=== PATIENT | female | born 1940 | race Caucasian/White ===

== ENCOUNTER 2018-03-24 21:22 | Emergency (ER) | payer OTHER ==
[2018-03-24 22:01] LABS: Urine Blood 2+ (NEG); Urine Glucose NEGATIVE (NEG); Urine Protein NEGATIVE (NEG)
--- NOTE | 2018-03-24 22:06 | ER ---
Nurse's Notes [facility] Name: Yareli Beckham Age: 77 yrs Sex: Female : 1940 Arrival Date: 03/24/2018 Time: 21:24 Bed 25 Private MD: Lee Garrison Diagnosis: Acute cystitis Presentation: 03/24 21:40 Presenting complaint: Patient states: Dysuria, urinary frequency for the past 4 hours. aj1 Denies fever. Reports groin pain. Transition of care: patient was not received from another setting of care. Onset of symptoms was March 24, 2018 at 17:30. Risk Assessment: Do you want to hurt yourself or someone else? Patient reports no desire to harm self or others. Initial Sepsis Screen: Does the patient meet any 2 criteria? No. Patient's initial sepsis screen is negative. Does the patient have a suspected source of infection? Yes: Dysuria/Frequency/Urgency/UTI. Care prior to arrival: None. 21:40 Method Of Arrival: Ambulatory aj1 21:40 Acuity: ANA 4 aj1 Triage Assessment: 21:42 General: Appears in no apparent distress. uncomfortable, Behavior is calm, cooperative, aj1 appropriate for age. Pain: Complains of pain in pelvis Pain currently is 3 out of 10 on a pain scale. Neuro: Level of Consciousness is awake, alert, obeys commands. Cardiovascular: Patient's skin is warm and dry. Respiratory: Airway is patent Respiratory effort is even, unlabored, Respiratory pattern is regular, symmetrical. : Reports burning with urination, urinary frequency. Historical: - Allergies: 21:42 Augmentin; aj1 - Home Meds: 21:42 levothyroxine oral [Active]; Prilosec Oral [Active]; unknown cholesterol [Active]; aj1 - PMHx: 21:42 Hyperlipidemia; Hypothyroidism; aj1 - Immunization history:: Flu vaccine is up to date. - Social history:: Smoking status: Patient/guardian denies using tobacco. - Ebola Screening: : Patient denies travel to an Ebola-affected area in the 21 days before illness onset. Screenin:45 Abuse screen: Denies threats or abuse. Denies injuries from another. Nutritional kr2 screening: No deficits noted. Tuberculosis screening: No symptoms or risk factors identified. Fall Risk None identified. Assessment: 21:56 General: Appears in no apparent distress. comfortable, well groomed, well developed, kr2 well nourished, Behavior is calm, cooperative, appropriate for age. Pain: Complains of pain in pelvis Pain currently is 4 out of 10 on a pain scale. Quality of pain is described as burning, tender, Is continuous. Neuro: Level of Consciousness is awake, alert, obeys commands, Oriented to person, place, time, situation, Appropriate for age. Cardiovascular: Capillary refill < 3 seconds in bilateral fingers Patient's skin is warm and dry. Respiratory: Airway is patent Respiratory effort is even, unlabored, Respiratory pattern is regular, symmetrical. : Reports burning with urination, urinary frequency. : Urine is cloudy, foul odor. Derm: Skin is intact, is healthy with good turgor, Skin is pink, warm \T\ dry. Vital Signs: 21:42 BP 153 / 68; Pulse 79; Resp 18; Temp 98.0(TE); Pulse Ox 97% on R/A; Weight 62.14 kg aj1 (R); Height 5 ft. 0 in. (152.40 cm) (R); Pain 3/10; 21:42 Body Mass Index 26.76 (62.14 kg, 152.40 cm) aj1 ED Course: 21:24 Patient arrived in ED. es 21:24 Lee Garrison MD is Private Physician. es 21:41 Triage completed. aj1 21:42 Arm band placed on Patient placed in an exam room. aj1 21:44 Alecia Proctor, RN is Primary Nurse. kr2 21:45 Patient has correct armband on for positive identification. Bed in low position. Call kr2 light in reach. Side rails up X 1. Pulse ox on. NIBP on. Door closed. Head of bed elevated. 21:58 Sumeet Leroy MD is Attending Physician. ps1 22:00 Urine collected: clean catch specimen, cloudy, foul smelling. kr2 22:06 Lee Garrison MD is Referral Physician. ps1 22:11 No provider procedures requiring assistance completed. Patient did not have IV access kr2 during this emergency room visit. Administered Medications: 22:05 Drug: Pyridium 200 mg Route: PO; kr2 22:11 Follow up: Response: Medication administered at discharge. kr2 22:05 Drug: KeFLEX 500 mg Route: PO; kr2 22:11 Follow up: Response: Medication administered at discharge. kr2 Outcome: 22:06 Discharge ordered by . ps1 22:11 Discharged to home ambulatory, with family. kr2 22:11 Condition: good 22:11 Discharge instructions given to patient, family, Instructed on discharge instructions, follow up and referral plans. medication usage, Demonstrated understanding of instructions, follow-up care, medications, Prescriptions given X 2. 22:12 Patient left the ED. kr2 Signatures: Clair Sherwood, RN RN aj1 Brit Whipple Karey, RN RN kr2 Sumeet Leroy MD MD ps1
--- NOTE | 2018-03-24 22:06 | EDPHYS ---
Physician Documentation [facility] Name: Yareli Beckham Age: 77 yrs Sex: Female : 1940 Arrival Date: 03/24/2018 Time: 21:24 Bed 25 Private MD: Lee Garrison ED Physician Sumeet Leroy HPI: 03/24 22:04 This 77 yrs old Female presents to ER via Ambulatory with complaints of Pain ps1 With Urination. 22:04 onset was two days ago. Pain rated as moderate with urination. Hx of UTI in past. No ps1 fever. Otherwise USOH. . Historical: - Allergies: 21:42 Augmentin; aj1 - Home Meds: 21:42 levothyroxine oral [Active]; Prilosec Oral [Active]; unknown cholesterol [Active]; aj1 - PMHx: 21:42 Hyperlipidemia; Hypothyroidism; aj1 - Immunization history:: Flu vaccine is up to date. - Social history:: Smoking status: Patient/guardian denies using tobacco. - Ebola Screening: : Patient denies travel to an Ebola-affected area in the 21 days before illness onset. ROS: 22:04 Constitutional: Negative for fever, chills, and weight loss, Eyes: Negative for injury, ps1 pain, redness, and discharge, Cardiovascular: Negative for chest pain, palpitations, and edema, Respiratory: Negative for shortness of breath, cough, wheezing, and pleuritic chest pain, Abdomen/GI: Negative for abdominal pain, nausea, vomiting, diarrhea, and constipation, MS/Extremity: Negative for injury and deformity, Skin: Negative for injury, rash, and discoloration. 22:04 : Positive for urinary symptoms, burning with urination. Exam: 22:04 Constitutional: This is a well developed, well nourished patient who is awake, alert, ps1 and in no acute distress. Head/Face: Normocephalic, atraumatic. Eyes: Pupils equal round and reactive to light, extra-ocular motions intact. Lids and lashes normal. Conjunctiva and sclera are non-icteric and not injected. Chest/axilla: Normal chest wall appearance and motion. Nontender with no deformity. No lesions are appreciated. Cardiovascular: Regular rate and rhythm. No gallops, murmurs, or rubs. Normal PMI, no JVD. No pulse deficits. Respiratory: Lungs have equal breath sounds bilaterally, clear to auscultation and percussion. No rales, rhonchi or wheezes noted. No increased work of breathing, no retractions or nasal flaring. Abdomen/GI: Soft, non-tender, with normal bowel sounds. No distension or tympany. No guarding or rebound. No evidence of tenderness throughout. Skin: Warm, dry with normal turgor. Normal color with no rashes, no lesions, and no evidence of cellulitis. Neuro: Awake and alert, GCS 15, oriented to person, place, time, and situation. Cranial nerves II-XII grossly intact. Sensory grossly intact. Psych: Awake, alert, with orientation to person, place and time. Behavior, mood, and affect are within normal limits. Vital Signs: 21:42 BP 153 / 68; Pulse 79; Resp 18; Temp 98.0(TE); Pulse Ox 97% on R/A; Weight 62.14 kg aj1 (R); Height 5 ft. 0 in. (152.40 cm) (R); Pain 3/10; 21:42 Body Mass Index 26.76 (62.14 kg, 152.40 cm) aj1 MDM: 22:04 Data reviewed: vital signs, nurses notes, lab test result(s), and as a result, I will ps1 discharge patient, administer antibiotics. Counseling: I had a detailed discussion with the patient and/or guardian regarding: the historical points, exam findings, and any diagnostic results supporting the discharge/admit diagnosis, the need for outpatient follow up. 22:06 Patient medically screened. ps1 03/24 21:55 Order name: Urine Microscopic Only mg2 03/24 21:56 Order name: Urine Dipstick--Ancillary (enter results); Complete Time: 22:08 rg2 03/24 21:56 Order name: Urine Culture rg2 Administered Medications: 22:05 Drug: Pyridium 200 mg Route: PO; kr2 22:11 Follow up: Response: Medication administered at discharge. kr2 22:05 Drug: KeFLEX 500 mg Route: PO; kr2 22:11 Follow up: Response: Medication administered at discharge. kr2 Disposition: 03/24/18 22:06 Discharged to Home. Impression: Acute cystitis. - Condition is Stable. - Discharge Instructions: Urinary Tract Infection, Adult. - Prescriptions for Keflex 500 mg Oral Capsule - take 1 capsule by ORAL route every 8 hours for 7 days; 21 capsule. Pyridium 200 mg Oral Tablet - take 1 tablet by ORAL route every 8 hours for 3 days; 9 tablet. - Medication Reconciliation Form, Thank You Letter, Antibiotic Education, Prescription Opioid Use form. - Follow up: Lee Garrison MD; When: As needed; Reason: Recheck today's complaints, Continuance of care, Re-evaluation by your physician. Follow up: Emergency Department; When: As needed; Reason: Fever > 102 F. - Problem is new. - Symptoms are unchanged. Signatures: Dispatcher [employer] EDMS Clair Sherwood RN RN aj1 Alecai Proctor RN RN kr2 Sumeet Leroy MD MD ps1 Corrections: (The following items were deleted from the chart) 22:12 22:06 03/24/2018 22:06 Discharged to Home. Impression: Acute cystitis. Condition is kr2 Stable. Forms are Medication Reconciliation Form, Thank You Letter, Antibiotic Education, Prescription Opioid Use. Follow up: Lee Garrison; When: As needed; Reason: Recheck today's complaints, Continuance of care, Re-evaluation by your physician. Follow up: Emergency Department; When: As needed; Reason: Fever > 102 F. Problem is new. Symptoms are unchanged. ps1
[2018-03-24] MEDS ORDERED: CEPHALEXIN 250 MG CAP ONE (22:09)
[2018-03-24] MEDS ORDERED: PHENAZOPYRIDINE 100MG TAB PO ONE (22:09)
[2018-03-24 22:17] VITALS: BP 153/68; TEMP 98; O2SAT 97
[2018-03-24 22:21] LABS: Urine Bacteria >50 /HPF (<20); Urine Culture Reflex Order REFLEXED
== END 2018-03-24 22:12 | disposition home or self-care (01) ==
LOC: ER 21:22
DX: N30.00 Acute cystitis without hematuria (principal); E03.9 Hypothyroidism, unspecified; E78.5 Hyperlipidemia, unspecified; Z88.1 Allergy status to other antibiotic agents
CPT/HCPCS: 81003; 81015; 87077; 87086; 87088; 87186; 99284

== ENCOUNTER 2018-04-01 03:25 | Emergency (ER) | payer OTHER ==
--- NOTE | 2018-04-01 04:13 | ER ---
Nurse's Notes [facility] Name: Yareli Beckham Age: 77 yrs Sex: Female : 1940 Arrival Date: 04/01/2018 Time: 03:26 Bed 5 Private MD: Diagnosis: Allergy status to other drugs, medicaments and biological substances status Presentation: 04/01 03:35 Presenting complaint: Patient states: she is having an allergic reaction starting at bb approx 1930 last night she took Benadryl twice the last time at 0230 pt has rash on abdomen, back, legs which is itchy. Transition of care: patient was not received from another setting of care. Onset: The symptoms/episode began/occurred gradually. Anaphylaxis evaluation, no signs or symptoms of anaphylaxis were noted. Onset of symptoms was March 31, 2018 at 19:30. Risk Assessment: Do you want to hurt yourself or someone else? Patient reports no desire to harm self or others. Initial Sepsis Screen: Does the patient meet any 2 criteria? No. Patient's initial sepsis screen is negative. Does the patient have a suspected source of infection? No. Patient's initial sepsis screen is negative. Care prior to arrival: None. 03:35 Method Of Arrival: Ambulatory bb 03:35 Acuity: ANA 4 bb Historical: - Allergies: 03:41 Augmentin; bb 03:41 Pollen; bb - Home Meds: 03:41 levothyroxine 75 mcg oral tab 1 tab once daily [Active]; Ranitidine Oral 2 times per bb day [Active]; misalamin 1.2 gm 2 tablets daily [Active]; Potassium Chloride Oral once daily [Active]; Ocuvite oral oral [Active]; Vitamin D3 oral oral [Active]; Acidophilus Oral [Active]; - PMHx: 03:41 Hyperlipidemia; Hypothyroidism; bb - PSHx: 03:41 Tonsillectomy; heel surgery; bb - Immunization history:: Adult Immunizations up to date. - Social history:: Smoking status: Patient/guardian denies using tobacco, Patient uses alcohol, but reports only rare drinking. Patient/guardian denies using street drugs. - Ebola Screening: : No symptoms or risks identified at this time. - Family history:: not pertinent. Screenin:33 Abuse screen: Denies threats or abuse. Nutritional screening: No deficits noted. tl2 Tuberculosis screening: No symptoms or risk factors identified. Fall Risk None identified. Assessment: 03:33 General: Appears in no apparent distress. uncomfortable, Behavior is calm, cooperative, tl2 appropriate for age. Pain: Denies pain. Neuro: Level of Consciousness is awake, alert, obeys commands, Oriented to person, place, time, situation. Cardiovascular: Denies chest pain. Respiratory: Airway is patent Respiratory effort is even, unlabored. GI: No signs and/or symptoms were reported involving the gastrointestinal system. : No signs and/or symptoms were reported regarding the genitourinary system. Derm: Skin is pink, warm \T\ dry. Rash noted that is itchy, red, raised, urticaria, on back, abdomen, right leg and left leg. 04:29 Reassessment: Patient appears in no apparent distress at this time. Patient and/or tl2 family updated on plan of care and expected duration. Pain level reassessed. Patient is alert, oriented x 3, equal unlabored respirations, skin warm/dry/pink. Pt verbalized understanding of discharge instructions, need for follow up and prescription usage. Vital Signs: 03:41 BP 159 / 64; Pulse 65; Resp 16 S; Temp 98.1(O); Pulse Ox 95% on R/A; Weight 61.69 kg bb (R); Height 5 ft. 0 in. (152.40 cm) (R); Pain 0/10; 04:29 BP 140 / 68; Pulse 67; Resp 18; Pulse Ox 96% on R/A; tl2 03:41 Body Mass Index 26.56 (61.69 kg, 152.40 cm) ED Course: 03:26 Patient arrived in ED. ds1 03:33 Carmina Wynn, RN is Primary Nurse. tl2 03:33 Patient has correct armband on for positive identification. Bed in low position. Call tl2 light in reach. Side rails up X 1. Adult w/ patient. 03:37 Triage completed. bb 03:41 Arm band placed on Patient placed in an exam room, on a stretcher, on pulse oximetry. bb Family accompanied patient. 03:49 Aravind Connor MD is Attending Physician. [facility] 04:29 No provider procedures requiring assistance completed. Patient did not have IV access tl2 during this emergency room visit. Administered Medications: 04:22 Drug: Pepcid 40 mg Route: PO; tl2 04:31 Follow up: Response: No adverse reaction; Medication administered at discharge. tl2 04:22 Drug: Benadryl 25 mg Route: PO; tl2 04:31 Follow up: Response: No adverse reaction; Medication administered at discharge. tl2 04:22 Drug: predniSONE 40 mg Route: PO; tl2 04:31 Follow up: Response: No adverse reaction; Medication administered at discharge. tl2 Outcome: 04:12 Discharge ordered by MD. welch 04:29 Discharged to home ambulatory, with family. tl2 04:29 Condition: stable 04:29 Discharge instructions given to patient, family, Instructed on discharge instructions, follow up and referral plans. medication usage, Demonstrated understanding of instructions, follow-up care, medications, Prescriptions given X 3. 04:31 Patient left the ED. tl2 Signatures: Aravind Connor MD MD cha Sanford, Demi ds1 Shahana Rosales RN RN bb Carmina Wynn RN RN tl2
--- NOTE | 2018-04-01 04:13 | EDPHYS ---
Physician Documentation [facility] Name: Yareli Beckham Age: 77 yrs Sex: Female : 1940 Arrival Date: 04/01/2018 Time: 03:26 Bed 5 Private MD: ED Physician Aravind Connor HPI: 04/01 04:07 This 77 yrs old Female presents to ER via Ambulatory with complaints of yuri Allergic Reaction. 04:07 The patient presents with rash, that is diffuse. Onset: The symptoms/episode yuri began/occurred 2 day(s) ago. Associated signs and symptoms: The patient has no apparent associated signs or symptoms. Possible causes: antibiotics, cephalosporin. At home the patient or guardian has treated the symptoms with nothing. Severity of symptoms: At their worst the symptoms were mild in the emergency department the symptoms are unchanged. The patient has not experienced similar symptoms in the past. Historical: - Allergies: 03:41 Augmentin; bb 03:41 Pollen; bb - Home Meds: 03:41 levothyroxine 75 mcg oral tab 1 tab once daily [Active]; Ranitidine Oral 2 times per bb day [Active]; misalamin 1.2 gm 2 tablets daily [Active]; Potassium Chloride Oral once daily [Active]; Ocuvite oral oral [Active]; Vitamin D3 oral oral [Active]; Acidophilus Oral [Active]; - PMHx: 03:41 Hyperlipidemia; Hypothyroidism; bb - PSHx: 03:41 Tonsillectomy; heel surgery; bb - Immunization history:: Adult Immunizations up to date. - Social history:: Smoking status: Patient/guardian denies using tobacco, Patient uses alcohol, but reports only rare drinking. Patient/guardian denies using street drugs. - Ebola Screening: : No symptoms or risks identified at this time. - Family history:: not pertinent. ROS: 04:07 Constitutional: Negative for fever, chills, and weight loss, Eyes: Negative for injury, yuri pain, redness, and discharge, ENT: Negative for injury, pain, and discharge, Neck: Negative for injury, pain, and swelling, Cardiovascular: Negative for chest pain, palpitations, and edema, Respiratory: Negative for shortness of breath, cough, wheezing, and pleuritic chest pain, Abdomen/GI: Negative for abdominal pain, nausea, vomiting, diarrhea, and constipation, Back: Negative for injury and pain, : Negative for injury, bleeding, discharge, and swelling, MS/Extremity: Negative for injury and deformity, Neuro: Negative for headache, weakness, numbness, tingling, and seizure, Psych: Negative for depression, anxiety, suicide ideation, homicidal ideation, and hallucinations, Allergy/Immunology: Negative for hives, rash, and allergies, Endocrine: Negative for neck swelling, polydipsia, polyuria, polyphagia, and marked weight changes, Hematologic/Lymphatic: Negative for swollen nodes, abnormal bleeding, and unusual bruising. 04:07 Skin: Positive for rash, diffusely. Exam: 04:07 Constitutional: This is a well developed, well nourished patient who is awake, alert, yuri and in no acute distress. Head/Face: Normocephalic, atraumatic. Eyes: Pupils equal round and reactive to light, extra-ocular motions intact. Lids and lashes normal. Conjunctiva and sclera are non-icteric and not injected. Cornea within normal limits. Periorbital areas with no swelling, redness, or edema. ENT: Nares patent. No nasal discharge, no septal abnormalities noted. Tympanic membranes are normal and external auditory canals are clear. Oropharynx with no redness, swelling, or masses, exudates, or evidence of obstruction, uvula midline. Mucous membranes moist. Neck: Trachea midline, no thyromegaly or masses palpated, and no cervical lymphadenopathy. Supple, full range of motion without nuchal rigidity, or vertebral point tenderness. No Meningismus. Chest/axilla: Normal chest wall appearance and motion. Nontender with no deformity. No lesions are appreciated. Cardiovascular: Regular rate and rhythm with a normal S1 and S2. No gallops, murmurs, or rubs. Normal PMI, no JVD. No pulse deficits. Respiratory: Lungs have equal breath sounds bilaterally, clear to auscultation and percussion. No rales, rhonchi or wheezes noted. No increased work of breathing, no retractions or nasal flaring. Abdomen/GI: Soft, non-tender, with normal bowel sounds. No distension or tympany. No guarding or rebound. No evidence of tenderness throughout. Back: No spinal tenderness. No costovertebral tenderness. Full range of motion. MS/ Extremity: Pulses equal, no cyanosis. Neurovascular intact. Full, normal range of motion. Neuro: Awake and alert, GCS 15, oriented to person, place, time, and situation. Cranial nerves II-XII grossly intact. Motor strength 5/5 in all extremities. Sensory grossly intact. Cerebellar exam normal. Normal gait. Psych: Awake, alert, with orientation to person, place and time. Behavior, mood, and affect are within normal limits. 04:07 Skin: rash can be described as erythematous, nonspecific. Vital Signs: 03:41 BP 159 / 64; Pulse 65; Resp 16 S; Temp 98.1(O); Pulse Ox 95% on R/A; Weight 61.69 kg bb (R); Height 5 ft. 0 in. (152.40 cm) (R); Pain 0/10; 04:29 BP 140 / 68; Pulse 67; Resp 18; Pulse Ox 96% on R/A; tl2 03:41 Body Mass Index 26.56 (61.69 kg, 152.40 cm) bb MDM: 03:49 Patient medically screened. yuri Administered Medications: 04:22 Drug: Pepcid 40 mg Route: PO; tl2 04:31 Follow up: Response: No adverse reaction; Medication administered at discharge. tl2 04:22 Drug: Benadryl 25 mg Route: PO; tl2 04:31 Follow up: Response: No adverse reaction; Medication administered at discharge. tl2 04:22 Drug: predniSONE 40 mg Route: PO; tl2 04:31 Follow up: Response: No adverse reaction; Medication administered at discharge. tl2 Disposition: 04/01/18 04:12 Discharged to Home. Impression: Allergy status to other drugs, medicaments and biological substances status. - Condition is Stable. - Discharge Instructions: Allergies, Adult, Allergies, [id number]. - Prescriptions for Benadryl 25 mg Oral Capsule - take 1 capsule by ORAL route every 6 hours As needed; 30 tablet. Pepcid 20 mg Oral Tablet - take 1 tablet by ORAL route every 12 hours for 10 days; 20 tablet. Prednisone 20 mg Oral Tablet - take 2 tablet by ORAL route once daily for 5 days; 10 tablet. - Medication Reconciliation Form, Thank You Letter, Antibiotic Education, Prescription Opioid Use form. - Follow up: Private Physician; When: 2 - 3 days; Reason: Recheck today's complaints, Continuance of care, Re-evaluation by your physician. - Problem is new. - Symptoms have improved. Signatures: Aravind Connor MD MD cha Ballard, Brenda, RN RN Carmina Temple, RN RN tl2 Corrections: (The following items were deleted from the chart) 04:31 04:12 04/01/2018 04:12 Discharged to Home. Impression: Allergy status to other drugs, tl2 medicaments and biological substances status. Condition is Stable. Forms are Medication Reconciliation Form, Thank You Letter, Antibiotic Education, Prescription Opioid Use. Follow up: Private Physician; When: 2 - 3 days; Reason: Recheck today's complaints, Continuance of care, Re-evaluation by your physician. Problem is new. Symptoms have improved. yuri
[2018-04-01] MEDS ORDERED: FAMOTIDINE 20 MG TAB ONE (04:19)
[2018-04-01] MEDS ORDERED: predniSONE 20 MG TAB ONE (04:19)
[2018-04-01] MEDS ORDERED: DIPHENHYDRAMINE 25 MG TAB/CAP ONE (04:19)
[2018-04-01 04:42] VITALS: BP 140/68; O2SAT 96
[2018-04-01 04:43] VITALS: TEMP 98.1
== END 2018-04-01 04:31 | disposition home or self-care (01) ==
LOC: ER 03:25
DX: R21 Rash and other nonspecific skin eruption (principal); Z88.8 Allergy status to other drugs, medicaments and biological substances; I10 Essential (primary) hypertension; E03.9 Hypothyroidism, unspecified; Z88.1 Allergy status to other antibiotic agents; Z91.048 Other nonmedicinal substance allergy status
CPT/HCPCS: 99283; J7512

== ENCOUNTER → 2019-02-07 | Day surgery (SDC) | payer OTHER ==
--- NOTE | 2019-02-07 11:34 | RAD REPORT ---
EXAM DESCRIPTION: US - BREAST/AXILLA, LIMITED - 02/07/2019 10:27 am CLINICAL HISTORY: Suspicious right breast mass pending biopsy COMPARISON: Sonography and mammography February 05, 2019 FINDINGS: Patient presented for ultrasound-guided core biopsy of a 10 mm hypoechoic mass in the lowe r outer quadrant right breast. Preliminary imaging again identified the mass measuring 10 mm in the lower outer quadrant right breas t. Posterior acoustic shadowing was present. The mass abutted the chest wall. Based on the positionin g and amount of breast tissue, it was not felt that the mass could be safely biopsied with the core b iopsy needle without placing the patient at risk for pectoralis muscle or chest wall injury. IMPRESSION: A 10 millimeter lower outer quadrant right breast mass was seen but was too closely appr oximated to the chest wall to allow safe ultrasound-guided core biopsy. Recommendation for the patient would be to undergo surgical excisional biopsy of the suspicious mass. Ultrasound-guided needle localization can be safely performed. Today's findings and recommendations were discussed at length with the patient. Patient was agreeable to this plan.
== END ==
LOC: DS 09:05
PROVIDERS: ATTEND Family Medicine
DX: N63.0 Unspecified lump in unspecified breast (principal)
CPT/HCPCS: 76642

== ENCOUNTER 2019-04-11 08:09 | Day surgery (SDC) | payer OTHER ==
[2019-04-10 11:33] LABS: Basophils % 0.3 % (0-1.3); Hematocrit 38.8 % (36.0-45.0); Lymphocytes % 30.3 % (15.3-44.8); MPV 9.3 fL (7.6-11.3); RBC Red Blood Cell Count 4.01 M/uL (3.86-4.86)
--- NOTE | 2019-04-10 11:48 | RAD REPORT ---
EXAM DESCRIPTION: RAD - Chest Pa And Lat (2 Views) - 04/10/2019 11:42 am CLINICAL HISTORY: preop Chest pain. COMPARISON: CHEST SINGLE VIEW dated 01/14/2014; CHEST SINGLE VIEW dated 11/26/2012; CHEST PA AND LAT 2 VIEW dated 07/06/2010; CHEST PA AND LAT 2 VIEW dated 05/04/2010 FINDINGS: The lungs are clear. The heart is normal in size. No displaced fractures. IMPRESSION: No acute or concerning finding suspected.
[2019-04-10 11:51] LABS: Potassium 4.1 mmol/L (3.5-5.1)
[2019-04-11] MEDS ORDERED: Ringers Lactate 1,000 ML IV ONE (08:15)
[2019-04-11] MEDS ORDERED: FENTANYL CITR 100 MCG/2 ML ONE (08:54)
[2019-04-11] MEDS ORDERED: LIDOCAINE 2% MPF 5 ML VIAL ONE (08:54)
[2019-04-11] MEDS ORDERED: PROPOFOL 200 MG/20 ML VIAL IV ONE (08:54)
[2019-04-11] MEDS ORDERED: ONDANSETRON 4 MG/2 ML VIAL ONE (08:56)
[2019-04-11] MEDS: CIPROFLOXACIN 400mg IV 400 MG/200 ML BAG IV ONE ×2 (09:40→09:45)
--- NOTE | 2019-04-11 10:20 | P.BOP ---
Preoperative diagnosis: right breast mass Postoperative diagnosis: same Primary procedure: Right breast lumpectomy needle localized Kiln Setter: Cuca Nelson (Dylan) Estimated blood loss: <10cc Specimen: mass Findings: mass within the specimen by taniya Asencio intact Anesthesia: General Complications: None Transferred to: Recovery Room Condition: Good
--- NOTE | 2019-04-11 10:32 | RAD REPORT ---
EXAM DESCRIPTION: US - Brst,Preop NL Wire Init w/Guid - 04/11/2019 9:20 am CLINICAL HISTORY: NL Right breast mass, preoperative wire localization for surgical excision COMPARISON: BREAST/AXILLA, LIMITED dated 02/07/2019 FINDINGS: Preoperative diagnosis: Right breast mass. Post operative diagnosis: Same. Conscious Sedation: None Fluoroscopy time: None Contrast used: None Estimated blood loss: Minimal Specimens:Specimen ultrasound shows the mass to be within the surgical specimen. The right breast was prepped and draped in the usual sterile fashion. 1% lidocaine was infiltrated in to the subcutaneous tissues for local anesthesia. Real time ultrasound scanning of the deep right marvin ast demonstrated 1 cm hypoechoic mass. Under ultrasound guidance, using a [employer] preoperative wire loca lization device, wire localization was performed of the mass. There were no complications. Patient wa s transferred to the operating room for surgery. Details were discussed Dr. Buckner. Surgical specim en was submitted to ultrasound following excision which showed a mass within the specimen. IMPRESSION: Successful ultrasound-guided right breast mass wire localization for surgical excision.
--- NOTE | 2019-04-11 10:43 | RAD REPORT ---
EXAM DESCRIPTION: US - Surgical Specimen - 04/11/2019 10:23 am CLINICAL HISTORY: NEEDLE LOC COMPARISON: Brst,Preop NL Wire Init w/Guid dated 04/11/2019 FINDINGS: Preoperative diagnosis: Right breast mass . Post operative diagnosis: Same. Conscious Sedation: None Fluoroscopy time: None Contrast used: None Estimated blood loss: Minimal Specimens: Specimen ultrasound shows the mass to be within the surgical specimen. The right breast was prepped and draped in the usual sterile fashion. 1% lidocaine was infiltrated in to the subcutaneous tissues for local anesthesia. Real time ultrasound scanning of the deep right marvin ast demonstrated 1 cm hypoechoic mass . Under ultrasound guidance, using a [employer] preoperative wire loc alization device, wire localization was performed of the mass. There were no complications. Patient w as transferred to the operating room for surgery. Details were discussed Dr. Buckner. Surgical speci men was submitted to ultrasound following excision which showed a mass within the specimen. IMPRESSION: Successful ultrasound-guided right breast mass wire localization for surgical excision.
[2019-04-11 10:57] VITALS: O2SAT 100
[2019-04-11 11:32] VITALS: BP 143/57; TEMP 97.3
[2019-04-11] MEDS ORDERED: CODEINE 30MG/APAP 300MG TAB ONE (11:43)
--- NOTE | 2019-04-11 21:11 | OP ---
Date of Procedure: 04/11/2019 Surgeon: Morteza Buckner MD Event Coordinator Marketing And Sales: Cuca Monk. Preoperative Diagnosis: Right breast mass. Postoperative Diagnosis: Right breast mass. Procedures: Right breast lumpectomy, needle localized through Dr. Buckner. Specimens: Deep mass. Findings: A mass within the specimen by Dr. Piña, wire intact. Anesthesia: General. Complications: None. Indications: This is a case of an 78-year-old patient with right breast mass deep in the breast. Th ey could not do the core biopsy as per radiologist today and it is for them to do, so they asked me t o remove that surgically. This morning she went to Radiology Department to have localization with wi re of the area. The benefits and risks of right breast lumpectomy were fully explained to the patien t, which include, but are not limited to infection, bleeding, damage to adjacent structures, anesthes ia complication, TN, and even . She also understands this may not relieve any symptoms. She mi ght need more than one surgical intervention. She understood, signed a consent. Patient had a wire localization this morning brought from there to here without any torsion of the wire to make sure it was in the sludge. Description Of Procedure: Patient was brought to the operating room, placed in supine position. Ane sthesia was done without complication. Breast was prepped and draped in a sterile fashion. Marcaine 0.5% was injected for local anesthetic. Incision was made on the breast after timing out. Once inc ision was in the subcutaneous tissue, we put an Allis to secure the breast tissue to the wire. Then we proceeded to remove the area. This mass was deep, so we went all the way down to fascia of the mu scle. Fascia does not seem to be involved. Area was irrigated. Mass was completely excised and sen t to the radiologist who confirmed the lesion within the specimen and intact wire. Area was irrigate d. Hemostasis was obtained and the area was closed with 3-0 chromic and then 4-0 PDS. Sponge count and instrument counts were correct. Patient tolerated the procedure well. Patient was sent to [facility] in stable condition. Disposition: Home. Activity: As tolerated. No heavy lifting. Followup: Follow up in my office in 1 week, call for appointment on [phone]. Keep the area dry for 48 hours, then may shower. Keep Steri-Strips intact. Medications: See orders. Patient advised to use breast support. HAILE/SURINDER Voice ID: [id number] Report ID: [id number]
== END 2019-04-11 12:14 | disposition home or self-care (01) ==
LOC: OR 08:09
PROVIDERS: ATTEND Surgery
PROC: 0HBT0ZZ Excision of Right Breast, Open Approach (ICD-10-PCS; principal; 2019-04-11 10:15)
DX: C50.511 Malignant neoplasm of lower-outer quadrant of right female breast (principal); E07.9 Disorder of thyroid, unspecified; Z17.1 Estrogen receptor negative status [ER-]; K21.9 Gastro-esophageal reflux disease without esophagitis; Z88.0 Allergy status to penicillin; Z82.49 Family history of ischemic heart disease and other diseases of the circulatory system
CPT/HCPCS: 19301; 85025; 80048; 36415; 88307; 71046; 76098; 19285; J2704; J3010; J7120; J2405; J0744

== ENCOUNTER 2019-10-27 18:19 | Emergency (ER) | payer OTHER ==
[2019-10-27 19:14] LABS: Absolute Lymphocytes (CBC) 1.7 K/uL (0.7-4.9); Basophils % 1.2 % (0-1.3); Hematocrit 29.9 % (36.0-45.0); Lymphocytes % 21.3 % (15.3-44.8); MPV 8.6 fL (7.6-11.3); RBC Red Blood Cell Count 2.99 M/uL (3.86-4.86)
[2019-10-27 19:33] LABS: Albumin 3.1 g/dL (3.4-5.0); Bilirubin Total 0.3 mg/dL (0.2-1.0); Potassium 3.6 mmol/L (3.5-5.1); Protein, Total 6.8 g/dL (6.4-8.2)
--- NOTE | 2019-10-27 19:35 | ER ---
Nurse's Notes [facility] Name: Yareli Beckham Age: 78 yrs Sex: Female : 1940 Arrival Date: 10/27/2019 Time: 18:21 Bed 15 Private MD: Lee Garrison Diagnosis: Epistaxis;Fever, unspecified;Acute sinusitis;Anemia, unspecified Presentation: 10/26 18:39 Chief complaint: Patient states: Nasal congestion for 4 weeks. Uses saline, but mucous ll1 is slightly bloody now. Can't get her usual allergy shot due to chemo treatments. Coronavirus screen: Proceed with normal triage. Patient denies a cough. Patient denies shortness of breath or difficulty breathing. Patient denies measured and/or subjective temperature greater than 100.4F prior to today's visit. Patient denies travel on a cruise ship or to a country the [facility] currently lists as an affected area. Patient denies contact with known and/or suspected case of COVID-19. Ebola Screen: Patient denies travel to an Ebola-affected area in the 21 days before illness onset. Initial Sepsis Screen: Does the patient meet any 2 criteria? HR > 90 bpm. No. Patient's initial sepsis screen is negative. Does the patient have a suspected source of infection? No. Patient's initial sepsis screen is negative. Risk Assessment: Do you want to hurt yourself or someone else? Patient reports no desire to harm self or others. Onset of symptoms was September 26, 2019. 18:39 Method Of Arrival: Ambulatory ll1 18:39 Acuity: ANA 3 ll1 Triage Assessment: 18:45 General: Appears in no apparent distress. comfortable, Behavior is calm, cooperative, vc appropriate for age. Pain: Denies pain. EENT: Nares with bleeding noted Reports nasal congestion nose bleed. Neuro: Level of Consciousness is awake, alert, obeys commands, Oriented to person, place, time, situation, Appropriate for age. Cardiovascular: Capillary refill < 3 seconds Patient's skin is warm and dry. Respiratory: Airway is patent Respiratory effort is even, unlabored, Respiratory pattern is regular, symmetrical. GI: No signs and/or symptoms were reported involving the gastrointestinal system. : No signs and/or symptoms were reported regarding the genitourinary system. Derm: Skin is intact, Skin temperature is warm. Historical: - Allergies: 18:42 Augmentin; ll1 18:42 Pollen; ll1 18:42 PENICILLINS; ll1 - PMHx: 18:42 Hyperlipidemia; Hypothyroidism; breast CA; ll1 - PSHx: 18:42 Tonsillectomy; ll1 - Immunization history:: Adult Immunizations up to date. - Social history:: Patient/guardian denies using alcohol, street drugs, tobacco products, Smoking status: Patient denies any tobacco usage or history of. - Family history:: not pertinent. Screenin:45 Abuse screen: Denies threats or abuse. Nutritional screening: No deficits noted. vc Tuberculosis screening: No symptoms or risk factors identified. Fall Risk None identified. Assessment: 18:45 Reassessment: See triage for assessment. vc 19:45 Reassessment: Patient appears in no apparent distress at this time. Patient and/or vc family updated on plan of care and expected duration. Pain level reassessed. Patient states symptoms have improved. 20:45 Reassessment: Patient appears in no apparent distress at this time. Patient and/or vc family updated on plan of care and expected duration. Pain level reassessed. Patient states symptoms have improved. 20:45 Neuro: Level of Consciousness is awake, alert, obeys commands, Oriented to person, vc place, time, situation. Vital Signs: 18:39 BP 133 / 61; Pulse 102; Resp 17; Temp 99.4; Pulse Ox 99% ; Pain 0/10; ll1 19:45 BP 128 / 54; Pulse 95; Resp 18; Pulse Ox 100% on R/A; vc 20:45 BP 122 / 50; Pulse 87; Resp 18; Temp 98.9(O); Pulse Ox 100% on R/A; vc ED Course: 18:21 Patient arrived in ED. am2 18:21 Lee Garrison MD is Private Physician. am2 18:33 Aravind Connor MD is Attending Physician. yuri 18:41 Triage completed. ll1 18:42 Arm band placed on Patient placed in an exam room, on a stretcher. ll1 18:56 Kirstie Velasquez, SHIRLEY is Primary Nurse. vc 19:35 Lee Garrison MD is Referral Physician. yuri 19:35 Susie Leonardo MD is Referral Physician. yuri 20:19 Chest Single View XRAY In Process Unspecified. EDMS 21:10 No provider procedures requiring assistance completed. IV discontinued, intact, vc bleeding controlled, No redness/swelling at site. Pressure dressing applied. 21:45 Patient has correct armband on for positive identification. Bed in low position. Call vc light in reach. Side rails up X2. Pulse ox on. NIBP on. Administered Medications: 19:35 Drug: NS 0.9% 500 ml Route: IV; Rate: bolus; Site: right antecubital; vc 20:15 Follow up: IV Status: Completed infusion; IV Intake: 500ml vc 19:35 Drug: Tylenol 650 mg Route: PO; vc 20:30 Follow up: Response: No adverse reaction vc 19:35 Drug: Rocephin 1 grams Route: IV; Rate: per protocol; Site: right antecubital; vc 19:35 Drug: levofloxacin 500 mg Volume: 100 ml; Route: IVPB; Infused Over: 60 mins; Site: vc right antecubital; 19:58 Drug: Neosporin Ointment 1 application Route: Topical; Site: affected area; vc Intake: 20:15 IV: 500ml; Total: 500ml. vc Outcome: 19:35 Discharge ordered by . yuri 21:10 Discharged to home ambulatory. vc 21:10 Condition: good 21:10 Discharge instructions given to patient, Instructed on discharge instructions, follow up and referral plans. medication usage, Demonstrated understanding of instructions, follow-up care, medications, Prescriptions given X 2. 21:13 Patient left the ED. Signatures: Dispatcher [employer] EDKY Aravind Connor MD MD cha Moreno, Amanda am2 Kirstie Velasquez RN Alejandra Yost vc RN SHIRLEY Delbert Keenan RN RN ll1 Corrections: (The following items were deleted from the chart) 19:27 18:39 Acuity: ANA 4 ll1 ll1
[2019-10-27] MEDS ORDERED: ACETAMINOPHEN 325 MG TABLET ONE (19:36)
--- NOTE | 2019-10-27 19:36 | EDPHYS ---
Physician Documentation [facility] Name: Yareli Beckham Age: 78 yrs Sex: Female : 1940 Arrival Date: 10/27/2019 Time: 18:21 Bed 15 Private MD: Lee Garrison ED Physician Aravind Connor HPI: 10/26 18:50 This 78 yrs old Female presents to ER via Ambulatory with complaints of yuri Fever, Sinus Congestion. 18:50 The patient reports fever, that was measured at 100 degrees Fahrenheit. Onset: The yuri symptoms/episode began/occurred 2 day(s) ago. Modifying factors: there are no obvious modifying factors. Associated signs and symptoms: Pertinent positives: runny nose, sinus congestion, blood in mucus. Severity of symptoms: At their worst the symptoms were mild in the emergency department the symptoms are unchanged. The patient has not experienced similar symptoms in the past. Historical: - Allergies: 18:42 Augmentin; ll1 18:42 Pollen; ll1 18:42 PENICILLINS; ll1 - PMHx: 18:42 Hyperlipidemia; Hypothyroidism; breast CA; ll1 - PSHx: 18:42 Tonsillectomy; ll1 - Immunization history:: Adult Immunizations up to date. - Social history:: Patient/guardian denies using alcohol, street drugs, tobacco products, Smoking status: Patient denies any tobacco usage or history of. - Family history:: not pertinent. ROS: 18:50 Eyes: Negative for injury, pain, redness, and discharge, Neck: Negative for injury, yuri pain, and swelling, Cardiovascular: Negative for chest pain, palpitations, and edema, Respiratory: Negative for shortness of breath, cough, wheezing, and pleuritic chest pain, Abdomen/GI: Negative for abdominal pain, nausea, vomiting, diarrhea, and constipation, Back: Negative for injury and pain, : Negative for injury, bleeding, discharge, and swelling, MS/Extremity: Negative for injury and deformity, Skin: Negative for injury, rash, and discoloration, Neuro: Negative for headache, weakness, numbness, tingling, and seizure, Psych: Negative for depression, anxiety, suicide ideation, homicidal ideation, and hallucinations, Allergy/Immunology: Negative for hives, rash, and allergies, Endocrine: Negative for neck swelling, polydipsia, polyuria, polyphagia, and marked weight changes, Hematologic/Lymphatic: Negative for swollen nodes, abnormal bleeding, and unusual bruising. 18:50 Constitutional: Positive for fever. 18:50 ENT: Positive for nose bleed, rhinorrhea, sinus congestion. Exam: 18:50 Constitutional: This is a well developed, well nourished patient who is awake, alert, yuri and in no acute distress. Head/Face: Normocephalic, atraumatic. Eyes: Pupils equal round and reactive to light, extra-ocular motions intact. Lids and lashes normal. Conjunctiva and sclera are non-icteric and not injected. Cornea within normal limits. Periorbital areas with no swelling, redness, or edema. Neck: Trachea midline, no thyromegaly or masses palpated, and no cervical lymphadenopathy. Supple, full range of motion without nuchal rigidity, or vertebral point tenderness. No Meningismus. Chest/axilla: Normal chest wall appearance and motion. Nontender with no deformity. No lesions are appreciated. Cardiovascular: Regular rate and rhythm with a normal S1 and S2. No gallops, murmurs, or rubs. Normal PMI, no JVD. No pulse deficits. Respiratory: Lungs have equal breath sounds bilaterally, clear to auscultation and percussion. No rales, rhonchi or wheezes noted. No increased work of breathing, no retractions or nasal flaring. Abdomen/GI: Soft, non-tender, with normal bowel sounds. No distension or tympany. No guarding or rebound. No evidence of tenderness throughout. Back: No spinal tenderness. No costovertebral tenderness. Full range of motion. Skin: Warm, dry with normal turgor. Normal color with no rashes, no lesions, and no evidence of cellulitis. MS/ Extremity: Pulses equal, no cyanosis. Neurovascular intact. Full, normal range of motion. Neuro: Awake and alert, GCS 15, oriented to person, place, time, and situation. Cranial nerves II-XII grossly intact. Motor strength 5/5 in all extremities. Sensory grossly intact. Cerebellar exam normal. Normal gait. Psych: Awake, alert, with orientation to person, place and time. Behavior, mood, and affect are within normal limits. 18:50 ENT: Nose: Nasal mucosa: Dried blood. dry, erythematous, Examination of the other nostril shows no obvious abnormality, dried blood, sinus fullness, Mouth: is normal, no acute changes, Lips: normal, Oral mucosa: normal, pink and intact, moist, Gums: normal with healthy appearance, Posterior pharynx: is normal, no acute changes, Airway: normal, no evidence of obstruction, Tonsils: are normal in appearance, Uvula: normal, swelling, is not appreciated, erythema, is not appreciated. 19:35 Neck: ROM/movement: is normal, no acute changes, Meningeal signs: are not present, yuri Kernig's sign is negative, Brudzinski's sign is negative. Vital Signs: 18:39 BP 133 / 61; Pulse 102; Resp 17; Temp 99.4; Pulse Ox 99% ; Pain 0/10; ll1 19:45 BP 128 / 54; Pulse 95; Resp 18; Pulse Ox 100% on R/A; vc 20:45 BP 122 / 50; Pulse 87; Resp 18; Temp 98.9(O); Pulse Ox 100% on R/A; vc MDM: 18:33 Patient medically screened. [facility] 18:50 Data reviewed: vital signs, nurses notes, lab test result(s), radiologic studies, plain yuri films. 19:34 ED course: improved, plt nl, not neutropenic, ua and cxr nl. [facility] 10/26 18:49 Order name: CBC with Diff; Complete Time: 19:27 [facility] 10/26 18:49 Order name: Comprehensive Metabolic Panel; Complete Time: 19:34 [facility] 10/26 18:49 Order name: Blood Culture Adult (2) [facility] 10/26 18:49 Order name: Urine Culture [facility] 10/26 18:49 Order name: Chest Single View XRAY [facility] 10/26 19:28 Order name: Urine Dipstick--Ancillary (enter results); Complete Time: 20:11 mw2 10/26 18:49 Order name: Urine Dipstick-Ancillary (obtain specimen); Complete Time: 19:28 [facility] Administered Medications: 19:35 Drug: NS 0.9% 500 ml Route: IV; Rate: bolus; Site: right antecubital; vc 20:15 Follow up: IV Status: Completed infusion; IV Intake: 500ml vc 19:35 Drug: Tylenol 650 mg Route: PO; vc 20:30 Follow up: Response: No adverse reaction vc 19:35 Drug: Rocephin 1 grams Route: IV; Rate: per protocol; Site: right antecubital; vc 19:35 Drug: levofloxacin 500 mg Volume: 100 ml; Route: IVPB; Infused Over: 60 mins; Site: vc right antecubital; 19:58 Drug: Neosporin Ointment 1 application Route: Topical; Site: affected area; vc Disposition: 10/27/19 19:35 Discharged to Home. Impression: Epistaxis, Fever, unspecified, Acute sinusitis, Anemia, unspecified. - Condition is Stable. - Discharge Instructions: Nosebleed, Adult, Fever, Adult, Cool Mist Vaporizer, Nosebleed, [id number]. - Prescriptions for Levaquin 500 mg Oral Tablet - take 1 tablet by ORAL route once daily for 7 days; 7 tablet. Neosporin (candy- abbie-polym) - place 0.5 inch ribbon by INTRANASAL route 3 times per day; 3.5 gram. - Medication Reconciliation Form, Thank You Letter, Antibiotic Education, Prescription Opioid Use form. - Follow up: Lee Garrison; When: 1 - 2 days; Reason: Recheck today's complaints, Continuance of care, Re-evaluation by your physician. Follow up: Susie Rodrigues; When: 2 - 3 days; Reason: Recheck today's complaints, Re-evaluation by your physician. - Problem is new. - Symptoms have improved. Signatures: Dispatcher [employer] EDMS Aravind Connor MD MD cha Calcote, Vanessa, RN RN vc Harris, Amy, RN RN ah Lewis, Lynsay, RN RN ll1 Corrections: (The following items were deleted from the chart) 21:13 19:35 10/27/2019 19:35 Discharged to Home. Impression: Epistaxis; Fever, unspecified; ah Acute sinusitis; Anemia, unspecified. Condition is Stable. Discharge Instructions: Nosebleed, Adult, Fever, Adult, Cool Mist Vaporizer, Nosebleed, [id number]. Prescriptions for Levaquin 500 mg Oral Tablet - take 1 tablet by ORAL route once daily for 7 days; 7 tablet, Neosporin (bxy-nth-dmmts) - place 0.5 inch ribbon by INTRANASAL route 3 times per day; 3.5 gram. and Forms are Medication Reconciliation Form, Thank You Letter, Antibiotic Education, Prescription Opioid Use. Follow up: Lee Garrison; When: 1 - 2 days; Reason: Recheck today's complaints, Continuance of care, Re-evaluation by your physician. Follow up: Ssuie Rodrigues; When: 2 - 3 days; Reason: Recheck today's complaints, Re-evaluation by your physician. Problem is new. Symptoms have improved. yuri
[2019-10-27 19:37] LABS: Urine Blood NEGATIVE (NEG); Urine Glucose NEGATIVE (NEG); Urine Protein NEGATIVE (NEG); Urine Specific Gravity 1.015 (1.005-1.030)
[2019-10-27] MEDS ORDERED: CEFTRIAXONE/SWI 1gm 1 GM/10 ML SYR ONE (19:37)
[2019-10-27] MEDS ORDERED: Levofloxacin500mg IV 500 MG/100 ML BAG IV ONE (19:37)
[2019-10-27] MEDS ORDERED: NA CHLORIDE 0.9% 500 ML ONE (19:37)
--- NOTE | 2019-10-27 20:50 | RAD REPORT ---
EXAM DESCRIPTION: Kalee Single View10/27/2019 8:19 pm CLINICAL HISTORY: Fever COMPARISON: 2018 FINDINGS: The lungs appear clear of acute infiltrate. The heart is normal size IMPRESSION: No acute abnormalities displayed
[2019-10-27 21:17] VITALS: BP 133/61; TEMP 99.4; O2SAT 99
== END 2019-10-27 21:13 | disposition home or self-care (01) ==
LOC: ER 18:19
DX: R04.0 Epistaxis (principal); J01.90 Acute sinusitis, unspecified; D64.9 Anemia, unspecified; J30.1 Allergic rhinitis due to pollen; Z88.1 Allergy status to other antibiotic agents; Z88.0 Allergy status to penicillin; Z85.3 Personal history of malignant neoplasm of breast
CPT/HCPCS: 96361; 87040 ×2; 87088; 85025; 87086; 36415; 81003; 80053; 71045; 96375; 96374; 99284; J0696; J7040

== ENCOUNTER 2019-10-29 17:18 | Emergency (ER) | payer OTHER ==
--- NOTE | 2019-10-29 18:28 | EDPHYS ---
Physician Documentation [facility] Name: Yareli Beckham Age: 78 yrs Sex: Female : 1940 Arrival Date: 10/29/2019 Time: 17:20 Bed 18 Private MD: Lee Garrison ED Physician Hossein Frank HPI: 10/28 18:27 This 78 yrs old Female presents to ER via Ambulatory with complaints of pm1 Diarrhea. 18:27 The patient presents to the emergency department with diarrhea, 4 times since the onset pm1 of symptoms, onset at 1300 today, 1 hour after taking her 2nd dose of levaquin. Possible causes: antibiotics, quinolone, Levaquin. The symptoms are aggravated by nothing. The symptoms are alleviated by OTC medication, lomotil. Took at 1700. Associated signs and symptoms: Pertinent negatives: abdominal pain, fever, nausea, vomiting. Severity of symptoms: in the emergency department the symptoms have improved Pain is currently a 0 / 10. The patient has been recently seen at the [facility] Emergency Department, yesterday, Diagnosed with sinusitis. Historical: - Allergies: 17:50 Augmentin; ca1 17:50 PENICILLINS; ca1 17:50 Pollen; ca1 - PMHx: 17:50 BREAST CA; Hyperlipidemia; Hypothyroidism; ca1 - PSHx: 17:50 Tonsillectomy; ca1 - Immunization history:: Adult Immunizations up to date, Flu vaccine is up to date. - Social history:: Smoking status: Patient denies any tobacco usage or history of. ROS: 18:27 Constitutional: Negative for fever, chills, and weight loss, Cardiovascular: Negative pm1 for chest pain, palpitations, and edema, Respiratory: Negative for shortness of breath, cough, wheezing, and pleuritic chest pain. 18:27 Back: Negative for injury and pain, MS/Extremity: Negative for injury and deformity, Skin: Negative for injury, rash, and discoloration, Neuro: Negative for headache, weakness, numbness, tingling, and seizure. 18:27 Abdomen/GI: Positive for diarrhea, Negative for abdominal pain, nausea and vomiting, black/tarry stool, rectal pain, rectal bleeding. Exam: 18:27 Constitutional: This is a well developed, well nourished patient who is awake, alert, pm1 and in no acute distress. Head/Face: Normocephalic, atraumatic. Chest/axilla: Normal chest wall appearance and motion. Nontender with no deformity. No lesions are appreciated. 18:27 Abdomen/GI: Soft, non-tender, with normal bowel sounds. No distension or tympany. No guarding or rebound. No evidence of tenderness throughout. Back: No spinal tenderness. No costovertebral tenderness. Full range of motion. Skin: Warm, dry with normal turgor. Normal color with no rashes, no lesions, and no evidence of cellulitis. MS/ Extremity: Pulses equal, no cyanosis. Neurovascular intact. Full, normal range of motion. 18:27 Cardiovascular: Exam negative for acute changes, Rate: normal, Pulses: no pulse deficits are appreciated. 18:27 Respiratory: Exam negative for acute changes, respiratory distress, shortness of breath, wheezing. 18:27 Neuro: Exam negative for acute changes, Orientation: is normal, Motor: is normal, moves all fours. Vital Signs: 17:47 BP 151 / 54; Pulse 98; Resp 17 S; Temp 98.7(O); Pulse Ox 100% on R/A; Weight 58.97 kg ca1 (R); Height 5 ft. 0 in. (152.40 cm) (R); 18:34 BP 125 / 52; Pulse 88; Resp 16; Temp 98.5; Pulse Ox 100% ; bp 17:47 Body Mass Index 25.39 (58.97 kg, 152.40 cm) ca1 MDM: 17:42 Patient medically screened. pm1 18:27 Data reviewed: vital signs. Data interpreted: Pulse oximetry: on room air is 100 %. pm1 Interpretation: normal. 18:27 Counseling: I had a detailed discussion with the patient and/or guardian regarding: the pm1 historical points, exam findings, and any diagnostic results supporting the discharge/admit diagnosis, the need for outpatient follow up, to return to the emergency department if symptoms worsen or persist or if there are any questions or concerns that arise at home. 18:27 ED course: Patient without any further episodes of diarrhea while in the ER. pm1 18:27 ED course: Discussed with patient that her diarrhea was likely due to recent antibiotic pm1 therapy or viral illness. Patient was seen here yesterday and was diagnosed with sinusitis and prescribed antibiotics. Patient with rash to N. Plan is to change antibiotic to azithromycin, or she can continue to take the Levaquin with Lomotil as needed. Patient prefers to take azithromycin. Administered Medications: No medications were administered Disposition: 18:36 Co-signature as Attending Physician, Hossein Frank MD. rn Disposition: 10/29/19 18:28 Discharged to Home. Impression: Diarrhea, unspecified. - Condition is Stable. - Discharge Instructions: Food Choices to Help Relieve Diarrhea, Adult, Diarrhea, Adult. - Prescriptions for Zithromax 500 mg Oral Tablet - take 1 tablet by ORAL route once daily for 3 days; 3 tablet. - Medication Reconciliation Form, Thank You Letter, Antibiotic Education, Prescription Opioid Use form. - Follow up: Emergency Department; When: As needed; Reason: Worsening of condition. Follow up: Private Physician; When: 2 - 3 days; Reason: Recheck today's complaints, Continuance of care, Re-evaluation by your physician. - Problem is new. - Symptoms have improved. Signatures: Hossein Frank MD MD rn Bonilla Reis NP [employer] pm1 Dameon Lisa, RN RN bp Allyson Boggs RN RN ca1 Corrections: (The following items were deleted from the chart) 18:35 18:28 10/29/2019 18:28 Discharged to Home. Impression: Diarrhea, unspecified. Condition bp is Stable. Forms are Medication Reconciliation Form, Thank You Letter, Antibiotic Education, Prescription Opioid Use. Follow up: Emergency Department; When: As needed; Reason: Worsening of condition. Follow up: Private Physician; When: 2 - 3 days; Reason: Recheck today's complaints, Continuance of care, Re-evaluation by your physician. Problem is new. Symptoms have improved. pm1
--- NOTE | 2019-10-29 18:28 | ER ---
Nurse's Notes [facility] Name: Yareli Beckham Age: 78 yrs Sex: Female : 1940 Arrival Date: 10/29/2019 Time: 17:20 Bed 18 Private MD: Lee Garrison Diagnosis: Diarrhea, unspecified Presentation: 10/28 17:47 Chief complaint: Patient states: Diarrhea started this PM. Denies N/V/abdominal pain. ca1 Reports has started taking Levaquin yesterday for sinus infection. Pt also has breast Ca undergoing chemotherapy, last session was October 02. Pt c/o R shoulder blade pain since last night. Coronavirus screen: Proceed with normal triage. Patient denies a cough. Patient denies shortness of breath or difficulty breathing. Patient denies measured and/or subjective temperature greater than 100.4F prior to today's visit. Patient denies travel on a cruise ship or to a country the [facility] currently lists as an affected area. Patient denies contact with known and/or suspected case of COVID-19. Ebola Screen: Patient negative for fever greater than or equal to 101.5 degrees Fahrenheit, and additional compatible Ebola Virus Disease symptoms Patient denies exposure to infectious person. Patient denies travel to an Ebola-affected area in the 21 days before illness onset. No symptoms or risks identified at this time. Initial Sepsis Screen: Does the patient meet any 2 criteria? No. Patient's initial sepsis screen is negative. Does the patient have a suspected source of infection? No. Patient's initial sepsis screen is negative. Risk Assessment: Do you want to hurt yourself or someone else? Patient reports no desire to harm self or others. Onset of symptoms was October 29, 2019. 17:47 Method Of Arrival: Ambulatory ca1 17:47 Acuity: ANA 3 ca1 Triage Assessment: 17:50 General: Appears in no apparent distress. comfortable, Behavior is calm, cooperative, bp appropriate for age. Pain: Denies pain. EENT: No deficits noted. Neuro: No deficits noted. Cardiovascular: No deficits noted. Respiratory: No deficits noted. GI: Reports diarrhea. : No signs and/or symptoms were reported regarding the genitourinary system. Derm: No deficits noted. Musculoskeletal: No deficits noted. Historical: - Allergies: 17:50 Augmentin; ca1 17:50 PENICILLINS; ca1 17:50 Pollen; ca1 - PMHx: 17:50 BREAST CA; Hyperlipidemia; Hypothyroidism; ca1 - PSHx: 17:50 Tonsillectomy; ca1 - Immunization history:: Adult Immunizations up to date, Flu vaccine is up to date. - Social history:: Smoking status: Patient denies any tobacco usage or history of. Screenin:50 Abuse screen: Denies threats or abuse. Denies injuries from another. Nutritional bp screening: No deficits noted. Tuberculosis screening: No symptoms or risk factors identified. Fall Risk None identified. Assessment: 17:50 General: SEE TRIAGE NOTE. bp 18:34 Reassessment: PT D/C HOME AMBULATORY, DX WITH DIARRHEA. bp Vital Signs: 17:47 BP 151 / 54; Pulse 98; Resp 17 S; Temp 98.7(O); Pulse Ox 100% on R/A; Weight 58.97 kg ca1 (R); Height 5 ft. 0 in. (152.40 cm) (R); 18:34 BP 125 / 52; Pulse 88; Resp 16; Temp 98.5; Pulse Ox 100% ; bp 17:47 Body Mass Index 25.39 (58.97 kg, 152.40 cm) ca1 ED Course: 17:20 Patient arrived in ED. ag5 17:20 Lee Garrison MD is Private Physician. ag5 17:40 Dameon Lisa, SHIRLEY is Primary Nurse. bp 17:42 Bonilla Reis NP is PHCP. pm1 17:42 Hossein Frank MD is Attending Physician. pm1 17:50 Triage completed. ca1 17:50 Arm band placed on right wrist. ca1 17:50 Patient has correct armband on for positive identification. Bed in low position. Call bp light in reach. Side rails up X2. 18:34 No provider procedures requiring assistance completed. Patient did not have IV access bp during this emergency room visit. Administered Medications: No medications were administered Outcome: 18:28 Discharge ordered by . pm1 18:35 Discharged to home ambulatory. bp 18:35 Condition: stable 18:35 Discharge instructions given to patient, Instructed on discharge instructions, follow up and referral plans. medication usage, Demonstrated understanding of instructions, follow-up care, medications, Prescriptions given X 1. 18:35 Patient left the ED. bp Signatures: Bonilla Reis NP [employer] pm1 Dameon Lisa, RN RN bp Allyson Boggs, RN RN ca1 Keyur Grace ag5
[2019-10-29 18:57] VITALS: O2SAT 100
[2019-10-29 18:59] VITALS: BP 125/52; TEMP 98.5
== END 2019-10-29 18:35 | disposition home or self-care (01) ==
LOC: ER 17:18
DX: R19.7 Diarrhea, unspecified (principal); Z85.3 Personal history of malignant neoplasm of breast; Z88.0 Allergy status to penicillin; Z88.1 Allergy status to other antibiotic agents
CPT/HCPCS: 99282

== ENCOUNTER 2021-10-27 17:58 | Emergency (ER) | payer OTHER ==
--- OUTSIDE RECORDS SUMMARY | 2021-10-27 18:02 | XMS REPORT | Clinical Summary ---
:1940 Author Organization [facility] MD [facility] Address [address] [place] [address] Care Team Providers Name Role Phone Bg Buckner MD Unavailable Sana Garrison MD Unavailable Shoshana Romero MD Primary Care Provider Oni Blanchard MD Unavailable Sd Unavailable Jonh Morrell MD Unavailable Allergies Active Allergy Reactions Severity Noted Date Comments Levofloxacin GI Intolerance 10/31/2019 diarrhea Penicillins Hives 07/06/2019 Medications Medication Sig Dispensed Refills Start Date End Date Status levothyroxine Take 75 mcg by 1 05/08/2019 Active (SYNTHROID, mouth every 48 LEVOTHROID) 75 mcg hours. Alternates tablet days with 50mcg levothyroxine Take 50 mcg by 1 05/23/2019 Active (SYNTHROID, mouth every 48 LEVOTHROID) 50 mcg hours. Alternates tablet days with 75mcg pantoprazole Take 40 mg by 3 05/28/2019 Ac tive (PROTONIX) 40 mg EC mouth daily. tablet mesalamine (LIALDA) Take 2 g by mouth 2 04/16/[address] tablet 4 (four) times a day. fenofibric acid Take 135 mg by 0 05/28/2019 Active (TRILIPIX) 135 mg mouth daily. capsule EPINEPHrine (EPIPEN) Inject 0.3 mg into 0 06/14/2019 Active 0.3 mg/0.3 mL the shoulder, (1:1,000) injection thigh, or buttocks as needed. potassium 99 mg tab Take by mouth 0 Active daily. lactobacillus Chew daily. 0 Acti ve acidophilus-bulgaricus (LACTINEX) 1 million cells chew chewable tablet UNABLE TO FIND Med Name: Allergy shot weekly 0 Active On hold per patient beta-carotene,A,-vits Take 1 tablet by 0 Active C,E/mins (OCUVITE mouth daily. ORAL) zinc gluconate 50 mg Take 22 mg by 0 Active tablet mouth twice daily. ascorbic acid, vitamin Take 500 mg by 0 Active C, (vitamin C) 100 mg mouth daily. tablet cholecalciferol, Take 5,000 Units 0 Active vitamin D3, (Vitamin by mouth daily. D3) 5,000 units tab tablet biotin 5 mg cap Take by mouth. 0 Active cetirizine (ZyrTEC) 10 Take 10 mg by 0 Active mg tablet mouth daily as needed. losartan-hydrochloroth Take 1 tablet by 0 Active iazide (HYZAAR) mouth daily. 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 07/03/2019 Cancer Staging: Pathologic stage from : No Stage Recommended (pT1c, cN0, cM0, G2, ER-, GA-, HER2-) - Signed by Michelle Dickens MD on 07/30/2019 Encounters Date Type Specialty Care Team Description 08/26/2021 Office Visit Oncology Veronica Kaurquamous cell AGUILAR Guzman carcinoma 08/26/2021 Travel 04/23/2021 Office Visit Thoracic Medicine Sandi Dickens Macrocytos is - no anemia (Primary Dx); MD Michelle Adenoabigail c ell carcinoma 04/23/2021 Travel 12/22/2020 Office Visit Thoracic Medicine Tao Beverlyquam ous cell MD iMchelle carcinoma 12/22/2020 Ancillary Radiology Veronica Kaur Adenosquamous cell Procedure Megan, 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, NEONATAL SPECIALIST carcinoma 12/22/2020 Travel after 10/27/2020 Immunizations Name Administration Dates Next Due Influenza Split High Dose Preservative Free IM 04/03/2020 Moderna SARS-CoV-2 Vaccination 09/07/2020, 08/10/2020 Pneumococcal Conjugate 13-Valent 08/18/2018 Surgical History Surgery Date Site/Laterality Comments TONSILLECTOMY 07/04/1947 - 07/03/1948 FOOT SURGERY 07/04/2000 - Right 07/03/2001 GA MASTECTOMY, PARTIAL 07/18/2019 Right Procedure : SEGMENTAL MASTECTOMY - OTHER-POSTERIOR MARGIN EXCISION; Surge on: Jo tavarez MD; Location: [facility]; Service: BREAST GA BREAST RECONSTRUC W 07/18/2019 Breast/Right Procedure : RECONSTRUCTION OTHR TECHNIQ OF BREAST WITH O THER TECHNIQUE-LOCAL TISSUE ADVANCEMENT; Brock rgeon: Tim Pascal MD ; Location: [facility]; Service: PLS - P LASTIC SURGERY Medical History Medical History Date Comments Arrhythmia occasional PVCs, pt evaluated by Soap Drier Operator in 03/2019 and found to be "low risk" for a kal-operative compl iation Lymphocytic colitis 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 Not asked How many drinks containing alcohol do you have on a Not aske d typical day when you are drinking? How often do you have six or more drinks on one Not asked occasion? Comment: one drink a month 07/06/2019 Education Answer Date Recorded What is the highest level of school you have High school [employer] 07/06/2019 completed or the highest degree you have received? Sex Assigned at Date Recorded Not on file Job Start Date Occupation Industry Not on file Not on file Not on file Obstetrics History Para Term AB IAB SAB Ectopic Multiple Living Live Births Date Outcome GA Total Labor/2nd/3rd Weight Sex Delivery Anes PTL Mary A 1 A5 Name Clin Labor Term Comments Did not breastfeed Last Filed Vital Signs Vital Sign Reading Time Taken Comments Blood Pressure 155/78 08/26/2021 9:05 AM LOT ASSOCIATE Pulse 70 08/26/2021 9:05 AM LOT ASSOCIATE Temperature 36.9 C (98.4 F) 08/26/2021 9:02 AM LOT ASSOCIATE Respiratory Rate 16 08/26/2021 9:02 AM LOT ASSOCIATE Oxygen Saturation 97% 08/26/2021 9:02 AM LOT ASSOCIATE Inhaled Oxygen Concentration - - Weight 62.6 kg (138 lb 0.1 oz) 08/26/2021 9:02 AM LOT ASSOCIATE Height - - Body Mass Index 27.38 08/02/2019 8:03 AM LOT ASSOCIATE Plan of Treatment Date Type Specialty Care Team Description 12/23/2021 Lab Lab 12/23/2021 Ancillary Procedure Radiology 12/23/2021 Ancillary Procedure Radiology 12/23/2021 Office Visit Thoracic Medicine Nicolasa Beverly MD [address] [place], [place] [address] (Wo rk) Health Maintenance Due Date Last Done Comments COVID-19 Vaccination (3 - Booster for 02/07/2021 09/07/2020 , 08/10/2020 Moderna series) Procedures Procedure Name Priority Date/Time Associated Diagnosis Comme nts FRACTIONATED BILIRUBIN Routine 08/26/2021 8:08 Adenosquamous cell Results for this AM LOT ASSOCIATE carcinoma procedure are i n the results section. TOTAL PROTEIN Routine 08/26/2021 8:08 Adenosquamous cell Resu lts for this AM LOT ASSOCIATE carcinoma procedure are i n the results section. ASPARTATE Routine 08/26/2021 8:08 Adenosquamous cell Resul ts for this AMINOTRANSFERASE AM LOT ASSOCIATE carcinoma procedure a re in the results section. ALANINE AMINOTRANSFERASE Routine 08/26/2021 8:08 Adenosquamou s cell Results for this AM LOT ASSOCIATE carcinoma procedure are i n the results section. ALKALINE PHOSPHATASE Routine 08/26/2021 8:08 Adenosquamous ce ll Results for this AM LOT ASSOCIATE carcinoma procedure are i n the results section. ALBUMIN LEVEL Routine 08/26/2021 8:08 Adenosquamous cell Resu lts for this AM LOT ASSOCIATE carcinoma procedure are i n the results section. CALCIUM LEVEL TOTAL Routine 08/26/2021 8:08 Adenosquamous elham l Results for this AM LOT ASSOCIATE carcinoma procedure are i n the results section. .GLOMERULAR FILTRATION Routine 08/26/2021 8:08 Adenosquamous cell Results for this RATE AM LOT ASSOCIATE carcinoma procedure are i n the results section. SERUM CREATININE Routine 08/26/2021 8:08 Adenosquamous cell R esults for this AM LOT ASSOCIATE carcinoma procedure are i n the results section. ELECTROLYTE PANEL Routine 08/26/2021 8:08 Adenosquamous cell Results for this AM LOT ASSOCIATE carcinoma procedure are i n the results section. BLOOD UREA NITROGEN Routine 08/26/2021 8:08 Adenosquamous elham l Results for this AM LOT ASSOCIATE carcinoma procedure are i n the results section. GLUCOSE LEVEL Routine 08/26/2021 8:08 Adenosquamous cell Resu lts for this AM LOT ASSOCIATE carcinoma procedure are i n the results section. MANUAL DIFFERENTIAL Routine 08/26/2021 8:08 Adenosquamous elham l Results for this AM LOT ASSOCIATE carcinoma procedure are i n the results section. Results CBC Routine 08/26/2021 8:08 Adenosquamous cell Resul ts for this AM LOT ASSOCIATE carcinoma procedure are i n the results section. VITAMIN B12 LEVEL Routine 08/26/2021 8:08 Adenosquamous cell Results for this AM LOT ASSOCIATE carcinoma procedure are in Macrocytosis - no the result s anemia section. FOLATE LEVEL Routine 08/26/2021 8:08 Adenosquamous cell Resul ts for this AM LOT ASSOCIATE carcinoma procedure are in Macrocytosis - no the result s anemia section. FREE THYROXINE Routine 08/26/2021 8:08 Adenosquamous cell Res ults for this AM LOT ASSOCIATE carcinoma procedure are in Macrocytosis - no the result s anemia section. THYROID STIMULATING Routine 08/26/2021 8:08 Adenosquamous elham l Results for this HORMONE AM LOT ASSOCIATE carcinoma procedure are in Macrocytosis - no the result s anemia section. MAGNESIUM LEVEL Routine 08/26/2021 8:08 Adenosquamous cell Re sults for this AM LOT ASSOCIATE carcinoma procedure are i n the results section. COMPREHENSIVE METABOLIC Routine 08/26/2021 8:08 Adenosquamous cell PANEL AM LOT ASSOCIATE carcinoma COMPLETE BLOOD COUNT W/ Routine 08/26/2021 8:08 Adenosquamous cell DIFFERENTIAL AM LOT ASSOCIATE carcinoma VITAMIN D 25 HYDROXY Routine 08/26/2021 8:08 Adenosquamous ce ll Results for this LEVEL AM LOT ASSOCIATE carcinoma procedure are i n the results section. FRACTIONATED BILIRUBIN Routine 04/23/2021 10:31 Adenosquamous cell Results for this AM CDT carcinoma procedure are i n the results section. TOTAL PROTEIN Routine 04/23/2021 10:31 Adenosquamous cell Resu lts for this AM CDT carcinoma procedure are i n the results section. ASPARTATE Routine 04/23/2021 10:31 Adenosquamous cell Resul ts for this AMINOTRANSFERASE AM CDT carcinoma procedure a re in the results section. ALANINE AMINOTRANSFERASE Routine 04/23/2021 10:31 Adenosquamou s cell Results for this AM CDT carcinoma procedure are i n the results section. ALKALINE PHOSPHATASE Routine 04/23/2021 10:31 Adenosquamous ce ll Results for this AM CDT carcinoma procedure are i n the results section. ALBUMIN LEVEL Routine 04/23/2021 10:31 Adenosquamous cell Resu lts for this AM CDT carcinoma procedure are i n the results section. CALCIUM LEVEL TOTAL Routine 04/23/2021 10:31 Adenosquamous elham l Results for this AM CDT carcinoma procedure are i n the results section. .GLOMERULAR FILTRATION Routine 04/23/2021 10:31 Adenosquamous cell Results for this RATE AM CDT carcinoma procedure are i n the results section. SERUM CREATININE Routine 04/23/2021 10:31 Adenosquamous cell R esults for this AM CDT carcinoma procedure are i n the results section. ELECTROLYTE PANEL Routine 04/23/2021 10:31 Adenosquamous cell Results for this AM CDT carcinoma procedure are i n the results section. BLOOD UREA NITROGEN Routine 04/23/2021 10:31 Adenosquamous elham l Results for this AM CDT carcinoma procedure are i n the results section. GLUCOSE LEVEL Routine 04/23/2021 10:31 Adenosquamous cell Resu lts for this AM CDT carcinoma procedure are i n the results section. MANUAL DIFFERENTIAL Routine 04/23/2021 10:31 Adenosquamous elham l Results for this AM CDT carcinoma procedure are i n the results section. Results CBC Routine 04/23/2021 10:31 Adenosquamous cell Resul ts for this AM CDT carcinoma procedure are i n the results section. LACTATE DEHYDROGENASE Routine 04/23/2021 10:31 Adenosquamous c ell Results for this AM CDT carcinoma procedure are i n the results section. PHOSPHORUS LEVEL Routine 04/23/2021 10:31 Adenosquamous cell R esults for this AM CDT carcinoma procedure are i n the results section. MAGNESIUM LEVEL Routine 04/23/2021 10:31 Adenosquamous cell Re sults for this AM CDT carcinoma procedure are i n the results section. COMPREHENSIVE METABOLIC Routine 04/23/2021 10:31 Adenosquamous cell PANEL AM CDT carcinoma COMPLETE BLOOD COUNT W/ Routine 04/23/2021 10:31 Adenosquamous cell DIFFERENTIAL AM CDT carcinoma VITAMIN D 25 HYDROXY Routine 04/23/2021 10:31 Adenosquamous ce ll Results for this LEVEL AM CDT carcinoma procedure are i n the results section. US CHEST Routine 12/22/2020 9:03 Adenosquamous cell Resul ts for this AM CDT carcinoma procedure are i n the results section. US BREAST COMPLETE Routine 12/22/2020 9:03 Adenosquamous cell Results for this BILATERAL AM CDT carcinoma procedure are i n the results section. MAMMO DIGITAL DIAGNOSTIC Routine 12/22/2020 7:41 Adenosquamou s cell Results for this BILATERAL W TRISTIN AM CDT carcinoma procedure a re in the results section. FRACTIONATED BILIRUBIN Routine 12/22/2020 6:26 Adenosquamous cell Results for this AM CDT carcinoma procedure are i n the results section. TOTAL PROTEIN Routine 12/22/2020 6:26 Adenosquamous cell Resu lts for this AM CDT carcinoma procedure are i n the results section. ASPARTATE Routine 12/22/2020 6:26 Adenosquamous cell Resul ts for this AMINOTRANSFERASE AM CDT carcinoma procedure a re in the results section. ALANINE AMINOTRANSFERASE Routine 12/22/2020 6:26 Adenosquamou s cell Results for this AM CDT carcinoma procedure are i n the results section. ALKALINE PHOSPHATASE Routine 12/22/2020 6:26 Adenosquamous ce ll Results for this AM CDT carcinoma procedure are i n the results section. ALBUMIN LEVEL Routine 12/22/2020 6:26 Adenosquamous cell Resu lts for this AM CDT carcinoma procedure are i n the results section. CALCIUM LEVEL TOTAL Routine 12/22/2020 6:26 Adenosquamous elham l Results for this AM CDT carcinoma procedure are i n the results section. .GLOMERULAR FILTRATION Routine 12/22/2020 6:26 Adenosquamous cell Results for this RATE AM CDT carcinoma procedure are i n the results section. SERUM CREATININE Routine 12/22/2020 6:26 Adenosquamous cell R esults for this AM CDT carcinoma procedure are i n the results section. ELECTROLYTE PANEL Routine 12/22/2020 6:26 Adenosquamous cell Results for this AM CDT carcinoma procedure are i n the results section. BLOOD UREA NITROGEN Routine 12/22/2020 6:26 Adenosquamous elham l Results for this AM CDT carcinoma procedure are i n the results section. GLUCOSE LEVEL Routine 12/22/2020 6:26 Adenosquamous cell Resu lts for this AM CDT carcinoma procedure are i n the results section. MANUAL DIFFERENTIAL Routine 12/22/2020 6:26 Adenosquamous elham l Results for this AM CDT carcinoma procedure are i n the results section. Results CBC Routine 12/22/2020 6:26 Adenosquamous cell Resul ts for this AM CDT carcinoma procedure are i n the results section. VITAMIN D 25 HYDROXY Routine 12/22/2020 6:26 Adenosquamous ce ll Results for this LEVEL AM CDT carcinoma procedure are i n the results section. URIC ACID Routine 12/22/2020 6:26 Adenosquamous cell Resul ts for this AM CDT carcinoma procedure are i n the results section. PHOSPHORUS LEVEL Routine 12/22/2020 6:26 Adenosquamous cell R esults for this AM CDT carcinoma procedure are i n the results section. MAGNESIUM LEVEL Routine 12/22/2020 6:26 Adenosquamous cell Re sults for this AM CDT carcinoma procedure are i n the results section. LACTATE DEHYDROGENASE Routine 12/22/2020 6:26 Adenosquamous c ell Results for this AM CDT carcinoma procedure are i n the results section. COMPREHENSIVE METABOLIC Routine 12/22/2020 6:26 Adenosquamous cell PANEL AM CDT carcinoma COMPLETE BLOOD COUNT W/ Routine 12/22/2020 6:26 Adenosquamous cell DIFFERENTIAL AM CDT carcinoma after 10/27/2020 Results (ABNORMAL) .Serum Creatinine (08/26/2021 8:08 AM LOT ASSOCIATE)Only the most recent of3 resultswithin the time period is included. Pathologist Sig nature Creatinine 1.03 (H)Comment: 0.51 - 0.95 mg/dL CAREY Testing performed at [facility], [address] [place] [id number] Specimen Blood Performing Organization Address City/State/ZIP [place] [address] [place] [address] (ABNORMAL) .CBC (08/26/2021 8:08 AM LOT ASSOCIATE)Only the most recent of3 resultswithin the time period is included. Pathologist Sig ben WBC 4.4Comment: All 4.0 - 11.0 K/uL CAREY components of the CBC performed at [facility], [address] [place] [address] [id number] RBC 3.90 (L)Comment: All 4.00 - 5.50 CAREY components of the CBC M/uL performed at [facility], [address] [place] [address] Hgb 12.6Comment: As part 12.0 - 16.0 CAREY of CBC or as an gm/dL individual orderable testing performed at [facility], [address] [place] [address], [place] [address] Hct 38.7Comment: As part 37.0 - 47.0 % CAREY of CBC testing performed at [facility], [address] [place] [address] MCV 99 (H)Comment: As 82 - 98 fL CAREY part of CBC testing performed at [facility], [address] [place] [address] 48213 MCH 32.3 (H)Comment: As 27.0 - 31.0 pg CAREY part of CBC testing performed at [facility], [address] [place] [address] MCHC 32.6Comment: As part 31.0 - 36.0 CAREY of CBC testing gm/dL performed at [facility], [address] [place] [address]20 RDW-SD 50.2 (H)Comment: As 35.1 - 46.3 fL CAREY part of CBC testing performed at [facility], [address] [place] [address], [place] [address] RDW-CV 13.6Comment: As part 12.0 - 15.5 % CAREY of CBC testing performed at [facility], [address] [place] [address], [place] [address] Platelet count 251Comment: As part 140 - 440 K/uL CAREY of CBC or an individual orderable testing performed at [facility], [address] [place] [address], [place] [address] MPV 9.9Comment: As part 4.0 - 10.4 [facility] of CBC testing performed at [facility], [address] [place] [address] Specimen Blood Performing Organization Address City/State/ZIP Code Phon e Number [place] [address] [place] [address] (ABNORMAL) Glomerular Filtration Rate (08/26/2021 8:08 AM LOT ASSOCIATE)Only the most recent of3 resultswithin the time period is included. [facility] Sig nature eGFR-AA 58 (L) >=60 mL/min/1.73 CAREY Comment: sq. m Normal eGFR >= 60 mL/min/1.73 m2 Note: The eGFR is calculated using the CKD-EPI equation. The eGFR declines with age. eGFR <60 mL/min/1.73 m2 is considered as "decreased". This equation should only be used for patients 18 and older. According to the National [facility] Foundation's Kidney Disease Outcome Quality Initiative (KDOQI) classification and 2012 Kidney Disease Improving Global Outcomes (KDIGO) Clinical Practice Guideline, the stage of CKD should be categorized based on estimated GFR. Stage Description GFR mL/min/1.73 m2 1 Normal or high GFR >=90 2 Mildly decreased GFR 60-89 3a Mildly to moderately decreased GFR 45-59 3b Moderately to severely decreased GFR 30-44 4 Severely decreased GFR 15-29 5 Kidney failure <15 Testing performed at [facility], [address] [place] [address], [place] [address] eGFR-MAX 51 (L) >=60 mL/min/1.73 CAREY Comment: sq. m Normal eGFR >= 60 mL/min/1.73 m2 Note: The eGFR is calculated using the CKD-EPI equation. The eGFR declines with age. eGFR <60 mL/min/1.73 m2 is considered as "decreased". This equation should only be used for patients 18 and older. According to the [facility]'s Kidney Disease Outcome Quality Initiative (KDOQI) classification and 2012 Kidney Disease Improving Global Outcomes (KDIGO) Clinical Practice Guideline, the stage of CKD should be categorized based on estimated GFR. Stage Description GFR mL/min/1.73 m2 1 Normal or high GFR >=90 2 Mildly decreased GFR 60-89 3a Mildly to moderately decreased GFR 45-59 3b Moderately to severely decreased GFR 30-44 4 Severely decreased GFR 15-29 5 Kidney failure <15 Testing performed at [place] [id number] Specimen Blood Performing Organization Address City/[facility]/ZIP Code Phon e Number [facility] [place], [place] [id number] [place] [address] Fractionated Bilirubin (08/26/2021 8:08 AM LOT ASSOCIATE)Only the most recent of3 results within the time period is included. [facility] Signature Bili Total 0.4 <=1.2 mg/dL CAREY Comment: Indocyanine Green (ICG) may cause falsely elevated bilirubin results. Total and direct bilirubin must not be measured from samples containing indocyanine green. False elevation of total dago irubin can be seen in patients with IgG concentrations above 28 g/L. Testing performed at [facility], [address] [place] [address] Bili Direct <0.2 <=0.3 mg/dL CAREY Comment: Indocyanine Green (ICG) may cause falsely elevated bilirubin results. Total and direct bilirubin must not be measured from samples containing indocyanine green. Testing performed at [address] [address] Bili Indirect See Note 0.0 - 0.9 CAREY Comment: mg/dL Unable to calculate Indirect Bilirubin result due to some parameters are outside reportable range Testing performed at [facility], [address] [place] [address] Specimen Blood Performing Organization Address City/State/ZIP Code Phon e Number [place], [place] [address] [place] [address] Vitamin D 25OH (08/26/2021 8:08 AM LOT ASSOCIATE)Only the most recent of3 resultswithin the time period is included. Pathologist Sig ben Vitamin D 25 OH 95 30 - 100 ng/mL CAREY Comment: Reference Range: Deficiency: <10 ng/mL Insufficiency: 10-29 ng/mL Sufficiency: 30-100 ng/mL Potential toxicity: >100 ng/mL Testing performed at [facility], [address] [place] [address] Specimen Blood Performing Organization Address City/State/ZIP Code Phon e Number [place], [place] [id number] [place] [address] (ABNORMAL) Differential (08/26/2021 8:08 AM LOT ASSOCIATE)Only the most recent of3 resultswithin the time period is included. Neutrophil % 43.8Comment: All 42.0 - 66.0 % CAREY components of the Differential performed at [facility], [address] [place] [address] Lymphocyte % 45.8 (H)Comment: As 24.0 - 44.0 % [facility] part of the Differential testing performed at [facility], [address] [place] [address] Monocyte % 7.9 (H)Comment: As 2.0 - 7.0 % [facility] part of the Differential testing performed at [facility], [address] [place] [address] Eosinophil % 0.0 (L)Comment: As 1.0 - 4.0 % [facility] part of the Differential testing performed at [facility], [address] [place] [address] Basophil % 0.7Comment: As part of 0.0 - 1.0 % CAREY the Differential testing performed at [facility], [address] [place] [address] IGRE % 1.8 (H) 0.0 - 0.4 % CAREY Comment: IGRE % count includes Metamyelocytes, Myelocytes, and Promyelocytes. As part of the Differential testing performed at [facility], [address] [place] [address] Neutrophil Abs 1.94Comment: As part 1.70 - 7.30 CAREY of the Differential K/uL testing performed at [facility], [address] [place] [address] Lymphocyte Abs 2.03Comment: As part 1.00 - 4.80 CAREY of the Differential K/uL testing performed at [facility], [address] [place] [address] Monocyte Abs 0.35Comment: As part 0.08 - 0.70 CAREY of the Differential K/uL testing performed at [facility], [address] [place] [address]64 Eosinophil Abs 0.00 (L)Comment: As 0.04 - 0.40 CAREY part of the K/uL Differential testing performed at [facility], [address] [place] [address]92 Basophil Abs 0.03Comment: As part 0.00 - 0.10 CAREY of the Differential K/uL testing performed at [facility], [address] [place] [address]376 IG Abs 0.08 (H)Comment: As 0.00 - 0.04 CAREY part of the K/uL Differential testing performed at [facility], [address] [place] [address] Specimen Blood Performing Organization Address City/[facility] Code Phon e Number [place], [place] [id number] [place] [address] (ABNORMAL) BUN (08/26/2021 8:08 AM LOT ASSOCIATE)Only the most recent of3 resultswithin the time period is included. [facility] nature BUN 31 (H)Comment: Testing 6 - 23 mg/dL CAREY performed at [facility], [address] [place] [address] Specimen Blood Performing Organization Address City/State/[place] [address] [place] [address] ALT (08/26/2021 8:08 AM LOT ASSOCIATE)Only the most recent of3 resultswithin the time period is included. Pathologist Sig nature ALT 18Comment: Testing performed <=33 U/L [facility], [address] [place] [address] Specimen Blood Performing Organization Address City/State/[place] [address] [place] [address] Aspartate Aminotransferase (08/26/2021 8:08 AM LOT ASSOCIATE)Only the most recent of3 resultswithin the time period is included. Pathologist Sig nature AST 25Comment: Testing performed <=32 U/L [facility], [address] [place] [address] Specimen Blood Performing Organization Address City/[facility]/[place] [address] [place] [address] TSH (08/26/2021 8:08 AM LOT ASSOCIATE) Pathologist Sig nature TSH 1.89Comment: Testing 0.27 - 4.20 CAREY performed at [facility], [address] [place] [address] Specimen Blood Performing Organization Address City/[facility]/ZIP Code Phon e Number [place], [place] [id number] [place] [address] (ABNORMAL) Free T4 (08/26/2021 8:08 AM LOT ASSOCIATE) Pathologist Sig nature T4 Free 1.86 (H)Comment: 0.93 - 1.70 ng/dL CAREY Testing performed at [facility], [address] [place] [address] Specimen Blood Performing Organization Address City/State/[place] [address] [place] [address] Total Protein (08/26/2021 8:08 AM LOT ASSOCIATE)Only the most recent of3 resultswithin the time period is included. Pathologist Sig OWM Total Protein 7.6Comment: Testing 6.4 - 8.3 g/dL CAREY performed at [facility], [address] [place] [address] Specimen Blood Performing Organization Address City/[facility]/ZIP Code Phon e Number [place], [place] [id number] [place] [address] Alkaline Phosphatase (08/26/2021 8:08 AM LOT ASSOCIATE)Only the most recent of3 results within the time period is included. Pathologist Sig OWM Alk Phos 38Comment: Testing 35 - 104 U/L CAREY performed at [facility], [address] [place] [address] Specimen Blood Performing Organization Address City/[facility] Code Phon e Number [place], [place] [id number] [place] [address] Magnesium Level (08/26/2021 8:08 AM LOT ASSOCIATE)Only the most recent of3 resultswithin the time period is included. Pathologist Sig OWM Magnesium 1.7Comment: Testing 1.6 - 2.6 mg/dL CAREY performed at [facility], [address] [place] [address] Specimen Blood Performing Organization Address City/[facility] Phon e Number [place], [place] [id number] [place] [address] (ABNORMAL) Glucose Level (08/26/2021 8:08 AM LOT ASSOCIATE)Only the most recent of3 resultswithin the time period is included. Pathologist Sig nature Glucose Level 122 (H) 70 - 99 mg/dL CAREY Comment: Effective 01/28/16, the gluco se reference intervals have been updated based on [place] [employer] guidelines (Standards of Medical Care in Diabetes 2016. Diabetes Care 2016; 39: S13-S22). Fasting blood glucose: Normal: 70-99 mg/dL Impaired fasting glucose (in creased risk for diabetes or pre-diabetes): 100- 125 mg/dL Diabetes mellitus: >/=126 mg/dL Random blood glucose: Normal: 70-199 mg/dL Note: Random glucose >100 mg/dL is assoc iated with increased risk for diabetes Testing performed at [facility], [address] [place] [address] Specimen Blood Performing Organization Address City/[facility] [place] [address] [place] [address] Folate Level (08/26/2021 8:08 AM LOT ASSOCIATE) Pathologist Sig nature Folate Lvl 14.7 4.8 - 24.2 ng/mL CAREY Comment: Hemolyzed specimens with Hem olysis Index >30.0 (30 mg/dL or visible hemolysis) may cause interference and give falsely high results. Performed at [facility], [address] [place] [id number] Specimen Blood Narrative CAREY - 08/26/2021 8:54 AM LOT ASSOCIATE This lab cannot be scheduled at the following locations due to collection/proccessing restrictions: [place] [facility] DIAG LAB CTR [facility] REGS DIAG LAB CTR [facility] DIAG LAB CTR [facility] DAIG LAB CTR [facility] Performing Organization Address City/[facility] [place] [address] [place] [address] Vitamin B12 Level (08/26/2021 8:08 AM LOT ASSOCIATE) Pathologist Sig [facility] Vitamin B12 Lvl 850Comment: 211 - 946 pg/mL CAREY Performed at [facility], [address] [place] [address] Specimen Blood Performing Organization Address City/State/ZIP [facility] [place] [address] [place] [address] Calcium Level (08/26/2021 8:08 AM LOT ASSOCIATE)Only the most recent of3 resultswithin the time period is included. Pathologist Sig nature Calcium Lvl 9.9Comment: Testing 8.4 - 10.2 mg/dL CAREY performed at [facility], [address] [place] [address] Specimen Blood Performing Organization Address City/State/[place] [address] [place] [address] Albumin Level (08/26/2021 8:08 AM LOT ASSOCIATE)Only the most recent of3 resultswithin the time period is included. Pathologist Sig nature Albumin Lvl 4.1Comment: Testing 3.5 - 5.2 gm/dL CAREY performed at [facility], [address] [place] [address] Specimen Blood Performing Organization Address City/[facility]/[place] [address] [place] [address] Electrolyte Panel (08/26/2021 8:08 AM LOT ASSOCIATE)Only the most recent of3 results within the time period is included. Pathologist Sig nature Sodium Lvl 140Comment: Testing 136 - 145 mEq/L CAREY performed at [facility], [address] [place] [address] Potassium Lvl 4.3Comment: Testing 3.5 - 5.1 mEq/L CAREY performed at [facility], [address] [place] [address] Chloride 107Comment: Testing 98 - 107 mEq/L CAREY performed at [facility], [address] [place] [address] CO2 26Comment: Testing 22 - 29 mEq/L CAREY performed at [facility], [address] [place] [address] Anion Gap 7Comment: Testing 4 - 14 mEq/L CAREY performed at [facility], [address] [place] [address] Specimen Blood Performing Organization Address City/[facility]/ZIP Code Phon e Number [place], [place] [address] [place] [address] Phosphorus Level (04/23/2021 10:31 AM CDT)Only the most recent of2 resultswithin the time period is included. Pathologist Sig nature Phosphorus 2.7Comment: Testing 2.5 - 4.5 mg/dL CAREY performed at [facility], [address] [place] [address], [place] [address] Specimen Blood Performing Organization Address City/State/ZIP Code Phon e Number [place], [place] [address] [place] [address] LDH (04/23/2021 10:31 AM CDT)Only the most recent of2 resultswithin the time period is included. Pathologist Sig nature LDH 166 135 - 214 U/L CAREY Comment: Results greater than 1651 U/ L may not be reliable due to matrix effect with extended dilution as it exceeds the beef cattle farm worker s recommended limit. Caution should be exercised when interpreting such will ues and done in conjunction with clinical context. Testing performed at [facility], [address] [place] [address] Specimen Blood Performing Organization Address City/State/ZIP Code Phon e Number [facility], [place] [address] [place] [address] US Chest for Breast Ultrasound (12/22/2020 9:03 AM CDT) Anatomical Region Laterality Modality Chest Ultrasound Specimen Impressions [facility] - 12/22/2020 9:06 AM CDT There is no evidence of malignancy. Follow-up mammogram in 1 year is recomme nded. BI-RADS Category 2: Benign Finding(s) These results and recommendations were p ersonally discussed with the patient at the time of the examination. Narrative [facility] - 12/22/2020 9:06 AM CDT CLINICAL INDICATION: Patient is a 80 year old female and is s een for history of breast cancer FILMS COMPARED The present examination has been compare d to prior imaging studies performed at an outside location on 06/04/2020, at [facility] on 12/22/2020, and at [facility] on 07/11/2019. Images were obtained in multiple scannin g planes. Real-time sonographic imaging of both br easts (including all 4 quadrants and retroareolar region) was performed. Re al time sonographic imaging of the left axilla was performed. Real-time sonogr aphic imaging of the right regional juli basins including ultrasound of the chest /mediastinum to evaluate the axillary (level I,II,III) and internal mammary re gions was performed. There is a stable post surgical scar in the right breast. There are small scattered benign cysts i n both breast. No suspicious abnormality is seen in both breasts. Left Regional Juli Basins: There is no abnormal lymph node at axillary level I regions. Right Regional Juli Basins: No suspi cious axillary levels I, II, III (infraclavicular) or internal mammary ly mph node is identified. Procedure Note Brad Dupont MD - 12/22/2020 CLINICAL INDICATION: Patient is a 80 year old female and is s een for history of breast cancer FILMS COMPARED The present examination has been compare d to prior imaging studies performed at an outside location on 06/04/2020, at [facility] on 12/22/2020, and at [facility] on 07/11/2019. Images were obtained in multiple scannin g planes. Real-time sonographic imaging of both br easts (including all 4 quadrants and retroareolar region) was performed. [place] l time sonographic imaging of the left axilla was performed. Real-time sonogra phic imaging of the right regional juli basins including ultrasound of the chest /mediastinum to evaluate the axillary (level I,II,III) and internal mammary re gions was performed. There is a stable post surgical scar in the right breast. There are small scattered benign cysts i n both breast. No suspicious abnormality is seen in both breasts. Left Regional Juli Basins: There is n o abnormal lymph node at axillary level I regions. Right Regional Juli Basins: No suspic ious axillary levels I, II, III (infraclavicular) or internal mammary ly mph node is identified. IMPRESSION: There is no evidence of malignancy. Follow-up mammogram in 1 year is recomme nded. BI-RADS Category 2: Benign Finding(s) These results and recommendations were p ersonally discussed with the patient at the time of the examination. Performing Organization Address City/State/ZIP Code Phon e Number [facility] Breast Bilateral incl Juli Basins (12/22/2020 9:03 AM CDT) Anatomical Region Laterality Modality Breast Bilateral Ultrasound Specimen Impressions [facility] - 12/22/2020 9:06 AM CDT There is no evidence of malignancy. Follow-up mammogram in 1 year is recomme nded. BI-RADS Category 2: Benign Finding(s) These results and recommendations were p ersonally discussed with the patient at the time of the examination. Narrative [facility] - 12/22/2020 9:06 AM CDT CLINICAL INDICATION: Patient is a 80 year old female and is s een for history of breast cancer FILMS COMPARED The present examination has been compare d to prior imaging studies performed at an outside location on 06/04/2020, at [facility] on 12/22/2020, and at [facility] on 07/11/2019. Images were obtained in multiple scannin g planes. Real-time sonographic imaging of both br easts (including all 4 quadrants and retroareolar region) was performed. Re al time sonographic imaging of the left axilla was performed. Real-time sonogr aphic imaging of the right regional juli basins including ultrasound of the chest /mediastinum to evaluate the axillary (level I,II,III) and internal mammary re gions was performed. There is a stable post surgical scar in the right breast. There are small scattered benign cysts i n both breast. No suspicious abnormality is seen in both breasts. Left Regional Juli Basins: There is no abnormal lymph node at axillary level I regions. Right Regional Juli Basins: No suspi cious axillary levels I, II, III (infraclavicular) or internal mammary ly mph node is identified. Procedure Note Brad Dupont MD - 12/22/2020 CLINICAL INDICATION: Patient is a 80 year old female and is s een for history of breast cancer FILMS COMPARED The present examination has been compare d to prior imaging studies performed at an outside location on 06/04/2020, at [facility] on 12/22/2020, and at [facility] on 07/11/2019. Images were obtained in multiple scannin g planes. Real-time sonographic imaging of both br easts (including all 4 quadrants and retroareolar region) was performed. [place] l time sonographic imaging of the left axilla was performed. Real-time sonogra phic imaging of the right regional juli basins including ultrasound of the chest /mediastinum to evaluate the axillary (level I,II,III) and internal mammary re gions was performed. There is a stable post surgical scar in the right breast. There are small scattered benign cysts i n both breast. No suspicious abnormality is seen in both breasts. Left Regional Juli Basins: There is n o abnormal lymph node at axillary level I regions. Right Regional Juli Basins: No suspic ious axillary levels I, II, III (infraclavicular) or internal mammary ly mph node is identified. IMPRESSION: There is no evidence of malignancy. Follow-up mammogram in 1 year is recomme nded. BI-RADS Category 2: Benign Finding(s) These results and recommendations were p ersonally discussed with the patient at the time of the examination. Performing Organization Address City/State/ZIP Code Phon e Number [facility] Mammography Digital Diagnostic Bilateral with Tristin (12/22/2020 7:41 AM CDT) Anatomical Region Laterality Modality Breast Bilateral Mammography Specimen Impressions [facility] - 12/22/2020 9:05 AM CDT There is no mammographic evidence of malignancy. The patient is scheduled for a same day ultrasound. Please, see the jason hines report. Follow-up mammogram in 1 year is recomme nded. BI-RADS Category 2: Benign Finding(s) Narrative [facility] - 12/22/2020 9:05 AM CDT CLINICAL INDICATION: Patient is a 80 year old female and is s een for history of breast cancer MAMMO DIGITAL DIAGNOSTIC BILATERAL W JEFF O Digital Mammogram evaluated with Compute r Aided Detection (CAD). COMPARISON: The present examination has been compare d to prior imaging studies performed at an outside location on 12/20/2017, 12/27, 01/30/2020 and 06/04/2020, and at [facility] o n 07/11/2019. FINDINGS: The breasts are heterogeneously dense, w hich may obscure small masses. There is a post-surgical scar in the rig ht breast. Finding remains unchanged from the prior study. In the left breast, no dominant mass, di stortion, or suspicious calcifications are identified. Tomosynthesis performed in and O pr ojections. Procedure Note Brad Dupont MD - 12/22/2020 CLINICAL INDICATION: Patient is a 80 year old female and is s een for history of breast cancer MAMMO DIGITAL DIAGNOSTIC BILATERAL W JEFF O Digital Mammogram evaluated with Compute r Aided Detection (CAD). COMPARISON: The present examination has been compare d to prior imaging studies performed at an outside location on 12/20/2017, 12/27, 01/30/2020 and 06/04/2020, and at [facility] o n 07/11/2019. FINDINGS: The breasts are heterogeneously dense, w hich may obscure small masses. There is a post-surgical scar in the rig ht breast. Finding remains unchanged from the prior study. In the left breast, no dominant mass, di stortion, or suspicious calcifications are identified. Tomosynthesis performed in CC and MLO pr ojections. IMPRESSION: There is no mammographic evidence of mal ignancy. The patient is scheduled for a same day ultrasound. Please, see the sep flora report. Follow-up mammogram in 1 year is recomme nded. BI-RADS Category 2: Benign Finding(s) Performing Organization Address City/State/ZIP Code Phon e Number [facility] Uric Acid (12/22/2020 6:26 AM CDT) Pathologist Sig nature Uric Acid 4.1Comment: Testing 2.4 - 5.7 mg/dL CAREY performed at [facility], [address] [place] [address], [place] [address] Specimen Blood Performing Organization Address City/[facility]/[place] [address] [place] [address] after 10/27/2020 Insurance Payer Benefit Plan / Subscriber ID Effective Phone Address T ype Group Dates [facility] MEDICARE [id number] 2020-Prese [address] [address] Medicare HEALTHCARE ADVANTAGE [place] [id number] Care Teams Cold Strip Roller Relationship Specialty Start Date End Date Morteza Buckner MD PCP - External Referring General Surgery 05/10/[address] [facility] [address] [place] [phone] Lee Garrison MD PCP - External Primary Family Practice 05/10/19 [address] [facility] Provider [address] [place], [place] [id number] Jo Romero, PCP - General Surgical Oncology 06/18/[address] [place] [address] [id number] Nicholas Blanchard Physician Cardiology 07/06/19 MD Oni [address] [facility] [place], [place] [id number] Meeta Beaver Physician Gastroenterology 07/06/[address] [facility] [place], [place] [address] Manolo Morrell, Physician Allergy 07/06/[address] [id number]
--- OUTSIDE RECORDS SUMMARY | 2021-10-27 18:03 | XMS REPORT | Continuity of Care Document ---
:1940 Author Organization [facility] t Address [address] [place] [address] Care Team Providers Name Role Phone [phone] Primary Care Physician Unavailable SYSTEM, NOT IN Attending Clinician Unavailable Sveta Leiva Attending Clinician SVETA KAUR Attending Clinician Unavailable Merly Dodson MD Attending Clinician MERLY DODSON Attending Clinician Unavailable Only, Test Attending Clinician Unavailable Abhilash ANDERSON Attending Clinician ABHILASH Attending Clinician Unavailable Payers Payer Name Policy Type Policy Number Effective Date Expiration Date S willa [facility] [id number] 2020 MD Borden rsdanny MEDICARE 00:00:00 [facility] MEDICARE [id number] 2020-[address], [place] [address]Medicare [employer] MEDICARE [id number] 2018 00:00:00 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 2 Brody o of of 00:00: n lower-oute lower-oute 00 r quadrant r quadrant of right of right female female breast breast Allergies, Adverse Reactions, Alerts Allergy Allergy Status Severity Reaction(s) Onset Inactive Treating Comm ents Source Name Type Date Date Clinician NO KNOWN Drug Active Univers ALLERGIE Class ity of [facility] Family History Family Member Diagnosis Comments Start Date Stop Date Source Natural father Prostate cancer MD Cintia murphy Natural father Skin cancer MD Skinner on Social History Social Habit Start Date Stop Date Quantity Comments Source History [facility] MD Connor Alcohol Frequency History [facility] MD Connor Alcohol Std Drinks History [facility] MD Connor Alcohol Binge Exposure to Not sure University SARS-CoV-2 [facility] (event) [place] Alcohol intake 2021-04-23 2021-04-23 Current drinker MD Cintia murphy 00:00:00 00:00:00 of alcohol (finding) Tobacco use and 2019-07-06 2019-07-06 Smokeless tobacco MD Connor exposure 00:00:00 00:00:00 non-user History SDPA 2019-07-06 2019-07-06 one drink a month MD Cintia murphy Alcohol Comment 00:00:00 00:00:00 Education 2019-07-06 2019-07-06 13 MD Connor 00:00:00 00:00:00 [birth year] MD Skinner on 00:00:00 00:00:00 Smoking Status Start Date Stop Date Source Unknown if ever smoked [facility] Never smoked tobacco MD Connor Medications Ordered Filled Start Stop Current Ordering Indication Dosage Frequency Signature Comments Components Source Medication Medication Date Date Medication? Clinician (SIG) Name Name potassium Yes Take by 99 mg tab 2-23 mouth Anderso 09:10: daily. n 26 lactobacill Yes Chew us 2-23 daily. Anderso acidophilus 09:10: n -bulgaricus 26 (LACTINEX) 1 million cells chew chewable tablet UNABLE TO Yes Med Name: FIND 2-23 Allergy Anderso 09:10: shot n 26 weekly On hold per patient beta-carote Yes 1{tbl} Take 1 ne,A,-vits 2-23 tablet by Michi rso C,E/mins 09:10: mouth n (OCUVITE 26 daily. ORAL) zinc 2022-0 Yes 22mg Take 22 mg MD gluconate 2-23 by mouth Brody o 50 mg 09:10: twice n tablet 26 daily. ascorbic Yes 500mg Take 500 MD acid, 2-23 mg by Anderso vitamin C, 09:10: mouth n (vitamin C) 26 daily. 100 mg tablet cholecalcif Yes 5000U Take 5,000 MD adis, 2-23 Units by Anderso vitamin D3, 09:10: mouth n (Vitamin 26 daily. D3) 5,000 units tab tablet biotin 5 mg Yes Take by cap 2-23 mouth. Anderso 09:10: n 26 cetirizine Yes 10mg Take 10 mg M D (ZyrTEC) 10 2-23 by mouth Michi rso mg tablet 09:10: daily as n 26 needed. losartan-hy Yes 1{tbl} Take 1 MD drochloroth 2-23 tablet by And erso iazide 09:10: mouth n (HYZAAR) 26 daily. 50-12.5 mg per tablet EPINEPHrine 2018-07 Yes .3mg Inject 0.3 MD (EPIPEN) 2-12 mg into Anderso 0.3 mg/0.3 00:00: the n mL 00 shoulder, (1:1,000) thigh, or injection buttocks as needed. pantoprazol 2018-07 Yes 40mg Take 40 mg MD e 1-25 by mouth Anderso (PROTONIX) 00:00: daily. n 40 mg EC 00 tablet fenofibric 2018-07 Yes 135mg Take 135 MD acid 1-25 mg by Anderso (TRILIPIX) 00:00: mouth n 135 mg 00 daily. capsule levothyroxi 2018-07 Yes 50ug Take 50 MD ne 1-20 mcg by Anderso (SYNTHROID, 00:00: mouth n LEVOTHROID) 00 every 48 50 mcg hours. tablet Alternates days with 75mcg levothyroxi 2018-07 Yes 75ug Take 75 MD ne 1-05 mcg by Anderso (SYNTHROID, 00:00: mouth n LEVOTHROID) 00 every 48 75 mcg hours. tablet Alternates days with 50mcg mesalamine 2018-07 Yes 2g Take 2 g MD (LIALDA) 0-14 by mouth 4 Zachariah [address] 1[address] 00:00: (four) n tablet 00 times a day. Immunizations Ordered Immunization Filled Immunization Date Status Commen ts Source Name Name Jerry SARS-CoV-2 2020-09-07 Completed And erson Vaccination 00:00:00 Moderna SARS-CoV-2 2020-08-10 Completed And erson Vaccination 00:00:00 Influenza Split High 2020-04-03 Completed MD Roger foote Dose Preservative 00:00:00 Free IM Pneumococcal 2018-08-18 Completed MD Connor Conjugate 13-Valent 00:00:00 Vital Signs Vital Name Observation Time Observation Value Comments Source WEIGHT 2020-01-02 00:00:00 59.6 kg Systolic blood pressure 2021-08-26 15:05:08 155 mm[Hg] MD Connor Diastolic blood pressure 2021-08-26 15:05:08 78 mm[Hg] MD Connor Heart rate 2021-08-26 15:05:08 70 /min MD Zachariah light Body temperature 2021-08-26 15:02:58 36.89 Vicki MD Roger foote Respiratory rate 2021-08-26 15:02:58 16 /min MD Roger foote Body weight 2021-08-26 15:02:58 62.6 kg MD Zachariah light BMI 2021-08-26 15:02:58 27.38 kg/m2 MD Zachariah light Oxygen saturation in 2021-08-26 15:02:58 97 /min MD Connor Arterial blood by Pulse oximetry Procedures Procedure Date / Time Performed Performing Clinician [facility] e MANUAL DIFFERENTIAL 2021-08-26 14:08:00 Michelle Beverly MD GLUCOSE LEVEL 2021-08-26 14:08:00 Michelle Beverly MD on BLOOD UREA NITROGEN 2021-08-26 14:08:00 Michelle Beverly MD ELECTROLYTE PANEL 2021-08-26 14:08:00 Michelle Beverly MD rson SERUM CREATININE 2021-08-26 14:08:00 Michelle Beverly MD .GLOMERULAR FILTRATION RATE 2021-08-26 14:08:00 Andreia Beverly MD CALCIUM LEVEL TOTAL 2021-08-26 14:08:00 Michelle Beverly MD ALBUMIN LEVEL 2021-08-26 14:08:00 Michelle Beverly MD on ALKALINE PHOSPHATASE 2021-08-26 14:08:00 Michelle Beverly MDrson ALANINE AMINOTRANSFERASE 2021-08-26 14:08:00 Michelle Beverly MD ASPARTATE AMINOTRANSFERASE 2021-08-26 14:08:00 Pranav Beverly TOTAL PROTEIN 2021-08-26 14:08:00 Michelle Beverly MD on FRACTIONATED BILIRUBIN 2021-08-26 14:08:00 Michelle Beverly MD VITAMIN D 25 HYDROXY LEVEL 2021-08-26 14:08:00 Pranav Beverly COMPLETE BLOOD COUNT W/ 2021-08-26 14:08:00 Michelle Beverly DIFFERENTIAL COMPREHENSIVE METABOLIC PANEL 2021-08-26 14:08:00 Nicolasa Beverly MD MAGNESIUM LEVEL 2021-08-26 14:08:00 Michelle Beverly MD on THYROID STIMULATING HORMONE 2021-08-26 14:08:00 Andreia Beverly MD FREE THYROXINE 2021-08-26 14:08:00 Michelle Beverly MD on FOLATE LEVEL 2021-08-26 14:08:00 Michelle Beverly MD on VITAMIN B12 LEVEL 2021-08-26 14:08:00 Michelle Beverly MD Michi rson Results CBC 2021-08-26 14:08:00 Michelle Beverly MD on ALBUMIN LEVEL 2021-04-23 15:31:00 Michelle Beverly MD on ALKALINE PHOSPHATASE 2021-04-23 15:31:00 Michelle Beverly MDrson ALANINE AMINOTRANSFERASE 2021-04-23 15:31:00 Michelle Beverly MD ASPARTATE AMINOTRANSFERASE 2021-04-23 15:31:00 Pranav Beverly TOTAL PROTEIN 2021-04-23 15:31:00 Michelle Beverly MD on FRACTIONATED BILIRUBIN 2021-04-23 15:31:00 Michelle Beverly MD VITAMIN D 25 HYDROXY LEVEL 2021-04-23 15:31:00 Pranav Beverly COMPLETE BLOOD COUNT W/ 2021-04-23 15:31:00 Michelle Beverly DIFFERENTIAL COMPREHENSIVE METABOLIC PANEL 2021-04-23 15:31:00 Nicolasa Beverly MD MAGNESIUM LEVEL 2021-04-23 15:31:00 Michelle Beverly MD on PHOSPHORUS LEVEL 2021-04-23 15:31:00 Michelle Beverly MD Zachariah son LACTATE DEHYDROGENASE 2021-04-23 15:31:00 Michelle Beverly MD Results CBC 2021-04-23 15:31:00 Michelle Beverly MD on MANUAL DIFFERENTIAL 2021-04-23 15:31:00 Michelle Beverly MD derson GLUCOSE LEVEL 2021-04-23 15:31:00 Michelle Beverly MD on BLOOD UREA NITROGEN 2021-04-23 15:31:00 Michelle Beverly MDson ELECTROLYTE PANEL 2021-04-23 15:31:00 Michelle Beverly MD Michi rson SERUM CREATININE 2021-04-23 15:31:00 Michelle Beverly MD Zachariah son .GLOMERULAR FILTRATION RATE 2021-04-23 15:31:00 Andreia Beverly MD CALCIUM LEVEL TOTAL 2021-04-23 15:31:00 Michelle Beverly MDson US BREAST COMPLETE BILATERAL 2020-12-22 14:03:06 Veronica Kaur MD US CHEST 2020-12-22 14:03:06 Veronica Kaur MD rson MAMMO DIGITAL DIAGNOSTIC 2020-12-22 12:41:30 Veronica Kaur MD BILATERAL W [place] COMPLETE BLOOD COUNT W/ 2020-12-22 11:26:00 Veronica Kaur MD DIFFERENTIAL COMPREHENSIVE METABOLIC PANEL 2020-12-22 11:26:00 Veronica Kaur MD LACTATE DEHYDROGENASE 2020-12-22 11:26:00 Veronica Kaur MAGNESIUM LEVEL 2020-12-22 11:26:00 Veronica Kaur MD Michi rson PHOSPHORUS LEVEL 2020-12-22 11:26:00 Veronica Kaur MD And erson URIC ACID 2020-12-22 11:26:00 Veronica Kaur MD Michi rson VITAMIN D 25 HYDROXY LEVEL 2020-12-22 11:26:00 Veronica Kaur MD Results CBC 2020-12-22 11:26:00 Veronica Kaur MD Michi rson MANUAL DIFFERENTIAL 2020-12-22 11:26:00 Veronica Kaur MD GLUCOSE LEVEL 2020-12-22 11:26:00 Veronica Kaur MD Michi rson BLOOD UREA NITROGEN 2020-12-22 11:26:00 Veronica Kaur MD ELECTROLYTE PANEL 2020-12-22 11:26:00 Veronica Kaur MDson SERUM CREATININE 2020-12-22 11:26:00 Veronica Kaur MD And erson .GLOMERULAR FILTRATION RATE 2020-12-22 11:26:00 Veronica Kaur MD CALCIUM LEVEL TOTAL 2020-12-22 11:26:00 Veronica Kaur MD ALBUMIN LEVEL 2020-12-22 11:26:00 Veronica Kaur MD Michi rson ALKALINE PHOSPHATASE 2020-12-22 11:26:00 Veronica Kaur MD ALANINE AMINOTRANSFERASE 2020-12-22 11:26:00 Veronica Kaur MD ASPARTATE AMINOTRANSFERASE 2020-12-22 11:26:00 Veronica Kaur MD TOTAL PROTEIN 2020-12-22 11:26:00 Veronica Kaur MD Michi rson FRACTIONATED BILIRUBIN 2020-12-22 11:26:00 Veronica Kaur MD Plan of Care Planned Activity Planned Date Details Comments Source Future Scheduled Test 2021-02-07 00:00:00 COVID-19 Vaccination (3 MD Connor - Booster for Moderna series) [code = COVID-19 Vaccination (3 - Booster for Moderna series)] Encounters Start End Encounter Admission Attending Care Care Encounter Source Date/Time Date/Time Type Type Clinicians Facility Department ID 2021-04-02 Outpatient SYSTEM, MDA MDA [id number] 10:47:00 PROVIDER Brody cordero 2021-01-20 Outpatient SYSTEM, MDA MDA [id number] 08:24:51 PROVIDER Brody cordero 2021-08-26 2021-08-26 Outpatient MARTINE KAUR, MDA MDA [id number] 08:12:30 09:25:55 VERONICA cordero 2021-08-26 2021-08-26 Outpatient EL MDA MDA [id number] 07:55:38 08:02:33 Brody cordero 2021-04-23 2021-04-23 Outpatient MARTINE DODSON, MDA MDA [id number] 10:35:14 11:21:55 MICHELLE cordero 2021-04-23 2021-04-23 Outpatient MARTINE DODSON, MDA MDA [id number] 10:21:46 10:25:03 MICHELLE cordero 2020-09-07 2020-09-07 Outpatient [facility] [id number] [facility] 2020-08-10 Outpatient [facility] [id number] Univers 13:00:00 13:00:00 [facility] 2020-06-05 2020-06-05 Laboratory Only, Adc Test [facility] [id number] Univers 15:37:50 15:52:50 Only Chet Hung [id number] [facility] [id number] [facility] [id number] [address] 2020-06-05 2020-06-05 Outpatient Jackie HUNG [facility] [id number] Univers 15:45:00 15:45:00 [facility] 2020-04-03 2020-04-03 Outpatient MARTINE DODSON, MDA MDA [id number] 00:00:00 00:00:00 MICHELLE cordero 2020-04-03 2020-04-03 Outpatient MARTINE KAUR, MDA MDA [id number] 00:00:00 00:00:00 VERONICA cordero 2020-01-02 2020-01-02 Outpatient MARTINE DODSON MDA MDA [id number] 10:01:12 12:05:03 MICHELLE cordero 2020-01-02 2020-01-02 Outpatient MARTINE DODSON MDA MDA [id number] 09:44:21 09:51:02 MICHELLE cordero Results This patient has no known results.
[2021-10-27 19:06] LABS: Urine Blood Negative (Negative); Urine Glucose Negative (Negative); Urine Protein Negative (Negative)
[2021-10-27 19:11] LABS: Absolute Lymphocytes (CBC) 1.3 K/uL (0.7-4.9); Hematocrit 36.9 % (36.0-45.0); Lymphocytes % 15.8 % (15.3-44.8); MPV 8.5 fL (7.6-11.3); RBC Red Blood Cell Count 3.81 M/uL (3.86-4.86)
[2021-10-27 19:22] LABS: Urine Bacteria <20 /HPF (<20); Urine RBC NONE SEEN /HPF (NONE SEEN)
[2021-10-27] MEDS ORDERED: FAMOTIDINE 20 MG/2 ML VIAL IV ONE (19:22)
[2021-10-27] MEDS ORDERED: ONDANSETRON 4 MG/2 ML VIAL ONE (19:22)
[2021-10-27 19:29] LABS: Albumin 3.8 g/dL (3.4-5.0); Bilirubin Total 0.8 mg/dL (0.2-1.0); Potassium 3.4 mmol/L (3.5-5.1); Protein, Total 7.9 g/dL (6.4-8.2)
[2021-10-27] MEDS ORDERED: NA CHLORIDE 0.9% 500 ML ONE (20:06)
--- NOTE | 2021-10-27 21:16 | RAD REPORT ---
EXAM DESCRIPTION: CTAbdomen Pelvis W Contrast - 10/27/2021 9:08 pm CLINICAL HISTORY: Abdominal pain COMPARISON: CT ABD PELVIS W CONTRAST dated 11/26/2012 TECHNIQUE: CT of the abdomen and pelvis was performed. All CT scans are performed using dose optimization technique as appropriate and may include automated exposure control or mA/KV adjustment according to patient size. FINDINGS: Lower chest: No acute abnormality. Liver: Unchanged multiple low-density liver lesions which are statistically benign. Biliary: No biliary ductal dilatation. Stomach: No significant focal abnormality. Duodenum: No significant focal abnormality. Pancreas: No significant abnormality. Spleen: No significant abnormality. Adrenal: No suspicious lesions. Kidney/ureter: No hydronephrosis. Nonobstructing 3 mm stone in the right kidney. Retroperitoneum: No retroperitoneal adenopathy. Vascular: No aneurysm. Bowel: No significant focal abnormality. Normal appendix. Peritoneum: No ascites or free air. Small fat containing umbilical hernia . Bladder: Grossly unremarkable. Reproductive: No adnexal masses. Bones: No acute fracture. Chronic appearing L2 compression deformity. Other: n/a IMPRESSION: No acute intra-abdominal or pelvic finding. Normal appendix. Nonobstructive right nephro lithiasis.
[2021-10-27] MEDS ORDERED: POTASSIUM 25 MEQ EFFERV TAB ONE ×2 (21:38)
--- NOTE | 2021-10-27 22:04 | ER ---
Nurse's Notes [facility] Name: Yareli Beckham Age: 80 yrs Sex: Female : 1940 Arrival Date: 10/27/2021 Time: 18:01 Bed 19 Private MD: Lee Garrison Diagnosis: Vomiting, unspecified;Abdominal pain, unspecified Presentation: 10/27 18:05 Chief complaint: Patient states: "I had acid reflux last night, and I threw up what I vg1 ate for dinner at about 0300" Denies diarrhea. Coronavirus screen: Vaccine status: Patient reports receiving the 2nd dose of the covid vaccine. Client denies travel out of the [place] in the last 14 days. Ebola Screen: Patient denies exposure to infectious person. Patient denies travel to an Ebola-affected area in the 21 days before illness onset. Initial Sepsis Screen: Does the patient meet any 2 criteria? No. Patient's initial sepsis screen is negative. Does the patient have a suspected source of infection? No. Patient's initial sepsis screen is negative. Risk Assessment: Do you want to hurt yourself or someone else? Patient reports no desire to harm self or others. Onset of symptoms was October 26, 2021. 18:05 Method Of Arrival: Ambulatory vg1 18:05 Acuity: ANA 3 vg1 Triage Assessment: 18:09 General: Appears comfortable, Behavior is calm, cooperative. Pain: Complains of pain in vg1 abdomen. GI: Abdomen is flat, Reports bloating, nausea, vomiting. Historical: - Allergies: 18:07 Augmentin; vg1 18:07 PENICILLINS; vg1 18:07 Pollen; vg1 - Home Meds: 18:07 losartan-hydrochlorothiazide oral [Active]; Lialda oral [Active]; pantoprazole oral vg1 [Active]; fenofibric acid oral [Active]; Potassium Chloride Oral once daily [Active]; Ocuvite Oral [Active]; - PMHx: 18:07 BREAST CA; Hyperlipidemia; Hypothyroidism; Lymphocytic/Collangenous Colitis; vg1 - Immunization history:: Client reports receiving the 2nd dose of the Covid vaccine. - Social history:: Smoking status: Patient denies any tobacco usage or history of. Screenin:11 Abuse screen: Denies threats or abuse. Denies injuries from another. Nutritional ww screening: No deficits noted. Tuberculosis screening: No symptoms or risk factors identified. Fall Risk None identified. Assessment: 19:24 General: Appears in no apparent distress. comfortable, Behavior is calm, cooperative. lg3 Pain: Complains of pain in epigastric area. Neuro: No deficits noted. Level of Consciousness is awake, alert, obeys commands, Oriented to person, place, time, situation. Cardiovascular: No deficits noted. Denies chest pain, shortness of breath, Capillary refill < 3 seconds Clubbing of nail beds is absent JVD is absent Patient's skin is warm and dry. Respiratory: No deficits noted. Airway is patent Trachea midline Respiratory effort is even, unlabored, Respiratory pattern is regular, symmetrical. GI: Abdomen is flat, non-distended, Bowel sounds present X 4 quads. Abd is soft and non tender X 4 quads. Reports epigastric pain, indigestion. : No deficits noted. No signs and/or symptoms were reported regarding the genitourinary system. EENT: No deficits noted. No signs and/or symptoms were reported regarding the EENT system. Derm: No deficits noted. No signs and/or symptoms reported regarding the dermatologic system. Skin is intact, is healthy with good turgor, Skin is dry, Skin is pink, warm \\T\\ dry. Musculoskeletal: No deficits noted. No signs and/or symptoms reported regarding the musculoskeletal system. Circulation, motion, and sensation intact. Range of motion: intact in all extremities. 20:50 Reassessment: Patient appears in no apparent distress at this time. No changes from lg3 previously documented assessment. Patient and/or family updated on plan of care and expected duration. Pain level reassessed. Patient is alert, oriented x 3, equal unlabored respirations, skin warm/dry/pink. 22:16 Reassessment: Patient appears in no apparent distress at this time. No changes from lg3 previously documented assessment. Patient and/or family updated on plan of care and expected duration. Pain level reassessed. Patient is alert, oriented x 3, equal unlabored respirations, skin warm/dry/pink. Patient denies pain at this time. Patient states feeling better. Patient states symptoms have improved. Vital Signs: 18:05 BP 144 / 64; Pulse 99; Resp 16; Temp 98.8(O); Pulse Ox 100% ; Weight 62.14 kg; Height 5 vg1 ft. 0 in. (152.40 cm); Pain 2/10; 19:45 BP 129 / 59; Pulse 79; Resp 17 S; Pulse Ox 98% on R/A; lg3 20:45 BP 140 / 56; Pulse 71; Resp 16; Pulse Ox 100% on R/A; lg3 22:17 BP 136 / 62; Pulse 72; Resp 16; Pulse Ox 100% on R/A; lg3 18:05 Body Mass Index 26.76 (62.14 kg, 152.40 cm) vg1 ED Course: 18:01 Patient arrived in ED. mr 18:01 Lee Garrison MD is Private Physician. mr 18:03 Aravind Rucker PA is PHCP. cp 18:03 Hossein Frank MD is Attending Physician. cp 18:07 Triage completed. vg1 18:09 Arm band placed on. vg1 19:11 Patient has correct armband on for positive identification. Bed in low position. Call ww light in reach. Adult w/ patient. Pulse ox on. NIBP on. 19:11 Inserted saline lock: 20 gauge in left antecubital area, using aseptic technique. Blood ww collected. 19:16 Kristan Carrington, RN is Primary Nurse. lg3 21:09 Abdomen In Process Unspecified. EDMS 22:17 No provider procedures requiring assistance completed. IV discontinued, intact, lg3 bleeding controlled, No redness/swelling at site. Pressure dressing applied. Administered Medications: 19:23 Drug: Pepcid (famotidine) 20 mg Route: IVP; Site: left antecubital; lg3 19:23 Follow up: Response: No adverse reaction lg3 19:23 Drug: Zofran (Ondansetron) 4 mg Route: IVP; Site: left antecubital; lg3 19:23 Follow up: Response: No adverse reaction lg3 20:03 Drug: NS 0.9% 500 ml Route: IV; Rate: calculated rate; Site: left antecubital; lg3 21:38 Drug: Potassium Effervescent Tablet 50 mEq Route: PO; lg3 21:38 Follow up: Response: No adverse reaction lg3 Outcome: 22:03 Discharge ordered by . cp 22:17 Discharged to home ambulatory, with significant other. lg3 22:17 Condition: stable 22:17 Discharge instructions given to patient, Instructed on discharge instructions, follow up and referral plans. medication usage, Demonstrated understanding of instructions, medications, Prescriptions given X 2. 22:18 Patient left the ED. lg3 Signatures: Dispatcher [employer] EDUT Krystle Amin Aravind Rucker PA PA cp Gibson, Lacie RN RN lg3 Beatriz Coreas RN RN vg1 Verona Garcia RN RN ww
--- NOTE | 2021-10-27 22:04 | EDPHYS ---
Physician Documentation [facility] Name: Yareli Beckham Age: 80 yrs Sex: Female : 1940 Arrival Date: 10/27/2021 Time: 18:01 Bed 19 Private MD: Lee Garrison ED Physician Hossein Frank HPI: 10/27 18:55 This 80 yrs old Female presents to ER via Ambulatory with complaints of Abdominal Pain, cp Vomiting. 18:55 The patient presents with abdominal pain in the upper abdomen, in the lower abdomen. cp Onset: The symptoms/episode began/occurred last night. Associated signs and symptoms: Pertinent positives: 1 episode of vomiting last night, Pertinent negatives: chest pain, constipation, diarrhea, dysuria, fever, vomiting blood. The symptoms are described as achy. Severity of pain: in the emergency department the pain has improved. Historical: - Allergies: 18:07 Augmentin; vg1 18:07 PENICILLINS; vg1 18:07 Pollen; vg1 - Home Meds: 18:07 losartan-hydrochlorothiazide oral [Active]; Lialda oral [Active]; pantoprazole oral vg1 [Active]; fenofibric acid oral [Active]; Potassium Chloride Oral once daily [Active]; Ocuvite Oral [Active]; - PMHx: 18:07 BREAST CA; Hyperlipidemia; Hypothyroidism; Lymphocytic/Collangenous Colitis; vg1 - Immunization history:: Client reports receiving the 2nd dose of the Covid vaccine. - Social history:: Smoking status: Patient denies any tobacco usage or history of. ROS: 19:00 Abdomen/GI: Positive for abdominal pain, nausea, vomiting. cp 19:00 Eyes: Negative for injury, pain, redness, and discharge. cp 19:00 Constitutional: Negative for body aches, chills, fever, poor PO intake. 19:00 ENT: Negative for drainage from ear(s), ear pain, sore throat, difficulty swallowing, difficulty handling secretions. 19:00 Cardiovascular: Negative for chest pain, edema, palpitations. 19:00 Respiratory: Negative for cough, shortness of breath, wheezing. 19:00 Back: Positive for radiated pain. 19:00 Neuro: Negative for altered mental status, headache, weakness. 19:00 All other systems are negative. Exam: 19:05 Constitutional: The patient appears in no acute distress, alert, awake, cp non-diaphoretic, non-toxic, well developed, well nourished. 19:05 Head/Face: Normocephalic, atraumatic. cp 19:05 Eyes: Periorbital structures: appear normal, Conjunctiva: normal, no exudate, no injection, Sclera: no appreciated abnormality, Lids and lashes: appear normal, bilaterally. 19:05 ENT: External ear(s): are unremarkable, Nose: is normal, Mouth: is normal, Posterior pharynx: Airway: no evidence of obstruction, patent. 19:05 Chest/axilla: Inspection: normal, Palpation: is normal, no crepitus, no tenderness. 19:05 Cardiovascular: Rate: normal, Rhythm: regular, Edema: is not appreciated, JVD: is not appreciated. 19:05 Respiratory: the patient does not display signs of respiratory distress, Respirations: normal, no use of accessory muscles, no retractions, labored breathing, is not present, Breath sounds: are clear throughout, no decreased breath sounds, no stridor, no wheezing. 19:05 Abdomen/GI: Inspection: abdomen appears normal, Bowel sounds: active, all quadrants, Palpation: soft, in all quadrants, mild abdominal tenderness, in all quadrants, rebound tenderness, is not appreciated, voluntary guarding, is not appreciated, involuntary guarding, is not appreciated. 19:05 Back: CVA tenderness, is absent. 19:05 Neuro: Orientation: to person, place \T\ time. Mentation: is normal, Motor: moves all fours, strength is normal, Sensation: is normal. Vital Signs: 18:05 BP 144 / 64; Pulse 99; Resp 16; Temp 98.8(O); Pulse Ox 100% ; Weight 62.14 kg; Height 5 vg1 ft. 0 in. (152.40 cm); Pain 2/10; 19:45 BP 129 / 59; Pulse 79; Resp 17 S; Pulse Ox 98% on R/A; lg3 20:45 BP 140 / 56; Pulse 71; Resp 16; Pulse Ox 100% on R/A; lg3 22:17 BP 136 / 62; Pulse 72; Resp 16; Pulse Ox 100% on R/A; lg3 18:05 Body Mass Index 26.76 (62.14 kg, 152.40 cm) vg1 MDM: 18:29 Patient medically screened. cp 22:03 Data reviewed: vital signs, nurses notes, lab test result(s), radiologic studies, CT cp scan. 22:03 Differential diagnosis: appendicitis, bowel obstruction, cholecystitis, Cholelithiasis, cp diverticulitis, gastritis, pancreatitis, Pyelonephritis, Ureterolithiasis, urinary tract infection, colitis. Counseling: I had a detailed discussion with the patient and/or guardian regarding: the historical points, exam findings, and any diagnostic results supporting the discharge/admit diagnosis, lab results, radiology results, to return to the emergency department if symptoms worsen or persist or if there are any questions or concerns that arise at home. Response to treatment: the patient's symptoms have markedly improved after treatment. Special discussion: Based on the patient's Hx, exam, and Dx evaluation, there is no indication for emergent surgery or inpatient Tx. It is understood by the patient/guardian that if the Sx's persist or worsen they need to return immediately for re-evaluation. 10/27 18:49 Order name: CBC with Diff; Complete Time: 19:44 cp 10/27 18:49 Order name: CMP; Complete Time: 19:44 cp 10/27 18:49 Order name: Lipase; Complete Time: 19:44 cp 10/27 18:49 Order name: Urine Microscopic Only; Complete Time: 19:44 cp 10/27 19:07 Order name: Urine Dipstick-Ancillary; Complete Time: 19:44 EDMS 10/27 18:49 Order name: IV Saline Lock; Complete Time: 19:07 cp 10/27 18:49 Order name: Labs collected and sent; Complete Time: 19:07 cp 10/27 18:49 Order name: Urine Dipstick-Ancillary (obtain specimen); Complete Time: 19:07 cp 10/27 20:10 Order name: Abdomen ; Complete Time: 21:28 EDMS 10/27 21:28 Interpretation: Report reviewed. cp Administered Medications: 19:23 Drug: Pepcid (famotidine) 20 mg Route: IVP; Site: left antecubital; lg3 19:23 Follow up: Response: No adverse reaction lg3 19:23 Drug: Zofran (Ondansetron) 4 mg Route: IVP; Site: left antecubital; lg3 19:23 Follow up: Response: No adverse reaction lg3 20:03 Drug: NS 0.9% 500 ml Route: IV; Rate: calculated rate; Site: left antecubital; lg3 21:38 Drug: Potassium Effervescent Tablet 50 mEq Route: PO; lg3 21:38 Follow up: Response: No adverse reaction lg3 Disposition Summary: 10/27/21 22:03 Discharge Ordered Location: Home cp Problem: new cp Symptoms: have improved cp Condition: Stable cp Diagnosis - Vomiting, unspecified cp - Abdominal pain, unspecified cp Followup: cp - With: Private Physician - When: 1 - 2 days - Reason: Worsening of condition Discharge Instructions: - Discharge Summary Sheet cp - Abdominal Pain, Adult cp - Nausea and Vomiting, Adult cp Forms: - Medication Reconciliation Form cp - Thank You Letter cp - Antibiotic Education cp - Prescription Opioid Use cp Prescriptions: - Zofran 4 mg Oral Tablet - take 1 tablet by ORAL route every 12 hours As needed; 20 tablet; Refills: 0, cp Product Selection Permitted - Pepcid 20 mg Oral Tablet - take 1 tablet by ORAL route every 12 hours for 5 days; 10 tablet; Refills: 0, cp Product Selection Permitted Signatures: Dispatcher [employer] EDAravind Chong PA PA cp Gibson, Lacie, RN RN lg3 Beatriz Coreas RN RN vg1
[2021-10-28 01:12] VITALS: TEMP 98.8
[2021-10-28 01:14] VITALS: O2SAT 100
[2021-10-28 01:16] VITALS: BP 136/62
== END 2021-10-27 22:18 | disposition home or self-care (01) ==
LOC: ER 17:58
DX: R10.9 Unspecified abdominal pain (principal); R11.2 Nausea with vomiting, unspecified; E78.5 Hyperlipidemia, unspecified; E03.9 Hypothyroidism, unspecified; Z85.3 Personal history of malignant neoplasm of breast; Z88.0 Allergy status to penicillin; Z88.1 Allergy status to other antibiotic agents
CPT/HCPCS: 85025; 36415; 83690; 80053; 74177; Q9967; J7040; J2405; J3490; 81003; 81015; 96374; 96375; 99284

== ENCOUNTER 2021-11-27 09:54 | Emergency (ER) | payer OTHER ==
--- OUTSIDE RECORDS SUMMARY | 2021-11-27 09:58 | XMS REPORT | Clinical Summary ---
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 Travel 04/23/2021 Office Visit Thoracic Medicine Sandi Dickens Macrocytos is - no anemia (Primary Dx); MD Michelle Adenoabigail c ell carcinoma 04/23/2021 Travel 12/22/2020 Office Visit 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, 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, 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 Travel after 11/27/2020 Immunizations Name Administration Dates Next Due Influenza Split High Dose Preservative Free IM 04/03/2020 Moderna SARS-CoV-2 Vaccination 09/07/2020, 08/10/2020 Pneumococcal Conjugate 13-Valent 08/18/2018 Surgical History Surgery Date Site/Laterality Comments TONSILLECTOMY 07/04/1947 - 07/03/1948 FOOT SURGERY 07/04/2000 - Right 07/03/2001 MA MASTECTOMY, PARTIAL 07/18/2019 Right Procedure : SEGMENTAL MASTECTOMY - OTHER-POSTERIOR MARGIN EXCISION; Surge on: Jo tavarez MD; Location: [facility]; Service: BREAST MA BREAST RECONSTRUC W 07/18/2019 Breast/Right Procedure : RECONSTRUCTION OTHR TECHNIQ OF BREAST WITH O THER TECHNIQUE-LOCAL TISSUE ADVANCEMENT; Brock rgeon: Tim Pascal MD ; Location: [facility]; Service: PLS - P LASTIC SURGERY Medical History Medical History Date Comments Arrhythmia occasional PVCs, pt evaluated by Flight Inspector in 03/2019 and found to be "low [...] Comments Blood Pressure 155/78 08/26/2021 9:05 AM MARINE EQUIPMENT SALES ENGINEER Pulse 70 08/26/2021 9:05 AM MARINE EQUIPMENT SALES ENGINEER Temperature 36.9 C (98.4 F) 08/26/2021 9:02 AM MARINE EQUIPMENT SALES ENGINEER Respiratory Rate 16 08/26/2021 9:02 AM MARINE EQUIPMENT SALES ENGINEER Oxygen Saturation 97% 08/26/2021 9:02 AM MARINE EQUIPMENT SALES ENGINEER Inhaled Oxygen Concentration - - Weight 62.6 kg (138 lb 0.1 oz) 08/26/2021 9:02 AM MARINE EQUIPMENT SALES ENGINEER Height - - Body Mass Index 27.38 08/02/2019 8:03 AM MARINE EQUIPMENT SALES ENGINEER Plan of Treatment Date Type Specialty Care Team Description 12/23/2021 Lab Lab 12/23/2021 Ancillary Procedure Radiology 12/23/2021 Ancillary Procedure Radiology 12/23/2021 Office Visit Thoracic Medicine Nicolasa Beverly MD [address] [place], [place] [address] (Wo rk) Health Maintenance Due Date Last Done Comments COVID-19 Vaccination (3 - Booster for 02/07/2021 09/07/2020 , 08/10/2020 Moderna series) Procedures Procedure Name Priority Date/Time Associated Diagnosis Comme nts FRACTIONATED BILIRUBIN Routine 08/26/2021 8:08 Adenosquamous cell Results for this AM [employer] SALES ENGINEER carcinoma procedure are i n the results section. TOTAL PROTEIN Routine 08/26/2021 8:08 Adenosquamous cell Resu lts for this AM [employer] SALES ENGINEER carcinoma procedure are i n the results section. ASPARTATE Routine 08/26/2021 8:08 Adenosquamous cell Resul ts for this AMINOTRANSFERASE AM [employer] SALES ENGINEER carcinoma procedure a re in the results section. ALANINE AMINOTRANSFERASE Routine 08/26/2021 8:08 Adenosquamou s cell Results for this AM [employer] SALES ENGINEER carcinoma procedure are i n the results section. ALKALINE PHOSPHATASE Routine 08/26/2021 8:08 Adenosquamous ce ll Results for this AM [employer] SALES ENGINEER carcinoma procedure are i n the results section. ALBUMIN LEVEL Routine 08/26/2021 8:08 Adenosquamous cell Resu lts for this AM [employer] SALES ENGINEER carcinoma procedure are i n the results section. CALCIUM LEVEL TOTAL Routine 08/26/2021 8:08 Adenosquamous elham l Results for this AM [employer] SALES ENGINEER carcinoma procedure are i n the results section. .GLOMERULAR FILTRATION Routine 08/26/2021 8:08 Adenosquamous cell Results for this RATE AM [employer] SALES ENGINEER carcinoma procedure are i n the results section. SERUM CREATININE Routine 08/26/2021 8:08 Adenosquamous cell R esults for this AM [employer]MENT SALES ENGINEER carcinoma procedure are i n the results section. ELECTROLYTE PANEL Routine 08/26/2021 8:08 Adenosquamous cell Results for this AM [employer] SALES ENGINEER carcinoma procedure are i n the results section. BLOOD UREA NITROGEN Routine 08/26/2021 8:08 Adenosquamous elham l Results for this AM [employer] SALES ENGINEER carcinoma procedure are i n the results section. GLUCOSE LEVEL Routine 08/26/2021 8:08 Adenosquamous cell Resu lts for this AM [employer]MENT SALES ENGINEER carcinoma procedure are i n the results section. MANUAL DIFFERENTIAL Routine 08/26/2021 8:08 Adenosquamous elham l Results for this AM [employer] SALES ENGINEER carcinoma procedure are i n the results section. Results CBC Routine 08/26/2021 8:08 Adenosquamous cell Resul ts for this AM [employer]MENT SALES ENGINEER carcinoma procedure are i n the results section. VITAMIN B12 LEVEL Routine 08/26/2021 8:08 Adenosquamous cell Results for this AM [employer] SALES ENGINEER carcinoma procedure are in Macrocytosis - no the result s anemia section. FOLATE LEVEL Routine 08/26/2021 8:08 Adenosquamous cell Resul ts for this AM [employer]MENT SALES ENGINEER carcinoma procedure are in Macrocytosis - no the result s anemia section. FREE THYROXINE Routine 08/26/2021 8:08 Adenosquamous cell Res ults for this AM [employer] SALES ENGINEER carcinoma procedure are in Macrocytosis - no the result s anemia section. THYROID STIMULATING Routine 08/26/2021 8:08 Adenosquamous elham l Results for this HORMONE AM [employer] SALES ENGINEER carcinoma procedure are in Macrocytosis - no the result s anemia section. MAGNESIUM LEVEL Routine 08/26/2021 8:08 Adenosquamous cell Re sults for this AM [employer] SALES ENGINEER carcinoma procedure are i n the results section. COMPREHENSIVE METABOLIC Routine 08/26/2021 8:08 Adenosquamous cell PANEL AM [employer] SALES ENGINEER carcinoma COMPLETE BLOOD COUNT W/ Routine 08/26/2021 8:08 Adenosquamous cell DIFFERENTIAL AM [employer]MENT SALES ENGINEER carcinoma VITAMIN D 25 HYDROXY Routine 08/26/2021 8:08 Adenosquamous ce ll Results for this LEVEL AM [employer]MENT SALES ENGINEER carcinoma procedure are i n the results [...] Adenosquamous cell DIFFERENTIAL AM CDT carcinoma after 11/27/2020 Results (ABNORMAL) .Serum Creatinine (08/26/2021 8:08 AM MARINE E[employer]IPMENT SALES ENGINEER)Only the most recent of3 resultswithin the time period is included. P athologist Signature Creatinine 1.03 (H) 0.51 - 0.95 [place] mg/dL Comment: Testing performed at [facility], [address] [place] [address] Specimen Anatomical Collection Method Collection Time Receive d Time (Source) Location / / Volume Laterality Blood 08/26/2021 8:08 08/26/2021 AM [employer] SALES ENGINEER 8:09 AM [employer] EQUIPMENT SALES ENGINEER Michelle Dickens MD LAB BLOOD ORDERABLES Performing Organization Address City/State/[place] [address] [place] [address] (ABNORMAL) .CBC (08/26/2021 8:08 AM [employer]INE EQUIPMENT SALES ENGINEER)Only the most recent of3 resultswithin the time period is included. athologist Signature WBC 4.4 4.0 - 11.0 [place] K/uL Comment: All components of the CBC perfo rmed at [facility], [address] [place] [address] 7757 33 RBC 3.90 (L) 4.00 - 5.50 M/uL [place] Comment: All components of the CBC perfo rmed at [facility], [address] [place] [address] 77 3 Hgb 12.6 12.0 - 16.0 gm/dL [place] Comment: As part of CBC or as an individ ual orderable testing performed at [facility], [address] [place] [address] Hct 38.7 37.0 - 47.0 % [place] Comment: As part of CBC testing performe d at [facility], [address] [place] [address] MCV 99 (H) 82 - 98 fL [place] Comment: As part of CBC testing performe d at [facility], [address] [place] [address] MCH 32.3 (H) 27.0 - 31.0 pg [place] Comment: As part of CBC testing performe d at [facility], [address] [place] [address], [facility]573 MCHC 32.6 31.0 - 36.0 gm/dL [place] Comment: As part of CBC testing performe d at [facility], [address] [place], [place] [address] RDW-SD 50.2 (H) 35.1 - 46.3 fL [place] Comment: As part of CBC testing performe d at [facility], [address] [place] [address] RDW-CV 13.6 12.0 - 15.5 % [place] Comment: As part of CBC testing performe d at [facility], [address] [place] [address] Platelet count 251 140 - 440 K/uL [facility] Y Comment: As part of CBC or an individual orderable testing performed at [facility], [address] [place] [address] MPV 9.9 4.0 - 10.4 fL [place] Comment: As part of CBC testing performe d at [facility], [address] [place] [address] Specimen Anatomical Collection Method Collection Time Receive d Time (Source) Location / / Volume Laterality Blood 08/26/2021 8:08 08/26/2021 AM [employer] SALES ENGINEER 8:09 AM [employer]INE EQUIPMENT SALES ENGINEER Michelle Dickens MD LAB BLOOD ORDERABLES Performing Organization Address City/State/ZIP Code Phon e Number [place], [place] [phone] [place] [address] (ABNORMAL) Glomerular Filtration Rate (08/26/2021 8:08 AM [employer]INE EQUIPMENT SALES ENGINEER)Only the most recent of3 resultswithin the time period is included. athologist Signature eGFR-AA 58 (L) >=60 [place] mL/min/1.73 sq. m Comment: Normal eGFR >= 60 mL/min/1.73 m2 Note: The eGFR is calculated using the C KD-EPI equation. The eGFR declines with age. eGFR <60 mL/min/1.73 m2 is considered as "decreased". This equation should only be used for patients 18 and older. According to the National [employer] ion's Kidney Disease Outcome Quality Initiative (KDOQI) classification and 2012 Kidney Disease Improving Global Outcomes (KDIGO) Clinical Practice Guideline, the stage of CKD should be categorized based on estimated GFR. Stage Description GFR mL/min/1. 73 m2 1 Normal or high GFR >=90 2 Mildly decreased GFR 60-89 3a Mildly to moderately decreased GFR 45-59 3b Moderately to severely decreased GFR 30-44 4 Severely decreased GFR 15-29 5 Kidney failure <15 Testing performed at [facility], [address] [place] [address] eGFR-MAX 51 (L) >=60 mL/min/1.73 sq. m [place] Comment: Normal eGFR >= 60 mL/min/1.73 m2 Note: The eGFR is calculated using the C KD-EPI equation. The eGFR declines with age. eGFR <60 mL/min/1.73 m2 is considered as "decreased". This equation should only be used for patients 18 and older. According to the National [employer] ion's Kidney Disease Outcome Quality Initiative (KDOQI) classification and 2012 Kidney Disease Improving Global Outcomes (KDIGO) Clinical Practice Guideline, the stage of CKD should be categorized based on estimated GFR. Stage Description GFR mL/min/1. 73 m2 1 Normal or high GFR >=90 2 Mildly decreased GFR 60-89 3a Mildly to moderately decreased GFR 45-59 3b Moderately to severely decreased GFR 30-44 4 Severely decreased GFR 15-29 5 Kidney failure <15 Testing performed at [facility], [address] [place] [address] Specimen Anatomical Collection Method Collection Time Receive d Time (Source) Location / / Volume Laterality Blood 08/26/2021 8:08 08/26/2021 AM [employer]INE E[employer]IPMENT SALES ENGINEER 8:09 AM MARINE EQUIPMENT SALES ENGINEER Michelle Dickens MD LAB BLOOD ORDERABLES Performing Organization Address City/State/ZIP Code Phon e Number [place] [facility] [place] [address] [place] [address] Fractionated Bilirubin (08/26/2021 8:08 AM MARINE EQUIPMENT SALES ENGINEER)Only the most recent of3 results within the time period is included. athologist Signature Bili Total 0.4 <=1.2 mg/dL [place] Comment: Indocyanine Green (ICG) may cause falsel y elevated bilirubin results. Total and direct bilirubin must not be measured from samples containing indocyanine green. False elevation of total bilirubin can b e seen in patients with IgG concentrations above 28 g/L. Testing performed at [facility], [address] [place] [address] Bili Direct <0.2 <=0.3 mg/dL [place] Comment: Indocyanine Green (ICG) may cause falsel y elevated bilirubin results. Total and direct bilirubin must not be measured from samples containing indocyanine green. Testing performed at [facility], [address] [place] [address], [place] [address] Bili Indirect See Note 0.0 - 0.9 mg/dL [facility] Y Comment: Unable to calculate Indirect Bilirubin r esult due to some parameters are outside reportable range Testing performed at [facility], [address] [place] [address] Specimen Anatomical Collection Method Collection Time Receive d Time (Source) Location / / Volume Laterality Blood 08/26/2021 8:08 08/26/2021 AM [employer]INE E[employer]IPMENT SALES ENGINEER 8:09 AM MARINE EQUIPMENT SALES ENGINEER Michelle Dickens MD LAB BLOOD ORDERABLES Performing Organization Address City/State/ZIP Code Phon e Number [address] Vitamin D 25OH (08/26/2021 8:08 AM MARINE EQUIPMENT SALES ENGINEER)Only the most recent of3 resultswithin the time period is included. athologist Signature Vitamin D 25 OH 95 30 - 100 [place] ng/mL Comment: Reference Range: Deficiency: <10 ng/mL Insufficiency: 10-29 ng/mL Sufficiency: 30-100 ng/mL Potential toxicity: >100 ng/mL Testing performed at [facility], [address] [place] [address] Specimen Anatomical Collection Method Collection Time Receive d Time (Source) Location / / Volume Laterality Blood 08/26/2021 8:08 08/26/2021 AM MARINE EQUIPMENT SALES ENGINEER 8:09 AM MARINE EQUIPMENT SALES ENGINEER Michelle Dickens MD LAB BLOOD ORDERABLES Performing Organization Address City/State/ZIP Code Phon e Number [facility] [place] [address] [place] [address] (ABNORMAL) Differential (08/26/2021 8:08 AM MARINE EQUIPMENT SALES ENGINEER)Only the most recent of3 resultswithin the time period is included. athologist Signature Neutrophil % 43.8 42.0 - 66.0 [place] % Comment: All components of the Different ial performed at [facility], [address] [place] [address] Lymphocyte % 45.8 (H) 24.0 - 44.0 % [place] Comment: As part of the Differential katya ting performed at [facility], [address] [place] [address] Monocyte % 7.9 (H) 2.0 - 7.0 % [place] Comment: As part of the Differential katya ting performed at [facility], [address] [place] [address], [place] [address] Eosinophil % 0.0 (L) 1.0 - 4.0 % [place] Comment: As part of the Differential katya ting performed at [facility], [address] [place] [address], [place] [address] Basophil % 0.7 0.0 - 1.0 % [place] Comment: As part of the Differential katya ting performed at [facility], [address] [place] [address], [place] [address] IGRE % 1.8 (H) 0.0 - 0.4 % [place] Comment: IGRE % count includes Metamyelocytes, My elocytes, and Promyelocytes. As part of the Differential testing perf ormed at [facility], [address] [place] [address], [place] [address] Neutrophil Abs 1.94 1.70 - 7.30 K/uL KENN Salazar ITSana Comment: As part of the Differential katya ting performed at [facility], [address] [place] [address] Lymphocyte Abs 2.03 1.00 - 4.80 K/uL LEMACKENZIE C ITY Comment: As part of the Differential katya ting performed at [facility], [address] [place] [address]271 Monocyte Abs 0.35 0.08 - 0.70 K/uL [facility] CIT Y Comment: As part of the Differential katya ting performed at [facility], [address] [place] [address] Eosinophil Abs 0.00 (L) 0.04 - 0.40 K/uL LEMACKENZIE C ITY Comment: As part of the Differential katya ting performed at [facility], [address] [place] [address] Basophil Abs 0.03 0.00 - 0.10 K/uL [facility] Y Comment: As part of the Differential katya ting performed at [facility], [address] [place] [address] IG Abs 0.08 (H) 0.00 - 0.04 K/uL [place] Comment: As part of the Differential katya ting performed at [facility], [address] [place] [address] Specimen Anatomical Collection Method Collection Time Receive d Time (Source) Location / / Volume Laterality Blood 08/26/2021 8:08 08/26/2021 AM [employer] E[employer]IPMENT SALES ENGINEER 8:09 AM MARINE EQUIPMENT SALES ENGINEER Michelle Dickens MD LAB BLOOD ORDERABLES Performing Organization Address City/State/ZIP Code Phon e Number [place], [place] [phone] [place] [address] (ABNORMAL) BUN (08/26/2021 8:08 AM MARINE EQUIPMENT SALES ENGINEER)Only the most recent of3 resultswithin the time period is included. P athologist Signature BUN 31 (H) 6 - 23 mg/dL [place] Comment: Testing performed at [facility], [address] [place] [address] Specimen Anatomical Collection Method Collection Time Receive d Time (Source) Location / / Volume Laterality Blood 08/26/2021 8:08 08/26/2021 AM MARINE EQUIPMENT SALES ENGINEER 8:09 AM MARINE EQUIPMENT SALES ENGINEER Michelle Dickens MD LAB BLOOD ORDERABLES Performing Organization Address City/[facility]/ZIP Code Phon e Number [address] ALT (08/26/2021 8:08 AM MARINE EQUIPMENT SALES ENGINEER)Only the most recent of3 resultswithin the time period is included. athologist Signature ALT 18 <=33 U/L [place] Comment: Testing performed at [facility], [address] [place] [address] Specimen Anatomical Collection Method Collection Time Receive d Time (Source) Location / / Volume Laterality Blood 08/26/2021 8:08 08/26/2021 AM MARINE EQUIPMENT SALES ENGINEER 8:09 AM MARINE EQUIPMENT SALES ENGINEER Michelle Dickens MD LAB BLOOD ORDERABLES Performing Organization Address City/[facility]/ZIP Code Phon e Number [place], [place] [phone] [place] [address] Aspartate Aminotransferase (08/26/2021 8:08 AM MARINE EQUIPMENT SALES ENGINEER)Only the most recent of3 resultswithin the time period is included. athologist Signature AST 25 <=32 U/L [place] Comment: Testing performed at [facility], [address] [place] [address] Specimen Anatomical Collection Method Collection Time Receive d Time (Source) Location / / Volume Laterality Blood 08/26/2021 8:08 08/26/2021 AM MARINE EQUIPMENT SALES ENGINEER 8:09 AM MARINE EQUIPMENT SALES ENGINEER Michelle Dickens MD LAB BLOOD ORDERABLES Performing Organization Address City/State/[place] [address] [place] [address] TSH (08/26/2021 8:08 AM MARINE EQUIPMENT SALES ENGINEER) athologist Signature TSH 1.89 0.27 - 4.20 [place] mcunit/mL Comment: Testing performed at [facility], [address] [place] [address] Specimen Anatomical Collection Method Collection Time Receive d Time (Source) Location / / Volume Laterality Blood 08/26/2021 8:08 08/26/2021 AM MARINE EQUIPMENT SALES ENGINEER 8:09 AM MARINE EQUIPMENT SALES ENGINEER Michelle Dickens MD LAB BLOOD ORDERABLES Performing Organization Address City/State/[place] [address] [place] [address] (ABNORMAL) Free T4 (08/26/2021 8:08 AM MARINE EQUIPMENT SALES ENGINEER) P athologist Signature T4 Free 1.86 (H) 0.93 - 1.70 [place] ng/dL Comment: Testing performed at [facility], [address] [place] [address] Specimen Anatomical Collection Method Collection Time Receive d Time (Source) Location / / Volume Laterality Blood 08/26/2021 8:08 08/26/2021 AM MARINE EQUIPMENT SALES ENGINEER 8:09 AM MARINE EQUIPMENT SALES ENGINEER Michelle Dickens MD LAB BLOOD ORDERABLES Performing Organization Address City/State/ZIP [facility] Phon e Number [place], [place] [phone] [place] [address] Total Protein (08/26/2021 8:08 AM MARINE EQUIPMENT SALES ENGINEER)Only the most recent of3 resultswithin the time period is included. athologist Signature Total Protein 7.6 6.4 - 8.3 [place] g/dL Comment: Testing performed at [facility], [address] [place] [address]57 Specimen Anatomical Collection Method Collection Time Receive d Time (Source) Location / / Volume Laterality Blood 08/26/2021 8:08 08/26/2021 AM MARINE EQUIPMENT SALES ENGINEER 8:09 AM MARINE EQUIPMENT SALES ENGINEER Michelle Dickens MD LAB BLOOD ORDERABLES Performing Organization Address City/[facility]/ZIP Code Phon e Number [address] Alkaline Phosphatase (08/26/2021 8:08 AM MARINE EQUIPMENT SALES ENGINEER)Only the most recent of3 results within the time period is included. athologist Signature Alk Phos 38 35 - 104 U/L [place] Comment: Testing performed at [facility], [address] [place] [address] Specimen Anatomical Collection Method Collection Time Receive d Time (Source) Location / / Volume Laterality Blood 08/26/2021 8:08 08/26/2021 AM MARINE EQUIPMENT SALES ENGINEER 8:09 AM MARINE EQUIPMENT SALES ENGINEER Michelle Dickens MD LAB BLOOD ORDERABLES Performing Organization Address City/[facility]/ZIP Code Phon e Number [place], [place] [phone] [place] [address] Magnesium Level (08/26/2021 8:08 AM MARINE EQUIPMENT SALES ENGINEER)Only the most recent of3 resultswithin the time period is included. athologist Signature Magnesium 1.7 1.6 - 2.6 [place] mg/dL Comment: [facility], [address] [place] [address] Specimen Anatomical Collection Method Collection Time Receive d Time (Source) Location / / Volume Laterality Blood 08/26/2021 8:08 08/26/2021 AM MARINE EQUIPMENT SALES ENGINEER 8:09 AM MARINE EQUIPMENT SALES ENGINEER Michelle Dickens MD LAB BLOOD ORDERABLES Performing Organization Address [facility] Phon e Number [place], [place] [phone] [place] [address] (ABNORMAL) Glucose Level (08/26/2021 8:08 AM MARINE EQUIPMENT SALES ENGINEER)Only the most recent of3 resultswithin the time period is included. athologist Signature Glucose Level 122 (H) 70 - 99 [place] mg/dL Comment: Effective 01/28/16, the glucose reference intervals have been updated based on [place] [employer] guidelines (Standards of Medical Care in Diabetes 2016. Diabetes Care 2016; 39: S13-S22). Fasting blood glucose: Normal: 70-99 mg/dL Impaired fasting glucose (increased risk for diabetes or pre-diabetes): 100- 125 mg/dL Diabetes mellitus: >/=126 mg/dL Random blood glucose: Normal: 70-199 mg/dL Note: Random glucose >100 mg/dL is assoc iated with increased risk for diabetes [facility], [address] [place] [address] Specimen Anatomical Collection Method Collection Time Receive d Time (Source) Location / / Volume Laterality Blood 08/26/2021 8:08 08/26/2021 AM MARINE EQUIPMENT SALES ENGINEER 8:09 AM MARINE EQUIPMENT SALES ENGINEER Michelle Dickens MD LAB BLOOD ORDERABLES Performing Organization Address City/[facility] [facility] [place] [address] [place] [address] Folate Level (08/26/2021 8:08 AM MARINE EQUIPMENT SALES ENGINEER) athologist Signature Folate Lvl 14.7 4.8 - 24.2 [place] ng/mL Comment: Hemolyzed specimens with Hemolysis Index >30.0 (30 mg/dL or visible hemolysis) may cause interference and give falsely high results. Performed at [facility] , [address] [place] [address] Specimen Anatomical Collection Method Collection Time Receive d Time (Source) Location / / Volume Laterality Blood 08/26/2021 8:08 08/26/2021 AM MARINE EQUIPMENT SALES ENGINEER 8:09 AM MARINE EQUIPMENT SALES ENGINEER Narrative [place] - 08/26/2021 8:54 AM MARINE EQUIPMENT SALES ENGINEER This lab cannot be scheduled at the following locations due to collection/proccessing restrictions: [place] [facility] DIAG LAB CTR [facility] REG DIAG LAB CTR [facility] REGW DIAG LAB CTR [facility] DAIG LAB CTR [facility] DIAG LAB CTR [facility] Michelle Dickens MD LAB BLOOD ORDERABLES Performing Organization Address City/State/[place] [address] [place] [address] Vitamin B12 Level (08/26/2021 8:08 AM MARINE EQUIPMENT SALES ENGINEER) athologist Signature Vitamin B12 Lvl 850 211 - 946 [place] pg/mL Comment: Performed at [facility], [address] [place] [address] Specimen Anatomical Collection Method Collection Time Receive d Time (Source) Location / / Volume Laterality Blood 08/26/2021 8:08 08/26/2021 AM MARINE EQUIPMENT SALES ENGINEER 8:09 AM MARINE EQUIPMENT SALES ENGINEER Michelle Dickens MD LAB BLOOD ORDERABLES Performing Organization Address City/[facility]/[place]IP [place] [address] [place] [address] Calcium Level (08/26/2021 8:08 AM MARINE EQUIPMENT SALES ENGINEER)Only the most recent of3 resultswithin the time period is included. athologist Signature Calcium Lvl 9.9 8.4 - 10.2 [place] mg/dL Comment: Testing performed at [facility], [address] [place] [address] Specimen Anatomical Collection Method Collection Time Receive d Time (Source) Location / / Volume Laterality Blood 08/26/2021 8:08 08/26/2021 AM MARINE EQUIPMENT SALES ENGINEER 8:09 AM MARINE EQUIPMENT SALES ENGINEER Michelle Dickens MD LAB BLOOD ORDERABLES Performing Organization Address City/[facility] Phon e Number [place], [place] [phone] [place] [address] Albumin Level (08/26/2021 8:08 AM MARINE EQUIPMENT SALES ENGINEER)Only the most recent of3 resultswithin the time period is included. athologist Signature Albumin Lvl 4.1 3.5 - 5.2 [place] gm/dL Comment: Testing performed at [facility], [address] [place] [address] Specimen Anatomical Collection Method Collection Time Receive d Time (Source) Location / / Volume Laterality Blood 08/26/2021 8:08 08/26/2021 AM MARINE EQUIPMENT SALES ENGINEER 8:09 AM MARINE EQUIPMENT SALES ENGINEER Michelle Dickens MD LAB BLOOD ORDERABLES Performing Organization Address City/State/[facility] Phon e Number [place], [place] [address] [place] [address] Electrolyte Panel (08/26/2021 8:08 AM MARINE EQUIPMENT SALES ENGINEER)Only the most recent of3 results within the time period is included. athologist Signature Sodium Lvl 140 136 - 145 [place] mEq/L Comment: Testing performed at [facility], [address] [place] [address] Potassium Lvl 4.3 3.5 - 5.1 mEq/L [facility] Comment: Testing performed at [facility], [address] [place] [address] Chloride 107 98 - 107 mEq/L [place] Comment: Testing performed at [facility], [address] [place] [address] CO2 26 22 - 29 mEq/L [place] Comment: Testing performed at [facility], [address] [place] [address] Anion Gap 7 4 - 14 mEq/L [place] Comment: Testing performed at [facility], [address] [place] [address] Specimen Anatomical Collection Method Collection Time Receive d Time (Source) Location / / Volume Laterality Blood 08/26/2021 8:08 08/26/2021 AM MARINE EQUIPMENT SALES ENGINEER 8:09 AM MARINE EQUIPMENT SALES ENGINEER Michelle Dickens MD LAB BLOOD ORDERABLES Performing Organization Address City/State/ZIP Code Phon e Number [place], [place] [phone] [place] [address] Phosphorus Level (04/23/2021 10:31 AM CDT)Only the most recent of2 resultswithin the time period is included. P athologist Signature Phosphorus 2.7 2.5 - 4.5 [place] mg/dL Comment: Testing performed at [facility], [address] [place] [address] Specimen Anatomical Collection Method Collection Time Receive d Time (Source) Location / / Volume Laterality Blood 04/23/2021 10:31 04/23/2021 AM CDT 10:31 AM CDT Michelle Dickens MD LAB BLOOD ORDERABLES Performing Organization Address City/State/[place] [address] [place] [address] LDH (04/23/2021 10:31 AM CDT)Only the most recent of2 resultswithin the time period is included. P athologist Signature LDH 166 135 - 214 [place] U/L Comment: Results greater than 1651 U/L may not be reliable due to matrix effect with extended dilution as it exceeds the carpet cleaning technician s recommended limit. Caution should be exercised when interpreting such will ues and done in conjunction with clinica l context. Testing performed at [facility], [address], [place] [address] Specimen Anatomical Collection Method Collection Time Receive d Time (Source) Location / / Volume Laterality Blood 04/23/2021 10:31 04/23/2021 AM CDT 10:31 AM CDT Michelle Dickens MD LAB BLOOD ORDERABLES Performing Organization Address City/State/ZIP Code Phon e Number [facility] [place] [address] [address] [facility] Chest for Breast Ultrasound (12/22/2020 9:03 AM CDT) Anatomical Region Laterality Modality Chest Ultrasound Specimen (Source) Anatomical Collection Method Collection Time Re ceived Time Location / / Volume Laterality 12/22/2020 9:06 AM CDT Impressions 12/22/2020 9:06 AM CDT There is no evidence of malignancy. Follow-up mammogram in 1 year is recomme nded. BI-RADS Category 2: Benign Finding(s) These results and recommendations were p ersonally discussed with the patient at the time of the examination. Narrative 12/22/2020 9:06 AM CDT CLINICAL INDICATION: Patient is a 80 year old female and is s een for history of breast cancer FILMS COMPARED The present examination has been compare d to prior imaging studies performed at an outside location on 06/04/2020, at [facility] on 12/22/2020, and at [facility] on 07/11/2019. Images were obtained in [...] identified. Procedure Note Brad Dupont MD - 12/22/2020Formattin g of this note might be different from the original. CLINICAL INDICATION: Patient is a 80 year old female and is s een for history of breast cancer FILMS COMPARED The present examination has been compare d to prior imaging studies performed at an outside location on 06/04/2020, at [facility] on 12/22/2020, and at [facility] on 07/11/2019. Images were obtained in multiple scannin g planes. Real-time sonographic imaging of both br easts (including all 4 quadrants and retroareolar region) was performed. Elaine l time sonographic imaging of the left [...] patient at the time of the examination. Veronica SHEIKH IM US ORDERABLES US Breast Bilateral incl Juli Basins (12/22/2020 9:03 AM CDT) Anatomical Region Laterality Modality Breast Bilateral Ultrasound Specimen (Source) Anatomical Collection Method Collection Time Re ceived Time Location / / Volume Laterality 12/22/2020 9:06 AM CDT Impressions 12/22/2020 9:06 AM CDT There is no evidence of malignancy. Follow-up mammogram in 1 year is recomme nded. BI-RADS Category 2: Benign Finding(s) These results and recommendations were p ersonally discussed with the patient at the time of the examination. Narrative 12/22/2020 9:06 AM CDT CLINICAL INDICATION: Patient is a 80 year old female and is s een for history of breast cancer FILMS COMPARED The present examination has been compare d to prior imaging studies performed at an outside location on 06/04/2020, at [facility] on 12/22/2020, and at [facility] on 07/11/2019. Images were obtained in [...] identified. Procedure Note Brad Dupont MD - 12/22/2020Formattin g of this note might be different from the original. CLINICAL INDICATION: Patient is a 80 year old female and is s een for history of breast cancer FILMS COMPARED The present examination has been compare d to prior imaging studies performed at an outside location on 06/04/2020, at [facility] on 12/22/2020, and at [facility] on 07/11/2019. Images were obtained in multiple scannin g planes. Real-time sonographic imaging of both br easts (including all 4 quadrants and retroareolar region) was performed. [place] l time sonographic imaging of the left [...] patient at the time of the examination. Veronica Kaur BEET FLUMER IMG US ORDERABLES Mammography Digital Diagnostic Bilateral with Tristin (12/22/2020 7:41 AM CDT) Anatomical Region Laterality Modality Breast Bilateral Mammography Specimen (Source) Anatomical Collection Method Collection Time Re ceived Time Location / / Volume Laterality 12/22/2020 9:05 AM CDT Impressions 12/22/2020 9:05 AM CDT There is no mammographic evidence of malignancy. The patient is scheduled for a same day ultrasound. Please, see the sep arate report. Follow-up mammogram in 1 year is recomme nded. BI-RADS Category 2: Benign Finding(s) Narrative 12/22/2020 9:05 AM CDT CLINICAL INDICATION: Patient is a 80 year old female and is s een for history of breast cancer MAMMO DIGITAL DIAGNOSTIC BILATERAL W JEFF O Digital Mammogram evaluated with Compute r Aided Detection (CAD). COMPARISON: The present examination has been compare d to prior imaging studies performed at an outside location on 12/20/2017, 12/27, 01/30/2020 and 06/04/2020, and at [facility] o n 07/11/2019. FINDINGS: The breasts are heterogeneously dense, w hich may obscure small masses. There is a post-surgical scar in the rig ht breast. Finding remains unchanged from the prior study. In the left breast, no dominant mass, di stortion, or suspicious calcifications are identified. Tomosynthesis performed in CC and MLO pr ojections. Procedure Note Brad Dupont MD - 12/22/2020Formattin g of this note might be different from the original. CLINICAL INDICATION: Patient is a 80 year old female and is s een for history of breast cancer MAMMO DIGITAL DIAGNOSTIC BILATERAL W JEFF O Digital Mammogram evaluated with Compute r Aided Detection (CAD). COMPARISON: The present examination has been compare d to prior imaging studies performed at an outside location on 12/20/2017, 12/27, 01/30/2020 and 06/04/2020, and at [facility] o n 07/11/2019. FINDINGS: The breasts [...] recomme nded. BI-RADS Category 2: Benign Finding(s) Veronica SHEIKH IMG MAMMOGRAPHY ORDERABLES Uric Acid (12/22/2020 6:26 AM CDT) athologist Signature Uric Acid 4.1 2.4 - 5.7 [place] mg/dL Comment: [facility], [address] [place] [address] Specimen Anatomical Collection Method Collection Time Receive d Time (Source) Location / / Volume Laterality Blood 12/22/2020 6:26 12/22/2020 AM CDT 6:26 AM CDT Veronica TORRESP LAB BLOOD ORDERABLES Performing Organization Address City/State/[place] [address] [place] [address] after 11/27/2020 Insurance Payer Benefit Plan / Subscriber ID Effective Phone Address T ype Group Dates [facility] MEDICARE [id number] 2020-Prese [address] [address] Medicare HEALTHCARE ADVANTAGE [place] [employer] [id number] (Home) [place] [address] Yareli Beckham Personal/Family Self 1940 [address] (Home) [place] [address] Yareli Beckham Personal/Family Self 1940 [address] (Home) [place] [address] Care Teams Jointer Operator Relationship Specialty Start Date End Date Morteza Buckner MD PCP - External Referring General Surgery 05/10/[address] [facility] [address] [place] [phone] eLe Garrison MD PCP - External Primary Family Practice 05/10/19 201 [facility] Provider [address] [place], [place] [address] Jo Romero, PCP - General Surgical Oncology 06/18/[address] [place] [address] Nicholas Blanchard Physician Cardiology 07/06/19 MD Oni [address] [facility] [place], [place] [address] Meeta Beavre Physician Gastroenterology 07/06/[address] Lopez Prasanth [place], [place] [address] Manolo Morrell, Physician Allergy 07/06/[address] [place] [id number]
--- OUTSIDE RECORDS SUMMARY | 2021-11-27 09:58 | XMS REPORT | Continuity of Care Document ---
:[address] [facility] t Address [address] [place] [address] Care Team Providers Name Role Phone [phone] Primary Care Physician Unavailable SYSTEM, NOT IN Attending Clinician Unavailable Sveta Leiva Attending Clinician SVETA KAUR Attending Clinician Unavailable Merly Dodson MD Attending Clinician MERLY DODSON Attending Clinician Unavailable Only, Test Attending Clinician Unavailable Abhilash ANDERSON Attending Clinician ABHILAHS Attending Clinician Unavailable Payers Payer Name Policy Type Policy Number Effective Date Expiration Date S willa [employer] MEDICARE [id number] 2018 00:00:00 [facility] [id number] 2020 MEDICARE ADV HMO 00:00:00 [employer] CHOICE [id number] 2018 MEDICARE PPO 00:00:00 Problems Condition Condition Condition Status Onset Resolution Last Treating Co mments Source Name Details Category Date Date Treatment Clinician Date [place] Disease Active Overview : 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 Brody o of of 00:00: n lower-oute lower-oute 00 r quadrant r quadrant of right of right female female breast breast Allergies, Adverse Reactions, Alerts Allergy Allergy Status Severity Reaction(s) Onset Inactive Treating Comm ents Source Name Type Date Date Clinician NO KNOWN Drug Active Univers ALLERGIE Class ity of [facility] Family History Family Member Diagnosis Comments Start Date Stop Date Source Natural father Prostate cancer MD Cintia murphy Natural father Skin cancer MD Skinner on Social History Social Habit Start Date Stop Date Quantity Comments Source History [facility] MD Connor Alcohol Frequency History [facility] MD Connor Alcohol Std Drinks History [facility] MD Connor Alcohol Binge Exposure to Not sure University of SARS-CoV-2 [facility] (event) [place] Alcohol intake 2021-04-23 2021-04-23 Current drinker MD Cintia murphy 00:00:00 00:00:00 of alcohol (finding) Tobacco use and 2019-07-06 2019-07-06 Smokeless tobacco MD Connor exposure 00:00:00 00:00:00 non-user History SDOH 2019-07-06 2019-07-06 one drink a month MD Cintia murphy Alcohol Comment 00:00:00 00:00:00 Education 2019-07-06 2019-07-06 13 MD Connor 00:00:00 00:00:00 Sex [birth year] MD Skinner on 00:00:00 00:00:00 Smoking Status Start Date Stop Date Source Unknown if ever smoked [facility] Never smoked tobacco MD Connor Medications [...] per patient beta-carote Yes 1{tbl} Take 1 MD ne,A,-vits 2-23 tablet by Michi rso C,E/mins 09:10: mouth n (OCUVITE 26 daily. ORAL) zinc Yes 22mg Take 22 mg MD gluconate [...] tablet biotin 5 mg Yes Take by MD cap 2-23 mouth. Anderso 09:10: n 26 [...] Source Name Name Jerry SARS-CoV-2 2020-09-07 Completed MD And erson Vaccination 00:00:00 Jerry SARS-CoV-2 2020-08-10 Completed Vaccination 00:00:00 Influenza Split High 2020-04-03 Completed [...] Procedure Date / Time Performed Performing Clinician [facility] e MANUAL DIFFERENTIAL 2021-08-26 14:08:00 Michelle [...] on ALKALINE PHOSPHATASE 2021-08-26 14:08:00 Michelle Beverly MD ALANINE AMINOTRANSFERASE 2021-08-26 14:08:00 Michelle Beverly MD [...] on VITAMIN B12 LEVEL 2021-08-26 14:08:00 Michelle Beverlye rson Results CBC 2021-08-26 14:08:00 Michelle Beverly MD on ALBUMIN LEVEL 2021-04-23 15:31:00 Michelle Beverly MD on ALKALINE PHOSPHATASE 2021-04-23 15:31:00 Michelle Beverly MD ALANINE AMINOTRANSFERASE 2021-04-23 15:31:00 Michelle Beverly MD [...] US CHEST 2020-12-22 14:03:06 Veronica Kaur MD Michi rson MAMMO DIGITAL DIAGNOSTIC 2020-12-22 12:41:30 Veronica [...] Kaur MD Results CBC 2020-12-22 11:26:00 Veronica Kuar MD Michi rson MANUAL DIFFERENTIAL 2020-12-22 11:26:00 [...] Clinicians Facility Department ID 2021-04-02 Outpatient SYSTEM, MEGGAN BRODERICK [id number] 10:47:00 PROVIDER Brody o consuelo 2021-01-20 Outpatient SYSTEMMEGGAN MDA [id number] 08:24:51 PROVIDER Brodyhyun cordero 2021-08-26 2021-08-26 Outpatient EL KAUR, MDA MDA [id number] 08:12:30 09:25:55 VERONICA cordero 2021-08-26 2021-08-26 Outpatient EL MDA MDA [id number] 07:55:38 08:02:33 Brody cordero 2021-04-23 2021-04-23 Outpatient [facility], MDA MDA [id number] 10:35:14 11:21:55 MICHELLE cordero 2021-04-23 2021-04-23 Outpatient [facility], MDA MDA [id number] 10:21:46 10:25:03 MICHELLE cordero 2020-09-07 2020-09-07 Outpatient [facility] [id number] Univers 13:05:00 13:05:00 [facility] 2020-08-10 2020-08-10 Outpatient [facility] [id number] Univers 13:00:00 13:00:00 [facility] 2020-06-05 2020-06-05 Laboratory Only, Adc Test [facility] [id number] Univers 15:37:50 15:52:50 Only Chet Hung [id number] [facility] [id number] [facility] [id number] [address] 2020-06-05 2020-06-05 Outpatient Jackie HUNG [facility] [id number] Univers 15:45:00 15:45:00 CHET [facility] 2020-04-03 2020-04-03 Outpatient [facility], MDA MDA [id number] 00:00:00 00:00:00 MICHELLE cordero 2020-04-03 2020-04-03 Outpatient EL KAUR, MDA MDA [id number] 00:00:00 00:00:00 VERONICA cordero 2020-01-02 2020-01-02 Outpatient [facility], MDA MDA [id number] 10:01:12 12:05:03 MICHELLE cordero 2020-01-02 2020-01-02 Outpatient [facility], MDA MDA [id number] 09:44:21 09:51:02 MICHELLE cordero Results This patient has no known results.
--- NOTE | 2021-11-27 11:20 | RAD REPORT ---
EXAM DESCRIPTION: Kalee Single View11/27/2021 10:36 am CLINICAL HISTORY: Cough COMPARISON: 2019 FINDINGS: The lungs appear clear of acute infiltrate. The heart is normal size. Old rib fractures. IMPRESSION: No acute abnormalities displayed
--- NOTE | 2021-11-27 11:43 | EDPHYS ---
Physician Documentation [facility] Name: Yareli Beckham Age: 81 yrs Sex: Female : 1940 Arrival Date: 11/27/2021 Time: 09:59 Bed Waiting Private MD: ED Physician Hossein Frank HPI: 11/27 11:40 This 81 yrs old Female presents to ER via Ambulatory with complaints of Cough, Sinus jmm Congestion, Eye Problem. 11:40 The patient or guardian reports cough. Onset: The symptoms/episode began/occurred jmm gradually. Modifying factors: The symptoms are alleviated by nothing, the symptoms are aggravated by nothing. Associated signs and symptoms: Pertinent positives: sore throat. It is unknown whether or not the patient has had similar symptoms in the past. Historical: - Allergies: 10:07 Augmentin; ap3 10:07 PENICILLINS; ap3 10:07 Pollen; ap3 - PMHx: 10:07 BREAST CA; Hyperlipidemia; Hypothyroidism; Lymphocytic/Collangenous Colitis; ap3 - Immunization history:: Client reports receiving the 2nd dose of the Covid vaccine. - Social history:: Smoking status: Patient denies any tobacco usage or history of. ROS: 11:40 Constitutional: Positive for body aches, chills. jmm 11:40 ENT: Positive for sore throat. 11:40 Respiratory: Positive for cough. 11:40 All other systems are negative. Exam: 11:40 Constitutional: This is a well developed, well nourished patient who is awake, alert, jmm and in no acute distress. Head/Face: atraumatic. Eyes: EOMI, no conjunctival erythema appreciated 11:40 Neck: Trachea midline, Supple Chest/axilla: Normal chest wall appearance and motion. Cardiovascular: Regular rate and rhythm. No edema appreciated 11:40 Abdomen/GI: Non distended, soft Back: Normal ROM Skin: General appearance color normal MS/ Extremity: Moves all extremities, no obvious deformities appreciated, no edema noted to the lower extremities Neuro: Awake and alert Psych: Behavior is normal, Mood is normal, Patient is cooperative and pleasant 11:40 ENT: Posterior pharynx: erythema, that is moderate. 11:40 Respiratory: the patient does not display signs of respiratory distress, Respirations: normal, Breath sounds: are clear throughout. Vital Signs: 10:06 Pulse 89; Resp 16; Temp 98.1; Pulse Ox 99% ; Weight 63.05 kg; Height 5 ft. (152.40 cm); ap3 10:06 Body Mass Index 27.15 (63.05 kg, 152.40 cm) ap3 MDM: 10:08 Patient medically screened. [facility] 11:41 Data reviewed: vital signs, nurses notes. Counseling: I had a detailed discussion with [facility] the patient and/or guardian regarding: the historical points, exam findings, and any diagnostic results supporting the discharge/admit diagnosis, lab results, radiology results, the need for outpatient follow up, to return to the emergency department if symptoms worsen or persist or if there are any questions or concerns that arise at home. 11/27 10:09 Order name: Influenza Screen (a \\T\\ B); Complete Time: 11:02 [facility] 11/27 10:09 Order name: SARS-COV-2 RT PCR (Document "Date of Onset" if Symptomatic); Complete Time: [facility] 11:44 11/27 10:09 Order name: Chest Single View XRAY; Complete Time: 11:28 [facility] 11/27 10:10 Order name: Strep; Complete Time: 11:02 [facility] 11/27 10:59 Order name: Throat Culture EDMS Administered Medications: No medications were administered Disposition: 18:19 Co-signature as Attending Physician, Hossein Frank MD. rn Disposition Summary: 11/27/21 11:42 Discharge Ordered Location: Home [facility] Condition: Stable [facility] Diagnosis - Coronavirus infection, unspecified [facility] Followup: [facility] - With: Private Physician - When: 2 - 3 days - Reason: Recheck today's complaints, Continuance of care, Re-evaluation by your physician Discharge Instructions: - Discharge Summary Sheet [facility] - COVID-19 [facility] Forms: - Medication Reconciliation Form [facility] - Thank You Letter [facility] - Antibiotic Education [facility] - Prescription Opioid Use [facility] Prescriptions: - PAXLOVID - take 1 application by ORAL route 2 times per day for 5 days; 1 packet; Refills: [facility] 0, Product Selection Permitted Signatures: Dispatcher [employer] EDMS Cooper Crowell PA PA [facility] Hossein Frank MD MD rn Prokisch, Amanda, RN RN ap3
--- NOTE | 2021-11-27 11:43 | ER ---
Nurse's Notes [facility] Name: Yareli Beckham Age: 81 yrs Sex: Female : 1940 Arrival Date: 11/27/2021 Time: 09:59 Bed Waiting Private MD: Diagnosis: Coronavirus infection, unspecified Presentation: 11/27 10:06 Chief complaint: Patient states: she has been having a cough, congestion, runny nose ap3 and sore throat off and on for approx 2 weeks. Coronavirus screen: Client presents with at least one sign or symptom that may indicate coronavirus-19. Ebola Screen: No symptoms or risks identified at this time. Initial Sepsis Screen: Does the patient meet any 2 criteria? No. Patient's initial sepsis screen is negative. Does the patient have a suspected source of infection? No. Patient's initial sepsis screen is negative. Risk Assessment: Do you want to hurt yourself or someone else? Patient reports no desire to harm self or others. Onset of symptoms was November 14, 2021. 10:06 Method Of Arrival: Ambulatory ap3 10:06 Acuity: ANA 4 ap3 Triage Assessment: 10:08 General: Appears in no apparent distress. Behavior is calm, cooperative. Pain: ap3 Complains of pain in throat. EENT: Reports nasal congestion nasal discharge pain when swallowing. Neuro: Level of Consciousness is awake, alert, obeys commands, Oriented to person, place, time, situation, Appropriate for age Gait is steady, Speech is normal. Cardiovascular: Patient's skin is warm and dry. Respiratory: Airway is patent Respiratory effort is even, unlabored, Respiratory pattern is regular, symmetrical. Historical: - Allergies: 10:07 Augmentin; ap3 10:07 PENICILLINS; ap3 10:07 Pollen; ap3 - PMHx: 10:07 BREAST CA; Hyperlipidemia; Hypothyroidism; Lymphocytic/Collangenous Colitis; ap3 - Immunization history:: Client reports receiving the 2nd dose of the Covid vaccine. - Social history:: Smoking status: Patient denies any tobacco usage or history of. Screenin:08 Abuse screen: Denies threats or abuse. Nutritional screening: No deficits noted. ap3 Tuberculosis screening: No symptoms or risk factors identified. Fall Risk None identified. Vital Signs: 10:06 Pulse 89; Resp 16; Temp 98.1; Pulse Ox 99% ; Weight 63.05 kg; Height 5 ft. (152.40 cm); ap3 10:06 Body Mass Index 27.15 (63.05 kg, 152.40 cm) ap3 ED Course: 09:59 Patient arrived in ED. ja2 10:07 Triage completed. ap3 10:08 Cooper Crowell PA is PHCP. [facility] 10:08 Hossein Frank MD is Attending Physician. jmm 10:09 Arm band placed on right wrist. ap3 10:37 Chest Single View XRAY In Process Unspecified. EDMS 12:03 Patient has correct armband on for positive identification. ap3 12:03 No provider procedures requiring assistance completed. Patient did not have IV access ap3 during this emergency room visit. Administered Medications: No medications were administered Medication: 10:09 VIS not applicable for this client. ap3 Outcome: 11:42 Discharge ordered by . m 12:03 Discharged to home ambulatory, with family. ap3 12:03 Condition: good 12:03 Discharge instructions given to patient, Instructed on discharge instructions, follow up and referral plans. medication usage, Demonstrated understanding of instructions, follow-up care, medications, Prescriptions given X 1. 12:03 Patient left the ED. ap3 Signatures: Dispatcher [employer] EDMS Cooper Crowell PA PA jmm Prokisch, Amanda, SHIRLEY RN ap3 Krysten Chinchilla
[2021-11-27 12:16] VITALS: TEMP 98.1; O2SAT 99
== END 2021-11-27 12:03 | disposition home or self-care (01) ==
LOC: ER 09:54
DX: U07.1 COVID-19 (principal); Z88.0 Allergy status to penicillin; Z88.1 Allergy status to other antibiotic agents; Z91.048 Other nonmedicinal substance allergy status; Z85.3 Personal history of malignant neoplasm of breast
CPT/HCPCS: 87070; 87081; 87804 ×2; 71045; 99283; U0003

== ENCOUNTER 2022-08-25 10:47 | Inpatient (IN) | payer OTHER ==
[2022-08-24 10:30] LABS: Absolute Lymphocytes (CBC) 1.4 K/uL (0.7-4.9); Hematocrit 35.5 % (36.0-45.0); Lymphocytes % 31.4 % (15.3-44.8); MCV 98.5 fL (80-100); MPV 8.2 fL (7.6-11.3); RBC Red Blood Cell Count 3.61 M/uL (3.86-4.86)
[2022-08-24 10:34] LABS: Potassium 3.9 mmol/L (3.5-5.1)
[2022-08-24 10:40] LABS: Protime INR 1.08
[~2022-08-25 10:47] MED LIST: ASPIRIN 325 MG TAB ONE; ATROPINE SULF 1 MG/10 ML SYR IV ONE; CLOPIDOGREL 75 MG TABLET ONE; FENTANYL CITR 100 MCG/2 ML ONE; HEPA 1000U/500MLS 2,000 UNIT/1,000 ML BAG IV ONE; HEPARIN 10,000 UNIT/10 ML VIAL IV ONE; HEPARIN 5000 UNIT/ML 1 ML VIAL ONE; MIDAZOLAM HCL 2 MG/2 ML INJ ONE; TICAGRELOR 90 MG TABLET PO ONE; VERAPAMIL HCL 10 MG/4 ML VIAL IV ONE
[2022-08-25] MEDS ORDERED: NA CHLORIDE 0.9% 500 ML ONE (10:48)
[2022-08-25 15:00] LABS: SARS-CoV-2 Antigen Rapid Res Negative (Negative)
[2022-08-25] MEDS ORDERED: ACETAMINOPHEN 325 MG TABLET PO PRN (17:37)
--- OUTSIDE RECORDS SUMMARY | 2022-08-25 17:37 | XMS REPORT | Clinical Summary ---
:1940 Author Organization [facility] MD [facility] Address [address] [place] [address] Care Team Providers Name Role Phone Morteza Buckner MD Unavailable Lee Garrison MD Unavailable Jo Romero MD Primary Care Provider Nicholas Blanchard MD Unavailable Meeta Beaver Unavailable Manolo Morrell MD Unavailable Allergies Active Allergy Reactions Severity Noted Date Comments Levofloxacin GI Intolerance 10/31/2019 diarrhea Penicillins Hives 07/06/2019 Medications Medication Sig Dispensed Refills Start Date End Date Status levothyroxine Take 1 tablet 1 05/08/2019 A ctive (SYNTHROID, (75 mcg) by LEVOTHROID) 75 mcg mouth every 48 tablet hours. Alternates days with 50mcg levothyroxine Take 1 tablet 1 05/23/2019 A ctive (SYNTHROID, (50 mcg) by LEVOTHROID) 50 mcg mouth every 48 tablet hours. Alternates days with 75mcg pantoprazole Take 1 tablet 3 05/28/2019 Ac tive (PROTONIX) 40 mg (40 mg) by EC tablet mouth daily. mesalamine Take 2 g by 2 04/16/2019 Active (LIALDA) 1.[address] mouth 4 (four) tablet times a day. fenofibric acid Take 1 capsule 0 05/28/2019 Active (TRILIPIX) 135 mg (135 mg) by capsule mouth daily. EPINEPHrine Inject 0.3 mg 0 06/14/2019 Act oz (EPIPEN) 0.3 into the mg/0.3 mL shoulder, (1:1,000) thigh, or injection buttocks as needed. potassium 99 mg Take by mouth 0 Active tab daily. lactobacillus Chew daily. 0 Acti ve acidophilus-bulgar icus (LACTINEX) 1 million cells chew chewable tablet beta-carotene,A,-v Take 1 tablet 0 Active its C,E/mins by mouth daily. (OCUVITE ORAL) zinc gluconate 50 Take 22 mg by 0 Active mg tablet mouth twice daily. ascorbic acid, Take 5 tablets 0 Active vitamin C, (500 mg) by (VITAMIN C) 100 mg mouth daily. tablet cholecalciferol, Take 1 tablet 0 Active vitamin D3, (5,000 Units) (VITAMIN D3) 5,000 by mouth daily. units tab tablet biotin 5 mg cap Take by mouth. 0 Active cetirizine Take 1 tablet 0 Activ e (ZyrTEC) 10 mg (10 mg) by tablet mouth daily as needed. losartan-hydrochlo Take 1 tablet 0 Active rothiazide by mouth daily. 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 07/03/2019 Cancer Staging: Pathologic stage from : No Stage Recommended (pT1c, cN0, cM0, G2, ER-, ID-, HER2-) - Signed by Michelle Dickens MD on 07/30/2019 Encounters Date Type Specialty Care Team Description 06/24/2022 Follow-Up Thoracic Medicine Mehnaz Beverly MD carcinoma 06/24/2022 Travel 12/23/2021 Office Visit Thoracic Medicine Mehnaz Beverly MD carcinoma 12/23/2021 Ancillary Radiology Adenosquamous c ell Procedure carcinoma 12/23/2021 Ancillary Radiology Adenosquamous c ell Procedure carcinoma 12/23/2021 Travel 08/26/2021 Office Visit Oncology Veronica Kaur Adenosquamous cell Megan, MULTIMEDIA TECHNICIAN carcinoma 08/26/2021 Travel after 08/25/2021 Immunizations Name Administration Dates Next Due Influenza Split High Dose Preservative Free IM 04/03/2020 Moderna SARS-CoV-2 Vaccination 09/07/2020, 08/10/2020 Pneumococcal Conjugate 13-Valent 08/18/2018 Surgical History Surgery Date Site/Laterality Comments TONSILLECTOMY 07/04/1947 - 07/03/1948 FOOT SURGERY 07/04/2000 - Right 07/03/2001 ID MASTECTOMY PARTIAL 07/18/2019 Right Procedure: SEGMENTAL MASTECTOMY - OTHER-POSTERIOR MARGIN EXCISION; Surgeo n: Jo tavarez MD; Location: [facility] ; Service: BREAST ID BREAST RECONSTRUC W 07/18/2019 Breast/Right Procedure : RECONSTRUCTION OTHR TECHNIQ OF BREAST WITH O THER TECHNIQUE-LOCAL TISSUE ADVANCEMENT; Imani geon: Tim Pascal MD; Loc ation: [facility]; Service : PLS - PLASTIC SURGERY Medical History Medical History Date Comments Arrhythmia occasional PVCs, pt evaluated by Mitigation Supervisor in 03/2019 and found to be "low risk" for a kal-operative compl iation Lymphocytic colitis 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 Sex Assigned at Date Recorded Not on file Job Start Date Occupation Industry Not on file Not on file Not on file Obstetrics History Para Term AB IAB SAB Ectopic Multiple Living Live Births 1 [birth year] 1 Date Outcome GA Total Labor/2nd/3rd Weight Sex Delivery Anes PTL Mary A 1 A5 Name Clin Labor Term Comments Did not breastfeed Last Filed Vital Signs Vital Sign Reading Time Taken Comments Blood Pressure 134/76 06/24/2022 1:10 PM CURRICULUM AND ASSESSMENT DIRECTOR Pulse 75 06/24/2022 1:10 PM CURRICULUM AND ASSESSMENT DIRECTOR Temperature 36.7 C (98.1 F) 06/24/2022 1:10 PM CURRICULUM AND ASSESSMENT DIRECTOR Respiratory Rate 18 06/24/2022 1:10 PM CURRICULUM AND ASSESSMENT DIRECTOR Oxygen Saturation 99% 06/24/2022 1:10 PM CURRICULUM AND ASSESSMENT DIRECTOR Inhaled Oxygen Concentration - - Weight 60.9 kg (134 lb 4.2 oz) 06/24/2022 1:10 PM CURRICULUM AND ASSESSMENT DIRECTOR Height - - Body Mass Index 26.64 08/02/2019 8:03 AM CURRICULUM AND ASSESSMENT DIRECTOR Plan of Treatment Date Type Specialty Care Team Description 12/24/2022 Ancillary Procedure Radiology Michelle Beverly MD [address] [place], [place] [address] (Wo rk) 12/24/2022 Ancillary Procedure Radiology Michelle Beverly MD [address] [place], [place] [address] (Wo rk) 12/24/2022 Lab Lab Andreia Beverly MD [address] [place], [place] [address] (Wo rk) 12/24/2022 Follow-Up Thoracic Medicine Nicolasa Beverly MD [address] [place], [place] [address] (Wo rk) Health Maintenance Due Date Last Done Comments COVID-19 Vaccination (3 - Booster for 11/02/2020 09/07/2020 , 08/10/2020 Moderna series) Procedures Procedure Name Priority Date/Time Associated Diagnosis Comme nts FRACTIONATED BILIRUBIN Routine 06/24/2022 12:12 Adenosquamous cell Results for this PM CURRICULUM AND ASSESSMENT DIRECTOR carcinoma procedure are i n the results section. TOTAL PROTEIN Routine 06/24/2022 12:12 Adenosquamous cell Resu lts for this PM CURRICULUM AND ASSESSMENT DIRECTOR carcinoma procedure are i n the results section. ASPARTATE Routine 06/24/2022 12:12 Adenosquamous cell Resul ts for this AMINOTRANSFERASE PM CURRICULUM AND ASSESSMENT DIRECTOR carcinoma procedure a re in the results section. ALANINE AMINOTRANSFERASE Routine 06/24/2022 12:12 Adenosquamou s cell Results for this PM CURRICULUM AND ASSESSMENT DIRECTOR carcinoma procedure are i n the results section. ALKALINE PHOSPHATASE Routine 06/24/2022 12:12 Adenosquamous ce ll Results for this PM CURRICULUM AND ASSESSMENT DIRECTOR carcinoma procedure are i n the results section. ALBUMIN LEVEL Routine 06/24/2022 12:12 Adenosquamous cell Resu lts for this PM CURRICULUM AND ASSESSMENT DIRECTOR carcinoma procedure are i n the results section. CALCIUM LEVEL TOTAL Routine 06/24/2022 12:12 Adenosquamous elham l Results for this PM CURRICULUM AND ASSESSMENT DIRECTOR carcinoma procedure are i n the results section. .GLOMERULAR FILTRATION Routine 06/24/2022 12:12 Adenosquamous cell Results for this RATE PM CURRICULUM AND ASSESSMENT DIRECTOR carcinoma procedure are i n the results section. SERUM CREATININE Routine 06/24/2022 12:12 Adenosquamous cell R esults for this PM CURRICULUM AND ASSESSMENT DIRECTOR carcinoma procedure are i n the results section. ELECTROLYTE PANEL Routine 06/24/2022 12:12 Adenosquamous cell Results for this PM CURRICULUM AND ASSESSMENT DIRECTOR carcinoma procedure are i n the results section. BLOOD UREA NITROGEN Routine 06/24/2022 12:12 Adenosquamous elham l Results for this PM CURRICULUM AND ASSESSMENT DIRECTOR carcinoma procedure are i n the results section. GLUCOSE LEVEL Routine 06/24/2022 12:12 Adenosquamous cell Resu lts for this PM CURRICULUM AND ASSESSMENT DIRECTOR carcinoma procedure are i n the results section. MANUAL DIFFERENTIAL Routine 06/24/2022 12:12 Adenosquamous elham l Results for this PM CURRICULUM AND ASSESSMENT DIRECTOR carcinoma procedure are i n the results section. Results CBC Routine 06/24/2022 12:12 Adenosquamous cell Resul ts for this PM CURRICULUM AND ASSESSMENT DIRECTOR carcinoma procedure are i n the results section. VITAMIN D 25 HYDROXY Routine 06/24/2022 12:12 Adenosquamous ce ll Results for this LEVEL PM CURRICULUM AND ASSESSMENT DIRECTOR carcinoma procedure are i n the results section. URIC ACID Routine 06/24/2022 12:12 Adenosquamous cell Resul ts for this PM CURRICULUM AND ASSESSMENT DIRECTOR carcinoma procedure are i n the results section. PHOSPHORUS LEVEL Routine 06/24/2022 12:12 Adenosquamous cell R esults for this PM CURRICULUM AND ASSESSMENT DIRECTOR carcinoma procedure are i n the results section. MAGNESIUM LEVEL Routine 06/24/2022 12:12 Adenosquamous cell Re sults for this PM CURRICULUM AND ASSESSMENT DIRECTOR carcinoma procedure are i n the results section. LACTATE DEHYDROGENASE Routine 06/24/2022 12:12 Adenosquamous c ell Results for this PM CURRICULUM AND ASSESSMENT DIRECTOR carcinoma procedure are i n the results section. COMPREHENSIVE METABOLIC Routine 06/24/2022 12:12 Adenosquamous cell PANEL PM CURRICULUM AND ASSESSMENT DIRECTOR carcinoma COMPLETE BLOOD COUNT W/ Routine 06/24/2022 12:12 Adenosquamous cell DIFFERENTIAL PM CURRICULUM AND ASSESSMENT DIRECTOR carcinoma US CHEST/INFRACLAV Routine 12/23/2021 12:14 Adenosquamous cell Results for this PM CDT carcinoma procedure are i n the results section. US BREAST COMPLETE Routine 12/23/2021 12:14 Adenosquamous cell Results for this BILATERAL PM CDT carcinoma procedure are i n the results section. MAMMO DIGITAL DIAGNOSTIC Routine 12/23/2021 11:46 Adenosquamou s cell Results for this BILATERAL W TRISTIN AM CDT carcinoma procedure a re in the results section. FRACTIONATED BILIRUBIN Routine 12/23/2021 11:00 Adenosquamous cell Results for this AM CDT carcinoma procedure are i n the results section. TOTAL PROTEIN Routine 12/23/2021 11:00 Adenosquamous cell Resu lts for this AM CDT carcinoma procedure are i n the results section. ASPARTATE Routine 12/23/2021 11:00 Adenosquamous cell Resul ts for this AMINOTRANSFERASE AM CDT carcinoma procedure a re in the results section. ALANINE AMINOTRANSFERASE Routine 12/23/2021 11:00 Adenosquamou s cell Results for this AM CDT carcinoma procedure are i n the results section. ALKALINE PHOSPHATASE Routine 12/23/2021 11:00 Adenosquamous ce ll Results for this AM CDT carcinoma procedure are i n the results section. ALBUMIN LEVEL Routine 12/23/2021 11:00 Adenosquamous cell Resu lts for this AM CDT carcinoma procedure are i n the results section. CALCIUM LEVEL TOTAL Routine 12/23/2021 11:00 Adenosquamous elham l Results for this AM CDT carcinoma procedure are i n the results section. .GLOMERULAR FILTRATION Routine 12/23/2021 11:00 Adenosquamous cell Results for this RATE AM CDT carcinoma procedure are i n the results section. SERUM CREATININE Routine 12/23/2021 11:00 Adenosquamous cell R esults for this AM CDT carcinoma procedure are i n the results section. ELECTROLYTE PANEL Routine 12/23/2021 11:00 Adenosquamous cell Results for this AM CDT carcinoma procedure are i n the results section. BLOOD UREA NITROGEN Routine 12/23/2021 11:00 Adenosquamous elham l Results for this AM CDT carcinoma procedure are i n the results section. GLUCOSE LEVEL Routine 12/23/2021 11:00 Adenosquamous cell Resu lts for this AM CDT carcinoma procedure are i n the results section. MANUAL DIFFERENTIAL Routine 12/23/2021 11:00 Adenosquamous elham l Results for this AM CDT carcinoma procedure are i n the results section. Results CBC Routine 12/23/2021 11:00 Adenosquamous cell Resul ts for this AM CDT carcinoma procedure are i n the results section. VITAMIN D 25 HYDROXY Routine 12/23/2021 11:00 Adenosquamous ce ll Results for this LEVEL AM CDT carcinoma procedure are i n the results section. LACTATE DEHYDROGENASE Routine 12/23/2021 11:00 Adenosquamous c ell Results for this AM CDT carcinoma procedure are i n the results section. PHOSPHORUS LEVEL Routine 12/23/2021 11:00 Adenosquamous cell R esults for this AM CDT carcinoma procedure are i n the results section. MAGNESIUM LEVEL Routine 12/23/2021 11:00 Adenosquamous cell Re sults for this AM CDT carcinoma procedure are i n the results section. COMPREHENSIVE METABOLIC Routine 12/23/2021 11:00 Adenosquamous cell PANEL AM CDT carcinoma COMPLETE BLOOD COUNT W/ Routine 12/23/2021 11:00 Adenosquamous cell DIFFERENTIAL AM CDT carcinoma FRACTIONATED BILIRUBIN Routine 08/26/2021 8:08 Adenosquamous c ell Results for this AM CURRICULUM AND ASSESSMENT DIRECTOR carcinoma procedure are i n the results section. TOTAL PROTEIN Routine 08/26/2021 8:08 Adenosquamous cell Resul ts for this AM CURRICULUM AND ASSESSMENT DIRECTOR carcinoma procedure are i n the results section. ASPARTATE Routine 08/26/2021 8:08 Adenosquamous cell Result s for this AMINOTRANSFERASE AM CURRICULUM AND ASSESSMENT DIRECTOR carcinoma procedure a re in the results section. ALANINE AMINOTRANSFERASE Routine 08/26/2021 8:08 Adenosquamous cell Results for this AM CURRICULUM AND ASSESSMENT DIRECTOR carcinoma procedure are i n the results section. ALKALINE PHOSPHATASE Routine 08/26/2021 8:08 Adenosquamous elham l Results for this AM CURRICULUM AND ASSESSMENT DIRECTOR carcinoma procedure are i n the results section. ALBUMIN LEVEL Routine 08/26/2021 8:08 Adenosquamous cell Resul ts for this AM CURRICULUM AND ASSESSMENT DIRECTOR carcinoma procedure are i n the results section. CALCIUM LEVEL TOTAL Routine 08/26/2021 8:08 Adenosquamous cell Results for this AM CURRICULUM AND ASSESSMENT DIRECTOR carcinoma procedure are i n the results section. .GLOMERULAR FILTRATION Routine 08/26/2021 8:08 Adenosquamous c ell Results for this RATE AM CURRICULUM AND ASSESSMENT DIRECTOR carcinoma procedure are i n the results section. SERUM CREATININE Routine 08/26/2021 8:08 Adenosquamous cell Re sults for this AM CURRICULUM AND ASSESSMENT DIRECTOR carcinoma procedure are i n the results section. ELECTROLYTE PANEL Routine 08/26/2021 8:08 Adenosquamous cell R esults for this AM CURRICULUM AND ASSESSMENT DIRECTOR carcinoma procedure are i n the results section. BLOOD UREA NITROGEN Routine 08/26/2021 8:08 Adenosquamous cell Results for this AM CURRICULUM AND ASSESSMENT DIRECTOR carcinoma procedure are i n the results section. GLUCOSE LEVEL Routine 08/26/2021 8:08 Adenosquamous cell Resul ts for this AM CURRICULUM AND ASSESSMENT DIRECTOR carcinoma procedure are i n the results section. MANUAL DIFFERENTIAL Routine 08/26/2021 8:08 Adenosquamous cell Results for this AM CURRICULUM AND ASSESSMENT DIRECTOR carcinoma procedure are i n the results section. Results CBC Routine 08/26/2021 8:08 Adenosquamous cell Result s for this AM CURRICULUM AND ASSESSMENT DIRECTOR carcinoma procedure are i n the results section. VITAMIN B12 LEVEL Routine 08/26/2021 8:08 Adenosquamous cell R esults for this AM CURRICULUM AND ASSESSMENT DIRECTOR carcinoma procedure are in Macrocytosis - no the result s anemia section. FOLATE LEVEL Routine 08/26/2021 8:08 Adenosquamous cell Result s for this AM CURRICULUM AND ASSESSMENT DIRECTOR carcinoma procedure are in Macrocytosis - no the result s anemia section. FREE THYROXINE Routine 08/26/2021 8:08 Adenosquamous cell Resu lts for this AM CURRICULUM AND ASSESSMENT DIRECTOR carcinoma procedure are in Macrocytosis - no the result s anemia section. THYROID STIMULATING Routine 08/26/2021 8:08 Adenosquamous cell Results for this HORMONE AM CURRICULUM AND ASSESSMENT DIRECTOR carcinoma procedure are in Macrocytosis - no the result s anemia section. MAGNESIUM LEVEL Routine 08/26/2021 8:08 Adenosquamous cell Res ults for this AM CURRICULUM AND ASSESSMENT DIRECTOR carcinoma procedure are i n the results section. COMPREHENSIVE METABOLIC Routine 08/26/2021 8:08 Adenosquamous cell PANEL AM CURRICULUM AND ASSESSMENT DIRECTOR carcinoma COMPLETE BLOOD COUNT W/ Routine 08/26/2021 8:08 Adenosquamous cell DIFFERENTIAL AM CURRICULUM AND ASSESSMENT DIRECTOR carcinoma VITAMIN D 25 HYDROXY Routine 08/26/2021 8:08 Adenosquamous elham l Results for this LEVEL AM CURRICULUM AND ASSESSMENT DIRECTOR carcinoma procedure are i n the results section. after 08/25/2021 Results (ABNORMAL) .Serum Creatinine (06/24/2022 12:12 PM CURRICULUM AND ASSESSMENT DIRECTOR)Only the most recent of3 resultswithin the time period is included. athologist Signature Creatinine 1.10 (H) 0.51 - 0.95 [place] mg/dL Comment: Testing performed at [facility], [address] [place] [id number] Specimen Anatomical Collection Method Collection Time Receive d Time (Source) Location / / Volume Laterality Blood 06/24/2022 12:12 06/24/2022 PM CURRICULUM AND ASSESSMENT DIRECTOR 12:13 PM CURRICULUM AND ASSESSMENT DIRECTOR Veronica Kaur MULTIMEDIA TECHNICIAN LAB BLOOD ORDERABLES Performing Organization Address City/State/ZIP Code Phon e Number [place], [place] [id number] [place] [address] (ABNORMAL) .CBC (06/24/2022 12:12 PM CURRICULUM AND ASSESSMENT DIRECTOR)Only the most recent of3 resultswithin the time period is included. athologist Signature WBC 5.5 4.0 - 11.0 [place] K/uL Comment: All components of the CBC perfo rmed at [facility], [address] [place] [address] 77 33 RBC 3.84 (L) 4.00 - 5.50 M/uL [place] Comment: All components of the CBC perfo rmed at [facility], [address] [place] [address] 7757 3 Hgb 12.9 12.0 - 16.0 gm/dL [place] Comment: As part of CBC or as an individ ual orderable testing performed at [facility], [address] [place] [phone] Hct 37.9 37.0 - 47.0 % [place] Comment: As part of CBC testing performe d at [facility], [address] [place] [address]907 MCV 99 (H) 82 - 98 fL [place] Comment: As part of CBC testing performe d at [facility], [address] [place] [address]646 MCH 33.6 (H) 27.0 - 31.0 pg [place] Comment: As part of CBC testing performe d at [facility], [address] [place] [address], [place] [address] MCHC 34.0 31.0 - 36.0 gm/dL [place] Comment: As part of CBC testing performe d at [facility], [address] [place] [address], [id number] RDW-SD 48.6 (H) 35.1 - 46.3 fL [place] Comment: As part of CBC testing performe d at [facility], [address] [place] [address] RDW-CV 13.1 12.0 - 15.5 % [place] Comment: As part of CBC testing performe d at [facility], [address] [place] [address] Platelet count 260 140 - 440 K/uL [facility] Comment: As part of CBC or an individual orderable testing performed at [facility], [address] [place] [address] MPV 10.0 4.0 - 10.4 fL [place] Comment: As part of CBC testing performe d at [facility], [address] [place] [address] Specimen Anatomical Collection Method Collection Time Receive d Time (Source) Location / / Volume Laterality Blood 06/24/2022 12:12 06/24/2022 PM CURRICULUM AND ASSESSMENT DIRECTOR 12:13 PM CURRICULUM AND ASSESSMENT DIRECTOR Veronica Kaur MULTIMEDIA TECHNICIAN LAB BLOOD ORDERABLES Performing Organization Address City/State/ZIP Code Phon e Number [place] [id number] [place] [address] (ABNORMAL) Glomerular Filtration Rate (06/24/2022 12:12 PM CURRICULUM AND ASSESSMENT DIRECTOR)Only the most recent of3 resultswithin the time period is included. athologist Signature eGFR 50 (L) >=60 [place] mL/min/1.73 sq. m Comment: The eGFRcr is calculated with the 2020 KD-EPI creatinine equation using creatinine, patient's age, and sex for adults 18 years of age and older. Other factors, especially muscle mass, may affect accuracy and need to be considered. According to the Kidney Disease: Improvi ng Global Outcomes (KDIGO) CKD Work Group 2012 Clinical Practice Guideline, chronic kidney disease (CKD) is defined as the abnormalities of kidney structure or function, present for more than 3 months, with implications for health. CKD should be c lassified by cause, GFR category, and albuminuria category. KDIGO guidelines provide the following GFR categories Stage Description GFR mL/min/1.73 m2 G1* Normal or high >= 90 G2* Mildly decreased 60-89 G3a Mildly to moderately decreased 45-59 G3b Moderately to severely decreased 30- 44 G4 Severely decreased 15-29 G5 Kidney failure <15 *In the absence of evidence of kidney da mage, neither G1 nor G2 fulfill criteria for CKD. Testing performed at [facility], [address] [place] [id number] Specimen Anatomical Collection Method Collection Time Receive d Time (Source) Location / / Volume Laterality Blood 06/24/2022 12:12 06/24/2022 PM CURRICULUM AND ASSESSMENT DIRECTOR 12:13 PM CURRICULUM AND ASSESSMENT DIRECTOR Veronica Kaur [facility] LAB BLOOD ORDERABLES Performing Organization Address City/State/ZIP Code Ph[place] [facility] [place] [address] [place] [address] Fractionated Bilirubin (06/24/2022 12:12 PM CURRICULUM AND ASSESSMENT DIRECTOR)Only the most recent of3 results within the time period is included. athologist Signature Bili Total 0.5 <=1.2 mg/dL [place] Comment: Indocyanine Green (ICG) may cause falsel y elevated bilirubin results. Total and direct bilirubin must not be measured from samples containing indocyanine green. False elevation of total bilirubin can b e seen in patients with IgG concentrations above 28 g/L. Testing performed at [facility], [address] [place] [address], [place] [address] Bili Direct 0.2 <=0.3 mg/dL [place] Comment: Indocyanine Green (ICG) may cause falsel y elevated bilirubin results. Total and direct bilirubin must not be measured from samples containing indocyanine green. Testing performed at [facility], [address] [place] [address] Bili Indirect 0.3 0.0 - 0.9 mg/dL [facility] [facility] Comment: Testing performed at [facility], [address] [place] [address] Specimen Anatomical Collection Method Collection Time Receive d Time (Source) Location / / Volume Laterality Blood 06/24/2022 12:12 06/24/2022 PM CURRICULUM AND ASSESSMENT DIRECTOR 12:13 PM CURRICULUM AND ASSESSMENT DIRECTOR Veronica Kaur [facility] LAB BLOOD ORDERABLES Performing Organization Address City/[facility]/ZIP [facility] Phon e Number [address] Vitamin D 25OH (06/24/2022 12:12 PM CURRICULUM AND ASSESSMENT DIRECTOR)Only the most recent of3 resultswithin the time period is included. [facility] Vitamin D 25 [place] 60 30 - 100 [place] ng/mL Comment: Reference Range: Deficiency: <10 ng/mL Insufficiency: 10-29 ng/mL Sufficiency: 30-100 ng/mL Potential toxicity: >100 ng/mL Testing performed at [facility], [address] [place] [address] Specimen Anatomical Collection Method Collection Time Receive d Time (Source) Location / / Volume Laterality Blood 06/24/2022 12:12 06/24/2022 PM CURRICULUM AND ASSESSMENT DIRECTOR 12:13 PM CURRICULUM AND ASSESSMENT DIRECTOR Veronica Kaur [facility] LAB BLOOD ORDERABLES Performing Organization Address City/[facility] Phon e Number [address] (ABNORMAL) Differential (06/24/2022 12:12 PM CURRICULUM AND ASSESSMENT DIRECTOR)Only the most recent of3 resultswithin the time period is included. [facility] Neutrophil % 56.0 42.0 - 66.0 [place] % Comment: All components of the Different ial performed at [facility], [address] [place] [address] Lymphocyte % 36.6 24.0 - 44.0 % [place] Comment: As part of the Differential katya ting performed at [facility], [address] [place] [address], [place] [address] Monocyte % 5.8 2.0 - 7.0 % [place] Comment: As part of the Differential katya ting performed at [facility], [address] [place] [address], [place] [address] Eosinophil % 0.0 (L) 1.0 - 4.0 % [place] Comment: As part of the Differential katya ting performed at [facility], [address] [place] [address] Basophil % 0.7 0.0 - 1.0 % [place] Comment: As part of the Differential katya ting performed at [facility], [address] [place] [address], [place] [address] IGRE % 0.9 (H) 0.0 - 0.4 % [place] Comment: IGRE % count includes Metamyelocytes, My elocytes, and Promyelocytes. As part of the Differential testing perf ormed at [facility], [address] [place] [address], [place] [address] Neutrophil Abs 3.09 1.70 - 7.30 K/uL [facility] Comment: As part of the Differential katya ting performed at [facility], [address] [place] [address], [place] [address] Lymphocyte Abs 2.02 1.00 - 4.80 K/uL [facility] Comment: As part of the Differential katya ting performed at [facility], [address] [place] [address] Monocyte Abs 0.32 0.08 - 0.70 K/uL [facility] Comment: As part of the Differential katya ting performed at [facility], [address] [place] [address], [place] [address] Eosinophil Abs 0.00 (L) 0.04 - 0.40 K/uL [facility] Comment: As part of the Differential katya ting performed at [facility], [address] [place] [address] Basophil Abs 0.04 0.00 - 0.10 K/uL [facility] Y Comment: As part of the Differential katya ting performed at [facility], [address] [place] [address] IG Abs 0.05 (H) 0.00 - 0.04 K/uL [place] Comment: As part of the Differential katya ting performed at [facility], [address] [place] [address] Specimen Anatomical Collection Method Collection Time Receive d Time (Source) Location / / Volume Laterality Blood 06/24/2022 12:12 06/24/2022 PM CURRICULUM AND ASSESSMENT DIRECTOR 12:13 PM CURRICULUM AND ASSESSMENT DIRECTOR Veronica Kaur MULTIMEDIA TECHNICIAN LAB BLOOD ORDERABLES Performing Organization Address City/[facility]/ZIP Code Phon e Number [address] Uric Acid (06/24/2022 12:12 PM CURRICULUM AND ASSESSMENT DIRECTOR) P athologist Signature Uric Acid 5.1 2.4 - 5.7 [place] mg/dL Comment: Testing performed at [facility], [address] [place] [address] Specimen Anatomical Collection Method Collection Time Receive d Time (Source) Location / / Volume Laterality Blood 06/24/2022 12:12 06/24/2022 PM CURRICULUM AND ASSESSMENT DIRECTOR 12:13 PM CURRICULUM AND ASSESSMENT DIRECTOR Veronica Kaur MULTIMEDIA TECHNICIAN LAB BLOOD ORDERABLES Performing Organization Address City/[facility]/ZIP Code Phon e Number [address] (ABNORMAL) BUN (06/24/2022 12:12 PM CURRICULUM AND ASSESSMENT DIRECTOR)Only the most recent of3 resultswithin the time period is included. P athologist Signature BUN 27 (H) 6 - 23 mg/dL [place] Comment: Testing performed at [facility], [address] [place] [address] Specimen Anatomical Collection Method Collection Time Receive d Time (Source) Location / / Volume Laterality Blood 06/24/2022 12:12 06/24/2022 PM CURRICULUM AND ASSESSMENT DIRECTOR 12:13 PM CURRICULUM AND ASSESSMENT DIRECTOR Veronica Kaur MULTIMEDIA TECHNICIAN LAB BLOOD ORDERABLES Performing Organization Address City/[facility]/ZIP Code Phon e Number [place], [place] [id number] [place] [address] ALT (06/24/2022 12:12 PM CURRICULUM AND ASSESSMENT DIRECTOR)Only the most recent of3 resultswithin the time period is included. athologist Signature ALT 20 <=33 U/L [place] Comment: Testing performed at [facility], [address] [place] [address] Specimen Anatomical Collection Method Collection Time Receive d Time (Source) Location / / Volume Laterality Blood 06/24/2022 12:12 06/24/2022 PM CURRICULUM AND ASSESSMENT DIRECTOR 12:13 PM CURRICULUM AND ASSESSMENT DIRECTOR Veronica Kaur MULTIMEDIA TECHNICIAN LAB BLOOD ORDERABLES Performing Organization Address City/[facility] Phon e Number [address] Aspartate Aminotransferase (06/24/2022 12:12 PM CURRICULUM AND ASSESSMENT DIRECTOR)Only the most recent of3 resultswithin the time period is included. athologist Signature AST 28 <=32 U/L [place] Comment: Testing performed at [facility], [address] [place] [address] Specimen Anatomical Collection Method Collection Time Receive d Time (Source) Location / / Volume Laterality Blood 06/24/2022 12:12 06/24/2022 PM CURRICULUM AND ASSESSMENT DIRECTOR 12:13 PM CURRICULUM AND ASSESSMENT DIRECTOR Veronica Kaur MULTIMEDIA TECHNICIAN LAB BLOOD ORDERABLES Performing Organization Address City/[facility] Phon e Number [place], [place] [id number] [place] [address] Total Protein (06/24/2022 12:12 PM CURRICULUM AND ASSESSMENT DIRECTOR)Only the most recent of3 resultswithin the time period is included. athologist [facility] Total Protein 7.6 6.4 - 8.3 [place] g/dL Comment: Testing performed at [facility], [address] [place] [address] Specimen Anatomical Collection Method Collection Time Receive d Time (Source) Location / / Volume Laterality Blood 06/24/2022 12:12 06/24/2022 PM CURRICULUM AND ASSESSMENT DIRECTOR 12:13 PM CURRICULUM AND ASSESSMENT DIRECTOR Veronica Kaur [facility] LAB BLOOD ORDERABLES Performing Organization Address City/[facility]/ZIP Code Phon e Number [place], [place] [phone] [place] [address] Phosphorus Level (06/24/2022 12:12 PM CURRICULUM AND ASSESSMENT DIRECTOR)Only the most recent of2 resultswithin the time period is included. athologist Signature Phosphorus 2.7 2.5 - 4.5 [place] mg/dL Comment: Testing performed at [facility], [address] [place] [address] Specimen Anatomical Collection Method Collection Time Receive d Time (Source) Location / / Volume Laterality Blood 06/24/2022 12:12 06/24/2022 PM CURRICULUM AND ASSESSMENT DIRECTOR 12:13 PM CURRICULUM AND ASSESSMENT DIRECTOR Veronica Kaur [facility] LAB BLOOD ORDERABLES Performing Organization Address City/[facility] Phon e Number [place], [place] [phone] [place] [address] Alkaline Phosphatase (06/24/2022 12:12 PM CURRICULUM AND ASSESSMENT DIRECTOR)Only the most recent of3 results within the time period is included. athologist Signature Alk Phos 38 35 - 104 U/L [place] Comment: Testing performed at [facility], [address] [place] [address] Specimen Anatomical Collection Method Collection Time Receive d Time (Source) Location / / Volume Laterality Blood 06/24/2022 12:12 06/24/2022 PM CURRICULUM AND ASSESSMENT DIRECTOR 12:13 PM CURRICULUM AND ASSESSMENT DIRECTOR Veronica Kaur MULTIMEDIA TECHNICIAN LAB BLOOD ORDERABLES Performing Organization Address City/[facility]/ZIP [facility] Phon e Number [place], [place] [phone] [place] [address] Magnesium Level (06/24/2022 12:12 PM CURRICULUM AND ASSESSMENT DIRECTOR)Only the most recent of3 resultswithin the time period is included. athologist Signature Magnesium 1.7 1.6 - 2.6 [place] mg/dL Comment: [facility], [address] [place] [address] Specimen Anatomical Collection Method Collection Time Receive d Time (Source) Location / / Volume Laterality Blood 06/24/2022 12:12 06/24/2022 PM CURRICULUM AND ASSESSMENT DIRECTOR 12:13 PM CURRICULUM AND ASSESSMENT DIRECTOR Veronica Kaur [facility] LAB BLOOD ORDERABLES Performing Organization Address City/[facility]/ZIP Code Phon e Number [place], [place] [phone] [place] [address] LDH (06/24/2022 12:12 PM CURRICULUM AND ASSESSMENT DIRECTOR)Only the most recent of2 resultswithin the time period is included. athologist [facility] LDH 178 135 - 214 [place] U/L Comment: Results greater than 1651 U/L may not be reliable due to matrix effect with extended dilution as it exceeds the manager printing's recommended limit. Caution should be exercised when interpreting such values and done in conjunction with clinical context. Testing performed at [facility], [address] [place] [id number] Specimen Anatomical Collection Method Collection Time Receive d Time (Source) Location / / Volume Laterality Blood 06/24/2022 12:12 06/24/2022 PM CURRICULUM AND ASSESSMENT DIRECTOR 12:13 PM CURRICULUM AND ASSESSMENT DIRECTOR Veronica Kaur [facility] LAB BLOOD ORDERABLES Performing Organization Address City/State/ZIP Code Phon e Number [place], [place] [phone] [place] [address] (ABNORMAL) Glucose Level (06/24/2022 12:12 PM CURRICULUM AND ASSESSMENT DIRECTOR)Only the most recent of3 resultswithin the time period is included. athologist [facility] Glucose Level 145 (H) 70 - 99 [place] mg/dL Comment: Effective 01/28/16, the glucose reference intervals have been updated based on [place] [employer] guidelines (Standards of Medical Care in Diabetes 2016. Diabetes Care 2016; 39: S13-S22). Fasting blood glucose: Normal: 70-99 mg/dL Impaired fasting glucose (increased risk for diabetes or pre-diabetes): 100- 125 mg/dL Diabetes mellitus: >/=126 mg/dL Random blood glucose: Normal: 70-199 mg/dL Note: Random glucose >100 mg/dL is assoc iated with increased risk for diabetes Testing performed at [facility], [address] [place] [address] Specimen Anatomical Collection Method Collection Time Receive d Time (Source) Location / / Volume Laterality Blood 06/24/2022 12:12 06/24/2022 PM CURRICULUM AND ASSESSMENT DIRECTOR 12:13 PM CURRICULUM AND ASSESSMENT DIRECTOR Veronica Kaur MULTIMEDIA TECHNICIAN LAB BLOOD ORDERABLES Performing Organization Address City/[facility]/ZIP Code Phon e Number [address] Calcium Level (06/24/2022 12:12 PM CURRICULUM AND ASSESSMENT DIRECTOR)Only the most recent of3 resultswithin the time period is included. P athologist Signature Calcium Lvl 10.1 8.4 - 10.2 [place] mg/dL Comment: Testing performed at [facility], [address] [place] [address] Specimen Anatomical Collection Method Collection Time Receive d Time (Source) Location / / Volume Laterality Blood 06/24/2022 12:12 06/24/2022 PM CURRICULUM AND ASSESSMENT DIRECTOR 12:13 PM CURRICULUM AND ASSESSMENT DIRECTOR Veronica Kaur MULTIMEDIA TECHNICIAN LAB BLOOD ORDERABLES Performing Organization Address City/[facility]/ZIP Code Phon e Number [address] Albumin Level (06/24/2022 12:12 PM CURRICULUM AND ASSESSMENT DIRECTOR)Only the most recent of3 resultswithin the time period is included. P athologist Signature Albumin Lvl 4.2 3.5 - 5.2 [place] gm/dL Comment: Testing performed at [facility], [address] [place] [address] Specimen Anatomical Collection Method Collection Time Receive d Time (Source) Location / / Volume Laterality Blood 06/24/2022 12:12 06/24/2022 PM CURRICULUM AND ASSESSMENT DIRECTOR 12:13 PM CURRICULUM AND ASSESSMENT DIRECTOR Veronica Kaur MULTIMEDIA TECHNICIAN LAB BLOOD ORDERABLES Performing Organization Address City/State/ZIP Code Phon e Number [address] Electrolyte Panel (06/24/2022 12:12 PM CURRICULUM AND ASSESSMENT DIRECTOR)Only the most recent of3 results within the time period is included. athologist Signature Sodium Lvl 140 136 - 145 [place] mEq/L Comment: Testing performed at [facility], [address] [place] [address] Potassium Lvl 3.9 3.5 - 5.1 mEq/L [facility] CIT Y Comment: Testing performed at [facility], [address] [place] [address] Chloride 105 98 - 107 mEq/L [place] Comment: Testing performed at [facility], [address] [place] [address] CO2 25 22 - 29 mEq/L [place] Comment: Testing performed at [facility], [address] [place] [address] Anion Gap 10 4 - 14 mEq/L [place] Comment: Testing performed at [facility], [address] [place] [address] Specimen Anatomical Collection Method Collection Time Receive d Time (Source) Location / / Volume Laterality Blood 06/24/2022 12:12 06/24/2022 PM CURRICULUM AND ASSESSMENT DIRECTOR 12:13 PM CURRICULUM AND ASSESSMENT DIRECTOR Veronica Kaur MULTIMEDIA TECHNICIAN LAB BLOOD ORDERABLES Performing Organization Address City/State/[place] [address] [place] [address] US Chest/Infraclav for Breast Ultrasound (Add-on Only) (12/23/2021 12:14 PM CDT) Anatomical Region Laterality Modality Chest Ultrasound Specimen (Source) Anatomical Collection Method Collection Time Re ceived Time Location / / Volume Laterality 12/23/2021 12:20 PM CDT Impressions 12/23/2021 12:20 PM CDT There is no evidence of malignancy. Follow-up mammogram in 1 year is recomme nded. BI-RADS Category 2: Benign Finding(s) These results and recommendations were p ersonally discussed with the patient at the time of the examination. Narrative 12/23/2021 12:20 PM CDT CLINICAL INDICATION: Patient is a 81 year old female and is s een for history of breast cancer FILMS COMPARED The present examination has been compare d to prior imaging studies performed at an outside location on 06/04/2020, and a [facility] on 12/22/2020 and 12/23/2021. Images were obtained in multiple scannin g planes. Real-time sonographic imaging of both br easts (including all 4 quadrants and retroareolar region) was performed. Re al-time sonographic imaging of the right regional juli basins including ultrasou nd of the chest/mediastinum to evaluate the axillary (level I,II,III) and legal internship al mammary regions was performed. 1: There is a post surgical scar in th e right breast outer hemisphere at 8 to 9 o'clock. 2: There are scattered simple cysts in the left breast. These are subcentimeter in size. Right Regional Juli Basins: No suspi cious axillary levels I, II, III (infraclavicular) or internal mammary ly mph node is identified. Procedure Note Rafa Scott MD - 12/23/2021 CLINICAL INDICATION: Patient is a 81 year old female and is s een for history of breast cancer FILMS COMPARED The present examination has been compare d to prior imaging studies performed at an outside location on 06/04/2020, and a [facility] on 12/22/2020 and 12/23/2021. Images were obtained in multiple scannin g planes. Real-time sonographic imaging of both br easts (including all 4 quadrants and retroareolar region) was performed. Real -time sonographic imaging of the right regional juli basins including ultrasou nd of the chest/mediastinum to evaluate the axillary (level I,II,III) and legal internship al mammary regions was performed. 1: There is a post surgical scar in the right breast outer hemisphere at 8 to 9 o'clock. 2: There are scattered simple cysts in t he left breast. These are subcentimeter in size. Right Regional Juli Basins: No suspicio us axillary levels I, II, III (infraclavicular) or internal mammary ly mph node is identified. IMPRESSION: There is no evidence of malignancy. Follow-up mammogram in 1 year is recomme nded. BI-RADS Category 2: Benign Finding(s) These results and recommendations were p ersonally discussed with the patient at the time of the examination. Michelle Dickens MD IMG US ORDERABLES US Breast Complete Bilateral (12/23/2021 12:14 PM CDT) Anatomical Region Laterality Modality Breast Bilateral Ultrasound Specimen (Source) Anatomical Collection Method Collection Time Re ceived Time Location / / Volume Laterality 12/23/2021 12:20 PM CDT Impressions 12/23/2021 12:20 PM CDT There is no evidence of malignancy. Follow-up mammogram in 1 year is recomme nded. BI-RADS Category 2: Benign Finding(s) These results and recommendations were p ersonally discussed with the patient at the time of the examination. Narrative 12/23/2021 12:20 PM CDT CLINICAL INDICATION: Patient is a 81 year old female and is s een for history of breast cancer FILMS COMPARED The present examination has been compare d to prior imaging studies performed at an outside location on 06/04/2020, and a [facility] on 12/22/2020 and 12/23/2021. Images were obtained in multiple scannin g planes. Real-time sonographic imaging of both br easts (including all 4 quadrants and retroareolar region) was performed. Re al-time sonographic imaging of the right regional juli basins including ultrasou nd of the chest/mediastinum to evaluate the axillary (level I,II,III) and legal internship al mammary regions was performed. 1: There is a post surgical scar in th e right breast outer hemisphere at 8 to 9 o'clock. 2: There are scattered simple cysts in the left breast. These are subcentimeter in size. Right Regional Juli Basins: No suspi cious axillary levels I, II, III (infraclavicular) or internal mammary ly mph node is identified. Procedure Note Rafa Scott MD - 12/23/2021 CLINICAL INDICATION: Patient is a 81 year old female and is s een for history of breast cancer FILMS COMPARED The present examination has been compare d to prior imaging studies performed at an outside location on 06/04/2020, and a t [facility] on 12/22/2020 and 12/23/2021. Images were obtained in multiple scannin g planes. Real-time sonographic imaging of both br easts (including all 4 quadrants and retroareolar region) was performed. Real -time sonographic imaging of the right regional juli basins including ultrasou nd of the chest/mediastinum to evaluate the axillary (level I,II,III) and legal internship al mammary regions was performed. 1: There is a post surgical scar in the right breast outer hemisphere at 8 to 9 o'clock. 2: There are scattered simple cysts in t he left breast. These are subcentimeter in size. Right Regional Juli Basins: No suspicio us axillary levels I, II, III (infraclavicular) or internal mammary ly mph node is identified. IMPRESSION: There is no evidence of malignancy. Follow-up mammogram in 1 year is recomme nded. BI-RADS Category 2: Benign Finding(s) These results and recommendations were p ersonally discussed with the patient at the time of the examination. Michelle Dickens MD IMG US ORDERABLES Mammography Digital Diagnostic Bilateral with Tristin (12/23/2021 11:46 AM CDT) Anatomical Region Laterality Modality Breast Bilateral Mammography Specimen (Source) Anatomical Collection Method Collection Time Re ceived Time Location / / Volume Laterality 12/23/2021 12:25 PM CDT Impressions 12/23/2021 12:25 PM CDT 1: Post-surgical scar in the right breast outer hemisphere at 9 o'clock is benign. The patient is scheduled for a ultrasound. Please, see the separate report. 2: Calcifications in both breasts are benign. Follow-up mammogram in 1 year is recomme nded. BI-RADS Category 2: Benign Finding(s) Narrative 12/23/2021 12:25 PM CDT CLINICAL INDICATION: Patient is a 81 year old female and is s een for history of breast cancer MAMMO DIGITAL DIAGNOSTIC BILATERAL W JEFF O Digital Mammogram evaluated with Compute r Aided Detection (CAD). COMPARISON: The present examination has been compare d to prior imaging studies performed at an outside location on 12/27/2018, 01/29 and 06/04/2020, at [facility] on 12/22/2020 , and at [facility] on 07/11/2019. FINDINGS: The breasts are heterogeneously dense, w hich may obscure small masses. 1: There is a post-surgical scar in th e right breast outer hemisphere at 9 o'clock. Finding remains unchanged from the prior study. Patient is status post breast conservation surgery of the right breast in 2019. There is no mammographic evidence of local tumor rec urrence. 2: There are benign appearing calcific ations with diffuse/scattered distribution in both breasts. Tomosynthesis performed in CC and MLO pr ojections. Procedure Note Rafa Scott MD - 12/23/2021 CLINICAL INDICATION: Patient is a 81 year old female and is s een for history of breast cancer MAMMO DIGITAL DIAGNOSTIC BILATERAL W JEFF O Digital Mammogram evaluated with Compute r Aided Detection (CAD). COMPARISON: The present examination has been compare d to prior imaging studies performed at an outside location on 12/27/2018, 01/29 and 06/04/2020, at [facility] on 12/22/2020 , and at [facility] on 07/11/2019. FINDINGS: The breasts are heterogeneously dense, w hich may obscure small masses. 1: There is a post-surgical scar in the right breast outer hemisphere at 9 o'clock. Finding remains unchanged from the prior study. Patient is status post breast conservation surgery of the right breast in 2019. There is no mammographic evidence of local tumor rec urrence. 2: There are benign appearing calcificat ions with diffuse/scattered distribution in both breasts. Tomosynthesis performed in CC and MLO pr ojections. IMPRESSION: 1: Post-surgical scar in the right breas t outer hemisphere at 9 o'clock is benign. The patient is scheduled for a ultrasound. Please, see the separate report. 2: Calcifications in both breasts are be nign. Follow-up mammogram in 1 year is recomme nded. BI-RADS Category 2: Benign Finding(s) Michelle Dickens MD IMG MAMMOGRAPHY ORDERABLES TSH (08/26/2021 8:08 AM CURRICULUM AND ASSESSMENT DIRECTOR) athologist Signature TSH 1.89 0.27 - 4.20 [place] mcunit/mL Comment: Testing performed at [facility], [address] [place] [id number] Specimen Anatomical Collection Method Collection Time Receive d Time (Source) Location / / Volume Laterality Blood 08/26/2021 8:08 AM 2 8:09 CURRICULUM AND ASSESSMENT DIRECTOR AM CURRICULUM AND ASSESSMENT DIRECTOR Michelle Dickens MD LAB BLOOD ORDERABLES Performing Organization Address City/[facility]/ZIP [facility] Phon e Number [place], [place] [phone] [place] [address] (ABNORMAL) Free T4 (08/26/2021 8:08 AM CURRICULUM AND ASSESSMENT DIRECTOR) athologist [facility] T4 Free 1.86 (H) 0.93 - 1.70 [place] ng/dL Comment: Testing performed at [facility], [address] [place] [address] Specimen Anatomical Collection Method Collection Time Receive d Time (Source) Location / / Volume Laterality Blood 08/26/2021 8:08 AM 2 8:09 CURRICULUM AND ASSESSMENT DIRECTOR AM CURRICULUM AND ASSESSMENT DIRECTOR Michelle Dickens MD LAB BLOOD ORDERABLES Performing Organization Address City/[facility] Code Phon e Number [place], [place] [phone] [place] [address] Folate Level (08/26/2021 8:08 AM CURRICULUM AND ASSESSMENT DIRECTOR) athologist [facility] Folate Lvl 14.7 4.8 - 24.2 [place] ng/mL Comment: Hemolyzed specimens with Hemolysis Index >30.0 (30 mg/dL or visible hemolysis) may cause interference and give falsely high results. Performed at [facility] , [address] [place] [address] Specimen Anatomical Collection Method Collection Time Receive d Time (Source) Location / / Volume Laterality Blood 08/26/2021 8:08 AM 2 8:09 CURRICULUM AND ASSESSMENT DIRECTOR AM CURRICULUM AND ASSESSMENT DIRECTOR Narrative [place] - 08/26/2021 8:54 AM CURRICULUM AND ASSESSMENT DIRECTOR This lab cannot be scheduled at the following locations due to collection/proccessing restrictions: [place] - [facility] [place] - [facility] [address] - [facility] - [facility] DA[facility] DI DIAG LAB [facility] [place] [facility] Michelle Dickens MD LAB BLOOD ORDERABLES Performing Organization Address City/State/ZIP Code [place] [address] [address] [facility] Vitamin B12 Level (08/26/2021 8:08 AM CURRICULUM AND ASSESSMENT DIRECTOR) athologist Signature Vitamin B12 Lvl 850 211 - 946 [place] pg/mL Comment: Performed at [facility], [address] [place] [address], [place] [address] Specimen Anatomical Collection Method Collection Time Receive d Time (Source) Location / / Volume Laterality Blood 08/26/2021 8:08 AM 8:09 CURRICULUM AND ASSESSMENT DIRECTOR AM CURRICULUM AND ASSESSMENT DIRECTOR Michelle Dickens MD LAB BLOOD ORDERABLES Performing Organization Address City/State/ZIP [place] [address] [address] [facility] after 08/25/2021 Insurance Payer Benefit Plan / Subscriber ID Effective Phone Address T ype Group Dates [facility] MEDICARE [id number] 2020-Prese [address] Medicare HEALTHCARE ADVANTAGE [place] [employer] [id number] Yareli Beckham Personal/Famil Self 1940 [address] [place] [address] Yareli Beckham Personal/Famil Self 1940 [address] [place] [id number] Care Teams Can Dryer Relationship Specialty Start Date End Date Morteza Buckner MD PCP - External Referring General Surgery 05/10/[address] [place] [id number] Lee Garrison MD PCP - External Primary Family Practice 05/10/19 [address] [facility] [address] [place], [place] [id number] Jo Romero, PCP - General Surgical Oncology 06/18/[address] [place] [id number] Nicholas Blanchard Physician Cardiology 07/06/19 MD [address] [facility] [place], [place] [phone] Meeta Beaver Physician Gastroenterology 07/06/[address] [place], [place] [id number] Manolo Morrell, Physician Allergy 07/06/[address] [id number]
[2022-08-25] MEDS ORDERED: NITROGLYCERIN 0.4 MG/TAB SL PRN (17:38)
--- OUTSIDE RECORDS SUMMARY | 2022-08-25 17:38 | XMS REPORT | Continuity of Care Document ---
:1940 Author Organization [facility] t Address [address] [place] [address] Care Team Providers Name Role Phone [phone] Primary Care Physician Unavailable SYSTEM, PROVIDER NOT IN Attending Clinician Unavailable Rosa Burton RN Attending Clinician Unavailable Becca ANDERSON, Aruna Attending Clinician ANDREEA BARBOZA Attending Clinician Unavailable Bettye Smith MD Attending Clinician [phone] Andreea Barboza DO Attending Clinician Michelle Hylton MD Attending Clinician MICHELLE HYLTON Attending Clinician Unavailable VERONICA KAUR Attending Clinician Unavailable Veronica Leiva Attending Clinician RICHMOND JAVIER Attending Clinician Unavailable Only, Adc Test Attending Clinician Unavailable Chet Hung MD Attending Clinician CHET HUNG Attending Clinician Unavailable ANDREEA BARBOZA Admitting Clinician Unavailable Andreea Barboza DO Admitting Clinician Payers Payer Name Policy Type Policy Number Effective Date Expiration Date S ource [employer] CHOICE [id number] 2018 MEDICARE PPO 00:00:00 Problems Condition Condition Condition Status Onset Resolution Last Treating Co mments Source Name Details Category Date Date Treatment Clinician Date Chest Chest Disease Active 2022- Univers pain, pain, 2-05 ity of unspec[place] d type 00 Medical [place] History of History of Disease Active U nivers breast breast 2-05 ity of cancer cancer 00:00: [place] 00 Medical Branch Hypothyroi Hypothyroi Disease Active U nivers dism dism 2-05 ity of 00:00: [place] [facility] Hypertrigl Hypertrigl Disease Active U nivers yceridemia yceridemia 2-05 it y of 00:00: [place] 00 Medical Branch [place] 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 [place] Right Breast Malignant Malignant Disease Active 2018-07 Uni vers neoplasm neoplasm 2 ity of of of 00:00: [place] lower-oute lower-oute 00 r quadrant r quadrant An derso of right of right n female female Cancer breast breast Center Allergies, Adverse Reactions, Alerts Allergy Allergy Status Severity Reaction(s) Onset Inactive Treating Comm ents Source Name Type Date Date Clinician PENICILL Drug Active Diarrhea Univer s INS Class 2-05 ity of 00:00: [place] 00 Medical Branch Penicill Propensi Active Diarrhea Univ ers ins ty to 2-05 ity of adverse 00:00: [place] reaction 00 Medical s Branch Levoflox Drug Active GI 2019-0 diarrhea Univer s acin Intolera Intolerance 4-29 ity of nce 00:00: [place] 00 [facility] LEVOFLOX DRUG Active Nausea 2020-0 MD ACIN INGREDI 4-29 Anderso 00:00: n 00 LEVOFLOX DRUG Active Nausea 2020-0 MD ACIN INGREDI 4-29 Anderso 00:00: n 00 LEVOFLOX DRUG Active Nausea 2020-0 MD ACIN INGREDI 4-29 Anderso 00:00: n 00 LEVOFLOX DRUG Active Nausea 2020-0 MD ACIN INGREDI 4-29 Anderso 00:00: n 00 LEVOFLOX DRUG Active Nausea 2020-0 MD ACIN INGREDI 4-29 Anderso 00:00: n 00 LEVOFLOX DRUG Active Nausea 2020-0 MD ACIN INGREDI 4-29 Anderso 00:00: n 00 LEVOFLOX DRUG Active Nausea 2020-0 MD ACIN INGREDI 4-29 Anderso 00:00: n 00 LEVOFLOX DRUG Active Nausea 2020-0 MD ACIN INGREDI 4-29 Anderso 00:00: n 00 LEVOFLOX DRUG Active Nausea 2020-0 MD ACIN INGREDI 4-29 Anderso 00:00: n 00 LEVOFLOX DRUG Active Nausea 2020-0 MD ACIN INGREDI 4-29 Anderso 00:00: n 00 LEVOFLOX DRUG Active Nausea 2020-0 MD ACIN INGREDI -29 Anderso 00:00: n 00 LEVOFLOX DRUG Active Nausea 2020-0 MD ACIN INGREDI 4-29 Anderso 00:00: n 00 LEVOFLOX DRUG Active Nausea 2020-0 MD ACIN INGREDI 4-29 Anderso 00:00: n 00 LEVOFLOX DRUG Active Nausea 2020-0 MD ACIN INGREDI -29 Anderso 00:00: n 00 LEVOFLOX DRUG Active Nausea 2020-0 MD ACIN INGREDI 29 Anderso 00:00: n 00 Penicill Drug Active Hives 2020-0 Univers ins Allergy 1-03 ity of 00:00: [place] 00 [facility] PENICILL Drug Active Hives 2020-0 MD INS Class 1-03 Anderso 00:00: n 00 PENICILL Drug Active Hives 2020-0 MD INS Class 1-03 Anderso 00:00: n 00 PENICILL Drug Active Hives 2020-0 MD INS Class 1-03 Anderso 00:00: n 00 PENICILL Drug Active Hives 2020-0 MD INS Class 1-03 Anderso 00:00: n 00 PENICILL Drug Active Hives 2020-0 MD INS Class 1-03 Anderso 00:00: n 00 PENICILL Drug Active Hives 2020-0 MD INS Class 1-03 Anderso 00:00: n 00 PENICILL Drug Active Hives 2020-0 MD INS Class 1-03 Anderso 00:00: n 00 PENICILL Drug Active Hives 2020-0 MD INS Class 1-03 Anderso 00:00: n 00 PENICILL Drug Active Hives 2020-0 MD INS Class 1-03 Anderso 00:00: n 00 PENICILL Drug Active Hives 2020-0 MD INS Class 1-03 Anderso 00:00: n 00 PENICILL Drug Active Hives 2020-0 MD INS Class 1-03 Anderso 00:00: n 00 PENICILL Drug Active Hives 2020-0 MD INS Class 1-03 Anderso 00:00: n 00 PENICILL Drug Active Hives 2020-0 MD INS Class 1-03 Anderso 00:00: n 00 PENICILL Drug Active Hives 2020-0 MD INS Class 1-03 Anderso 00:00: n 00 PENICILL Drug Active Hives 2020-0 MD INS Class 1-03 Anderso 00:00: n 00 NO KNOWN Drug Active Univers ALLERGIE Class ity of S [place] [facility] Family History Family Member Diagnosis Comments Start Date Stop Date Source Natural father Prostate cancer [facility] [place] Nikolas Cance r [place] Natural father Skin cancer [facility] [place] Eveleth Cance r [place] Social History Social Habit Start Date Stop Date Quantity Comments Source History SDOH Social Unive rsity of Connections [facility] Med ical Together Branch History SDOH Social Unive rsity of Connections [facility] Medical Branch History SDOH Social Unive rsity of Connections [place] [facility] Membership Branch History SDOH Social Unive rsity of Connections [place] [facility] Meetings Branch History SDOH 2022-08-10 2022-08-10 1 University o f Alcohol Frequency 00:00:00 00:00:00 [place] M edical Branch History SDOH 2022-08-10 2022-08-10 0 University o f Alcohol Std Drinks 00:00:00 00:00:00 [place] [facility] History SDOH 2022-08-10 2022-08-10 1 University o f Alcohol Binge 00:00:00 00:00:00 [place] Medic al Branch History SDOH Social 2022-08-10 2022-08-10 5 Unive rsity of Connections Phone 00:00:00 00:00:00 [place] M edical Branch History SDOH Social 2022-08-10 2022-08-10 3 Unive rsity of Connections Living 00:00:00 00:00:00 [place] [facility] History SDOH 2022-08-10 2022-08-10 5 University o f Physical Activity 00:00:00 00:00:00 [place] M edical DPW Branch History SDOH 2022-08-10 2022-08-10 2 University o f Physical Activity 00:00:00 00:00:00 [place] M edical MPS Branch History SDOH 2022-08-10 2022-08-10 5 University o f Financial 00:00:00 00:00:00 [place] [facility] [place] History SDOH Food 2022-08-10 2022-08-10 1 Univers ity of Worry 00:00:00 00:00:00 [place] [facility] History SDOH Food 2022-08-10 2022-08-10 1 Univers ity of Scarcity 00:00:00 00:00:00 [place] [facility] History SDOH 2022-08-10 2022-08-10 2 University o f Transport Med 00:00:00 00:00:00 [place] Medic al Branch History SDOH 2022-08-10 2022-08-10 2 University o f Transport Non-Med 00:00:00 00:00:00 [facility] edical Branch Exposure to 2022-07-29 2022-08-08 Not sure University of SARS-CoV-2 (event) 00:00:00 13:01:00 [facility] Tobacco use and 2022-08-08 2022-08-08 Smokeless Universit y of exposure 00:00:00 00:00:00 tobacco non-user [place] [facility] dical [place] Alcohol intake 2021-04-23 2021-04-23 Current drinker Unive rsity of 00:00:00 00:00:00 of alcohol [place] MD [facility] Education 2019-07-06 2019-07-06 13 University of 00:00:00 00:00:00 [place] MD [facility] Alcohol Comment 2019-07-06 2019-07-06 one drink a Universi ty of 00:00:00 00:00:00 month [place] MD [facility] Sex [birth year] Universit y of 00:00:00 00:00:00 [place] MD [facility] Smoking Status Start Date Stop Date Source Unknown if ever smoked Universit y of [facility] Never smoked tobacco [facility] Medications Ordered Filled Start Stop Current Ordering Indication Dosage Frequency Signature Comments Components Source Medication Medication Date Date Medication? Clinician (SIG) Name Name aspirin 81 2022- Yes [id number] 81mg Take 1 Univers mg chewable 08-11 tablet by it y of tablet 00:00: 05:59 mouth in [place] 00 :00 the Medical morning Branch for 30 days. aspirin 81 2022- Yes [id number] 81mg Take 1 Univers mg chewable 08-11 tablet by it y of tablet 00:00: 05:59 mouth in [place] 00 :00 the [facility] Branch for 30 days. aspirin 81 2022- Yes [id number] 81mg Take 1 Univers mg chewable 08-11 tablet by it y of tablet 00:00: 05:59 mouth in [place] 00 :00 the [facility] Branch for 30 days. tc 2022- No [id number] 40.2mCi 40.2 Unive rs 99m-tetrofo 08-10 millicurie i ty of smin 20:00: 19:53 , [place] ([facility]) 00 :00 Intravenou Medi steve injection s, ONCE, 1 Bran ch 40.2 dose, On [facility] Tue08/10/22 at 1400, Routine regadenoson 2022- No [id number] .4mg 0.4 mg, IV Univers (LEXISCAN) 08-10 Push, ity of injection 19:45: 19:46 ONCE, 1 [place] 0.4 mg 00 :00 dose, On [facility] 08/10/22 Branch at 1345, Routine
membership coordinator approving Restricted medication : BECCAARUNA tc 2022- No [id number] 16.5mCi 16.5 Unive rs 99m-tetrofo 08-10 millicurie i ty of smin 18:00: 17:52 , [place] ([facility]) 00 :00 Intravenou Medi steve injection s, ONCE, 1 Bran ch 16.5 dose, On [facility] Tue08/10/22 at 1200, Routine pantoprazol Yes 40{tbl} Take 40 Univers e sodium 2-07 tablets by ity o f (PANTOPRAZO 16:37: mouth [place] LE ORAL) 40 daily. Medical Branch fenofibrate Yes 130mg Take 130 U nivers micronized 2-07 mg by ity of 130 mg 16:37: mouth [place] capsule 40 daily with Medica l breakfast. Branch 135 mg daily pantoprazol Yes 40{tbl} Take 40 Univers e sodium 2-07 tablets by ity o f (PANTOPRAZO 16:37: mouth [place] LE ORAL) 40 daily. Medical Branch fenofibrate Yes 130mg Take 130 U nivers micronized 2-07 mg by ity of 130 mg 16:37: mouth [place] capsule 40 daily with Medica l breakfast. Branch 135 mg daily pantoprazol Yes 40{tbl} Take 40 Univers e sodium 2-07 tablets by ity o f (PANTOPRAZO 16:37: mouth [place] LE ORAL) 40 daily. Medical Branch fenofibrate Yes 130mg Take 130 U nivers micronized 2-07 mg by ity of 130 mg 16:37: mouth [place] capsule 40 daily with Medica l breakfast. Branch 135 mg daily Levothyroxi 2022- No 75{caps Take 75 Univers ne 75 mcg 08-10 ule} capsules ity o f capsule 15:47: 00:00 by mouth [place] 43 :00 in the Medical morning. Branch 50 mg every other day an 75 mg every other dy pantoprazol Yes 40mg 40 mg, Univ ers e 2-07 Oral, ity of (PROTONIX) 15:00: DAILY, [place] EC tablet 00 First dose Medi steve 40 mg on Tue Branch 08/10/22 at 0900, Until Discontinu ed levothyroxi Yes 75ug 75 mcg, Uni vers ne 2 Oral, ity of (SYNTHROID) 12:00: QAM-0600, [place] tablet 75 00 First dose Medi steve mcg on Tue Branch 08/10/22 at 0600, Until Discontinu ed alum-mag Yes 30mL 30 mL, Univers hydroxide-s 08-10 Oral, ity of imeth 02:31: Q6HPRN, [place] (MAALOX 09 Starting Medical PLUS / on Tue Branch MAG-AL 08/09/22 at PLUS) 2030, 200-200-20 Until mg/5 mL Discontinu suspension ed, 30 mL Routine, Indigestio n, Heartburn, Gas Levothyroxi 2022- Yes [id number] 75ug Take 1 Univers ne 75 mcg 08-10 03-10 capsule by ity of capsule 00:00: 05:59 mouth in [place] 00 :00 the Medical morning Branch for 30 days. 50 mg every other day an 75 mg every other dy Levothyroxi 0 2022- Yes [id number] 75ug Take 1 Univers ne 75 mcg 08-10 capsule by ity of capsule 00:00: 05:59 mouth in [place] 00 :00 [facility] for 30 days. 50 mg every other day an 75 mg every other dy Levothyroxi 0 2022- Yes [id number] 75ug Take 1 Univers ne 75 mcg 08-10 capsule by ity of capsule 00:00: 05:59 mouth in [place] 00 :00 [facility] [place] for 30 days. 50 mg every other day an 75 mg every other dy aspirin 0 Yes 81mg 81 mg, Univers chewable 08-09 Oral, ity of tablet 81 15:00: DAILY, [place] mg 00 First dose Medical on [facility] 08/09/22 at 0900, Until Discontinu ed, Routine enoxaparin Yes 40mg 40 mg, Unive rs (LOVENOX) 08-09 Subcutaneo ity of injection 15:00: [place], [place]ILY, [place] 40 mg 00 First dose Medical on [facility] 08/09/22 at 0900, Until Discontinu ed, Routine aspirin 2022- No 325mg 325 mg, Unive rs tablet 325 08-09 02-06 Oral, ity of mg 15:00: 00:12 DAILY, [place] 00 :37 First dose Medical on [facility] 08/09/22 at 0900, Until Discontinu ed, Routine nitroglycer Yes .4mg 0.4 mg, Uni vers in 08-09 Sublingual ity of (NITROSTAT) 00:11: , Q5MIN [place] as sublingual 46 PRN, Medical tablet 0.4 Starting Branc h mg on [place] 08/08/22 at 1811, Until Discontinu ed, Routine, Chest pain acetaminoph Yes 650mg 650 mg, Un jaden en 08-09 Oral, ity of (TYLENOL) 00:10: Q6HPRN, [place] tablet 650 41 Starting Medic al mg on [facility] 08/08/22 at 1810, Until Discontinu ed, Routine, Pain (scale 1-3) UNABLE TO 2021-07- No Med Name: Arian stanley FIND 08-25 Allergy ity of 13:27: 00:00 shot [place] 50 :00 weekly On hold per Patrick patient [facility] potassium 2021-07 Yes Take by Unive rs 99 mg tab 2-22 mouth ity of 13:27: daily. Jelena [address] [facility] lactobacill 2021-07 Yes Chew Univer s us 2-22 daily. ity of acidophilus 13:27: Jelena -bulgaricus 49 (LACTINEX) [place] 1 million n cells chew Cancer chewable Center tablet beta-carote 2021-07 Yes 1{tbl} Take 1 Un jaden ne,A,-vits 2-22 tablet by ity of C,E/mins 13:27: mouth [place] (OCUVITE 49 daily. ORAL) [facility] zinc 2021-07 Yes 22mg Take 22 mg Univers gluconate 2-22 by mouth ity of 50 mg 13:27: twice [place] tablet 49 daily. MD Patrick cordero [facility] ascorbic 2021-07 Yes 500mg Take 5 Univer s acid, 2-22 tablets ity of vitamin C, 13:27: (500 mg) [place] as (VITAMIN C) 49 by mouth [address] Anderso tablet [facility] cholecalcif 2021-07 Yes 5000U Take 1 Uni vers adis, 2-22 tablet ity of vitamin D3, 13:27: (5,000 [place] (VITAMIN 49 Units) by D3) 5,000 mouth Anderso units tab daily. n tablet [facility] biotin 5 mg 2021-07 Yes Take by Uni vers cap 2-22 mouth. ity of 13:27: Jelena [address] [facility] cetirizine 2021-07 Yes 10mg Take 1 Unive rs (ZyrTEC) 10 2-22 tablet (10 it y of mg tablet 13:27: mg) by [place] 49 mouth daily as Anderso needed. [facility] losartan-hy 2021-07 Yes 1{tbl} Take 1 Un jaden drochloroth 2-22 tablet by ity of iazide 13:27: mouth [place] (HYZAAR) 49 daily. 50-12.5 mg [place] per tablet [facility] EPINEPHrine 2018-07 Yes .3mg Inject 0.3 Univers (EPIPEN) 2-12 mg into ity of 0.3 mg/0.3 00:00: the [place] mL 00 shoulder, MD (1:1,000) thigh, or Zachariah so injection buttocks n as needed. [facility] pantoprazol 2018-07 Yes 40mg Take 1 Univ ers e 1-25 tablet (40 ity of (PROTONIX) 00:00: mg) by [place] 40 mg EC 00 mouth MD tablet daily. [facility] fenofibric 2018-07 Yes 135mg Take 1 Univ ers acid 1-25 capsule ity of (TRILIPIX) 00:00: (135 mg) [place] 135 mg 00 by mouth MD capsule daily. [facility] levothyroxi 2018-07 Yes 50ug Take 1 Univ ers ne 1-20 tablet (50 ity of (SYNTHROID, 00:00: mcg) by [place] as LEVOTHROID) 00 mouth MD 50 mcg every 48 Anderso tablet hours. n Alternates Cancer days with Center 75mcg levothyroxi 2018-07 Yes 75ug Take 1 Univ ers ne 1-05 tablet (75 ity of (SYNTHROID, 00:00: mcg) by [place] as LEVOTHROID) 00 mouth MD 75 mcg every 48 Anderso tablet hours. n Alternates Cancer days with Center 50mcg mesalamine 2018-07 Yes 2g Take 2 g Uni vers (LIALDA) 0-14 by mouth 4 ity o f 1.[address] 00:00: (four) [place] tablet 00 times a MD day. [facility] Immunizations Ordered Filled Immunization Date Status Comments [facility] e Immunization Name Name SARS-COV-2 COVID-19 2020-09-07 Completed Unive rsity of MODERNA 12+ YRS 00:00:00 [place] Med ical VACCINE Branch SARS-COV-2 COVID-19 2020-09-07 Completed Unive rsity of MODERNA 12+ YRS 00:00:00 [place] Med ical VACCINE Branch SARS-COV-2 COVID-19 2020-09-07 Completed Unive rsity of MODERNA 12+ YRS 00:00:00 [place] Med ical VACCINE Branch Moderna SARS-CoV-2 2020-09-07 Completed Univer sity of Vaccination 00:00:00 Jelena sandovalon [facility] SARS-COV-2 COVID-19 2020-08-10 Completed Unive rsity of MODERNA 12+ YRS 00:00:00 [place] Med ical VACCINE Branch SARS-COV-2 COVID-19 2020-08-10 Completed Unive rsity of MODERNA 12+ YRS 00:00:00 [place] Med ical VACCINE Branch SARS-COV-2 COVID-19 2020-08-10 Completed Unive rsity of MODERNA 12+ YRS 00:00:00 [facility] ical VACCINE Branch Moderna SARS-CoV-2 2020-08-10 Completed Univer sity of Vaccination 00:00:00 [facility] Influenza Split 2020-04-03 Completed Universit y of High Dose 00:00:[address] [facility] IM Pneumococcal 2018-08-18 Completed University o f Conjugate 13-Valent 00:00:00 [place] [facility] Vital Signs Vital Name Observation Time Observation Value Comments Source Systolic blood 2022-08-10 21:51:00 143 mm[Hg] Univer sity of pressure [facility] Diastolic blood 2022-08-10 21:51:00 75 mm[Hg] Unive rsity of pressure [facility] Heart rate 2022-08-10 21:51:00 89 /min [facility] Body temperature 2022-08-10 21:51:00 36.22 [facility] Res[facility] rate 2022-08-10 21:51:00 18 /min [facility] Oxygen saturation in 2022-08-10 21:51:00 97 /min [facility] Arterial blood by [facility] Pulse oximetry Branch Body weight 2022-08-10 09:22:00 58.968 kg [facility] BMI 2022-08-10 09:22:00 25.39 kg/m2 [facility] Body height 2022-08-09 03:56:00 152.4 cm [facility] WEIGHT 2020-01-02 00:00:00 59.6 kg Systolic blood 2022-06-24 19:10:17 134 mm[Hg] Univer sity of pressure Jelena Skinner on [facility] Diastolic blood 2022-06-24 19:10:17 76 mm[Hg] Unive rsity of pressure Jelena [facility] Heart rate 2022-06-24 19:10:17 75 /min [facility] MD Sk[facility] on [facility] Body temperature 2022-06-24 19:10:17 36.72 Vicki [facility] MD Sk[facility] on [facility] Respiratory rate 2022-06-24 19:10:17 18 /min [facility] MD Sk[facility] on [facility] Body weight 2022-06-24 19:10:17 60.9 [facility] MD Sk[facility] on [facility] BMI 2022-06-24 19:10:17 26.64 kg/m2 [facility] MD Sk[facility] on [facility] Oxygen saturation in 2022-06-24 19:10:17 99 /min [facility] Arterial blood by Jelena foote Pulse oximetry [facility] Procedures Procedure Date / Time Performing Clinician Source Performed CBC WITH DIFF 2022-08-10 10:11:00 Miquel Mora [facility] N-TERMINAL PRO-BNP 2022-08-10 10:11:00 Miquel Mora [facility] BASIC METABOLIC PANEL (NA, 2022-08-10 10:11:00 [facility], CO2, GLUCOSE, BUN, Medica l Branch CREATININE, CA) TRANSTHORACIC ECHO (TTE) 2022-08-09 15:17:[address] [facility] TROPONIN I 2022-08-09 08:47:00 Andreea Barboza [place] [facility] TROPONIN I 2022-08-08 21:41:00 [facility] VW 2022-08-08 21:02:01 Sarah [facility] CBC WITH DIFF 2022-08-08 19:37:00 Sarah [facility] N-TERMINAL PRO-BNP 2022-08-08 19:37:00 Sarah [facility] TROPONIN I 2022-08-08 19:37:00 Sarah [facility] COMP. METABOLIC PANEL 2022-08-08 19:37:00 Bettye Smith [facility] ([id number]) [facility] HB ECG ROUTINE & RHYTHM 2022-08-08 19:09:21 Bettye Smith [facility] STRIP [facility] NOTICE OF PRIVACY 2022-08-08 19:00:30 Doctor Unassigned, [facility] PRACTICES [place] [facility] CONSENT/REFUSAL FOR 2022-08-08 18:58:06 Doctor Unassigned, [facility] DIAGNOSIS AND TREATMENT [place] [facility] [place] FRACTIONATED BILIRUBIN 2022-06-24 18:12:42 Veronica Kaur [facility] COMPLETE BLOOD COUNT W/ 2022-06-24 18:12:42 Veronica Kaur [facility] DIFFERENTIAL [facility] COMPREHENSIVE METABOLIC 2022-06-24 18:12:42 Veronica Kaur [facility] PANEL [facility] LACTATE DEHYDROGENASE 2022-06-24 18:12:42 Veronica Kaur [facility] MAGNESIUM LEVEL 2022-06-24 18:12:42 Veronica Kaur [facility] PHOSPHORUS LEVEL 2022-06-24 18:12:42 Veronica Kaur [facility] URIC ACID 2022-06-24 18:12:42 Veronica Kaur [facility] VITAMIN D 25 HYDROXY LEVEL 2022-06-24 18:12:[address] [facility] Results CBC 2022-06-24 18:12:42 Veronica Kaur [facility] MANUAL DIFFERENTIAL 2022-06-24 18:12:[address] [facility] GLUCOSE LEVEL 2022-06-24 18:12:42 Veronica Kaur [facility] BLOOD UREA NITROGEN 2022-06-24 18:12:[address] [facility] ELECTROLYTE PANEL 2022-06-24 18:12:42 Veronica Kaur [facility] SERUM CREATININE 2022-06-24 18:12:42 Veronica Karu [facility] .GLOMERULAR FILTRATION 2022-06-24 18:12:42 Veronica Kaur [facility] RATE [facility] CALCIUM LEVEL TOTAL 2022-06-24 18:12:[address] [facility] ALBUMIN LEVEL 2022-06-24 18:12:42 Veronica Kaur [facility] ALKALINE PHOSPHATASE 2022-06-24 18:12:42 Veronica Kaur [facility] [place] ALANINE AMINOTRANSFERASE 2022-06-24 18:12:42 Veronica Kaur [facility] [place] [facility] ASPARTATE AMINOTRANSFERASE 2022-06-24 18:12:[address] [facility] TOTAL PROTEIN 2022-06-24 18:12:42 Veronica Kaur [facility] US BREAST COMPLETE 2021-12-23 17:14:00 Michelle Hylton [facility] BILATERAL [facility] US CHEST/INFRACLAV 2021-12-23 17:14:00 Michelle Hylton [facility] MAMMO DIGITAL DIAGNOSTIC 2021-12-23 16:46:04 Michelle Hylton [facility] BILATERAL W KISHORE [facility] COMPLETE BLOOD COUNT W/ 2021-12-23 16:00:00 [facility] COMPREHENSIVE METABOLIC 2021-12-23 16:00:00 [facility] PANEL [facility] MAGNESIUM LEVEL 2021-12-23 16:00:00 Michelle Hylton [facility] PHOSPHORUS LEVEL 2021-12-23 16:00[facility] DE[facility]NASE 2021-12-23 16:00:00 Michelle Hylton [facility] VITAMIN D 25 HYDROXY LEVEL 2021-12-23 16:00:00 Luiz Hylton [facility] Results CBC 2021-12-23 16:00:00 Michelle Hylton [facility] MANUAL DIFFERENTIAL 2021-12-23 16:00:00 Michelle Hylton [facility] GLUCOSE LEVEL 2021-12-23 16:00:00 Michelle Hylton [facility] BLOOD UREA NITROGEN 2021-12-23 16:00:00 Michelle Hylton [facility] ELECTROLYTE PANEL 2021-12-23 16:00:00 Michelle Hylton [facility] SERUM CREATININE 2021-12-23 16:00:[address] [facility] .GLOMERULAR FILTRATION 2021-12-23 16:00:00 [facility] TOTAL 2021-12-23 16:00:00 Michelle Hylton [facility] ALBUMIN LEVEL 2021-12-23 16:00:00 Michelle Hylton [facility] ALKALINE PHOSPHATASE 2021-12-23 16:00:00 Michelle Hylton [facility] ALANINE AMINOTRANSFERASE 2021-12-23 16:00:00 Michelle Hylton [facility] ASPARTATE AMINOTRANSFERASE 2021-12-23 16:00:00 Luiz Hylton [facility] TOTAL PROTEIN 2021-12-23 16:00:00 Michelle Hylton [facility] FRACTIONATED BILIRUBIN 2021-12-23 16:00:00 [facility] D 25 HYDROXY LEVEL 2021-08-26 14:08:00 Luiz Hylton [facility] COMPLETE BLOOD COUNT W/ 2021-08-26 14:08:00 Michelle Hylton [facility] DIFFERENTIAL [facility] COMPREHENSIVE METABOLIC 2021-08-26 14:08:00 Michelle Hylton [facility] PANEL [facility] MAGNESIUM LEVEL 2021-08-26 14:08:00 Michelle Hylton y [facility] THYROID STIMULATING 2021-08-26 14:08:00 Michelle Hylton [facility] HORMONE [facility] FREE THYROXINE 2021-08-26 14:08[facility] 2021-08-26 14:08:00 Michelle Hylton y [facility] VITAMIN B12 LEVEL 2021-08-26 14:08:00 Michelle Hylton [facility] Results CBC 2021-08-26 14:08:00 Michelle Hylton y [facility] MANUAL DIFFERENTIAL 2021-08-26 14:08:00 Michelle Hylton [facility] GLUCOSE LEVEL 2021-08-26 14:08:00 Michelle Hylton y [facility] BLOOD UREA NITROGEN 2021-08-26 14:08:00 Michelle Hylton [facility] ELECTROLYTE PANEL 2021-08-26 14:08:00 Michelle Hyltony [facility] SERUM CREATININE 2021-08-26 14:08:00 Michelle Hylton ty [facility] .GLOMERULAR FILTRATION 2021-08-26 14:08:00 Michelle Hylton iverssarah [facility] RATE [facility] CALCIUM LEVEL TOTAL 2021-08-26 14:08:00 Michelle Hylton [facility] ALBUMIN LEVEL 2021-08-26 14:08[facility]00 [facility]KALINE PHOSPHATASE 2021-08-26 14:08:00 Michelle Hylton [facility] ALANINE AMINOTRANSFERASE 2021-08-26 14:08:00 Michelle Hylton [facility] ASPARTATE AMINOTRANSFERASE 2021-08-26 14:08:00 Luiz Hylton [facility] TOTAL PROTEIN 2021-08-26 14:08:00 Michelle Hylton [facility] FRACTIONATED BILIRUBIN 2021-08-26 14:08:00 [facility] of Care Planned Activity Planned Date Details Comments Source Future Scheduled 2022-07-06 COVID-19 Vaccination [facility] Test 10:13:12 (3 - Booster for MD Nikolas Cancer Moderna series) [code Center = COVID-19 Vaccination (3 - Booster for Moderna series)] Encounters Start End Encounter Admission Attending Care Care Encounter Source Date/Time Date/Time Type Type Clinicians Facility Department ID 2022-07-23 Outpatient SYSTEM, [facility] MEGGAN [id number] 11:29:40 PROVIDER Brody o n 2022-06-07 Outpatient SYSTEM, MEGGAN BRODERICK [id number] 11:51:56 PROVIDER Brody o n 2021-04-02 Outpatient SYSTEM, [facility] MEGGAN [id number] 10:47:00 PROVIDER Brody o n 2021-01-20 Outpatient SYSTEM, MEGGAN BRODERICK [id number] 08:24:51 PROVIDER Brody o n 2022-08-11 2022-08-11 Transition JIM Burton 1.2.840.114 [id number] Univers 00:00:00 00:00:00 of Care Rosa ORDOÑEZY 350.1.13.10 [place] [id number] [facility] [address] 2022-08-11 2022-08-11 Telephone NANCY Bowman [id number] [id number] Univers 00:00:00 00:00:00 Aruna ERICKSON 350.1.13.10 ity of [facility] 4.2.7.2.686 [facility] [id number] Ks dical NAL 059 [facility] 2022-08-08 2022-08-10 Outpatient Castro BARBOZA [facility] [id number] Univers 13:04:00 16:30:00 ANDREEA ittrinity of [facility] 2022-08-08 2022-08-10 Emergency Bettye Smith [facility] 1.2.840.114 [id number] Univers 13:04:00 16:30:00 Andreea Barboza 350.1.13.10 ity of [facility] 4.2.7.2.686 [facility] [id number] [facility] [address] [place] 2022-06-24 2022-06-24 Follow-Up Sandi Dodson, 1.2.840.1 [id number] Univers 14:00:00 14:00:00 Michelle 39660.1.1 ity of 3.412.2.7 [place] .3.007751 MD Lawrence8 [facility] [place] 2022-06-24 2022-06-24 Outpatient MARTINE DODSON MDA MDA [id number] 12:53:22 13:42:29 MICHELLE cordero 2022-06-24 2022-06-24 Outpatient MARTINE KAUR MDA MDA [id number] 12:05:29 12:13:57 VERONICA cordero 2022-06-24 2022-06-24 Travel 1.2.840.1 [id number] [id number] Univers 00:00:00 00:00:00 26135.1.1 350.1.13.41 ity of 3.412.2.[place]3.698 [place]3.811[place] 084.8 MD Lawrence8 [facility] 2021-12-23 2021-12-23 Office Sandi Dodson 1.2.840.1 [id number] Univers 15:40:00 15:40:00 Visit Celyne 00511.1.1 ity of 3.412.2.7 [place] .3.952510 MD Mast [facility] 2021-12-23 2021-12-23 Ancillary 1.2.840.1 [id number] Univers 12:50:00 13:50:00 Procedure 19494.1.1 it y of 3.412.2.7 [place] .3.757403 MD Lawrence8 [facility] 2021-12-23 2021-12-23 Ancillary 1.2.840.1 [id number] Univers 11:50:00 12:50:00 Procedure 02606.1.1 it y of 3.412.2.7 [place] .3.520104 MD Mast [facility] 2021-12-23 2021-12-23 Outpatient EL MDA MDA [id number] MD 11:46:06 11:46:06 Brody cordero 2021-12-23 2021-12-23 Travel 1.2.840.1 [id number] [id number] Univers 00:00:00 00:00:00 25633.1.1 350.1.13.41 ity of 3.412.2[place]3.656[place] 084.8 MD Mast [facility] 2021-08-26 2021-08-26 Office Vincent 1.2.840.1 [id number] Univers 09:20:00 09:25:55 Visit Veronica 26408.1.1 ity of [place] 3.412.2.7 [place] .3.357106 [facility] 2021-08-26 2021-08-26 Outpatient MARTINE KAUR, MDA MDA [id number] 08:12:30 09:25:55 VERONICA cordero 2021-08-26 2021-08-26 Outpatient EL MDA MDA [id number] MD 07:55:38 08:02:33 Brody cordero 2021-08-26 2021-08-26 Travel 1.2.840.1 1.2.885.917 [id number] Univers 00:00:00 00:00:00 97775.1.1 350.1.13.41 ity of 3.412.2.[place] .3.125382 084.8 .8 [facility] 2021-04-23 2021-04-23 Outpatient EL [facility], MDA MDA [id number] 10:35:14 11:21:55 MICHELLE cordero 2021-04-23 2021-04-23 Outpatient EL [facility], MDA MDA [id number] 10:21:46 10:25:03 MICHELLE cordero 2020-10-08 2020-10-08 Outpatient EL CHECKA, MDA MDA [id number] MD 12:21:02 12:21:02 RICHMOND morales n 2020-10-08 2020-10-08 Outpatient EL CHECKA, MDA MDA [id number] MD 12:20:58 12:20:58 RICHMOND cordero 2020-10-08 2020-10-08 Outpatient EL CHECKA, MDA MDA [id number] MD 12:20:55 12:20:55 RICHMOND cordero 2020-10-08 2020-10-08 Outpatient EL CHECKA, MDA MDA [id number] MD 12:20:52 12:20:52 RICHMOND cordero 2020-09-07 2020-09-07 Outpatient [facility] [id number] Univers 13:05:00 13:05:00 ity of [facility] 2020-08-10 2020-08-10 Outpatient [facility] [id number] Univers 13:00:00 13:00:00 ity of [facility] 2020-06-05 2020-06-05 Laboratory Only, Adc Test [facility] 1.2.840. 114 [id number] Univers 15:37:50 15:52:50 Only Chet Hung 350.1.13.10 ity of [place] 4.2.7.2.686 [facility] [id number] [address] 2020-06-05 2020-06-05 Outpatient Jackie HUNG [facility] [id number] Univers 15:45:00 15:45:[address] [facility] 2020-04-03 2020-04-03 Outpatient MARTINE DODSON MDA MDA [id number] 00:00:00 00:00:00 MICHELLE Skinner o n 2020-04-03 2020-04-03 Outpatient MARTINE KAUR MDA MDA [id number] 00:00:00 00:00:00 VERONICA cordero 2020-01-02 2020-01-02 Outpatient MARTINE DODSON MDA MDA [id number] 10:01:12 12:05:03 MICHELLE Dodders o n 2020-01-02 2020-01-02 Outpatient MARTINE DODSON MDA MDA [id number] 09:44:21 09:51:02 MICHELLE yousif n Results Test Description Test Time Test Comments Results Result Comments Source TROPONIN I 2022-08-08 22:25:54 Test Item Value Reference Range Interpretation Comme nts TROPONIN I (test code = 4554362144) 0.018 ng/mL <=0.034 EVELYN (test code = EVELYN) Reference (Normal) Range (defined by the 99th percentile reference limit): <= 0.034 ng/mL Note: Cardiac troponin begins to rise 3-4 hours after the onset of ischemia. Repeat in 4-6 hours if the sample was drawn within 3-4 hours of the onset of the symptom and found normal. Diagnosis of myocardial injury is made with acute changes in cTn concentrations with at least one serial sample above the 99th percentile upper reference limit (URL), taken together with the patient's clinical presentation. Biotin has been reported to cause a negative bias, interpret results relative to patient's use of biotin. Lab Interpretation (test code = Normal 07358-3) [facility] [id number] 20:50:52 Test Item Value Reference Range Interpretation Comments TROPONIN I (test code = 0.016 ng/mL <=0.034 [id number]) EVELYN (test code = EVELYN) Reference (Normal) Range (defined by the 99th percentile reference limit): <= 0.034 ng/mL Note: Cardiac troponin begins to rise 3-4 hours after the onset of ischemia. Repeat in 4-6 hours if the sample was drawn within 3-4 hours of the onset of the symptom and found normal. Diagnosis of myocardial injury is made with acute changes in cTn concentrations with at least one serial sample above the 99th percentile upper reference limit (URL), taken together with the patient's clinical presentation. Biotin has been reported to cause a negative bias, interpret results relative to patient's use of biotin. Lab Interpretation Normal (test code = 65679-4) [facility] [id number] 20:47:36 Test Item Value Reference Range Interpretation Comments NT-proBNP (test code = 374 pg/mL <=450 4425856217) EVELYN (test code = EVELNY) Biotin has been reported to cause a negative bias, interpret results relative to patient's use of biotin. Lab Interpretation (test Normal code = 09563-9) [facility]OLIC PAN[facility] (90407)2022-08-08 20:39:53 Test Item Value Reference Range Interpretation Comments NA (test code = 137 mmol/L 135-145 9167880808) K (test code = 4.0 mmol/L 3.5-5.0 8482980635) CL (test code = 103 mmol/L 98-108 5277248542) CO2 TOTAL (test code = 26 mmol/L 23-31 4491565449) AGAP (test code = 8 2-16 9190364751) BUN (test code = 25 mg/dL 7-23 H 8657957913) GLUCOSE (test code = 121 mg/dL 70-110 H 2103127752) CREATININE (test code = 0.97 mg/dL 0.50-1.04 6844268988) TOTAL BILI (test code = 0.7 mg/dL 0.1-1.1 2795767784) CALCIUM (test code = 9.7 mg/dL 8.6-10.6 0552106850) T PROTEIN (test code = 7.3 g/dL 6.3-8.2 0583003945) ALBUMIN (test code = 4.1 g/dL 3.5-5.0 5772704353) ALK PHOS (test code = 34 U/L 34-122 9112518263) ALTv (test code = 23 U/L 5-35 1742-6) AST(SGOT) (test code = 30 U/L 13-40 9473007639) eGFR (test code = 54.8 mL/min/1.73m2 1805526883) EVELYN (test code = EVELYN) Association of Glomerular Filtration Rate (GFR) and Staging of Kidney Disease* + --+ --+ ------+| GFR (mL/min/1.73 m2) ?| With Kidney Damage ?| ?Without Kidney Damage+ --------+ --------+ +| ?>90 ?| ?Stage one ?| ? Normal ?+ ---+ ---+ -------+| ?60-89 ?| ?Stage two ?| ? Decreased GFR ? + --+ --+ ------+| ?30-59 ?| ?Stage three ?| ? Stage three ? + --+ --+ ------+| ?15-29 ?| ?Stage four ? | ? Stage four ?+ ---+ ---+ -------+| ?<15 (or dialysis) ? ?| ?Stage five ? | ? Stage five ?+ ---+ ---+ -------+ *Each stage assumes the associated GFR level has been in effect for at least three months. ?Stages 1 to 5, with or without kidney disease, indicate chronic kidney disease. Notes: Determination of stages one and two (with eGFR >59mL/min/1.73 m2) requires estimation of kidney damage for at least three months as defined by structural or functional abnormalities of the kidney, manifested by either:Pathological abnormalities or Markers of kidney damage (including abnormalities in the composition of the blood or urine or abnormalities in imaging tests). Lab Interpretation Abnormal (test code = 77795-1) [facility] WITH [id number] 20:00:30 Test Item Value Reference Range Interpretation Comments WBC (test code = 5.81 See_Comment [Automated 6751-2) message] The sy stem which generated this result transmitted reference range : 4.30 - 11.10 10*3/?L. The reference range was not used to interpret this result as normal/abnormal . RBC (test code = 3.53 See_Comment L [Automated 756-2) message] The sy stem which generated this result transmitted reference range : 3.93 - 5.25 10*6/?L. The reference range was not used to interpret this result as normal/abnormal . HGB (test code = 11.8 g/dL 11.6-15.0 718-7) HCT (test code = 33.7 % 35.7-45.2 L 4544-3) MCV (test code = 95.5 fL 80.6-95.5 787-2) MCH (test code = 33.4 pg 25.9-32.8 H 785-6) MCHC (test code = 35.0 g/dL 31.6-35.1 786-4) RDW-SD (test code = 44.4 fL 39.0-49.9 87585-8) RDW-CV (test code = 12.8 % 12.0-15.5 788-0) PLT (test code = 254 See_Comment [Automated 777-3) message] The sy stem which generated this result transmitted reference range : 166 - 358 10*3/ ?L. The reference r horacio was not used to interpret this result as normal/abnormal . MPV (test code = 10.4 fL 9.5-12.9 21830-6) NRBC/100 WBC (test 0.0 See_Comment [Automat ed code = 8820322042) message] The system which generated this result transmitted reference range : 0.0 - 10.0 /100 WBCs. The refer ence range was not u sed to interpret th is result as normal/abnormal . NRBC x10^3 (test code See_Comment [Auto mated = 7831901972) message] The s ystem which generated this result transmitted reference range : 10*3/?L. The reference range was not used to interpret this result as normal/abnormal . GRAN MAT (NEUT) % 62.1 % (test code = 770-8) IMM GRAN % (test code 0.90 % = 4735692661) LYMPH % (test code = 30.6 % 736-9) MONO % (test code = 5.7 % 5905-5) EOS % (test code = 0.0 % 713-8) BASO % (test code = 0.7 % 706-2) GRAN MAT x10^3(ANC) 3.61 10*3/uL 1.88-7.09 (test code = 6805980195) IMM GRAN x10^3 (test 0.05 10*3/uL 0.00-0.06 code = 7069892226) LYMPH x10^3 (test code 1.78 10*3/uL 1.32-3.29 = 731-0) MONO x10^3 (test code 0.33 10*3/uL 0.33-0.92 = 742-7) EOS x10^3 (test code = 0.03-0.39 L 711-2) BASO x10^3 (test code 0.04 10*3/uL 0.01-0.07 = 704-7) Lab Interpretation Abnormal (test code = 73470-0) [facility]"
[2022-08-25] MEDS ORDERED: NA CHLORIDE 0.9% 1,000 ML IV SCH (18:00)
[2022-08-25 18:03] VITALS: BMI 25.4
[2022-08-25 21:23] VITALS: O2SAT 95
--- NOTE | 2022-08-25 21:56 | CON ---
Date of Consultation: 08/25/2022 Reason For Consultation: Coronary artery disease. History Of Present Illness: 81-year-old female who has been having chest pain, pressure-like, left-s ided, radiates to the left neck on exertion and lately became even at rest. I took her to the [facility] catheterization laboratory today and she had severe multivessel disease including a PIPING BLOCKER of mid LAD and plan to transfer for coronary artery bypass surgery. Past Medical History: Dyslipidemia, hypothyroidism, coronary artery disease, breast cancer in [facility]. Medications: Refer reconciliation sheet for detailed list. Allergies: PENICILLIN. Family History: No premature coronary artery disease or cancer. Social History: She does not smoke or drink. Does not use any drugs. Review of Systems: All systems reviewed and they were negative except as mentioned in the HPI. Physical Examination: Vital Signs: Reviewed. Head and Neck: Pupils are equal, reactive to light. Intact eye movements. No JVD. No cervical lym phadenopathy. Neck is supple. Thyroid is not enlarged. Lungs: Clear to auscultation bilaterally. No rhonchi, wheezing, or crackles. No accessory muscle u se. Heart: Regular rate and rhythm. No extra sounds. Abdomen: Soft, nontender. Bowel sounds positive. No organomegaly. No masses or hernia. No rigidi ty or rebound. Extremities: No edema, clubbing, or cyanosis. Intact pulses. Skin: No rash. Neurologic: Alert, awake, oriented x3. No acute focal deficits appreciated. Investigations: Labs reviewed. Assessment And Recommendations: 1.Unstable angina, status post coronary angiogram with severe coronary artery disease. Discussed th is case with CT Surgery at [facility]. Will plan for transfer for coronary artery bypas s surgery. 2.Dyslipidemia. Start Lipitor 40 mg q.h.s. SR/MODL Voice ID: [id number] Report ID: [id number]
[2022-08-25 21:57] VITALS: BP 156/69; TEMP 97.5
== END 2022-08-25 22:55 | disposition short-term general hospital (02) | DRG 287 ==
LOC: CCL 10:47 → 2ND 17:33
PROVIDERS: ADMIT Internal Medicine; ATTEND Internal Medicine
PROC: B2111ZZ Fluoroscopy of Multiple Coronary Arteries using Low Osmolar Contrast (ICD-10-PCS; principal; 2022-08-25)
DX: I25.110 Atherosclerotic heart disease of native coronary artery with unstable angina pectoris (principal); I25.82 Chronic total occlusion of coronary artery; E78.2 Mixed hyperlipidemia; E03.9 Hypothyroidism, unspecified; K21.9 Gastro-esophageal reflux disease without esophagitis; Z20.822 Contact with and (suspected) exposure to COVID-19; Z79.82 Long term (current) use of aspirin; Z79.899 Other long term (current) drug therapy; Z88.0 Allergy status to penicillin; Z85.3 Personal history of malignant neoplasm of breast; Z82.49 Family history of ischemic heart disease and other diseases of the circulatory system
CPT/HCPCS: 36415; 76937; 80048; 85025; 85610; 85730; 87811; 93454; C1893; J0461; J1644; J2250; J3010; J7030; J7040; Q9966

== ENCOUNTER → 2023-09-07 | Emergency (ER) | payer OTHER ==
--- OUTSIDE RECORDS SUMMARY | 2023-09-07 10:33 | XMS REPORT | Clinical Summary ---
Author Name Unknown Organization [facility] Address [address] [place] [address] Care Team Providers Care Bar Captain Name Role Phone Morteza Buckner MD Unavailable [phone] Lee Garrison MD Unavailable [phone] Jo Romero MD Primary Care Provider [phone] Nicholas Blanchard MD Unavailable Meeta Beaver Unavailable Manolo Morrell MD Unavailable [phone] Michelle Beverly MD Unavailable Tim Pascal MD Unavailable Govind Noyola MD Unavailable [phone] Allergies Active Allergy Reactions Criticality Noted Date Comments Levofloxacin GI Intolerance 10/31/2019 diarrhea Penicillins Hives 07/06/2019 Medications Medication Sig Dispensed Refills Start Date End Date Status levothyroxine (SYNTHROID, LEVOTHROID) 75 mcg tablet Take 1 tablet (75 mcg) by mouth every 48 hours. Alternates days with 50mcg 1 05/08/2019 Active levothyroxine (SYNTHROID, LEVOTHROID) 50 mcg tablet Take 1 tablet (50 mcg) by mouth every 48 hours. Alternates days with 75mcg 1 05/23/2019 Active pantoprazole (PROTONIX) 40 mg EC tablet Take 1 tablet (40 mg) by mouth daily. 3 05/28/2019 Active mesalamine (LIALDA) 1.[address] tablet Take 2 g by mouth 4 (four) times a day. 2 04/16/2019 Active EPINEPHrine (EPIPEN) 0.3 mg/0.3 mL (1:1,000) injection Inject 0.3 mL (0.3 mg) into the shoulder, thigh, or buttocks as needed. 0 06/14/2019 Active potassium 99 mg tab Take by mouth daily. 0 Active lactobacillus acidophilus-bulga ricus (LACTINEX) 1 million cells chew chewable tablet Chew daily. 0 Active beta-carotene,A,- vits C,E/mins (OCUVITE ORAL) Take 1 tablet by mouth daily. 0 Active zinc gluconate 50 mg tablet Take 22 mg by mouth twice daily. 0 Active ascorbic acid, vitamin C, (VITAMIN C) 100 mg tablet Take 5 tablets (500 mg) by mouth daily. 0 Active cholecalciferol, vitamin D3, (VITAMIN D3) 5,000 units tab tablet Take 1 tablet (5,000 Units) by mouth daily. 0 Active biotin 5 mg cap Take by mouth. 0 Activ e cetirizine (ZyrTEC) 10 mg tablet Take 1 tablet (10 mg) by mouth daily as needed. 0 Active clopidogrel (PLAVIX) 75 mg tablet Take 1 tablet (75 mg) by mouth daily. 0 12/13/2022 Active amLODIPine (NORVASC) 5 mg tablet Take 1 tablet (5 mg) by mouth daily. 0 12/13/2022 Active aspirin 81 mg chewable tablet Chew 1 tablet (81 mg) daily. 0 Active atorvastatin (LIPITOR) 40 mg tablet Take 1 tablet (40 mg) by mouth daily. 0 12/13/2022 Active carvedilol (COREG) 25 mg tablet Take 1 tablet (25 mg) by mouth twice daily. 0 11/17/2022 Active losartan (COZAAR) 50 mg tablet Take 1 tablet (50 mg) by mouth daily. 0 06/06/2023 Active fenofibric acid (TRILIPIX) 135 mg capsule Take 1 capsule (135 mg) by mouth daily. 0 05/28/2019 12/24/2022 Discontinued( Alternate therapy) losartan-hydrochl orothiazide (HYZAAR) 50-12.5 mg per tablet Take 1 tablet by mouth daily. 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 07/03/2019 Cancer Staging:Pathologic stage from 07/18/2019:No Stage Recommended(pT1c, cN0, cM0, G2, ER-, DE-, HER2-) - Signed by Michelle Beverly MD on 07/30/2019 Encounters Date Type Department Care Team Description 06/22/2023 3:40 PM TOGGLER Follow-Up [address] [address] Michelle Beverly MD 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 Travel 12/24/2022 10:00 AM CDT Follow-Up [facility] Thoracic [address] [address] Michelle Beverly MD Adenosquamous cell carcinoma 12/24/2022 8:30 AM CDT Ancillary Procedure [address] [address] Michelle Beverly MD Adenosquamous cell carcinoma 12/24/2022 7:15 AM CDT Ancillary Procedure [address] [address] Michelle Beverly MD Adenosquamous cell carcinoma 12/24/2022 Travel after 09/07/2022 Immunizations Name Administration Dates Next Due Influenza Split High Dose Preservative Free IM 1 Moderna SARS-CoV-2 Vaccination 09/07/2020,2020 Pneumococcal Conjugate 13-Valent 08/18/2018 Surgical History Surgery Date Site/Laterality Comments TONSILLECTOMY 07/04/1947 - 07/03/1948 FOOT SURGERY 07/04/2000 - 07/03/2001 Right DE MASTECTOMY PARTIAL 07/18/2019 Right Procedure: SEGMENTAL MASTECTOMY - OTHER-POSTERIOR MARGIN EXCISION; Surgeon: Jo Romero MD; Location: [facility]; Service: BREAST DE BREAST RECONSTRUC W OTHR TECHNIQ 07/18/2019 Breast/Right Procedure: RECONSTRUCTION OF BREAST WITH OTHER TECHNIQUE-LOCAL TISSUE ADVANCEMENT; Surgeon: Tim Pascal MD; Location: [facility]; Service: PLS - PLASTIC SURGERY CORONARY ARTERY BYPASS GRAFT 08/04/2022 - 08/31/2022 Medical History Medical History Date Comments Arrhythmia occasional PVCs, pt evaluated by [employer] Professional in 03/2019 and found to be "low risk" for a kal-operative compliation Lymphocytic colitis 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 High school graduate 07/06/2019 Sex and Gender Information Value Date Recorded Sex Assigned at Not on file Gender Identity Not on file Sexual Orientation Not on file Job Start Date Occupation Industry Not on file Not on file Not on file Obstetrics History Para Term AB IAB SAB Ectopic Multiple Livin g Live Births 1 1 1 1 Date Outcome GA Total Labor Labor/2nd/3rd Weight Sex Delivery Anes PTL Mary A1 A5 Name Cl in Term Comments Did not breastfeed Last Filed Vital Signs Vital Sign Reading Time Taken Comments Blood Pressure 139/72 06/22/2023 1:38 PM TOGGLER Pulse 68 06/22/2023 1:38 PM TOGGLER Temperature 36.7 C (98.1 F) 06/22/2023 1:38 PM CS T Respiratory Rate 16 06/22/2023 1:38 PM TOGGLER Oxygen Saturation 98% 06/22/2023 1:38 PM TOGGLER Inhaled Oxygen Concentration - - Weight 59.1 kg (130 lb 4.7 oz) 06/22/2023 1:38 P M TOGGLER Height - - Body Mass Index 25.85 08/02/2019 8:03 AM TOGGLER Plan of Treatment Upcoming Encounters Date Type Department Care Team Description 12/26/2023 8:45 AM CDT Ancillary Procedure [facility] [address] [address] Michelle Beverly MD [address] [place] [address] 12/26/2023 9:45 AM CDT Ancillary Procedure MD [facility] [address] [address] Michelle Beverly MD [address] [place] [address] 01/04/2024 12:00 PM CDT Lab MD [facility] [address] [place] [address] Michelle Beverly MD [address] [place] [address] 01/04/2024 1:00 PM CDT Follow-Up MD [facility] - Thoracic Medicine [address] [place] [address] Michelle Beverly MD [address] [place] [address] Health Maintenance Due Date Last Done Comments COVID-19 Vaccination ( season) 2023 09/07/2020, 08/10/2020 Procedures Procedure Name Priority Date/Time Associated Diagnosis Comments .CBC Routine 06/22/2023 1:20 PM TOGGLER Adenosquamous cell carcinoma LACTATE DEHYDROGENASE Routine 06/22/2023 1:20 PM TOGGLER Adenosquamous cell carcinoma PHOSPHORUS LEVEL Routine 06/22/2023 1:20 PM TOGGLER Adenosquamous cell carcinoma MAGNESIUM LEVEL Routine 06/22/2023 1:20 PM TOGGLER Adenosquamous cell carcinoma COMPREHENSIVE METABOLIC PANEL Routine 06/22/2023 1:20 PM TOGGLER Adenosquamous cell carcinoma COMPLETE BLOOD COUNT W/ DIFFERENTIAL Routine 06/22/2023 1:20 PM TOGGLER Adenosquamous cell carcinoma US CHEST/INFRACLAV Routine 12/24/2022 8: 15 AM CDT Adenosquamous cell carcinoma US BREAST COMPLETE BILATERAL Routine 12/24/2022 8:15 AM CDT Adenosquamous cell carcinoma MAMMO DIGITAL DIAGNOSTIC BILATERAL W TRISTIN Routine 12/24/2022 7:44 AM CDT Adenosquamous cell carcinoma FRACTIONATED BILIRUBIN Routine 6:38 AM CDT Adenosquamous cell carcinoma TOTAL PROTEIN Routine 12/24/2022 6:38 AM CDT Adenosquamous cell carcinoma ASPARTATE AMINOTRANSFERASE Routine 12/24/2022 6:38 AM CDT Adenosquamous cell carcinoma ALANINE AMINOTRANSFERASE Routine 023 6:38 AM CDT Adenosquamous cell carcinoma ALKALINE PHOSPHATASE Routine 12/24/2022 6:38 AM CDT Adenosquamous cell carcinoma ALBUMIN LEVEL Routine 12/24/2022 6:38 AM CDT Adenosquamous cell carcinoma CALCIUM LEVEL Routine 12/24/2022 6:38 AM CDT Adenosquamous cell carcinoma .GLOMERULAR FILTRATION RATE Routine 12/24/2022 6:38 AM CDT Adenosquamous cell carcinoma SERUM CREATININE Routine 12/24/2022 6:38 AM CDT Adenosquamous cell carcinoma ELECTROLYTE PANEL Routine 12/24/2022 6:3 8 AM CDT Adenosquamous cell carcinoma BLOOD UREA NITROGEN Routine 12/24/2022 6 :38 AM CDT Adenosquamous cell carcinoma GLUCOSE LEVEL Routine 12/24/2022 6:38 AM CDT Adenosquamous cell carcinoma DIFFERENTIAL Routine 12/24/2022 6:38 AM CDT Adenosquamous cell carcinoma .CBC Routine 12/24/2022 6:38 AM CDT Adenosquamous cell carcinoma VITAMIN D 25 HYDROXY LEVEL Routine 12/24/2022 6:38 AM CDT Adenosquamous cell carcinoma LACTATE DEHYDROGENASE Routine 12/24/2022 6:38 AM CDT Adenosquamous cell carcinoma PHOSPHORUS LEVEL Routine 12/24/2022 6:38 AM CDT Adenosquamous cell carcinoma MAGNESIUM LEVEL Routine 12/24/2022 6:38 AM CDT Adenosquamous cell carcinoma COMPREHENSIVE METABOLIC PANEL Routine 12/24/2022 6:38 AM CDT Adenosquamous cell carcinoma COMPLETE BLOOD COUNT W/ DIFFERENTIAL Routine 12/24/2022 6:38 AM CDT Adenosquamous cell carcinoma after 09/07/2022 Results * (ABNORMAL) .CBC (06/22/2023 1:20 PM TOGGLER) Only the most recent of2 resultswithin the time period is included. Pathologist [facility] White Blood Cell 5.6 4.1 - 10.5 K/uL 06/22/2023 1:24 PM [facility] Red Blood Cell 3.81(L) 3.99 - 5.46 M/uL 06/22/2023 1:24 PM [facility] Hemoglobin 12.6 12.2 - 15.3 g/dL 06/22/2023 1:24 PM [facility] Hematocrit 38.0 36.4 - 46.8 % 06/22/2023 1:24 PM [facility] Mean Cell Volume 100(H) 82 - 99 fL 06/22/2023 1:24 PM [facility] Mean Cell Hemoglobin 33.1 26.6 - 33.2 pg 06/22/2023 1:24 PM [facility] Mean Cell Hemoglobin Concentration 33.2 31.1 - 35.2 g/dL 06/22/2023 1:24 PM [facility] RDW-SD 46.7 37.5 - 49.7 fL 06/22/2023 1:24 PM [facility] Red Cell Diameter Width 12.6 11.6 - 15.5 % 06/22/2023 1:24 PM [facility] Platelet 189 160 - 397 K/uL 06/22/2023 1:24 PM [facility] Mean Platelet Volume 10.3 9.1 - 12.6 fL 06/22/2023 1:24 PM [facility] Neutrophil % 50.3 43.2 - 72.7 % 06/22/2023 1:24 PM [facility] Lymphocyte % 38.0 16.8 - 46.2 % 06/22/2023 1:24 PM [facility] Monocyte % 8.9 5.1 - 12.5 % 06/22/2023 1:24 PM [facility] Eosinophil % 1.4 0.4 - 6.3 % 06/22/2023 1:24 PM [facility] Basophil % 0.9 0.2 - 1.4 % 06/22/2023 1:24 PM [facility] IGRE % 0.5 0.1 - 1.5 % 06/22/2023 1:24 PM [facility] Comment:The IGRE% includes M etamyelocytes, Myelocytes and Promyelocytes. Neutrophil Abs 2.82 1.95 - 7.25 K/uL 06/22/2023 1:24 PM [facility] Lymphocyte Abs 2.13 1.01 - 3.24 K/uL 06/22/2023 1:24 PM [facility] Monocyte Abs 0.50 0.24 - 0.85 K/uL 06/22/2023 1:24 PM [facility] Eosinophil Abs 0.08 0.02 - 0.50 K/uL 06/22/2023 1:24 PM [facility] Basophil Abs 0.05 0.02 - 0.09 K/uL 06/22/2023 1:24 PM [facility] IG Abs 0.03 0.01 - 0.12 K/uL 06/22/2023 1:24 PM [facility] Blood Venipuncture / Unknown 06/22/2023 1:20 PM TOGGLER 06/22/2023 1:20 PM TOGGLER Michelle Dickens MD LAB BLOOD ORDERABLE S [facility] [address] [facility], [facility] [address] [place] [address] * (ABNORMAL) Comprehensive Metabolic Panel (06/22/2023 1:20 PM TOGGLER) Bilirubin Total 0.3 <=1.2 mg/dL 06/22/2023 1:57 PM [facility] Comment: Indocyanine Green (ICG) may cause falsely elevated bilirubin results. Total and direct bilirubin must not be measured from samples containing indocyanine green. False elevation of total bilirubin can be seen in patients with IgG concentrations above 28 g/L. This result was previously suppressed from the chart. Bilirubin Direct <0.2 <=0.3 mg/dL 06/22/2023 1:57 PM [facility] Comment: Indocyanine Green (ICG) may cause falsely elevated bilirubin results. Total and direct bilirubin must not be measured from samples containing indocyanine green. This result was previously suppressed from the chart. Bilirubin Indirect 2022 1:57 PM [facility] Comment:Unable to calculate Indirect Bilirubin result due to some parameters are outside reportable range eGFR 67 >=60 mL/min/1. 73 sq. m 06/22/2023 1:57 PM [facility] Comment: The eGFRcr is calculated with the 202 CKD-EPI creatinine equation using creatinine, patient's age, and sex for adults 18 years of age and older. Other factors, especially muscle mass, may affect accuracy and need to be considered. According to the Kidney Disease: Improving Global Outcomes (KDIGO) CKD Work Group 2012 Clinical Practice Guideline, chronic kidney disease (CKD) is defined as the abnormalities of kidney structure or function, present for more than 3 months, with implications for health. CKD should be classified by cause, GFR category, and albuminuria category. KDIGO guidelines provide the following GFR categories. Stage / Description / GFR mL/min/1.73 m2: G1* / Normal or high / >= 90 G2* / Mildly decreased / 60-89 G3a / Mildly to moderately decreased / 45-59 G3b / Moderately to severely decreased / 30-44 G4 / Severely decreased / 15-29 G5 / Kidney failure / <15 *In the absence of evidence of kidney damage, neither G1 nor G2 fulfill criteria for CKD. Tot Protein 7.2 6.4 - 8.3 gm/dL 06/22/2023 1:57 PM [facility] Comment:This result was prev iously suppressed from the chart. Calcium Level Total 9.6 8.2 - 10.2 mg/dL 06/22/2023 1:57 PM [facility] [employer] Comment:This result was prev iously suppressed from the chart. Alkaline Phosphatase 64 35 - 104 U/L 06/22/2023 1:57 PM [facility] [employer] Comment:This result was prev iously suppressed from the chart. Albumin Level 3.9 3.5 - 5.2 gm/dL 06/22/2023 1:57 PM [facility] [employer] Comment:This result was prev iously suppressed from the chart. AST 19 <=32 U/L 06/22/2023 1:57 PM [facility] [employer] Comment:This result was prev iously suppressed from the chart. ALT 16 <=33 U/L 06/22/2023 1:57 PM [facility] [employer] Comment:This result was prev iously suppressed from the chart. Sodium Level 142 136 - 145 mmol/L 06/22/2023 1:57 PM [facility] [employer] Comment:This result was prev iously suppressed from the chart. Potassium Level 4.3 3.4 - 4.5 mmol/L 06/22/2023 1:57 PM [facility] [employer] Comment:This result was prev iously suppressed from the chart. Chloride 110(H) 98 - 107 mmol/L 06/22/2023 1:57 PM [facility] [employer] Comment:This result was prev iously suppressed from the chart. CO2 25 22 - 29 mmol/L 06/22/2023 1:57 PM [facility] [employer] Comment:This result was prev iously suppressed from the chart. Anion Gap 7 4 - 14 mmol/L 06/22/2023 1:57 PM [facility] Comment:This result was prev iously suppressed from the chart. Creatinine 0.86 0.51 - 0.95 mg/dL 06/22/2023 1:57 PM [facility] Comment:This result was prev iously suppressed from the chart. BUN 20 6 - 23 mg/dL 06/22/2023 1:57 PM [facility] Comment:This result was prev iously suppressed from the chart. Glucose Level 96 70 - 99 mg/dL 06/22/2023 1:57 PM [facility] Comment: Effective 01/28/16, the glucose reference intervals have been updated based on [place] [employer] guidelines (Standards of Medical Care in Diabetes 2016. Diabetes Care 2016; 39: S13-S22). Fasting blood glucose: Normal: 70-99 mg/dL Impaired fasting glucose (increased risk for diabetes or pre-diabetes): 100-125 mg/dL Diabetes mellitus: >/=126 mg/dL Random blood glucose: Normal: 70-199 mg/dL Note: Random glucose >100 mg/dL is associated with increased risk for diabetes. This result was previously suppressed from the chart. Blood Venipuncture / Unknown 06/22/2023 1:20 PM TOGGLER 06/22/2023 1:20 PM TOGGLER Michelle Dickens MD LAB BLOOD ORDERABLE S Performing Organization Address [facility]/State/RUST Co de Phone Number [facility] [address] [facility], [facility] [address] [place] [address] * Phosphorus Level (06/22/2023 1:20 PM TOGGLER) Only the most recent of2 resultswithin the time period is included. Phosphorus Level 3.1 2.5 - 4.5 mg/dL 06/22/2023 1:44 PM [facility] Blood Venipuncture / Unknown 06/22/2023 1:20 PM TOGGLER 06/22/2023 1:20 PM TOGGLER Michelle Dickens MD LAB BLOOD ORDERABLE S [address], [address] [address] * Magnesium Level (06/22/2023 1:20 PM TOGGLER) Only the most recent of2 resultswithin the time period is included. Magnesium Level 1.6 1.6 - 2.6 mg/dL 06/22/2023 1:44 PM [facility] Blood Venipuncture / Unknown 06/22/2023 1:20 PM TOGGLER 06/22/2023 1:20 PM TOGGLER Michelle Dickens MD LAB BLOOD ORDERABLE S Performing Organization Address [facility]/ZIP Co de Phone Number [address], [address] [address] * LDH (06/22/2023 1:20 PM TOGGLER) Only the most recent of2 resultswithin the time period is included. LDH 166 135 - 214 U/L 06/22/2023 1:44 PM [facility] Blood Venipuncture / Unknown 06/22/2023 1:20 PM TOGGLER 06/22/2023 1:20 PM TOGGLER Narrative [facility] - 06/22/2023 1:44 PM TOGGLER Results greater than 1651 U/L may not be reliable due to matrix effect with extended dilution as it exceeds the tool polisher's recommended limit. Caution should be exercised when interpreting such values and done in conjunction with clinical context. Michelle Dickens MD LAB BLOOD ORDERABLE S [address], [address] [address] * US Chest/Infraclav for Breast Ultrasound (Add-on Only) (12/24/2022 8:15 AM CDT) Anatomical Region Laterality Modality Chest Ultrasound 12/24/2022 9:40 AM CDT Impressions 12/24/2022 9:40 AM CDT There is no evidence of malignancy. Follow-up mammogram in 1 year is recommended. BI-RADS Category 2: Benign Finding(s) These results and recommendations were personally discussed with the patient at the time of the examination. Narrative 12/24/2022 9:40 AM CDT CLINICAL INDICATION: Patient is a 82 year old female and is seen for history of breast cancer FILMS COMPARED The present examination has been compared to a prior imaging study performed at [facility] on 12/23/2021. Images were obtained in multiple scanning planes. Real-time sonographic imaging of both breasts (including all 4 quadrants and retroareolar region) was performed. Real time sonographic imaging of the left axilla was performed. Real-time sonographic imaging of the right regional juli basins including ultrasound of the chest/mediastinum to evaluate the axillary (level I,II,III) and internal mammary regions was performed. 1: There is a post surgical scar in the right breast outer hemisphere at 8 to 9 o'clock. 2: There are stable small scattered simple cysts in the left breast. Right Regional Juli Basins: No suspicious axillary levels I, II, III (infraclavicular) or internal mammary lymph node is identified. Procedure Note Luis Gaspar III, MD - 12/24/2022 CLINICAL INDICATION: Patient is a 82 year old female and is seen for history of breast cancer FILMS COMPARED The present examination has been compared to a prior imaging studyperformed at [facility] on 12/23/2021. Images were obtained in multiple scanning planes. Real-time sonographic imaging of both breasts (including all 4 quadrantsand retroareolar region) was performed. Real time sonographic imaging of theleft axilla was performed. Real-time sonographic imaging of the right regionalnodal basins including ultrasound of the chest/mediastinum to evaluate theaxillary (level I,II,III) and internal mammary regions was performed. 1: There is a post surgical scar in the right breast outer hemisphere at8 to 9 o'clock. 2: There are stable small scattered simple cysts in the left breast. Right Regional Juli Basins: No suspicious axillary levels I, II, III (infraclavicular) or internal mammary lymph node is identified. IMPRESSION: There is no evidence of malignancy. Follow-up mammogram in 1 year is recommended. BI-RADS Category 2: Benign Finding(s) These results and recommendations were personally discussed with thepatient at the time of the examination. Michelle Dickens MD [facility] US ORDERABLES * US Breast Complete Bilateral (12/24/2022 8:15 AM CDT) Anatomical Region Laterality Modality Breast Bilateral Ultrasound 12/24/2022 9:40 AM CDT Impressions 12/24/2022 9:40 AM CDT There is no evidence of malignancy. Follow-up mammogram in 1 year is recommended. BI-RADS Category 2: Benign Finding(s) These results and recommendations were personally discussed with the patient at the time of the examination. Narrative 12/24/2022 9:40 AM CDT CLINICAL INDICATION: Patient is a 82 year old female and is seen for history of breast cancer FILMS COMPARED The present examination has been compared to a prior imaging study performed at [facility] on 12/23/2021. Images were obtained in multiple scanning planes. Real-time sonographic imaging of both breasts (including all 4 quadrants and retroareolar region) was performed. Real time sonographic imaging of the left axilla was performed. Real-time sonographic imaging of the right regional juli basins including ultrasound of the chest/mediastinum to evaluate the axillary (level I,II,III) and internal mammary regions was performed. 1: There is a post surgical scar in the right breast outer hemisphere at 8 to 9 o'clock. 2: There are stable small scattered simple cysts in the left breast. Right Regional Juli Basins: No suspicious axillary levels I, II, III (infraclavicular) or internal mammary lymph node is identified. Procedure Note Luis Gaspar III, MD - 12/24/2022 CLINICAL INDICATION: Patient is a 82 year old female and is seen for history of breast cancer FILMS COMPARED The present examination has been compared to a prior imaging studyperformed at [facility] on 12/23/2021. Images were obtained in multiple scanning planes. Real-time sonographic imaging of both breasts (including all 4 quadrantsand retroareolar region) was performed. Real time sonographic imaging of theleft axilla was performed. Real-time sonographic imaging of the right regionalnodal basins including ultrasound of the chest/mediastinum to evaluate theaxillary (level I,II,III) and internal mammary regions was performed. 1: There is a post surgical scar in the right breast outer hemisphere at8 to 9 o'clock. 2: There are stable small scattered simple cysts in the left breast. Right Regional Juli Basins: No suspicious axillary levels I, II, III (infraclavicular) or internal mammary lymph node is identified. IMPRESSION: There is no evidence of malignancy. Follow-up mammogram in 1 year is recommended. BI-RADS Category 2: Benign Finding(s) These results and recommendations were personally discussed with thepatient at the time of the examination. Michelle Dickens MD IM US ORDERABLES * Mammography Digital Diagnostic Bilateral with Tristin (12/24/2022 7:44 AM CDT) Anatomical Region Laterality Modality Breast Bilateral Mammography 12/24/2022 12:3 8 PM CDT Impressions 12/24/2022 12:38 PM CDT 1: Post-surgical scar in the right breast outer hemisphere at 9 o'clock is benign. The patient is scheduled for a same day ultrasound. Please, see the separate report. 2: Calcifications in both breasts are benign. Follow-up mammogram in 1 year is recommended. BI-RADS Category 2: Benign Finding(s) Narrative 12/24/2022 12:38 PM CDT CLINICAL INDICATION: Patient is a 82 year old female and is seen for history of breast cancer MAMMO DIGITAL DIAGNOSTIC BILATERAL W TRISTIN Digital Mammogram evaluated with Computer Aided Detection (CAD). COMPARISON: The present examination has been compared to prior imaging studies performed at an outside location on 01/30/2020 and 06/04/2020, at [facility] on 12/22/2020 and 12/23/2021, and at [facility] on 07/11/2019. FINDINGS: The breasts are heterogeneously dense, which may obscure small masses. 1: There is a post-surgical scar in the right breast outer hemisphere at 9 o'clock. Finding remains unchanged from the prior study. Patient is status post breast conservation surgery of the right breast in 2019. There is no mammographic evidence of local tumor recurrence. 2: There are benign appearing calcifications with diffuse/scattered distribution in both breasts. Tomosynthesis performed in CC and MLO projections. Procedure Note Luis Gaspar III, MD - 12/24/2022 CLINICAL INDICATION: Patient is a 82 year old female and is seen for history of breast cancer MAMMO DIGITAL DIAGNOSTIC BILATERAL W TRISTIN Digital Mammogram evaluated with Computer Aided Detection (CAD). COMPARISON: The present examination has been compared to prior imaging studiesperformed at an outside location on 01/30/2020 and 06/04/2020, at [facility] on 12/22/2020 and 12/23/2021, and at [facility] on 07/11/2019. FINDINGS: The breasts are heterogeneously dense, which may obscure small masses. 1: There is a post-surgical scar in the right breast outer hemisphere at9 o'clock. Finding remains unchanged from the prior study. Patient isstatus post breast conservation surgery of the right breast in 2019. There is no mammographic evidence of local tumor recurrence. 2: There are benign appearing calcifications with diffuse/scattered distribution in both breasts. Tomosynthesis performed in CC and MLO projections. IMPRESSION: 1: Post-surgical scar in the right breast outer hemisphere at 9 o'clockis benign. The patient is scheduled for a same day ultrasound. Please, seethe separate report. 2: Calcifications in both breasts are benign. Follow-up mammogram in 1 year is recommended. BI-RADS Category 2: Benign Finding(s) Michelle Dickens MD IMG MAMMOGRAPHY ORD ERABLES * .Serum Creatinine (12/24/2022 6:38 AM CDT) Creatinine 0.75 0.51 - 0.95 mg/dL POLLOCK Comment:Testing performed at [facility], [address] [place], [place] [address], [place] [address] Blood 12/24/2022 6:38 AM CDT 12/24/2022 6:38 AM CDT Michelle Dickens MD LAB BLOOD ORDERABLE S Performing Organization Address [facility] [employer] de Phone Number [place] [phone] [place] [address] * Glomerular Filtration Rate (12/24/2022 6:38 AM CDT) eGFR 78 >=60 mL/min/1.7 3 sq. m POLLOCK Comment: The eGFRcr is calculated with the 2020 CKD-EPI creatinine equation using creatinine, patient's age, and sex for adults 18 years of age and older. Other factors, especially muscle mass, may affect accuracy and need to be considered. According to the Kidney Disease: Improving Global Outcomes (KDIGO) CKD Work Group 2012 Clinical Practice Guideline, chronic kidney disease (CKD) is defined as the abnormalities of kidney structure or function, present for more than 3 months, with implications for health. CKD should be classified by cause, GFR category, and albuminuria category. KDIGO guidelines provide the following GFR categories Stage Description GFR mL/min/1.73 m2 G1* Normal or high >= 90 G2* Mildly decreased 60-89 G3a Mildly to moderately decreased 45-59 G3b Moderately to severely decreased 30-44 G4 Severely decreased 15-29 G5 Kidney failure <15 *In the absence of evidence of kidney damage, neither G1 nor G2 fulfill criteria for CKD. Testing performed at [facility], [address] [place] [id number] Blood 12/24/2022 6:38 AM CDT 12/24/2022 6:38 AM CDT Michelle Dickens MD LAB BLOOD ORDERABLE S [place] [address] [phone] [place] [address] * Fractionated Bilirubin (12/24/2022 6:38 AM CDT) Bili Total <0.3 <=1.2 mg/dL POLLOCK Comment: Direct and indirect bilirubin will not be reported when Total bilirubin result is <0.3 mg/dL Indocyanine Green (ICG) may cause falsely elevated bilirubin results. Total and direct bilirubin must not be measured from samples containing indocyanine green. False elevation of total bilirubin can be seen in patients with IgG concentrations above 28 g/L. Testing performed at [facility], [address] [place], [place] [id number] Blood 12/24/2022 6:38 AM CDT 12/24/2022 6:38 AM CDT Michelle Dickens MD LAB BLOOD ORDERABLE S [address] [address] * Vitamin D 25OH (12/24/2022 6:38 AM CDT) [facility] Vitamin D 25 OH 54 30 - 100 ng/mL POLLOCK Comment: Reference Range: Deficiency: <=20 ng/mL Insufficiency: 21-29 ng/mL Sufficiency: 30-100 ng/mL Potential toxicity: >100 ng/mL Testing performed at [facility], [address] [place] [address] Blood 12/24/2022 6:38 AM CDT 12/24/2022 6:38 AM CDT Michelle Dickens MD LAB BLOOD ORDERABLE S [address] [address] * (ABNORMAL) Differential (12/24/2022 6:38 AM CDT) [facility] Neutrophil % 45.4 42.0 - 66.0 % POLLOCK Comment:All components of th e Differential performed at [facility], [address] [place], [place] [id number] Lymphocyte % 45.3(H) 24.0 - 44.0 % POLLOCK Comment:As part of the Diffe rential testing performed at [facility], [address] [place] [address], [place] [address] Monocyte % 7.9(H) 2.0 - 7.0 % POLLOCK Comment:As part of the Diffe rential testing performed at [facility], [address] [place] [address], [place] [address] Eosinophil % 0.6(L) 1.0 - 4.0 % POLLOCK Comment:As part of the Diffe rential testing performed at [facility], [address] [place] [address] Basophil % 0.4 0.0 - 1.0 % POLLOCK Comment:As part of the Diffe rential testing performed at [facility], [address] [place] [address] IGRE % 0.4 0.0 - 0.4 % POLLOCK Comment: IGRE % count includes Metamyelocytes, Myelocytes, and Promyelocytes. As part of the Differential testing performed at [facility], [address] [place] [address], [place] [address] Neutrophil Abs 2.29 1.70 - 7.30 K/uL POLLOCK Comment:As part of the Diffe rential testing performed at [facility], [address] [place] [address], [place] [address] Lymphocyte Abs 2.29 1.00 - 4.80 K/uL POLLOCK Comment:As part of the Diffe rential testing performed at [facility], [address] [place] [address], [place] [address] Monocyte Abs 0.40 0.08 - 0.70 K/uL POLLOCK Comment:As part of the Diffe rential testing performed at [facility], [address] [place] [address], [place] [address] Eosinophil Abs 0.03(L) 0.04 - 0.40 K/uL POLLOCK Comment:As part of the Diffe rential testing performed at [facility], [address] [place] [address], [place] [address] Basophil Abs 0.02 0.00 - 0.10 K/uL POLLOCK Comment:As part of the Diffe rential testing performed at [facility], [address] [place] [address] IG Abs 0.02 0.00 - 0.04 K/uL POLLOCK Comment:As part of the Diffe rential testing performed at [facility], [address] [place] [address] Blood 12/24/2022 6:38 AM CDT 12/24/2022 6:38 AM CDT Michelle Dickens MD LAB BLOOD ORDERABLE S [address], [facility] [address] [place] [address] * BUN (12/24/2022 6:38 AM CDT) BUN 20 6 - 23 mg/dL POLLOCK Comment:Testing performed at [facility], [address] [place] [address] Blood 12/24/2022 6:38 AM CDT 12/24/2022 6:38 AM CDT Michelle Dickens MD LAB BLOOD ORDERABLE S [place] [id number] [place] [address] * ALT (12/24/2022 6:38 AM CDT) ALT 15 <=33 U/L POLLOCK Comment:Testing performed at [facility], [address] [place] [address] Blood 12/24/2022 6:38 AM CDT 12/24/2022 6:38 AM CDT Michelle Dickens MD LAB BLOOD ORDERABLE S [address] [address] * Aspartate Aminotransferase (12/24/2022 6:38 AM CDT) AST 19 <=32 U/L POLLOCK Comment:Testing performed at [facility], [address] [place] [address] Blood 12/24/2022 6:38 AM CDT 12/24/2022 6:38 AM CDT Michelle Dickens MD LAB BLOOD ORDERABLE S [address] [address] * Total Protein (12/24/2022 6:38 AM CDT) Pathologist [facility] Total Protein 7.4 6.4 - 8.3 g/dL POLLOCK Comment:Testing performed at [facility], [address] [place] [address] Blood 12/24/2022 6:38 AM CDT 12/24/2022 6:38 AM CDT Michelle Dickens MD LAB BLOOD ORDERABLE S [address] [address] * Alkaline Phosphatase (12/24/2022 6:38 AM CDT) Alk Phos 61 35 - 104 U/L POLLOCK Comment:Testing performed at [facility], [address] [place] [address] Blood 12/24/2022 6:38 AM CDT 12/24/2022 6:38 AM CDT Michelle Dickens MD LAB BLOOD ORDERABLE S [place] [phone] [place] [address] * (ABNORMAL) Glucose Level (12/24/2022 6:38 AM CDT) Glucose Level 111(H) 70 - 99 mg/dL POLLOCK Comment: Effective 01/28/16, the glucose reference intervals have been updated based on [place] [employer] guidelines (Standards of Medical Care in Diabetes 2016. Diabetes Care 2016; 39: S13-S22). Fasting blood glucose: Normal: 70-99 mg/dL Impaired fasting glucose (increased risk for diabetes or pre-diabetes): 100- 125 mg/dL Diabetes mellitus: >/=126 mg/dL Random blood glucose: Normal: 70-199 mg/dL Note: Random glucose >100 mg/dL is associated with increased risk for diabetes Testing performed at [facility], [address] [place] [address] Blood 12/24/2022 6:38 AM CDT 12/24/2022 6:38 AM CDT Michelle Dickens MD LAB BLOOD ORDERABLE S [address] [phone] [place] [address] * Calcium Level (12/24/2022 6:38 AM CDT) Calcium Lvl 9.5 8.4 - 10.2 mg/dL POLLOCK Comment:Testing performed at [facility], [address] [place] [address] Blood 12/24/2022 6:38 AM CDT 12/24/2022 6:38 AM CDT Michelle Dickens MD LAB BLOOD ORDERABLE S [place] [id number] [place] [address] * Albumin Level (12/24/2022 6:38 AM CDT) Albumin Lvl 3.6 3.5 - 5.2 gm/dL POLLOCK Comment:Testing performed at [facility], [address] [place] [address] Blood 12/24/2022 6:38 AM CDT 12/24/2022 6:38 AM CDT Michelle Dickens MD LAB BLOOD ORDERABLE S [place] [phone] [place] [address] * Electrolyte Panel (12/24/2022 6:38 AM CDT) Sodium Lvl 140 136 - 145 mEq/L POLLOCK Comment:Testing performed at [facility], [address] [place] [address] Potassium Lvl 3.9 3.5 - 5.1 mEq/L POLLOCK Comment:Testing performed at [facility], [address] [place] [address] Chloride 107 98 - 107 mEq/L POLLOCK Comment:Testing performed at [facility], [address] [place] [address] CO2 26 22 - 29 mEq/L POLLOCK Comment:Testing performed at [facility], [address] [place] [address] Anion Gap 7 4 - 14 mEq/L POLLOCK Comment:Testing performed at [facility], [address] [place] [address] Blood 12/24/2022 6:38 AM CDT 12/24/2022 6:38 AM CDT Michelle Dickens MD LAB BLOOD ORDERABLE S [facility] [address] [facility], [facility] [address] [place] [address] after 09/07/2022 Care Teams Bar Captain Relationship Specialty Start Date End Date Morteza Buckner MD [address] [facility] [address] [facility] [address] [place] [phone] PCP - External Referring General Surgery 05/10/19 Lee Garrison MD [address] [facility] [address] [place] [address] PCP - External Primary Care Provider Family Practice 05/10/19 Jo Romero MD [address] [place] [address] PCP - General Surgical Oncology 06/18/19 Nicholas Blanchard MD [address] [facility] [place] [address] Physician Cardiology 07/06/19 Meeta Beaver [address] [place] [place] [address] Physician Gastroenterology 07/06/19 Manolo Morrell MD [address] [place] [address] Physician Allergy 07/06/19 Michelle Beverly MD [address] [place] [address] Consulting Physician Medical Oncology 07/27/19 Tim Pascal MD [address] [place] [address] Consulting Physician Plastic and Reconstructive Surgery 07/16/19 Govind Noyola MD [address] [place] [address] Consulting Physician Radiation Oncology 07/27/19
--- NOTE | 2023-09-07 11:35 | RAD REPORT ---
EXAM DESCRIPTION: RADChest Single View09/07/2023 11:24 am CLINICAL HISTORY: CHEST PAIN COMPARISON: Chest Single View dated 11/27/2021; Chest Single View dated 10/27/2019; Chest Pa And Lat ( 2 Views) dated 04/10/2019; CHEST SINGLE VIEW dated 01/14/2014 TECHNIQUE: Portable AP view of the chest. FINDINGS: The lungs are clear. No pneumothorax or effusion. The cardiomediastinal contours are with in normal, apart from sequelae of CABG. IMPRESSION: No acute cardiopulmonary process.
[2023-09-07 12:20] LABS: Absolute Lymphocytes (CBC) 1.6 K/uL (0.7-4.9); Basophils % 0.5 % (0-1.3); Hematocrit 38.7 % (36.0-45.0); Hemoglobin 13.5 g/dL (12.0-15.0); Lymphocytes % 21.7 % (15.3-44.8); MCV 97.9 fL (80-100); MPV 8.4 fL (7.6-11.3); Platelets 203 thou/uL (152-406); RBC Red Blood Cell Count 3.95 M/uL (3.86-4.86)
[2023-09-07 12:43] LABS: Anion Gap 6.9 mEq/L (5.0-15.0); Magnesium 1.7 mg/dL (1.6-2.4); Potassium 3.9 mEq/L (3.5-5.1); Troponin High Sensitivity 12.4 pg/mL (<58.9)
--- NOTE | 2023-09-07 14:21 | ER ---
Nurse's Notes [facility] Name: Yareli Beckham Age: 82 yrs Sex: Female : 1940 Arrival Date: 09/07/2023 Time: 10:29 Bed 8 Private MD: Diagnosis: Chest pain, unspecified Presentation: 09/06 10:46 Chief complaint: Patient states: SENT BY RASLAN FOR CHEST TIGHTNESS. Coronavirus bp screen: At this time, the client does not indicate any symptoms associated with coronavirus-19. Ebola Screen: No symptoms or risks identified at this time. Initial Sepsis Screen: Does the patient meet any 2 criteria? No. Patient's initial sepsis screen is negative. Does the patient have a suspected source of infection? No. Patient's initial sepsis screen is negative. Risk Assessment: Do you want to hurt yourself or someone else? Patient reports no desire to harm self or others. Onset of symptoms is unknown. 10:46 Method Of Arrival: Ambulatory bp 10:46 Acuity: ANA 3 bp Triage Assessment: 10:47 General: Appears in no apparent distress. Behavior is calm, cooperative, appropriate bp for age. Pain: Complains of pain in chest. Cardiovascular: Rhythm is sinus rhythm. Historical: - Allergies: 10:47 Augmentin; bp 10:47 PENICILLINS; bp 10:47 Pollen; bp - PMHx: 10:47 BREAST CA; Hypothyroidism; Hyperlipidemia; Lymphocytic/Collangenous Colitis; bp - Immunization history:: Adult Immunizations up to date. - Social history:: Smoking status: Patient denies any tobacco usage or history of. Screenin:00 [facility] ED Fall Risk Assessment (Adult) History of falling in the last 3 months, ko1 including since admission No falls in past 3 months (0 pts) Confusion or Disorientation No (0 pts) Intoxicated or Sedated No (0 pts) Impaired Gait No (0 pts) Mobility Assist Device Used No (0 pt) Altered Elimination No (0 pt) Score/Fall Risk Level 0 - 2 = Low Risk Oriented to surroundings, Maintained a safe environment, Educated pt \T\ family on fall prevention, incl call for assistance when getting out of bed, Assessed \T\ reinforced patient's understanding of fall precautions, Provided non-skid footwear, Hourly rounding (assess needs \T\ fall precautionary measures) done, Used ambulatory aids as needed (educated on \T\ assisted with), Used gait belt as appropriate. Abuse screen: Denies threats or abuse. Denies injuries from another. Nutritional screening: No deficits noted. Tuberculosis screening: No symptoms or risk factors identified. Assessment: 12:00 General: Appears in no apparent distress. comfortable, Behavior is calm, cooperative, ko1 appropriate for age. Pain: Pain does not radiate. Pain began gradually. Neuro: No deficits noted. Cardiovascular: Reports chest pain. Respiratory: No deficits noted. GI: No deficits noted. : No deficits noted. EENT: No deficits noted. Derm: No deficits noted. Musculoskeletal: No deficits noted. 13:00 Reassessment: Patient appears in no apparent distress at this time. No changes from ko1 previously documented assessment. Patient and/or family updated on plan of care and expected duration. Pain level reassessed. Patient is alert, oriented x 3, equal unlabored respirations, skin warm/dry/pink. 14:00 Reassessment: Patient appears in no apparent distress at this time. No changes from ko1 previously documented assessment. Patient and/or family updated on plan of care and expected duration. Pain level reassessed. Patient is alert, oriented x 3, equal unlabored respirations, skin warm/dry/pink. Vital Signs: 10:46 BP 167 / 72; Pulse 75; Resp 16; Temp 97.8; Pulse Ox 100% ; bp 12:00 BP 155 / 59; Pulse 60; Resp 15; Pulse Ox 98% ; ko1 13:03 BP 149 / 60; Pulse 61; Resp 15; Pulse Ox 97% ; ko1 14:25 BP 138 / 60; Pulse 72; Resp 15; Temp 98(O); Pulse Ox 99% on R/A; ko1 ED Course: 10:32 Patient arrived in ED. mg5 10:43 Antonio Morrow DO is Attending Physician. ms3 10:47 Triage completed. bp 10:47 Arm band placed on. EKG completed in triage. Results shown to MD. bp 11:26 XRAY Chest (1 view) In Process Unspecified. EDMS 11:47 Linda Orellana, RN is Primary Nurse. ko1 11:59 Basic Metabolic Panel Sent. ko1 11:59 CBC with Diff Sent. ko1 11:59 Magnesium Sent. ko1 12:00 Patient has correct armband on for positive identification. Allergy band placed. Placed ko1 in gown. Bed in low position. Call light in reach. Side rails up X 1. Client placed on continuous cardiac and pulse oximetry monitoring. NIBP monitoring applied. door fitter on. Door closed. Noise minimized. Lights dimmed. Warm blanket given. Pillow given. Assisted to bathroom. 12:00 Troponin HS Sent. ko1 12:00 Inserted saline lock: 22 gauge in right antecubital area, using aseptic technique. ko1 Blood collected. Patient maintains SpO2 saturation greater than 95% on room air. 13:00 Assisted to bathroom. ko1 13:00 No provider procedures requiring assistance completed. IV discontinued, intact, ko1 bleeding controlled, No redness/swelling at site. Pressure dressing applied. 13:21 Diet tray given. PO fluids given. ko1 13:21 Repeat lab(s) drawn. by nd, sent to lab. ko1 14:19 Og Enrique MD is Referral Physician. ms3 14:25 Provided Education on: na. Assisted to bathroom. ko1 Administered Medications: No medications were administered Medication: 14:25 VIS not applicable for this client. ko1 Outcome: 14:00 Discharged to home ambulatory, with family, ko1 14:00 Condition: stable 14:00 Discharge instructions given to patient, family, Instructed on discharge instructions, follow up and referral plans. Demonstrated understanding of instructions, follow-up care, 14:20 Discharge ordered by . ms3 14:36 Patient left the ED. ko1 Signatures: Dispatcher [employer] EDMS Dameon Lisa, RN RN Antonio Saldaña DO DO ms3 Linda Orellana, RN RN ko1 Dara Castellon mg5
--- NOTE | 2023-09-07 14:21 | EDPHYS ---
Physician Documentation [facility] Name: Yareli Beckham Age: 82 yrs Sex: Female : 1940 Arrival Date: 09/07/2023 Time: 10:29 Bed 8 Private MD: ED Physician Antonio Morrow HPI: 09/06 14:20 This 82 yrs old Female presents to ER via Ambulatory with complaints of Chest ms3 Tightness, High Blood Pressure. 14:20 82-year-old female with past medical history of breast cancer, hypothyroidism, ms3 hyperlipidemia, lymphocytic/collagenous colitis presents to the emergency department for elevated blood pressure and heavy chest. Patient states she called Dr. Enrique's and was instructed to come to the emergency department for evaluation. Patient states her discomfort is a 1/10 and does not radiate. Patient denies any alleviating or inciting factors.. Historical: - Allergies: 10:47 Augmentin; bp 10:47 PENICILLINS; bp 10:47 Pollen; bp - PMHx: 10:47 BREAST CA; Hypothyroidism; Hyperlipidemia; Lymphocytic/Collangenous Colitis; bp - Immunization history:: Adult Immunizations up to date. - Social history:: Smoking status: Patient denies any tobacco usage or history of. ROS: 14:20 Constitutional: Negative for fever, and chills. Neck: Negative for injury, pain, and ms3 swelling, 14:20 Respiratory: Negative for shortness of breath, cough, wheezing, and pleuritic chest pain, Abdomen/GI: Negative for abdominal pain, nausea, vomiting, diarrhea, and constipation, MS/Extremity: Negative for injury and deformity, Skin: Negative for injury, rash, and discoloration, Neuro: Negative for headache, weakness, numbness, tingling. 14:20 Cardiovascular: Positive for chest pain, Exam: 14:20 Constitutional: This is a well developed, well nourished patient who is awake, alert, ms3 and in no acute distress. Head/Face: Normocephalic, atraumatic. Neck: Trachea midline, no cervical lymphadenopathy. Supple, full range of motion without nuchal rigidity, or vertebral point tenderness. No Meningismus. Chest/axilla: Normal chest wall appearance and motion. Nontender with no deformity. Cardiovascular: Regular rate and rhythm with a normal S1 and S2. No gallops, murmurs, or rubs. Normal PMI, no JVD. No pulse deficits. Respiratory: Lungs have equal breath sounds bilaterally, clear to auscultation and percussion. No rales, rhonchi or wheezes noted. No increased work of breathing, no retractions or nasal flaring. Abdomen/GI: Soft, non-tender, with normal bowel sounds. No distension or tympany. No guarding or rebound. No evidence of tenderness throughout. Skin: Warm, dry with normal turgor. Normal color with no rashes, no lesions, and no evidence of cellulitis. MS/ Extremity: Pulses equal, no cyanosis. Neurovascular intact. Full, normal range of motion. 14:23 ECG was reviewed by the Attending Physician. ms3 Vital Signs: 10:46 BP 167 / 72; Pulse 75; Resp 16; Temp 97.8; Pulse Ox 100% ; bp 12:00 BP 155 / 59; Pulse 60; Resp 15; Pulse Ox 98% ; ko1 13:03 BP 149 / 60; Pulse 61; Resp 15; Pulse Ox 97% ; ko1 14:25 BP 138 / 60; Pulse 72; Resp 15; Temp 98(O); Pulse Ox 99% on R/A; ko1 MDM: 10:50 Patient medically screened. ms3 14:20 Differential diagnosis: abnormal EKG, acute myocardial infarction, coronary artery ms3 disease. HEART Score: History: Slightly Suspicious (0), ECG: Normal (0), Age: > or = 65 years (2), Risk Factors: 1 or 2 risk factors (1), [Hypercholesterolemia] Troponin: < or = 1 x Normal Limit (0), Total Score = 3. The patient was not given aspirin in the Emergency Department. Patient reports taking aspirin within the past 24 hours. Data reviewed: vital signs, nurses notes, lab test result(s), EKG, radiologic studies, and as a result, I will discharge patient. Consideration of Admission/Observation Escalation of care including admission/observation considered. Case was discussed with Dr. Enrique and he will follow patient up in clinic.. Management of patient was discussed with the following: Mess Cook: Dr. Enrique. Independent interpretation of the following test(s) in the Emergency Department EKG: See my EKG interpretation above. Counseling: I had a detailed discussion with the patient and/or guardian regarding the historical points, exam findings, and any diagnostic results supporting the discharge/admit diagnosis, lab results, radiology results, the need for outpatient follow up, to return to the emergency department if symptoms worsen or persist or if there are any questions or concerns that arise at home. Special discussion: Based on the patient's history, exam, and Dx evaluation, there is no indication for emergent intervention or inpatient Tx. It is understood by the patient/guardian that if the Sx's persist or worsen they need to return immediately for re-evaluation. ED course: On reevaluation patient is alert and orient x 4, no apparent distress, nontoxic-appearing, speaking full sentences. Patient to follow-up with Dr. Enrique in 1 to 2 days. Patient understands and agrees with plan. All questions were answered. Return precautions discussed include worsening symptoms, sweating, shortness of breath, nausea, vomiting, or any other concerns. 09/06 10:51 Order name: Basic Metabolic Panel; Complete Time: 13:08 ms3 09/06 10:51 Order name: CBC with Diff; Complete Time: 13:08 ms3 09/06 10:51 Order name: Magnesium; Complete Time: 13:08 ms3 09/06 10:51 Order name: Troponin HS; Complete Time: 13:08 ms3 09/06 13:11 Order name: Troponin High Sensitivity; Complete Time: 13:44 ms3 09/06 10:51 Order name: XRAY Chest (1 view); Complete Time: 13:08 ms3 09/06 10:51 Order name: EKG; Complete Time: 10:51 ms3 09/06 10:51 Order name: Cardiac monitoring; Complete Time: 11:47 ms3 09/06 10:51 Order name: EKG - Nurse/Tech; Complete Time: 11:02 ms3 09/06 10:51 Order name: IV Saline Lock; Complete Time: 11:59 ms3 09/06 10:51 Order name: Labs collected and sent; Complete Time: 11:59 ms3 09/06 10:51 Order name: O2 Per Protocol; Complete Time: 11:47 ms3 09/06 10:51 Order name: O2 Sat Monitoring; Complete Time: 11:47 ms3 EC:23 Rate is 67 beats/min. Rhythm is regular. QRS [place] is Normal. [place] interval is normal. QRS ms3 interval is normal. QT interval is normal. Clinical impression: Normal ECG. Interpreted by me. Reviewed by me. Administered Medications: No medications were administered Disposition Summary: 09/07/23 14:20 Discharge Ordered Notes: Location: Home ms3 Condition: Stable ms3 Diagnosis - Chest pain, unspecified ms3 Followup: ms3 - With: Og Enrique MD - When: 1 - 2 days - Reason: Recheck today's complaints Discharge Instructions: - Discharge Summary Sheet ms3 - Nonspecific Chest Pain, Adult ms3 Forms: - Medication Reconciliation Form ms3 - Thank You Letter ms3 - Antibiotic Education ms3 - Prescription Opioid Use ms3 - Patient Portal Instructions ms3 - Leadership Thank You Letter ms3 Signatures: Dispatcher [employer] Dameon Sanchez, RN RN Antonio Saldaña DO DO ms3
[2023-09-07 15:05] VITALS: BP 138/60; TEMP 98; O2SAT 99
--- NOTE | 2023-09-08 14:17 | EKG ---
Test Date: 2023-09-07 Test Time: 10:42:44 Physician Gynecologist: BP MEASUREMENT RESULTS: Intervals: Rate: 67 SC: 174 QRSD: 86 QT: 416 QTc: 439 [place]: P: 63 SC: 174 QRS: 72 T: 16 INTERPRETIVE STATEMENTS: Normal sinus rhythm Normal ECG Compared to ECG 01/14/2014 22:14:48 Ventricular premature complex(es) no longer present Electronically Signed On 09-08-23 14:13:22 SURVEYOR INSTRUMENT ASSISTANT by Og Enrique
== END ==
LOC: ER 10:29
DX: R07.89 Other chest pain (principal); E78.5 Hyperlipidemia, unspecified; Z85.3 Personal history of malignant neoplasm of breast; Z88.0 Allergy status to penicillin; Z88.1 Allergy status to other antibiotic agents; Z91.048 Other nonmedicinal substance allergy status
CPT/HCPCS: 36415; 71045; 80048; 83735; 84484; 85025; 93005; 99285

== ENCOUNTER 2023-11-04 15:24 | Emergency (ER) | payer OTHER ==
--- OUTSIDE RECORDS SUMMARY | 2023-11-04 15:29 | XMS REPORT | Clinical Summary ---
Author Name Unknown Organization [facility] Address [address] [place] [address] Care Team Providers Care Batch Mixer Name Role Phone Morteza Buckner MD Unavailable [phone] Lee Garrison MD Unavailable [phone] Jo Romero MD Primary Care Provider [phone] Nicholas Blanchard MD Unavailable Meeta Beaver Unavailable Manolo Morrell MD Unavailable Michelle Beverly MD Unavailable [phone] Tim Pascal MD Unavailable Govind Noyola MD Unavailable [phone] Allergies Active Allergy Reactions Criticality Noted Date [...] 07/18/2019:No Stage Recommended(pT1c, cN0, cM0, G2, ER-, ID-, HER2-) - Signed by Michelle Beverly MD on 07/30/2019 Encounters Date Type Department Care Team Description 06/22/2023 3:40 PM AGRONOMY PROFESSOR Follow-Up [address] [address] Michelle Beverly MD 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 Travel 12/24/2022 10:00 AM CDT Follow-Up [facility] Thoracic [address] [address] Michelle Beverly MD Adenosquamous cell carcinoma 12/24/2022 8:30 AM CDT Ancillary Procedure [address] [address] Michelle Beverly MD Adenosquamous cell carcinoma 12/24/2022 7:15 AM CDT Ancillary Procedure [address] [address] Michelle Beverly MD Adenosquamous cell carcinoma 12/24/2022 Travel after 11/04/2022 Immunizations Name Administration Dates Next Due Influenza Split High Dose Preservative Free IM 1 Moderna SARS-CoV-2 Vaccination 09/07/2020,2020 Pneumococcal Conjugate 13-Valent 08/18/2018 Surgical History Surgery Date Site/Laterality Comments TONSILLECTOMY 07/04/1947 - 07/03/1950 FOOT SURGERY 07/04/2000 - 07/03/2001 Right ID MASTECTOMY PARTIAL 07/18/2019 Right Procedure: SEGMENTAL MASTECTOMY - OTHER-POSTERIOR MARGIN EXCISION; Surgeon: Jo Romero MD; Location: [facility]; Service: BREAST ID BREAST RECONSTRUC W OTHR TECHNIQ 07/18/2019 Breast/Right Procedure: RECONSTRUCTION OF BREAST WITH OTHER TECHNIQUE-LOCAL TISSUE ADVANCEMENT; Surgeon: Tim Pascal MD; Location: [facility]; Service: PLS - PLASTIC SURGERY CORONARY ARTERY BYPASS GRAFT 08/04/2022 - 08/31/2022 Medical History Medical History Date Comments Arrhythmia occasional PVCs, pt evaluated by [employer]er in 03/2019 and found to be "low [...] Comments Blood Pressure 139/72 06/22/2023 1:38 PM AGRONOMY PROFESSOR Pulse 68 06/22/2023 1:38 PM AGRONOMY PROFESSOR Temperature 36.7 C (98.1 F) 06/22/2023 1:38 PM CS T Respiratory Rate 16 06/22/2023 1:38 PM AGRONOMY PROFESSOR Oxygen Saturation 98% 06/22/2023 1:38 PM AGRONOMY PROFESSOR Inhaled Oxygen Concentration - - Weight 59.1 kg (130 lb 4.7 oz) 06/22/2023 1:38 P M AGRONOMY PROFESSOR Height - - Body Mass Index 25.85 08/02/2019 8:03 AM AGRONOMY PROFESSOR Plan of Treatment Upcoming Encounters Date Type Department Care Team Description 12/26/2023 8:45 AM CDT Ancillary Procedure [facility] [address] [address] Michelle Beverly MD [address] [place] [address] 12/26/2023 9:45 AM CDT Ancillary Procedure MD Nikolas [facility]ra[facility] [address] [address] Michelle Beverly MD [address] [place] [address] 01/04/2024 12:00 PM CDT Lab MD [facility] [address] [place] [address] Michelle Beverly MD [address] [place] [address] 01/04/2024 1:00 PM CDT Follow-Up MD Nikolas Barra[facility] - Thoracic Medicine [address] [place] [address] Michelle Beverly MD [address] [place] [address] Health Maintenance Due Date Last Done Comments COVID-19 Vaccine ( season) 03/04/202301/2021, 08/10/2020 Influenza Vaccine 03/04/2024 04/03/2020 Procedures Procedure Name Priority Date/Time Associated Diagnosis Comments .CBC Routine 06/22/2023 1:20 PM AGRONOMY PROFESSOR Adenosquamous cell carcinoma LACTATE DEHYDROGENASE Routine 06/22/2023 1:20 PM AGRONOMY PROFESSOR Adenosquamous cell carcinoma PHOSPHORUS LEVEL Routine 06/22/2023 1:20 PM AGRONOMY PROFESSOR Adenosquamous cell carcinoma MAGNESIUM LEVEL Routine 06/22/2023 1:20 PM AGRONOMY PROFESSOR Adenosquamous cell carcinoma COMPREHENSIVE METABOLIC PANEL Routine 06/22/2023 1:20 PM AGRONOMY PROFESSOR Adenosquamous cell carcinoma COMPLETE BLOOD COUNT W/ DIFFERENTIAL Routine 06/22/2023 1:20 PM AGRONOMY PROFESSOR Adenosquamous cell carcinoma US CHEST/INFRACLAV Routine 12/24/2022 [...] 6:38 AM CDT Adenosquamous cell carcinoma after 11/04/2022 Results * (ABNORMAL) .CBC (06/22/2023 1:20 PM AGRONOMY PROFESSOR) Only the most recent of2 resultswithin the time period is included. Pathologist [facility] White Blood Cell 5.6 4.1 - 10.5 K/uL 06/22/2023 1:24 PM [facility] Red Blood Cell 3.81(L) 3.99 - 5.46 M/uL 06/22/2023 1:24 PM AGRONOMY PROFESSOR [place] Hemoglobin 12.6 12.2 - 15.3 g/dL 06/22/2023 [...] Blood Venipuncture / Unknown 06/22/2023 1:20 PM AGRONOMY PROFESSOR 06/22/2023 1:20 PM AGRONOMY PROFESSOR Michelle Dickens MD LAB BLOOD ORDERABLE S [facility] [address] [facility], [facility] [address] [place] [address] * (ABNORMAL) Comprehensive Metabolic Panel (06/22/2023 1:20 PM AGRONOMY PROFESSOR) Bilirubin Total 0.3 <=1.2 mg/dL 06/22/2023 1:57 [...] 6.4 - 8.3 gm/dL 06/22/2023 1:57 PM [facility] Comment:This result was prev iously suppressed from the chart. Calcium Level Total 9.6 8.2 - 10.2 mg/dL 06/22/2023 1:57 PM [facility] Comment:This result was prev iously suppressed from the chart. Alkaline Phosphatase 64 35 - 104 U/L 06/22/2023 1:57 PM [facility] Comment:This result was prev iously suppressed from the chart. Albumin Level 3.9 3.5 - 5.2 gm/dL 06/22/2023 1:57 PM [facility] Comment:This result was prev iously suppressed from the chart. AST 19 <=32 U/L 06/22/2023 1:57 PM [facility] Comment:This result was prev iously suppressed from the chart. ALT 16 <=33 U/L 06/22/2023 1:57 PM [facility] Comment:This result was prev iously suppressed from the chart. Sodium Level 142 136 - 145 mmol/L 06/22/2023 1:57 PM [facility] Comment:This result was prev iously suppressed from the chart. Potassium Level 4.3 3.4 - 4.5 mmol/L 06/22/2023 1:57 PM [facility] Comment:This result was prev iously suppressed from the chart. Chloride 110(H) 98 - 107 mmol/L 06/22/2023 1:57 PM [facility] Comment:This result was prev iously suppressed from the chart. CO2 25 22 - 29 mmol/L 06/22/2023 1:57 PM AGRONOMY PROFESSOR [place] Comment:This result was prev iously suppressed from the chart. Anion Gap 7 4 - 14 mmol/L 06/22/2023 1:57 PM [facility] Comment:This result was prev iously suppressed from the chart. Creatinine 0.86 0.51 - 0.95 mg/dL 06/22/2023 1:57 PM [facility] Comment:This result was prev iously suppressed from the chart. BUN 20 6 - 23 mg/dL 06/22/2023 1:57 PM [facility] Comment:This result was prev iously suppressed from the chart. Glucose Level 96 70 - 99 mg/dL 06/22/2023 1:57 PM [facility] Comment: Effective 01/28/16, the glucose reference intervals have been updated based on [place] Diabetes Association guidelines (Standards of Medical Care [...] Blood Venipuncture / Unknown 06/22/2023 1:20 PM AGRONOMY PROFESSOR 06/22/2023 1:20 PM AGRONOMY PROFESSOR Michelle Dickens MD LAB BLOOD ORDERABLE S Performing Organization Address [facility]/State/[facility] Co de Phone Number [facility] [place] [address] [facility], [facility] [address] [place] [address] * Phosphorus Level (06/22/2023 1:20 PM AGRONOMY PROFESSOR) Only the most recent of2 resultswithin the time period is included. Phosphorus Level 3.1 2.5 - 4.5 mg/dL 06/22/2023 1:44 PM AGRONOMY PROFESSOR [place] Blood Venipuncture / Unknown 06/22/2023 1:20 PM AGRONOMY PROFESSOR 06/22/2023 1:20 PM AGRONOMY PROFESSOR Michelle Dickens MD LAB BLOOD ORDERABLE S [address], [address] [address] * Magnesium Level (06/22/2023 1:20 PM AGRONOMY PROFESSOR) Only the most recent of2 resultswithin the time period is included. Magnesium Level 1.6 1.6 - 2.6 mg/dL 06/22/2023 1:44 PM AGRONOMY PROFESSOR [place] Blood Venipuncture / Unknown 06/22/2023 1:20 PM AGRONOMY PROFESSOR 06/22/2023 1:20 PM AGRONOMY PROFESSOR Michelle Dickens MD LAB BLOOD ORDERABLE S Performing Organization Address City/[facility]/ZIP Co de Phone Number [address], [address] [address] * LDH (06/22/2023 1:20 PM AGRONOMY PROFESSOR) Only the most recent of2 resultswithin the time period is included. LDH 166 135 - 214 U/L 06/22/2023 1:44 PM [facility] Blood Venipuncture / Unknown 06/22/2023 1:20 PM AGRONOMY PROFESSOR 06/22/2023 1:20 PM AGRONOMY PROFESSOR Narrative [place] - 06/22/2023 1:44 PM AGRONOMY PROFESSOR Results greater than 1651 U/L may not be reliable due to matrix effect with extended dilution as it exceeds the warehouse sorter's recommended limit. Caution should be exercised when interpreting such values and done in conjunction with clinical context. Michelle Dickens MD LAB BLOOD ORDERABLE S [address], [address] [address] * US Chest/Infraclav for Breast Ultrasound (Add-on [...] to a prior imaging study performed at [facility] on 12/23/2021. Images were obtained in multiple [...] compared to a prior imaging studyperformed at [facility] on 12/23/2021. Images were obtained in multiple [...] time of the examination. Michelle Dickens MD [facility] US ORDERABLES * US Breast Complete Bilateral [...] to a prior imaging study performed at [facility] on 12/23/2021. Images were obtained in multiple [...] compared to a prior imaging studyperformed at [facility] on 12/23/2021. Images were obtained in multiple [...] time of the examination. Michelle Dickens MD G US ORDERABLES * Mammography Digital Diagnostic Bilateral [...] outside location on 01/30/2020 and 06/04/2020, at [facility] on 12/22/2020 and 12/23/2021, and at [facility] on 07/11/2019. FINDINGS: The breasts are heterogeneously [...] outside location on 01/30/2020 and 06/04/2020, at [facility] on 12/22/2020 and 12/23/2021, and at [facility] on 07/11/2019. FINDINGS: The breasts are heterogeneously [...] Category 2: Benign Finding(s) Michelle Dickens MD G MAMMOGRAPHY ORD ERABLES * .Serum Creatinine (12/24/2022 6:38 AM CDT) Creatinine 0.75 0.51 - 0.95 mg/dL [place] Comment:Testing performed at [facility], [address] [place] [address] Blood 12/24/2022 6:38 AM CDT 12/24/2022 6:38 AM CDT Michelle Dickens MD LAB BLOOD ORDERABLE S Performing Organization Address City/[facility]/ZIP Co de Phone Number [place] [address] [place] [address] * Glomerular Filtration Rate (12/24/2022 6:38 AM CDT) eGFR 78 >=60 mL/min/1.7 3 sq. m [place] Comment: The eGFRcr is calculated with the [...] fulfill criteria for CKD. Testing performed at [facility], [address] [place] [address] Blood 12/24/2022 6:38 AM CDT 12/24/2022 6:38 AM CDT Michelle Dickens MD LAB BLOOD ORDERABLE S [place] [address] [place] [address] * Fractionated Bilirubin (12/24/2022 6:38 AM CDT) [facility] Bili Total <0.3 <=1.2 mg/dL [place] Comment: Direct and indirect bilirubin will not be reported when Total bilirubin result is <0.3 mg/dL Indocyanine Green (ICG) may cause falsely elevated bilirubin results. Total and direct bilirubin must not be measured from samples containing indocyanine green. False elevation of total bilirubin can be seen in patients with IgG concentrations above 28 g/L. Testing performed at [facility], [address] [place] [address] Blood 12/24/2022 6:38 AM CDT 12/24/2022 6:38 AM CDT Michelle Dickens MD LAB BLOOD ORDERABLE S [address] [address] * Vitamin D 25OH (12/24/2022 6:38 AM CDT) [facility] Vitamin D 25 OH 54 30 - 100 ng/mL [place] Comment: Reference Range: Deficiency: <=20 ng/mL Insufficiency: 21-29 ng/mL Sufficiency: 30-100 ng/mL Potential toxicity: >100 ng/mL Testing performed at [facility], [address] [place] [address] Blood 12/24/2022 6:38 AM CDT 12/24/2022 6:38 AM CDT Michelle Dickens MD LAB BLOOD ORDERABLE S [address] [address] * (ABNORMAL) Differential (12/24/2022 6:38 AM CDT) [facility] Neutrophil % 45.4 42.0 - 66.0 % [place] Comment:All components of th e Differential performed at [facility], [address] [place] [address], [place] [address] Lymphocyte % 45.3(H) 24.0 - 44.0 % [place] Comment:As part of the Diffe rential testing performed at [facility], [address] [place] [address], [place] [address] Monocyte % 7.9(H) 2.0 - 7.0 % [place] Comment:As part of the Diffe rential testing performed at [facility], [address] [place] [address], [place] [address] Eosinophil % 0.6(L) 1.0 - 4.0 % [place] Comment:As part of the Diffe rential testing performed at [facility], [address] [place] [address], [place] [address] Basophil % 0.4 0.0 - 1.0 % [place] Comment:As part of the Diffe rential testing performed at [facility], [address] [place] [address] IGRE % 0.4 0.0 - 0.4 % [place] Comment: IGRE % count includes Metamyelocytes, Myelocytes, and Promyelocytes. As part of the Differential testing performed at [facility], [address] [place] [address], [place] [address] Neutrophil Abs 2.29 1.70 - 7.30 K/uL [place] Comment:As part of the Diffe rential testing performed at [facility], [address] [place] [address], [place] [address] Lymphocyte Abs 2.29 1.00 - 4.80 K/uL [place] Comment:As part of the Diffe rential testing performed at [facility], [address] [place] [address], [place] [address] Monocyte Abs 0.40 0.08 - 0.70 K/uL [place] Comment:As part of the Diffe rential testing performed at [facility], [address] [place] [address], [place] [address] Eosinophil Abs 0.03(L) 0.04 - 0.40 K/uL [place] Comment:As part of the Diffe rential testing performed at [facility], [address] [place] [address] Basophil Abs 0.02 0.00 - 0.10 K/uL [place] Comment:As part of the Diffe rential testing performed at [facility], [address] [place] [address], [place] [address] IG Abs 0.02 0.00 - 0.04 K/uL [place] Comment:As part of the Diffe rential testing performed at [facility], [address] [place] [address], [place] [address] Blood 12/24/2022 6:38 AM CDT 12/24/2022 6:38 AM CDT Michelle Dickens MD LAB BLOOD ORDERABLE S [place] [address] [place] [address] * BUN (12/24/2022 6:38 AM CDT) BUN 20 6 - 23 mg/dL [place] Comment:Testing performed at [facility], [address] [place] [address] Blood 12/24/2022 6:38 AM CDT 12/24/2022 6:38 AM CDT Michelle Dickens MD LAB BLOOD ORDERABLE S [place] [address] [place] [address] * ALT (12/24/2022 6:38 AM CDT) ALT 15 <=33 U/L [place] Comment:Testing performed at [facility], [address] [place] [address] Blood 12/24/2022 6:38 AM CDT 12/24/2022 6:38 AM CDT Michelle Dickens MD LAB BLOOD ORDERABLE S [address] [address] * Aspartate Aminotransferase (12/24/2022 6:38 AM CDT) AST 19 <=32 U/L [place] Comment:Testing performed at [facility], [address] [place] [address] Blood 12/24/2022 6:38 AM CDT 12/24/2022 6:38 AM CDT Michelle Dickens MD LAB BLOOD ORDERABLE S [address] [address] * Total Protein (12/24/2022 6:38 AM CDT) [facility] Total Protein 7.4 6.4 - 8.3 g/dL [place] Comment:Testing performed at [facility], [address] [place] [address] Blood 12/24/2022 6:38 AM CDT 12/24/2022 6:38 AM CDT Michelle Dickens MD LAB BLOOD ORDERABLE S [address], [address] [address] * Alkaline Phosphatase (12/24/2022 6:38 AM CDT) Alk Phos 61 35 - 104 U/L [place] Comment:Testing performed at [facility], [address] [place] [address] Blood 12/24/2022 6:38 AM CDT 12/24/2022 6:38 AM CDT Michelle Dickens MD LAB BLOOD ORDERABLE S [address], [place] [id number] [place] [address] * (ABNORMAL) Glucose Level (12/24/2022 6:38 AM CDT) Glucose Level 111(H) 70 - 99 mg/dL [place] Comment: Effective 01/28/16, the glucose reference intervals have been updated based on [place] Diabetes Association guidelines (Standards of Medical Care in Diabetes 2016. Diabetes Care 2016; 39: S13-S22). Fasting blood glucose: Normal: 70-99 mg/dL Impaired fasting glucose (increased risk for diabetes or pre-diabetes): 100- 125 mg/dL Diabetes mellitus: >/=126 mg/dL Random blood glucose: Normal: 70-199 mg/dL Note: Random glucose >100 mg/dL is associated with increased risk for diabetes Testing performed at [facility], [address] [place], [place] [address] Blood 12/24/2022 6:38 AM CDT 12/24/2022 6:38 AM CDT Michelle Dickens MD LAB BLOOD ORDERABLE S [address], [place] [id number] [place] [address] * Calcium Level (12/24/2022 6:38 AM CDT) Calcium Lvl 9.5 8.4 - 10.2 mg/dL [place] Comment:Testing performed at [facility], [address] [place] [address] Blood 12/24/2022 6:38 AM CDT 12/24/2022 6:38 AM CDT Michelle Dickens MD LAB BLOOD ORDERABLE S [place] [address] [place] [address] * Albumin Level (12/24/2022 6:38 AM CDT) Albumin Lvl 3.6 3.5 - 5.2 gm/dL [place] Comment:Testing performed at [facility], [address] [place] [address] Blood 12/24/2022 6:38 AM CDT 12/24/2022 6:38 AM CDT Michelle Dickens MD LAB BLOOD ORDERABLE S [place] [address] [place] [address] * Electrolyte Panel (12/24/2022 6:38 AM CDT) Sodium Lvl 140 136 - 145 mEq/L [place] Comment:Testing performed at [facility], [address] [place] [address] Potassium Lvl 3.9 3.5 - 5.1 mEq/L [place] Comment:Testing performed at [facility], [address] [place] [address] Chloride 107 98 - 107 mEq/L [place] Comment:Testing performed at [facility], [address] [place] [address] CO2 26 22 - 29 mEq/L [place] Comment:Testing performed at [facility], [address] [place] [address] Anion Gap 7 4 - 14 mEq/L [place] Comment:Testing performed at [facility], [address] [place] [address] Blood 12/24/2022 6:38 AM CDT 12/24/2022 6:38 AM CDT Michelle Dickens MD LAB BLOOD ORDERABLE S [facility] [place] [address] [facility], [facility] [address] [place] [address] after 11/04/2022 Care Teams Batch Mixer Relationship Specialty Start Date End Date Morteza Buckner MD [address] [address] [place] [phone] PCP - External Referring General Surgery 05/10/19 Lee Garrison MD [address] [facility] 107 [place] [address] PCP - External Primary Care Provider Family Practice 05/10/19 [place] [address] [place] [address] PCP - General Surgical Oncology 06/18/19 Nicholas Blanchard MD [address] [facility] [place] [address] Physician Cardiology 07/06/19 Meeta Beaver [address] [place] [address] Physician Gastroenterology 07/06/19 Manolo Morrell MD [address] [place] [address] Physician Allergy 07/06/19 Michelle Beverly MD [address] [place] [address] Consulting Physician Medical Oncology 07/27/19 Tim Pascal MD [address] [place] [address] Consulting Physician Plastic and Reconstructive Surgery 07/16/19 Govind Noyola MD [address] [place] [address] Consulting Physician Radiation Oncology 07/27/19
[2023-11-04 16:53] LABS: Absolute Lymphocytes (CBC) 1.8 K/uL (0.7-4.9); Absolute Monocytes 0.4 K/uL (0.1-1.3); Absolute Neutrophil 2.9 K/uL (1.8-8.0); Basophils % 0.6 % (0-1.3); Hematocrit 38.1 % (36.0-45.0); Lymphocytes % 35.4 % (15.3-44.8); MCH 33.6 pg (27.0-35.0); MCV 98.7 fL (80-100); MPV 8.9 fL (7.6-11.3); Monocytes % 7.6 % (3.3-12.3); Neutrophils % 56.4 % (41.7-73.7); Platelets 171 thou/uL (152-406); RBC Red Blood Cell Count 3.86 M/uL (3.86-4.86); Red Cell Distribution Width 12.8 % (12.1-15.2)
[2023-11-04 17:07] LABS: Albumin 3.5 g/dL (3.4-5.0); Albumin/Globulin Ratio 0.9 (1.1-1.8); Anion Gap 7.6 mEq/L (5.0-15.0); Bilirubin Direct 0.1 mg/dL (0-0.2); Bilirubin Indirect, Calculated 0.4 mg/dL (0.2-0.8); Bilirubin Total 0.5 mg/dL (0.2-1.0); Globulin 3.8 g/dL (2.3-3.5); Magnesium 1.5 mg/dL (1.6-2.4); Potassium 3.6 mEq/L (3.5-5.1); Protein, Total 7.3 g/dL (6.4-8.2); Troponin High Sensitivity 10.2 pg/mL (<58.9)
--- NOTE | 2023-11-04 17:36 | RAD REPORT ---
EXAM DESCRIPTION: RAD - Chest Single View - 11/04/2023 4:52 pm CLINICAL HISTORY: High blood pressure COMPARISON: Chest Single View dated 09/07/2023; Chest Single View dated 11/27/2021; Chest Single View d ated 10/27/2019; Chest Pa And Lat (2 Views) dated 04/10/2019 FINDINGS: Lines: None. Lungs: No evidence of edema or pneumonia. Pleural: No significant pleural effusions or pneumothorax. Cardiac: Mild cardiomegaly. Mediastinum: Within normal limits. Bones: No acute fractures. Sternotomy. Other: None IMPRESSION: No acute cardiopulmonary disease.
[2023-11-04] MEDS ORDERED: Magnesium Sulfate 2gm IVPB 2 G/50 ML BAG IV ONE (18:20)
[2023-11-05 14:52] VITALS: BP 143/55; TEMP 98; O2SAT 100
--- NOTE | 2023-11-07 14:46 | EKG ---
Test Date: 2023-11-04 Test Time: 15:54:50 Ore Buyer: ELLE MEASUREMENT RESULTS: Intervals: Rate: 70 MA: 176 QRSD: 86 QT: 414 QTc: 447 [place]: P: 55 MA: 176 QRS: 25 T: 50 INTERPRETIVE STATEMENTS: Normal sinus rhythm Septal infarct, age undetermined Abnormal ECG Compared to ECG 09/07/2023 10:42:44 Myocardial infarct finding now present Electronically Signed On 11-07-23 14:39:53 CDT by Og Enrique
== END 2023-11-04 18:43 | disposition home or self-care (01) ==
LOC: ER 15:24
DX: I10 Essential (primary) hypertension (principal); Z95.1 Presence of aortocoronary bypass graft; Z88.0 Allergy status to penicillin; Z88.1 Allergy status to other antibiotic agents; Z91.048 Other nonmedicinal substance allergy status; Z79.82 Long term (current) use of aspirin
CPT/HCPCS: 96365; 93005; 85025; 80048; 36415; 83735; 80076; 84484; 71045; 99285; J3475

== ENCOUNTER 2024-07-20 15:33 | Emergency (ER) | payer OTHER ==
--- OUTSIDE RECORDS SUMMARY | 2024-07-20 15:36 | XMS REPORT | Clinical Summary ---
Author Name Unknown Organization [facility] Address [address] [place] [address] Care Team Providers Care Group Home Manager Name Role Phone Morteza Buckner MD Unavailable [email or web address] Lee Garrison MD Unavailable [phone] Jo Romero MD Primary Care Provider [phone] Nicholas Blanchard MD Unavailable Meeta Beaver Unavailable Manolo Morrell MD Unavailable Michelle Beverly MD Unavailable Tim Pascal MD Unavailable Govind Noyola MD Unavailable [phone] Allergies Active Allergy Reactions Criticality Noted Date Comments Levofloxacin GI Intolerance 10/31/2019 diarrhea Penicillins Hives 07/06/2019 Medications levothyroxine (SYNTHROID, LEVOTHROID) 75 mcg tablet Take 1 tablet (75 mcg) by mouth every 48 hours. Alternates days with 50mcg 1 9 Active levothyroxine (SYNTHROID, LEVOTHROID) 50 mcg tablet Take 1 tablet (50 mcg) by mouth every 48 hours. Alternates days with 75mcg 1 9 Active pantoprazole (PROTONIX) 40 mg EC tablet Take 1 tablet (40 mg) by mouth daily. 3 9 Active mesalamine (LIALDA) 1.[address] tablet Take 2 g by mouth 4 (four) times a day. 2 9 Active EPINEPHrine (EPIPEN) 0.3 mg/0.3 mL (1:1,000) injection Inject 0.3 mL (0.3 mg) into the shoulder, thigh, or buttocks as needed. 9 Active potassium 99 mg tab Take by mouth daily. Active lactobacillus acidophilus-bul garicus (LACTINEX) 1 million cells chew chewable tablet Chew daily. Active beta-carotene,A ,-vits C,E/mins (OCUVITE ORAL) Take 1 tablet by mouth daily. Active zinc gluconate 50 mg tablet Take 22 mg by mouth twice daily. Active ascorbic acid, vitamin C, (VITAMIN C) 100 mg tablet Take 5 tablets (500 mg) by mouth daily. Active cholecalciferol , vitamin D3, (VITAMIN D3) 5,000 units tab tablet Take 1 tablet (5,000 Units) by mouth daily. Active biotin 5 mg cap Take by mouth. Active cetirizine (ZyrTEC) 10 mg tablet Take 1 tablet (10 mg) by mouth daily as needed. Active clopidogrel (PLAVIX) 75 mg tablet Take 1 tablet (75 mg) by mouth daily. 3 Active amLODIPine (NORVASC) 5 mg tablet Take 1 tablet (5 mg) by mouth daily. 3 Active aspirin 81 mg chewable tablet Chew and swallow 1 tablet (81 mg) by mouth daily. Active atorvastatin (LIPITOR) 40 mg tablet Take 1 tablet (40 mg) by mouth daily. 3 Active carvedilol (COREG) 25 mg tablet Take 1 tablet (25 mg) by mouth twice daily. 3 Active losartan (COZAAR) 50 mg tablet Take 1 tablet (50 mg) by mouth daily. 3 Active hydroCHLOROthia zide (HYDRODIURIL) 25 mg tablet Take 1 tablet (25 mg) by mouth daily. 4 Active cyanocobalamin (vitamin B-12) 50 mcg tablet Take 10 tablets (500 mcg) by mouth daily. Dose unknown Active montelukast (SINGULAIR) 10 mg tablet Take 1 tablet (10 mg) by mouth daily. Active famotidine (PEPCID) 20 mg tablet Take 1 tablet (20 mg) by mouth daily. Active loratadine (CLARITIN) 10 mg tablet Take 1 tablet (10 mg) by mouth daily. Dosage unknown Active multivitamin/ir on/folic acid (CENTRUM WOMEN ORAL) Take by mouth. Activ e magnesium oxide (MAOX) 400 mg tablet Take 250 mg by mouth daily. Active UNABLE TO FIND Med Name: align probite Active simethicone (MYLICON) 80 mg chewable tablet Chew and swallow 1 tablet (80 mg) by mouth as needed for flatulence. 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 07/03/2019 Cancer Staging:Pathologic stage from 07/18/2019:No Stage Recommended(pT1c, cN0, cM0, G2, ER-, WI-, HER2-) - Signed by Michelle Beverly MD on 07/30/2019 Encounters Date Type Department Care Team Description 06/13/2024 1:40 PM TERMINAL GAUGER SUPERVISOR Follow-Up MD [facility] [place] - Thoracic Medicine [address] [place] [id number] Michelle Beverly MD Malignant neoplasm of lower-outer quadrant of right female breast 06/13/2024 10:30 AM TERMINAL GAUGER SUPERVISOR Ancillary Procedure MD Connor [address] [place] [address] Veronica Kaur APRN Malignant neoplasm of lower-outer quadrant of right female breast 06/13/2024 Travel 06/11/2024 Documentation Breast Imaging [address] [facility], 5th [place] [address] Cherelle Ayala, 05/29/2024 Orders Only MD Nikolas Barraza [address] [place] [address] Veronica Kaur APRN Malignant neoplasm of lower-outer quadrant of right female breast (Primary Dx) 01/04/2024 1:00 PM CDT Follow-Up [facility] - Thoracic Medicine [address] [place] [address] Michelle Beverly MD 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 Travel 12/26/2023 9:45 AM CDT Ancillary Procedure MD [facility] [place] [address] [address] Michelle Beverly MD Adenosquamous cell carcinoma 12/26/2023 8:45 AM CDT Ancillary Procedure MD [facility] [place] [address] [address] Michelle Bveerly MD Adenosquamous cell carcinoma 12/26/2023 Travel after 07/21/2023 Immunizations Name Administration Dates Next Due Influenza, high dose, trivalent, preservative fr ee 04/03/2020 Moderna SARS-CoV-2 Vaccination 09/07/2020,2020 Pneumococcal Conjugate 13-Valent 08/18/2018 Surgical History Surgery Date Site/Laterality Comments TONSILLECTOMY 07/04/1947 - 07/03/1948 FOOT SURGERY 07/04/2000 - 07/03/2001 Right WI MASTECTOMY PARTIAL 07/18/2019 Right Procedure: SEGMENTAL MASTECTOMY - OTHER-POSTERIOR MARGIN EXCISION; Surgeon: Jo Romero MD; Location: [facility]; Service: BREAST WI BREAST RECONSTRUC W OTHR TECHNIQ 07/18/2019 Breast/Right Procedure: RECONSTRUCTION OF BREAST WITH OTHER TECHNIQUE-LOCAL TISSUE ADVANCEMENT; Surgeon: Tim Pascal MD; Location: [facility]; Service: PLS - PLASTIC SURGERY CORONARY ARTERY BYPASS GRAFT 08/04/2022 - 08/31/2022 Medical History Medical History Date Comments Arrhythmia occasional PVCs, pt evaluated by [facility] in 03/2019 and found to be "low risk" for a kal-operative compliation Lymphocytic colitis Hypothyroidism Acid reflux Adenosquamous carcinoma of b reast, 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 High school graduate 07/06/2019 Comments No Sex and Gender Information Value Date Recorded Sex Assigned at Not on file Legal Sex Female 3:34 PM TERMINAL GAUGER SUPERVISOR Gender Identity Not on file Sexual Orientation Not on file Obstetrics History Para Term AB IAB SAB Ectopic Multiple Livin g Live Births 0 0 0 1 Comments Did not breastfeed Last Filed Vital Signs Vital Sign Reading Time Taken Comments Blood Pressure 129/63 06/13/2024 10:59 AM TERMINAL GAUGER SUPERVISOR Pulse 60 06/13/2024 10:59 AM TERMINAL GAUGER SUPERVISOR Temperature 36.6 C (97.9 F) 06/13/2024 10:[address] Respiratory Rate 20 06/13/2024 10:59 AM TERMINAL GAUGER SUPERVISOR Oxygen Saturation 97% 06/13/2024 10:59 AM TERMINAL GAUGER SUPERVISOR Inhaled Oxygen Concentration - - Weight 59 kg (130 lb 1.1 oz) 06/13/2024 10:54 AM TERMINAL GAUGER SUPERVISOR Height 151.5 cm (4' 11.65") 06/13/2024 10:54 AM TERMINAL GAUGER SUPERVISOR Body Mass Index 25.71 06/13/2024 10:54 AM TERMINAL GAUGER SUPERVISOR Plan of Treatment Upcoming Encounters Date Type Department Care Team (Late st Contact Info) Description 12/27/2024 12:50 PM CDT Ancillary Procedure MD [facility] [place] [address] [facility] 2nd [place] [address] Veronica Kaur, GEODETIC COMPUTATOR [address] [place] [address] [email or web address] 12/27/2024 1:40 PM CDT Consult MD [facility] [place] - Survivorship [address] [place] [id number] Veronica Kaur, GEODETIC COMPUTATOR [address] [place] [address] [email or web address] Health Maintenance Due Date Last Done Comments Pneumococcal Vaccine: 65+ Ye ars (2 of 2 - PPSV23 or PCV20) 08/18/2019 08/18/2018 COVID-19 Vaccine (3 - season) 03/04/202401/2021, 08/10/2020 Influenza Vaccine (#1) 2024 04/03/2020 Procedures Procedure Name Priority Date/Time Associated Diagnosis Comments .CBC Routine 06/13/2024 10:08 AM TERMINAL GAUGER SUPERVISOR Malignant neoplasm of lower-outer quadrant of right female breast VITAMIN D 25 HYDROXY LEVEL Routine 06/13/2024 10:08 AM TERMINAL GAUGER SUPERVISOR Malignant neoplasm of lower-outer quadrant of right female breast URIC ACID Routine 06/13/2024 10:08 AM TERMINAL GAUGER SUPERVISOR Malignant neoplasm of lower-outer quadrant of right female breast PHOSPHORUS LEVEL Routine 06/13/2024 10:0 8 AM TERMINAL GAUGER SUPERVISOR Malignant neoplasm of lower-outer quadrant of right female breast MAGNESIUM LEVEL Routine 06/13/2024 10:08 AM TERMINAL GAUGER SUPERVISOR Malignant neoplasm of lower-outer quadrant of right female breast LACTATE DEHYDROGENASE Routine 06/13/2024 10:08 AM TERMINAL GAUGER SUPERVISOR Malignant neoplasm of lower-outer quadrant of right female breast FRACTIONATED BILIRUBIN Routine 10:08 AM TERMINAL GAUGER SUPERVISOR Malignant neoplasm of lower-outer quadrant of right female breast COMPREHENSIVE METABOLIC PANEL Routine 06/13/2024 10:08 AM TERMINAL GAUGER SUPERVISOR Malignant neoplasm of lower-outer quadrant of right female breast COMPLETE BLOOD COUNT W/ DIFFERENTIAL Routine 06/13/2024 10:08 AM TERMINAL GAUGER SUPERVISOR Malignant neoplasm of lower-outer quadrant of right female breast US BREAST UPPER EXTREMITY LIMITED LEFT Routine 06/13/2024 9:58 AM TERMINAL GAUGER SUPERVISOR Malignant neoplasm of lower-outer quadrant of right female breast .CBC Routine 01/04/2024 11:48 AM CDT Adenosquamous cell carcinoma VITAMIN D 25 HYDROXY LEVEL Routine 01/04/2024 11:48 AM CDT Adenosquamous cell carcinoma LACTATE DEHYDROGENASE Routine 01/04/2024 11:48 AM CDT Adenosquamous cell carcinoma PHOSPHORUS LEVEL Routine 01/04/2024 11:4 8 AM CDT Adenosquamous cell carcinoma MAGNESIUM LEVEL Routine 01/04/2024 11:48 AM CDT Adenosquamous cell carcinoma COMPREHENSIVE METABOLIC PANEL Routine 01/04/2024 11:48 AM CDT Adenosquamous cell carcinoma COMPLETE BLOOD COUNT W/ DIFFERENTIAL Routine 01/04/2024 11:48 AM CDT Adenosquamous cell carcinoma US CHEST/INFRACLAV Routine 12/26/2023 10 :28 AM CDT Adenosquamous cell carcinoma US BREAST COMPLETE BILATERAL Routine 12/26/2023 10:28 AM CDT Adenosquamous cell carcinoma MAMMO DIGITAL DIAGNOSTIC BILATERAL W TRISTIN Routine 12/26/2023 9:47 AM CDT Adenosquamous cell carcinoma after 07/21/2023 Results * (ABNORMAL) .CBC (06/13/2024 10:08 AM TERMINAL GAUGER SUPERVISOR) Only the most recent of2 resultswithin the time period is included. Pathologist [facility] White Blood Cell 5.4 4.1 - 10.5 K/uL 06/13/2024 10:12 AM [facility] Red Blood Cell 3.58(L) 3.99 - 5.46 M/uL 06/13/2024 10:12 AM [facility] Hemoglobin 12.4 12.2 - 15.3 g/dL 06/13/2024 10:12 AM [facility] Hematocrit 36.3(L) 36.4 - 46.8 % 06/13/2024 10:12 AM [facility] Mean Cell Volume 101(H) 82 - 99 fL 06/13/2024 10:12 AM [facility] Mean Cell Hemoglobin 34.6(H) 26.6 - 33.2 pg 06/13/2024 10:12 AM [facility] Mean Cell Hemoglobin Concentration 34.2 31.1 - 35.2 g/dL 06/13/2024 10:12 AM [facility] RDW-SD 46.4 37.5 - 49.7 fL 06/13/2024 10:12 AM [facility] Red Cell Diameter Width 12.2 11.6 - 15.5 % 06/13/2024 10:12 AM [facility] Platelet 175 160 - 397 K/uL 06/13/2024 10:12 AM [facility] Mean Platelet Volume 10.0 9.1 - 12.6 fL 06/13/2024 10:12 AM [facility] Neutrophil % 55.5 43.2 - 72.7 % 06/13/2024 10:12 AM [facility] Lymphocyte % 34.8 16.8 - 46.2 % 06/13/2024 10:12 AM [facility] Monocyte % 8.7 5.1 - 12.5 % 06/13/2024 10:12 AM [facility] Eosinophil % 0.0(L) 0.4 - 6.3 % 06/13/2024 10:12 AM [facility] Basophil % 0.6 0.2 - 1.4 % 06/13/2024 10:12 AM [facility] IGRE % 0.4 0.1 - 1.5 % 06/13/2024 10:12 AM [facility] Comment:The IGRE% includes M etamyelocytes, Myelocytes and Promyelocytes. Neutrophil Abs 2.99 1.95 - 7.25 K/uL 06/13/2024 10:12 AM [facility] Lymphocyte Abs 1.87 1.01 - 3.24 K/uL 06/13/2024 10:12 AM [facility] Monocyte Abs 0.47 0.24 - 0.85 K/uL 06/13/2024 10:12 AM [facility] Eosinophil Abs 0.00(L) 0.02 - 0.50 K/uL 06/13/2024 10:12 AM [facility] Basophil Abs 0.03 0.02 - 0.09 K/uL 06/13/2024 10:12 AM [facility] IG Abs 0.02 0.01 - 0.12 K/uL 06/13/2024 10:12 AM [facility] Blood Peripheral blood specimen / Unknown Venipuncture / Unknown 06/13/2024 10:08 AM TERMINAL GAUGER SUPERVISOR 06/13/2024 10:08 AM TERMINAL GAUGER SUPERVISOR Veronica Kaur GEODETIC COMPUTATOR LAB BLOOD ORDERABLES Fi nal Result [facility] [address] [facility], [facility] [address] [place] [address] * Fractionated Bilirubin (06/13/2024 10:08 AM [facility]) Bilirubin Direct 0.1 0.0 - 0.2 mg/dL 06/13/2024 10:31 AM [facility] Comment:Indocyanine Green (I CG) may cause falsely elevated bilirubin results. Total and direct bilirubin must not be measured from samples containing indocyanine green. Bilirubin Indirect 0.3 0.0 - 1.0 mg/dL 06/13/2024 10:31 AM [facility] Bilirubin Total 0.4 0.0 - 1.2 mg/dL 06/13/2024 10:31 AM [facility] Comment: Indocyanine Green (ICG) may cause falsely elevated bilirubin results. Total and direct bilirubin must not be measured from samples containing indocyanine green. False elevation of total bilirubin can be seen in patients with IgG concentrations above 28 g/L. Indocyanine Green (ICG) may cause falsely elevated bilirubin results. Total and direct bilirubin must not be measured from samples containing indocyanine green. False elevation of total bilirubin can be seen in patients with IgG concentrations above 28 g/L. Blood Peripheral blood specimen / Unknown Venipuncture / Unknown 06/13/2024 10:08 AM TERMINAL GAUGER SUPERVISOR 06/13/2024 10:08 AM TERMINAL GAUGER SUPERVISOR us Veronica Kaur GEODETIC COMPUTATOR LAB BLOOD ORDERABLES Fi nal Result [address], [facility] [address] [place] [address] * (ABNORMAL) Comprehensive Metabolic Panel (06/13/2024 10:08 AM [facility]) Only the most recent of2 resultswithin the time period is included. Bilirubin Total 0.4 0.0 - 1.2 mg/dL 06/13/2024 10:31 AM [facility] Comment:Indocyanine Green (I CG) may cause falsely elevated bilirubin results. Total and direct bilirubin must not be measured from samples containing indocyanine green. False elevation of total bilirubin can be seen in patients with IgG concentrations above 28 g/L. eGFR 70 >=60 mL/min/1. 73 sq. m 06/13/2024 10:31 AM [facility] Comment: The eGFRcr is calculated with the [...] G2 fulfill criteria for CKD. Tot Protein 7.4 6.4 - 8.3 gm/dL 06/13/2024 10:31 AM [facility] Calcium Level Total 9.4 8.2 - 10.2 mg/dL 06/13/2024 10:31 AM [facility] Alkaline Phosphatase 53 35 - 104 U/L 06/13/2024 10:31 AM [facility] Albumin Level 4.0 3.5 - 5.2 gm/dL 06/13/2024 10:31 AM [facility] AST 19 <=32 U/L 06/13/2024 10:31 AM [facility] ALT 18 <=33 U/L 06/13/2024 10:31 AM [facility] Sodium Level 139 136 - 145 mmol/L 06/13/2024 10:31 AM [facility] Potassium Level 4.0 3.4 - 4.5 mmol/L 06/13/2024 10:31 AM [facility] Chloride 103 98 - 107 mmol/L 06/13/2024 10:31 AM [facility] CO2 26 22 - 29 mmol/L 06/13/2024 10:31 AM [facility] Anion Gap 10 4 - 14 mmol/L 06/13/2024 10:31 AM [facility] Creatinine 0.82 0.51 - 0.95 mg/dL 06/13/2024 10:31 AM [facility] BUN 23 6 - 23 mg/dL 06/13/2024 10:31 AM [facility] Glucose Level 100(H) 70 - 99 mg/dL 06/13/2024 10:31 AM [facility] Comment: Effective 01/28/16, the glucose reference intervals have been updated based on [place] [employer] guidelines (Standards of Medical Care in Diabetes 2016. Diabetes Care 2016; 39: S13-S22). Fasting blood glucose: Normal: 70-99 mg/dL Impaired fasting glucose (increased risk for diabetes or pre-diabetes): 100-125 mg/dL Diabetes mellitus: >/=126 mg/dL Random blood glucose: Normal: 70-199 mg/dL Note: Random glucose >100 mg/dL is associated with increased risk for diabetes. Blood Peripheral blood specimen / Unknown Venipuncture / Unknown 06/13/2024 10:08 AM TERMINAL GAUGER SUPERVISOR 06/13/2024 10:08 AM [facility] us Veronica Kaur GEODETIC COMPUTATOR LAB BLOOD ORDERABLES Fi nal Result [facility] [address] [facility], [facility] [address] [place] [address] * Vitamin D 25OH (06/13/2024 10:08 AM [facility]) Only the most recent of2 resultswithin the time period is included. Vitamin D 25 OH 79 30 - 100 ng/mL 06/13/2024 11:08 AM [facility] Blood Peripheral blood specimen / Unknown Venipuncture / Unknown 06/13/2024 10:08 AM TERMINAL GAUGER SUPERVISOR 06/13/2024 10:08 AM TERMINAL GAUGER SUPERVISOR Narrative [place] - 06/13/2024 11:08 AM TERMINAL GAUGER SUPERVISOR Reference Range: Deficiency: <=20 ng/mL Insufficiency: 21-29 ng/mL Sufficiency: 30-100 ng/mL Potential toxicity: >100 ng/mL Veronica Kaur GEODETIC COMPUTATOR LAB BLOOD ORDERABLES Fi nal Result [address] [address] * Uric Acid (06/13/2024 10:08 AM TERMINAL GAUGER SUPERVISOR) Uric Acid 5.0 2.4 - 5.7 mg/dL 06/13/2024 10:31 AM [facility] Blood Peripheral blood specimen / Unknown Venipuncture / Unknown 06/13/2024 10:08 AM TERMINAL GAUGER SUPERVISOR 06/13/2024 10:08 AM TERMINAL GAUGER SUPERVISOR us Veronica Kaur GEODETIC COMPUTATOR LAB BLOOD ORDERABLES Fi nal Result [address] [address] * Phosphorus Level (06/13/2024 10:08 AM TERMINAL GAUGER SUPERVISOR) Only the most recent of2 resultswithin the time period is included. Phosphorus Level 3.5 2.5 - 4.5 mg/dL 06/13/2024 10:31 AM [facility] Blood Peripheral blood specimen / Unknown Venipuncture / Unknown 06/13/2024 10:08 AM TERMINAL GAUGER SUPERVISOR 06/13/2024 10:08 AM TERMINAL GAUGER SUPERVISOR us MarcosVeronica Megan Kaur GEODETIC COMPUTATOR LAB BLOOD ORDERABLES Fi nal Result [address], [address] [address] * Magnesium Level (06/13/2024 10:08 AM TERMINAL GAUGER SUPERVISOR) Only the most recent of2 resultswithin the time period is included. Magnesium Level 1.7 1.6 - 2.6 mg/dL 06/13/2024 10:31 AM TERMINAL GAUGER SUPERVISOR [place] Blood Peripheral blood specimen / Unknown Venipuncture / Unknown 06/13/2024 10:08 AM TERMINAL GAUGER SUPERVISOR 06/13/2024 10:08 AM TERMINAL GAUGER SUPERVISOR Veronica Megan Kaur GEODETIC COMPUTATOR LAB BLOOD ORDERABLES Fi nal Result Performing Organization Address City/[facility]/ZIP Co de Phone Number [address], [address] [address] * LDH (06/13/2024 10:08 AM TERMINAL GAUGER SUPERVISOR) Only the most recent of2 resultswithin the time period is included. LDH 167 135 - 214 U/L 06/13/2024 10:31 AM [facility] Blood Peripheral blood specimen / Unknown Venipuncture / Unknown 06/13/2024 10:08 AM TERMINAL GAUGER SUPERVISOR 06/13/2024 10:08 AM TERMINAL GAUGER SUPERVISOR Narrative [place] - 06/13/2024 10:31 AM TERMINAL GAUGER SUPERVISOR Results greater than 1651 U/L may not be reliable due to matrix effect with extended dilution as it exceeds the book repairer's recommended limit. Caution should be exercised when interpreting such values and done in conjunction with clinical context. Veronica Megan Kaur GEODETIC COMPUTATOR LAB BLOOD ORDERABLES Fi nal Result [address], [address] [address] * US Breast Upper Extremity Limited Left (06/13/2024 9:58 AM TERMINAL GAUGER SUPERVISOR) Anatomical Region Laterality Modality Arm, Extremity Left Ultrasound Impressions 06/13/2024 10:22 AM TERMINAL GAUGER SUPERVISOR No suspicious sonographic findings identified. Overall BI-RAD Category: 2 - Benign Recommend return to annual screening mammography Narrative 06/13/2024 10:22 AM TERMINAL GAUGER SUPERVISOR CLINICAL INDICATION: Patient is a 83 y.o. female and is seen for breast ultrasound - breast / breast cancer dx. US Breast Upper Extremity Limited Left COMPARISON: No comparisons were made when reading this study. TECHNIQUE: Real-time sonographic imaging was performed on the following regions: left, axilla. Images were obtained in multiple scanning planes. FINDINGS: No suspicious sonographic findings identified. The prominent lymph node identified previously has slightly decreased in size, compatible with a reactive node given patient's history of ipsilateral vaccine. us Veronica Kaur APRN IMG US ORDERABLES Final Result * US Chest/Infraclav for Breast Ultrasound (Add-on Only) (12/26/2023 10:28 AM CDT) Anatomical Region Laterality Modality Chest Bilateral Ultrasound 12/26/2023 1:41 PM CDT Impressions 12/26/2023 1:41 PM CDT No sonographic evidence of malignancy. Couple of prominent left level I axillary lymph nodes are likely reactive, as above. Follow-up in 6 months is recommended. BI-RADS Category 3: Probably Benign Finding(s) Narrative 12/26/2023 1:41 PM CDT CLINICAL INDICATION: Patient is a 83 year old female and is seen for history of breast cancer FILMS COMPARED The present examination has been compared to prior imaging studies performed at [facility] on 12/24/2022 and 12/26/2023. Images were obtained in multiple scanning planes. Real-time sonographic imaging of both breasts (including all 4 quadrants and retroareolar region) was performed. Real time sonographic imaging of the left axilla was performed. Real-time sonographic imaging of the right regional juli basins including ultrasound of the chest/mediastinum to evaluate the axillary (level I,II,III) and internal mammary regions was performed. There are benign postsurgical changes in the right breast. Scattered benign cysts and fibrocystic changes are seen. In the left breast. No suspicious abnormality is seen in both breasts. Left Regional Juli Basins: Couple of prominent level I axillary lymph nodes are seen. The patient had tetanus shot in the left arm and "playful dog bite in the left arm" and these are likely reactive nodes. Right Regional Juli Basins: There is no abnormal lymph node at axillary levels I, II, axillary level III and internal mammary regions. Procedure Note Brad Dupont MD - 12/26/2023 CLINICAL INDICATION: Patient is a 83 year old female and is seen for history of breast cancer FILMS COMPARED The present examination has been compared [facility] [facility] 12[facility]26[facility]23. Images were obtained in multiple scanning planes. Real-time sonographic imaging of both breasts (including all 4 quadrantsand retroareolar region) was performed. Real time sonographic imaging of theleft axilla was performed. Real-time sonographic imaging of the right regionalnodal basins including ultrasound of the chest/mediastinum to evaluate theaxillary (level I,II,III) and internal mammary regions was performed. There are benign postsurgical changes in the right breast. Scatteredbenign cysts and fibrocystic changes are seen. In the left breast. Nosuspicious abnormality is seen in both breasts. Left Regional Juli Basins: Couple of prominent level I axillary lymphnodes are seen. The patient had tetanus shot in the left arm and "playful dogbite in the left arm" and these are likely reactive nodes. Right Regional Juli Basins: There is no abnormal lymph node ataxillary levels I, II, axillary level III and internal mammary regions. IMPRESSION: No sonographic evidence of malignancy. Couple of prominent left level I axillary lymph nodes are likely reactive, as above. Follow-up in 6 monthsis recommended. BI-RADS Category 3: Probably Benign Finding(s) us Michelle Dickens MD IMG US ORDERABLES Final Res ult * US Breast Complete Bilateral (12/26/2023 10:28 AM CDT) Anatomical Region Laterality Modality Breast Bilateral Ultrasound 12/26/2023 1:41 PM CDT Impressions 12/26/2023 1:41 PM CDT No sonographic evidence of malignancy. Couple of prominent left level I axillary lymph nodes are likely reactive, as above. Follow-up in 6 months is recommended. BI-RADS Category 3: Probably Benign Finding(s) Narrative 12/26/2023 1:41 PM CDT CLINICAL INDICATION: Patient is a 83 year old female and is seen for history of breast cancer FILMS COMPARED The present examination has been compared to prior imaging studies performed at [facility] on 12/24/2022 and 12/26/2023. Images were obtained in multiple scanning planes. Real-time sonographic imaging of both breasts (including all 4 quadrants and retroareolar region) was performed. Real time sonographic imaging of the left axilla was performed. Real-time sonographic imaging of the right regional juli basins including ultrasound of the chest/mediastinum to evaluate the axillary (level I,II,III) and internal mammary regions was performed. There are benign postsurgical changes in the right breast. Scattered benign cysts and fibrocystic changes are seen. In the left breast. No suspicious abnormality is seen in both breasts. Left Regional Juli Basins: Couple of prominent level I axillary lymph nodes are seen. The patient had tetanus shot in the left arm and "playful dog bite in the left arm" and these are likely reactive nodes. Right Regional Juli Basins: There is no abnormal lymph node at axillary levels I, II, axillary level III and internal mammary regions. Procedure Note Brad Dupont MD - 12/26/2023 CLINICAL INDICATION: Patient is a 83 year old female and is seen for history of breast cancer FILMS COMPARED The present examination has been compared to prior imaging [facility]per[facility] 12[facility]22 and 12/26/2023. Images were obtained in multiple scanning planes. Real-time sonographic imaging of both breasts (including all 4 quadrantsand retroareolar region) was performed. Real time sonographic imaging of theleft axilla was performed. Real-time sonographic imaging of the right regionalnodal basins including ultrasound of the chest/mediastinum to evaluate theaxillary (level I,II,III) and internal mammary regions was performed. There are benign postsurgical changes in the right breast. Scatteredbenign cysts and fibrocystic changes are seen. In the left breast. Nosuspicious abnormality is seen in both breasts. Left Regional Juli Basins: Couple of prominent level I axillary lymphnodes are seen. The patient had tetanus shot in the left arm and "playful dogbite in the left arm" and these are likely reactive nodes. Right Regional Juli Basins: There is no abnormal lymph node ataxillary levels I, II, axillary level III and internal mammary regions. IMPRESSION: No sonographic evidence of malignancy. Couple of prominent left level I axillary lymph nodes are likely reactive, as above. Follow-up in 6 monthsis recommended. BI-RADS Category 3: Probably Benign Finding(s) us Michelle Dickens MD IMG US ORDERABLES Final Res ult * Diagnostic Mammogram w Tristin - Bilateral (12/26/2023 9:47 AM CDT) Anatomical Region Laterality Modality Breast Bilateral Mammography 12/26/2023 1:17 PM CDT Impressions 12/26/2023 1:17 PM CDT There is no mammographic evidence of malignancy. The patient is scheduled for a same day ultrasound. Please, see the separate report. BI-RADS Category 2: Benign Finding(s) Narrative 12/26/2023 1:17 PM CDT CLINICAL INDICATION: Patient is a 83 year old female and is seen for history of breast cancer MAMMO DIGITAL DIAGNOSTIC BILATERAL W TRISTIN Digital Mammogram evaluated with Computer Aided Detection (CAD). COMPARISON: The present examination has been compared to prior imaging studies performed at an outside location on 01/30/2020 and 06/04/2020, and at [facility] on 12/22/2020, 12/23/2021 and 12/24/2022. FINDINGS: The breasts are heterogeneously dense, which may obscure small masses. There is a post-surgical scar in the right breast. Finding remains unchanged from the prior study. In the left breast, no dominant mass, distortion, or suspicious calcifications are identified. Tomosynthesis performed in and [facility] projections. Procedure Note Brad Dupont MD - 12/26/2023 CLINICAL INDICATION: Patient is a 83 year old female and is seen for history of breast cancer MAMMO DIGITAL DIAGNOSTIC BILATERAL W TRISTIN Digital Mammogram evaluated with Computer Aided Detection (CAD). COMPARISON: The present examination has been compared to prior imaging studiesperformed at an outside location on 01/30/2020 and 06/04/2020, and at [facility] on 12/22/2020, 12/23/2021 and 12/24/2022. FINDINGS: The breasts are heterogeneously dense, which may obscure small masses. There is a post-surgical scar in the right breast. Finding remainsunchanged from the prior study. In the left breast, no dominant mass, distortion, or suspiciouscalcifications are identified. Tomosynthesis performed in [facility] and [facility] projections. IMPRESSION: There is no mammographic evidence of malignancy. The patient is scheduledfor a same day ultrasound. Please, see the separate report. BI-RADS Category 2: Benign Finding(s) us Michelle Dickens MD IMG MAMMOGRAPHY ORDERABLES Final Result after 07/21/2023 Insurance [employer] MEDICARE ADVANTAGE [employer] [place] [address] Care Teams Group Home Manager Relationship Specialty Start Date End Date Morteza Buckner MD [email or web address] PCP - External Referring General Surgery 05/10/19 Lee Garrison MD [address] [place] [address] [id number] [email or web address] PCP - External Primary Care Provider Family Practice 05/10/19 Jo Romero MD [address] [place] [phone] [email or web address] PCP - General Surgical Oncology 06/18/19 Nicholas Blanchard MD [address] [place] [address] [phone] Physician Cardiology 07/06/19 Meeta Beaver [address] [facility] [place], [place] [id number] Physician Gastroenterology 07/06/19 Manolo Morrell MD [address] [place] [address] [phone] Physician Allergy 07/06/19 Michelle Beverly MD [address] [place] [phone] [email or web address] Consulting Physician Medical Oncology 07/27/19 Tim Pascal MD [facility] [place] [address] [email or web address] Consulting Physician Plastic and Reconstructive Surgery 07/16/19 Govind Noyola MD [address] [place] [address] [email or web address] Consulting Physician Radiation Oncology 07/27/19
--- NOTE | 2024-07-20 16:30 | RAD REPORT ---
EXAM: Chest Pa And Lat (2 Views) HISTORY: 83 years Female COUGH COMPARISON: 11/04/2023 FINDINGS: LUNGS/PLEURA: The lungs are clear. No pleural effusions or pneumothorax. No pulmonary edema. MEDIASTINUM: The mediastinal silhouette is within normal limits. CARDIAC: The cardiac silhouette is within normal limits. UPPER ABDOMEN: No significant abnormality. BONES: Sternotomy. No acute abnormality. Remote left rib fractures. LINES/TUBES/OTHER: N/A IMPRESSION: No evidence of acute cardiopulmonary disease.
--- NOTE | 2024-07-20 16:59 | EDPHYS ---
Physician Documentation [facility] Name: Yareli Beckham Age: 83 yrs Sex: Female : 1940 Arrival Date: 07/20/2024 Time: 15:33 Bed IW1 Private MD: ED Physician Hossein Frank HPI: 07/20 16:54 This 83 yrs old Female presents to ER via Ambulatory with complaints of COVID+. rn 16:54 The patient or guardian reports cough. Onset: The symptoms/episode began/occurred 4 rn day(s) ago. Severity of symptoms: At their worst the symptoms were very mild, in the emergency department the symptoms are unchanged. Modifying factors: The symptoms are alleviated by nothing, the symptoms are aggravated by nothing. The patient has experienced a previous episode. Patient reports tested positive for COVID. Has felt sick for the last few days. Reports nasal congestion and cough. No shortness of breath. No hemoptysis. No chronic lung problems. States came in for evaluation because she has had a cardiac bypass in knows she is in high risk. States had COVID 3 years ago and healed just fine.. Historical: - Allergies: 16:04 Augmentin; ss 16:04 PENICILLINS; ss 16:04 Pollen; ss - PMHx: 16:04 BREAST CA; Hypertensive disorder; Hyperlipidemia; Heart Murmur; Hypothyroidism; ss Lymphocytic/Collangenous Colitis; - PSHx: 16:04 triple heart bypass; ss - Immunization history:: Adult Immunizations unknown. - Infectious Disease History:: Denies. - Social history:: Smoking status: Patient denies any tobacco usage or history of. - Family history:: not pertinent. - Hospitalizations: : No recent hospitalization is reported. ROS: 16:54 Constitutional: Negative for fever, chills, and weight loss, Cardiovascular: Negative rn for chest pain, palpitations, and edema, Respiratory: Positive for cough, negative for shortness of breath Abdomen/GI: Negative for abdominal pain, nausea, vomiting, diarrhea, and constipation, MS/Extremity: Negative for injury and deformity, Skin: Negative for injury, rash, and discoloration, Neuro: Positive for generalized weakness Exam: 16:54 Constitutional: This is a well developed, well nourished patient who is awake, alert, rn and in no acute distress. Head/Face: Normocephalic, atraumatic. ENT: No stridor Cardiovascular: Regular rate and rhythm. No pulse deficits. Respiratory: No increased work of breathing, no retractions or nasal flaring. MS/ Extremity: Pulses equal, no cyanosis. Neuro: Awake and alert, GCS 15 Vital Signs: 16:00 BP 141 / 58; Pulse 82; Resp 15; Temp 97.8; Pulse Ox 99% ; ss 17:22 BP 138 / 56; Pulse 78; Resp 15; Pulse Ox 99% ; ko1 MDM: 15:57 Medical Screening Exam initiated rn 16:54 Differential Diagnosis: Bronchitis Influenza Upper Respiratory Infection Viral Syndrome rn Pneumonia Other COVID. Data reviewed: vital signs, nurses notes, radiologic studies, plain films, and as a result, I will discharge patient. Independent interpretation of the following test(s) in the Emergency Department X-Ray: My interpretation is Chest x-ray images negative for pneumonia or fluid per my interpretation.. Care significantly affected by the following chronic conditions: Hypertension. Counseling: I had a detailed discussion with the patient and/or guardian regarding the historical points, exam findings, and any diagnostic results supporting the discharge/admit diagnosis, radiology results, the need for outpatient follow up, to return to the emergency department if symptoms worsen or persist or if there are any questions or concerns that arise at home. Special discussion: I discussed with the patient/guardian in detail that at this point there is no indication for admission to the hospital. It is understood, however, that if the symptoms persist or worsen the patient needs to return immediately for re-evaluation. 07/20 15:57 Order name: XRAY Chest Pa And Lat (2 Views); Complete Time: 16:53 rn Administered Medications: No medications were administered Disposition Summary: 07/20/24 16:58 Discharge Ordered Notes: Location: Home rn Problem: new rn Symptoms: have improved rn Condition: Stable rn Diagnosis - SARS-associated coronavirus as the cause of diseases classified elsewhere rn Followup: rn - With: Private Physician - When: As needed - Reason: Recheck today's complaints, Re-evaluation by your physician Discharge Instructions: - Discharge Summary Sheet rn - COVID-19 rn - 10 Things You Can Do to Manage Your COVID-19 Symptoms at Home - [facility] (01/16/2021) rn - Viral Illness, Adult rn Forms: - Medication Reconciliation Form rn - Antibiotic angle furnaceman - Prescription Opioid Use rn - Patient Portal Instructions rn - Leadership Thank You Letter rn Signatures: Dispatcher [employer] Hossein Cosme MD MD rn Blanchard, Shelby, RN RN ss
--- NOTE | 2024-07-20 16:59 | ER ---
Nurse's Notes [facility] Name: Yareli Beckham Age: 83 yrs Sex: Female : 1940 Arrival Date: 07/20/2024 Time: 15:33 Bed IW1 Private MD: Diagnosis: SARS-associated coronavirus as the cause of diseases classified elsewhere Presentation: 07/20 16:00 Chief complaint: Patient states: tested positive for covid today, started feeling bad ss yesterday. fever, runny nose, congestion. Coronavirus screen: congestion, fever, runny nose, Client presents with at least one sign or symptom that may indicate coronavirus-19. Standard/surgical mask placed on the client. Ebola Screen: No symptoms or risks identified at this time. Initial Sepsis Screen: Does the patient meet any 2 criteria? No. Patient's initial sepsis screen is negative. Does the patient have a suspected source of infection? No. Patient's initial sepsis screen is negative. Risk Assessment: Do you want to hurt yourself or someone else? Patient reports no desire to harm self or others. Onset of symptoms was July 20, 2024. 16:00 Method Of Arrival: Ambulatory ss 16:00 Acuity: ANA 4 ss Triage Assessment: 16:04 General: Appears in no apparent distress. Behavior is calm, cooperative, appropriate ss for age. Pain: Denies pain. Historical: - Allergies: 16:04 Augmentin; ss 16:04 PENICILLINS; ss 16:04 Pollen; ss - PMHx: 16:04 BREAST CA; Hypertensive disorder; Hyperlipidemia; Heart Murmur; Hypothyroidism; ss Lymphocytic/Collangenous Colitis; - PSHx: 16:04 triple heart bypass; ss - Immunization history:: Adult Immunizations unknown. - Infectious Disease History:: Denies. - Social history:: Smoking status: Patient denies any tobacco usage or history of. - Family history:: not pertinent. - Hospitalizations: : No recent hospitalization is reported. Screenin:[address] [facility] ED Fall Risk Assessment (Adult) History of falling in the last 3 months, ko1 including since admission No falls in past 3 months (0 pts) Confusion or Disorientation No (0 pts) Intoxicated or Sedated No (0 pts) Impaired Gait No (0 pts) Mobility Assist Device Used No (0 pt) Altered Elimination No (0 pt) Score/Fall Risk Level 0 - 2 = Low Risk Oriented to surroundings, Maintained a safe environment, Educated pt \T\ family on fall prevention, incl call for assistance when getting out of bed, Assessed \T\ reinforced patient's understanding of fall precautions. Abuse screen: Denies threats or abuse. Denies injuries from another. Nutritional screening: No deficits noted. Tuberculosis screening: No symptoms or risk factors identified. Vital Signs: 16:00 BP 141 / 58; Pulse 82; Resp 15; Temp 97.8; Pulse Ox 99% ; ss 17:22 BP 138 / 56; Pulse 78; Resp 15; Pulse Ox 99% ; ko1 ED Course: 15:40 Patient arrived in ED. ra3 15:57 Hossein Frank MD is Attending Physician. rn 16:04 Triage completed. ss 16:04 Arm band placed on right wrist. Patient placed in waiting room, Patient notified of ss wait time. 16:19 XRAY Chest Pa And Lat (2 Views) In Process Unspecified. EDMS 17:22 Patient has correct armband on for positive identification. Provided Education on: [email or web address] 17:22 No provider procedures requiring assistance completed. Patient did not have IV access ko1 during this emergency room visit. Administered Medications: No medications were administered Medication: 17:22 VIS not applicable for this client. ko1 Outcome: 16:58 Discharge ordered by . rn 17:22 Discharged to home ambulatory, with family, ko1 17:22 Condition: stable 17:22 Discharge instructions given to patient, family, Instructed on discharge instructions, follow up and referral plans. Demonstrated understanding of instructions, follow-up care, 17:24 Patient left the ED. ko1 Signatures: Dispatcher [employer] EDMS Hossein Frank MD MD rn Blanchard, Shelby, RN RN ss Oliver, Kathy, RN RN ko1 Rsoana Watson ra3
[2024-07-20 17:31] VITALS: TEMP 97.8; O2SAT 99
[2024-07-20 17:32] VITALS: BP 138/56
== END 2024-07-20 17:24 | disposition home or self-care (01) ==
LOC: ER 15:33
DX: U07.1 COVID-19 (principal); Z95.1 Presence of aortocoronary bypass graft
CPT/HCPCS: 71046; 99282

== ENCOUNTER 2024-08-11 10:21 | Inpatient (IN) | payer OTHER ==
--- OUTSIDE RECORDS SUMMARY | 2024-08-11 10:25 | XMS REPORT | Clinical Summary ---
Author Name Unknown Organization [facility] Address [address] [place] [address] Care Team Providers Care Accountant Auditor Name Role Phone Morteza Buckner MD Unavailable [email or web address] Lee Garrison MD Unavailable [phone] Jo Romero MD Primary Care Provider [phone] Nicholas Blanchard MD Unavailable Meeta Beaver Unavailable Manolo Morrell MD Unavailable [phone] Michelle Beverly MD Unavailable Tim Pascal MD Unavailable Govind Noyola MD Unavailable Allergies Active Allergy Reactions Criticality Noted Date [...] 07/18/2019:No Stage Recommended(pT1c, cN0, cM0, G2, ER-, TN-, HER2-) - Signed by Michelle Beverly MD on 07/30/2019 Encounters Date Type Department Care Team Description 06/13/2024 1:40 PM AUTOMOTIVE PARTS COUNTER PERSON Follow-Up MD Nikolas [place] - Thoracic Medicine [address] [place] [address] Michelle Beverly MD Malignant neoplasm of lower-outer quadrant of right female breast 06/13/2024 10:30 AM AUTOMOTIVE PARTS COUNTER PERSON Ancillary Procedure MD Connor [address] [place] [address] Veronica Kaur APRN Malignant neoplasm of lower-outer quadrant of right female breast 06/13/2024 Travel 06/11/2024 Documentation Breast Imaging [address] [facility], 5th [place] [address] Cherelle Ayala, 05/29/2024 Orders Only MD Nikolas Barraza [address] [place] [address] Veronica Kaur APRN Malignant neoplasm of lower-outer quadrant of right female breast (Primary Dx) 01/04/2024 1:00 PM CDT Follow-Up [facility] - Thoracic Medicine [address] [place] [address] Michelle Beverly MD 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 Travel 12/26/2023 9:45 AM CDT Ancillary Procedure MD [place] [place] [address] [address] Michelle Beverly MD Adenosquamous cell carcinoma 12/26/2023 8:45 AM CDT Ancillary Procedure MD [place] [place] [address] [address] Michelle Beverly MD Adenosquamous cell carcinoma 12/26/2023 Travel after 08/12/2023 Immunizations Name Administration Dates Next Due Influenza, high dose, trivalent, preservative fr ee 04/03/2020 Moderna SARS-CoV-2 Vaccination 09/07/2020,2020 Pneumococcal Conjugate 13-Valent 08/18/2018 Surgical History Surgery Date Site/Laterality Comments TONSILLECTOMY 07/04/1947 - 07/03/1948 FOOT SURGERY 07/04/2000 - 07/03/2001 Right TN MASTECTOMY PARTIAL 07/18/2019 Right Procedure: SEGMENTAL MASTECTOMY - OTHER-POSTERIOR MARGIN EXCISION; Surgeon: Jo Romero MD; Location: [facility]; Service: BREAST TN BREAST RECONSTRUC W OTHR TECHNIQ 07/18/2019 Breast/Right Procedure: RECONSTRUCTION OF BREAST WITH OTHER TECHNIQUE-LOCAL TISSUE ADVANCEMENT; Surgeon: Tim Pascal MD; Location: [facility]; Service: PLS - PLASTIC SURGERY CORONARY ARTERY BYPASS GRAFT 08/04/2022 - 08/31/2022 Medical History Medical History Date Comments Arrhythmia occasional PVCs, pt evaluated by [employer] in 03/2019 and found to be "low [...] on file Legal Sex Female 3:34 PM AUTOMOTIVE PARTS COUNTER PERSON Gender Identity Not on file Sexual Orientation Not on file Obstetrics History Para Term AB IAB SAB Ectopic Multiple Livin g Live Births 0 0 0 1 Comments Did not breastfeed Last Filed Vital Signs Vital Sign Reading Time Taken Comments Blood Pressure 129/63 06/13/2024 10:59 AM AUTOMOTIVE PARTS COUNTER PERSON Pulse 60 06/13/2024 10:59 AM AUTOMOTIVE PARTS COUNTER PERSON Temperature 36.6 C (97.9 F) 06/13/2024 10:[address] Respiratory Rate 20 06/13/2024 10:59 AM AUTOMOTIVE PARTS COUNTER PERSON Oxygen Saturation 97% 06/13/2024 10:59 AM AUTOMOTIVE PARTS COUNTER PERSON Inhaled Oxygen Concentration - - Weight 59 kg (130 lb 1.1 oz) 06/13/2024 10:54 AM AUTOMOTIVE PARTS COUNTER PERSON Height 151.5 cm (4' 11.65") 06/13/2024 10:54 AM AUTOMOTIVE PARTS COUNTER PERSON Body Mass Index 25.71 06/13/2024 10:54 AM AUTOMOTIVE PARTS COUNTER PERSON Plan of Treatment Upcoming Encounters Date Type Department Care Team (Late st Contact Info) Description 12/27/2024 12:50 PM CDT Ancillary Procedure MD [facility] [place] [address] [facility] 2nd [place] [address] Veronica Kaur, SHIP PURSER [address] [place] [address] [email or web address] 12/27/2024 1:40 PM CDT Consult MD Nikolas [place] - Survivorship [address] [place] [address] Veronica Kaur, SHIP PURSER [address] [place] [address] 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 VITAMIN D 25 HYDROXY LEVEL Routine 06/13/2024 10:08 AM AUTOMOTIVE PARTS COUNTER PERSON Malignant neoplasm of lower-outer quadrant of right female breast URIC ACID Routine 06/13/2024 10:08 AM AUTOMOTIVE PARTS COUNTER PERSON Malignant neoplasm of lower-outer quadrant of right female breast PHOSPHORUS LEVEL Routine 06/13/2024 10:0 8 AM AUTOMOTIVE PARTS COUNTER PERSON Malignant neoplasm of lower-outer quadrant of right female breast MAGNESIUM LEVEL Routine 06/13/2024 10:08 AM AUTOMOTIVE PARTS COUNTER PERSON Malignant neoplasm of lower-outer quadrant of right female breast LACTATE DEHYDROGENASE Routine 06/13/2024 10:08 AM AUTOMOTIVE PARTS COUNTER PERSON Malignant neoplasm of lower-outer quadrant of right female breast FRACTIONATED BILIRUBIN Routine 10:08 AM AUTOMOTIVE PARTS COUNTER PERSON Malignant neoplasm of lower-outer quadrant of right female breast COMPREHENSIVE METABOLIC PANEL Routine 06/13/2024 10:08 AM AUTOMOTIVE PARTS COUNTER PERSON Malignant neoplasm of lower-outer quadrant of right female breast COMPLETE BLOOD COUNT W/ DIFFERENTIAL Routine 06/13/2024 10:08 AM AUTOMOTIVE PARTS COUNTER PERSON Malignant neoplasm of lower-outer quadrant of right female breast US BREAST UPPER EXTREMITY LIMITED LEFT Routine 06/13/2024 9:58 AM AUTOMOTIVE PARTS COUNTER PERSON Malignant neoplasm of lower-outer quadrant of right [...] 9:47 AM CDT Adenosquamous cell carcinoma after 08/12/2023 Results * (ABNORMAL) .CBC (06/13/2024 10:08 AM AUTOMOTIVE PARTS COUNTER PERSON) Only the most recent of2 resultswithin the time period is included. White Blood Cell 5.4 4.1 - 10.5 K/uL 06/13/2024 10:12 AM [facility] Red Blood Cell 3.58(L) 3.99 - 5.46 M/uL 06/13/2024 10:12 AM [facility] Hemoglobin 12.4 12.2 - 15.3 g/dL 06/13/2024 10:12 AM [facility] Hematocrit 36.3(L) 36.4 - 46.8 % 06/13/2024 10:12 AM [facility] Mean Cell Volume 101(H) 82 - 99 fL 06/13/2024 10:12 AM [facility] Mean Cell Hemoglobin 34.6(H) 26.6 - 33.2 pg 06/13/2024 10:12 AM [facility] Mean Cell Hemoglobin Concentration 34.2 31.1 - 35.2 g/dL 06/13/2024 10:12 AM [facility] RDW-SD 46.4 37.5 - 49.7 fL 06/13/2024 10:12 AM [facility] Red Cell Diameter Width 12.2 11.6 - 15.5 % 06/13/2024 10:12 AM [facility] Platelet 175 160 - 397 K/uL 06/13/2024 10:12 AM [facility] Mean Platelet Volume 10.0 9.1 - 12.6 fL 06/13/2024 10:12 AM [facility] Neutrophil % 55.5 43.2 - 72.7 % 06/13/2024 10:12 AM [facility] Lymphocyte % 34.8 16.8 - 46.2 % 06/13/2024 10:12 AM [facility] Monocyte % 8.7 5.1 - 12.5 % 06/13/2024 10:12 AM [facility] Eosinophil % 0.0(L) 0.4 - 6.3 % 06/13/2024 10:12 AM [facility] Basophil % 0.6 0.2 - 1.4 % 06/13/2024 10:12 AM [facility] IGRE % 0.4 0.1 - 1.5 % 06/13/2024 10:12 AM [facility] Comment:The IGRE% includes M etamyelocytes, Myelocytes and Promyelocytes. Neutrophil Abs 2.99 1.95 - 7.25 K/uL 06/13/2024 10:12 AM [facility] Lymphocyte Abs 1.87 1.01 - 3.24 K/uL 06/13/2024 10:12 AM [facility] Monocyte Abs 0.47 0.24 - 0.85 K/uL 06/13/2024 10:12 AM [facility] Eosinophil Abs 0.00(L) 0.02 - 0.50 K/uL 06/13/2024 10:12 AM [facility] Basophil Abs 0.03 0.02 - 0.09 K/uL 06/13/2024 10:12 AM [facility] IG Abs 0.02 0.01 - 0.12 K/uL 06/13/2024 10:12 AM [facility] Blood Peripheral blood specimen / Unknown Venipuncture / Unknown 06/13/2024 10:08 AM AUTOMOTIVE PARTS COUNTER PERSON 06/13/2024 10:08 AM AUTOMOTIVE PARTS COUNTER PERSON Veronica Kaur SHIP PURSER LAB BLOOD ORDERABLES Fi nal Result [address], [facility] [address] [place] [address] * Fractionated Bilirubin (06/13/2024 10:08 AM [facility]) Bilirubin Direct 0.1 0.0 - 0.2 mg/dL 06/13/2024 10:31 AM [facility] Comment:Indocyanine Green (I CG) may cause falsely elevated bilirubin results. Total and direct bilirubin must not be measured from samples containing indocyanine green. Bilirubin Indirect 0.3 0.0 - 1.0 mg/dL 06/13/2024 10:31 AM [facility] Bilirubin Total 0.4 0.0 - 1.2 mg/dL 06/13/2024 10:31 AM [facility] Comment: Indocyanine Green (ICG) may cause [...] Unknown Venipuncture / Unknown 06/13/2024 10:08 AM AUTOMOTIVE PARTS COUNTER PERSON 06/13/2024 10:08 AM AUTOMOTIVE PARTS COUNTER PERSON us Veronica Kaur SHIP PURSER LAB BLOOD ORDERABLES Fi nal Result [address], [facility] [address] [place] [address] * (ABNORMAL) Comprehensive Metabolic Panel (06/13/2024 10:08 AM AUTOMOTIVE PARTS COUNTER PERSON) Only the most recent of2 resultswithin the time period is included. Bilirubin Total 0.4 0.0 - 1.2 mg/dL 06/13/2024 10:31 AM [facility] Comment:Indocyanine Green (I CG) may cause falsely elevated bilirubin results. Total and direct bilirubin must not be measured from samples containing indocyanine green. False elevation of total bilirubin can be seen in patients with IgG concentrations above 28 g/L. eGFR 70 >=60 mL/min/1. 73 sq. m 06/13/2024 10:31 AM [facility] Comment: The eGFRcr is calculated with [...] 6.4 - 8.3 gm/dL 06/13/2024 10:31 AM [facility] Calcium Level Total 9.4 8.2 - 10.2 mg/dL 06/13/2024 10:31 AM [facility] Alkaline Phosphatase 53 35 - 104 U/L 06/13/2024 10:31 AM [facility] Albumin Level 4.0 3.5 - 5.2 gm/dL 06/13/2024 10:31 AM [facility] AST 19 <=32 U/L 06/13/2024 10:31 AM [facility] ALT 18 <=33 U/L 06/13/2024 10:31 AM [facility] Sodium Level 139 136 - 145 mmol/L 06/13/2024 10:31 AM [facility] Potassium Level 4.0 3.4 - 4.5 mmol/L 06/13/2024 10:31 AM [facility] Chloride 103 98 - 107 mmol/L 06/13/2024 10:31 AM [facility] CO2 26 22 - 29 mmol/L 06/13/2024 10:31 AM [facility] Anion Gap 10 4 - 14 mmol/L 06/13/2024 10:31 AM [facility] Creatinine 0.82 0.51 - 0.95 mg/dL 06/13/2024 10:31 AM [facility] BUN 23 6 - 23 mg/dL 06/13/2024 10:31 AM [facility] Glucose Level 100(H) 70 - 99 mg/dL 06/13/2024 10:31 AM [facility] Comment: Effective 01/28/16, the glucose reference intervals have been updated based on [employer] Diabetes Association guidelines (Standards of Medical Care [...] Unknown Venipuncture / Unknown 06/13/2024 10:08 AM AUTOMOTIVE PARTS COUNTER PERSON 06/13/2024 10:08 AM [facility] us Veronica Kaur SHIP PURSER LAB BLOOD ORDERABLES Fi nal Result [facility] [address] [facility], [facility] [address] [place] [address] * Vitamin D 25OH (06/13/2024 10:08 AM [facility]) Only the most recent of2 resultswithin the time period is included. Vitamin D 25 OH 79 30 - 100 ng/mL 06/13/2024 11:08 AM [facility] Blood Peripheral blood specimen / Unknown Venipuncture / Unknown 06/13/2024 10:08 AM AUTOMOTIVE PARTS COUNTER PERSON 06/13/2024 10:08 AM AUTOMOTIVE PARTS COUNTER PERSON Narrative [place] - 06/13/2024 11:08 AM AUTOMOTIVE PARTS COUNTER PERSON Reference Range: Deficiency: <=20 ng/mL Insufficiency: 21-29 ng/mL Sufficiency: 30-100 ng/mL Potential toxicity: >100 ng/mL Veronica Kaur SHIP PURSER LAB BLOOD ORDERABLES Fi nal Result [address], [address] [address] * Uric Acid (06/13/2024 10:08 AM AUTOMOTIVE PARTS COUNTER PERSON) Pathologist [facility] Uric Acid 5.0 2.4 - 5.7 mg/dL 06/13/2024 10:31 AM [facility] Blood Peripheral blood specimen / Unknown Venipuncture / Unknown 06/13/2024 10:08 AM AUTOMOTIVE PARTS COUNTER PERSON 06/13/2024 10:08 AM AUTOMOTIVE PARTS COUNTER PERSON Veronica Kaur SHIP PURSER LAB BLOOD ORDERABLES Fi nal Result [address] [address] * Phosphorus Level (06/13/2024 10:08 AM AUTOMOTIVE PARTS COUNTER PERSON) Only the most recent of2 resultswithin the time period is included. Phosphorus Level 3.5 2.5 - 4.5 mg/dL 06/13/2024 10:31 AM [facility] Blood Peripheral blood specimen / Unknown Venipuncture / Unknown 06/13/2024 10:08 AM AUTOMOTIVE PARTS COUNTER PERSON 06/13/2024 10:08 AM AUTOMOTIVE PARTS COUNTER PERSON Veronica Laogh Vincent SHIP PURSER LAB BLOOD ORDERABLES Fi nal Result [address], [address] [address] * Magnesium Level (06/13/2024 10:08 AM AUTOMOTIVE PARTS COUNTER PERSON) Only the most recent of2 resultswithin the time period is included. Magnesium Level 1.7 1.6 - 2.6 mg/dL 06/13/2024 10:31 AM [facility] Blood Peripheral blood specimen / Unknown Venipuncture / Unknown 06/13/2024 10:08 AM AUTOMOTIVE PARTS COUNTER PERSON 06/13/2024 10:08 AM AUTOMOTIVE PARTS COUNTER PERSON Veronica Kaur SHIP PURSER LAB BLOOD ORDERABLES Fi nal Result Performing Organization Address City/[facility]/ZIP Co de Phone Number [address] [address] * LDH (06/13/2024 10:08 AM AUTOMOTIVE PARTS COUNTER PERSON) Only the most recent of2 resultswithin the time period is included. LDH 167 135 - 214 U/L 06/13/2024 10:31 AM [facility] Blood Peripheral blood specimen / Unknown Venipuncture / Unknown 06/13/2024 10:08 AM AUTOMOTIVE PARTS COUNTER PERSON 06/13/2024 10:08 AM AUTOMOTIVE PARTS COUNTER PERSON Narrative [place] - 06/13/2024 10:31 AM AUTOMOTIVE PARTS COUNTER PERSON Results greater than 1651 U/L may not be reliable due to matrix effect with extended dilution as it exceeds the director microbiology's recommended limit. Caution should be exercised when interpreting such values and done in conjunction with clinical context. Veronicaapolinar Kaur SHIP PURSER LAB BLOOD ORDERABLES Fi nal Result [address], [address] [address] * US Breast Upper Extremity Limited Left (06/13/2024 9:58 AM AUTOMOTIVE PARTS COUNTER PERSON) Anatomical Region Laterality Modality Arm, Extremity Left Ultrasound Impressions 06/13/2024 10:22 AM AUTOMOTIVE PARTS COUNTER PERSON No suspicious sonographic findings identified. Overall BI-RAD Category: 2 - Benign Recommend return to annual screening mammography Narrative 06/13/2024 10:22 AM AUTOMOTIVE PARTS COUNTER PERSON CLINICAL INDICATION: Patient is a 83 y.o. [...] compared to prior imaging studies performed at [facility] on 12/24/2022 and 12/26/2023. Images were obtained [...] been compared to prior [facility] 12[facility]24[facility]2022 and 12/26/2023. Images were obtained [...] compared to prior imaging studies performed at [facility] on 12/24/2022 and 12/26/2023. Images were obtained [...] been compared to prior imaging studiesperformed at [facility] on 12/24/2022 and 12/26/2023. Images were obtained [...] location on 01/30/2020 and 06/04/2020, and at [facility] [place] on 12/22/2020, 12/23/2021 and 12/24/2022. FINDINGS: The breasts are heterogeneously dense, which may obscure small masses. There is a post-surgical scar in the right breast. Finding remains unchanged from the prior study. In the left breast, no dominant mass, distortion, or suspicious calcifications are identified. Tomosynthesis performed in CC and MLO projections. Procedure Note Brad Dupont MD - 12/26/2023 CLINICAL INDICATION: Patient is a 83 year old female and is seen for history of breast cancer MAMMO DIGITAL DIAGNOSTIC BILATERAL W TRISTIN Digital Mammogram evaluated with Computer Aided Detection (CAD). COMPARISON: The present examination has been compared to prior imaging studiesperformed at an outside location on 01/30/2020 and 06/04/2020, and at [facility] on 12/22/2020, 12/23/2021 and 12/24/2022. [...] separate report. BI-RADS Category 2: Benign Finding(s) Michelle Dickens MD IMG MAMMOGRAPHY ORDERABLES Final Result after 08/12/2023 Insurance UHC MEDICARE ADVANTAGE UHC MEDICARE ADVANTAGE Member Subscriber Plan / Payer (Ef fective 2020-Present) Name:Yareli Beckham Relation to Subscriber:Self Name:Yareli Beckham Payer ID:[id number] (NAIC) Type:Medicare Address: [id number] [place] [address] Care Teams Accountant Auditor Relationship Specialty Start Date End Date Morteza Buckner MD [email or web address] PCP - External Referring General Surgery 05/10/19 Lee Garrison MD [address] [place] [id number] juan PCP - External Primary Care Provider Family Practice 05/10/19 Jo Romero MD [address] [place] [address] [id number] [email or web address] PCP - General Surgical Oncology 06/18/19 Nicholas Blanchard MD [address] [place] [address] [phone] Physician Cardiology 07/06/19 Meeta Beaver [address] [facility] [place], [place] [address] Physician Gastroenterology 07/06/19 Manolo Morrell MD [address] [place] [address] Physician Allergy 07/06/19 Michelle Beverly MD [address] [place] [phone] [email or web address] Consulting Physician Medical Oncology 07/27/19 Tim Pascal MD [address] [place] [phone] [email or web address] Consulting Physician Plastic and Reconstructive Surgery 07/16/19 [place] [address] [place] [phone] [email or web address] Consulting Physician Radiation Oncology 07/27/19
[2024-08-11 10:50] LABS: Absolute Lymphocytes (CBC) 1.3 K/uL (0.7-4.9); Absolute Monocytes 0.5 K/uL (0.1-1.3); Absolute Neutrophil 4.8 K/uL (1.8-8.0); Basophils % 0.6 % (0-1.3); Hemoglobin 12.9 g/dL (12.0-15.0); Lymphocytes % 20.1 % (15.3-44.8); MCH 34.3 pg (27.0-35.0); MCHC 34.8 g/dL (32.0-36.0); MCV 98.7 fL (80-100); MPV 7.8 fL (7.6-11.3); Monocytes % 7.3 % (3.3-12.3); Nucleated Red Blood Cells % 0.1 % (0-0); Platelets 225 thou/uL (152-406); RBC Red Blood Cell Count 3.75 M/uL (3.86-4.86); Red Cell Distribution Width 12.8 % (12.1-15.2)
[2024-08-11] MEDS ORDERED: ASPIRIN 81 MG CHEWABLE TABLET ONE (11:05)
[2024-08-11 11:06] LABS: PT Prothrombin Time 12.6 SECONDS (9.4-12.5); Protime INR 1.2
--- NOTE | 2024-08-11 11:07 | RAD REPORT ---
EXAM: Chest Single View HISTORY: CHEST PAIN COMPARISON: 07/20/2024 FINDINGS: LUNGS/PLEURA: The lungs are clear. No pleural effusions or pneumothorax. No pulmonary edema. MEDIASTINUM: The mediastinal silhouette is within normal limits. CARDIAC: The cardiac silhouette is within normal limits. UPPER ABDOMEN: No significant abnormality. BONES: No acute abnormality. Sternotomy. LINES/TUBES/OTHER: N/A IMPRESSION: No evidence of acute cardiopulmonary disease.
[2024-08-11 11:14] LABS: Albumin 3.5 g/dL (3.4-5.0); Albumin/Globulin Ratio 0.8 (1.1-1.8); Anion Gap 8.8 mEq/L (5.0-15.0); Bilirubin Direct 0.2 mg/dL (0-0.2); Bilirubin Indirect, Calculated 0.5 mg/dL (0.2-0.8); Bilirubin Total 0.7 mg/dL (0.2-1.0); Globulin 4.2 g/dL (2.3-3.5); Magnesium 1.6 mg/dL (1.6-2.4); Potassium 3.8 mEq/L (3.5-5.1); Protein, Total 7.7 g/dL (6.4-8.2); Troponin High Sensitivity 9.1 pg/mL (<58.9)
--- NOTE | 2024-08-11 11:24 | EDPHYS ---
Physician Documentation [facility] Name: Yareli Beckham Age: 83 yrs Sex: Female : 1940 Arrival Date: 08/11/2024 Time: 10:21 Bed 5 Private MD: ED Physician Bradley Javed HPI: 08/11 10:34 This 83 yrs old Female presents to ER via Ambulatory with complaints of Chest Pain, sb4 Back Pain. 10:34 The patient or guardian reports chest pain that is located primarily in the substernal sb4 area. The pain radiates to back. Associated signs and symptoms: The patient has no apparent associated signs or symptoms. The chest pain is described as a heaviness. Duration: The patient or guardian reports multiple episodes, with no pattern. Historical: - Allergies: 10:33 Augmentin; hb 10:33 PENICILLINS; hb 10:33 Pollen; hb - PMHx: 10:33 Hyperlipidemia; Hypothyroidism; Heart Murmur; BREAST CA; Hypertensive disorder; hb Lymphocytic/Collangenous Colitis; - PSHx: 10:33 triple heart bypass; hb - Immunization history:: Adult Immunizations up to date. - Infectious Disease History:: Denies. - Social history:: Smoking status: Patient denies any tobacco usage or history of. ROS: 10:35 Constitutional: Negative for fever, chills, and weight loss, sb4 10:35 Cardiovascular: Positive for chest pain, 10:35 Back: Positive for radiated pain, 10:35 All other systems are negative, Exam: 10:35 Constitutional: This is a well developed, well nourished patient who is awake, alert, sb4 and in no acute distress. Head/Face: Normocephalic, atraumatic. Eyes: Extra-ocular motions intact. Periorbital areas with no swelling, redness, or edema. ENT: Mucous membranes moist. Cardiovascular: Regular rate and rhythm with a normal S1 and S2. Respiratory: No increased work of breathing, no retractions or nasal flaring. Abdomen/GI: Soft, non-tender, no distension. Skin: Warm, dry with normal turgor. Normal color with no rashes, no lesions, and no evidence of cellulitis. Neuro: Awake and alert, GCS 15, oriented to person, place, time, and situation. Motor strength 5/5 in all extremities. Sensory grossly intact. Vital Signs: 10:31 BP 172 / 56; Pulse 61; Resp 16; Temp 98.1; Pulse Ox 100% ; Pain 4/10; hb 11:00 BP 133 / 52; Pulse 56; Resp 15; Pulse Ox 100% on R/A; cm10 12:30 BP 133 / 50; Pulse 61; Resp 15; Pulse Ox 98% ; cm10 13:15 BP 135 / 87; Pulse 62; Resp 16; Pulse Ox 98% on R/A; cm10 10:31 Pain Scale: Adult hb MDM: 10:27 Medical Screening Exam initiated sb4 10:36 The patient was given aspirin in the Emergency Department. Data reviewed: vital signs, sb4 nurses notes, lab test result(s), EKG, radiologic studies. Scoring Tools HEART Score: History: ECG: Age: Risk Factors: > or = 3 Risk factors for atherosclerotic disease (2), Troponin: Total Score = 6. 11:23 Counseling: I had a detailed discussion with the patient and/or guardian regarding the sb4 historical points, exam findings, and any diagnostic results supporting the discharge/admit diagnosis, lab results, radiology results, the need for further work-up and treatment in the hospital. 08/11 10:33 Order name: Basic Metabolic Panel; Complete Time: 11:14 sb4 08/11 10:33 Order name: CBC with Diff; Complete Time: 10:56 sb4 08/11 10:33 Order name: LFT's; Complete Time: 11:14 sb4 08/11 10:33 Order name: Magnesium; Complete Time: 11:14 sb4 08/11 10:33 Order name: NT PRO-BNP; Complete Time: 11:14 sb4 08/11 10:33 Order name: PT-INR; Complete Time: 11:08 sb4 08/11 10:33 Order name: Troponin HS; Complete Time: 11:14 sb4 08/11 11:16 Order name: Osmolality, Serum; Complete Time: 12:50 sb4 08/11 11:16 Order name: Urine Osmolality; Complete Time: 12:50 sb4 08/11 11:16 Order name: Urine Sodium Random; Complete Time: 12:24 sb4 08/11 12:18 Order name: Basic Metabolic Panel [facility] 08/11 12:18 Order name: Basic Metabolic Panel EDNM 08/11 12:18 Order name: Basic Metabolic Panel EDMS 08/11 12:18 Order name: CBC with Automated Diff EDMS 08/11 12:18 Order name: CBC with Automated Diff EDMS 08/11 12:18 Order name: CBC with Automated Diff EDMS 08/11 12:18 Order name: Magnesium EDMS 08/11 12:18 Order name: Magnesium EDMS 08/11 12:18 Order name: Magnesium EDMS 08/11 12:18 Order name: Phosphorus EDMS 08/11 12:18 Order name: Phosphorus EDMS 08/11 12:18 Order name: Phosphorus EDMS 08/11 12:18 Order name: Troponin High Sensitivity EDMS 08/11 12:18 Order name: Troponin High Sensitivity EDMS 08/11 12:18 Order name: Troponin High Sensitivity EDMS 08/11 10:33 Order name: XRAY Chest (1 view); Complete Time: 11:08 sb4 08/11 14:05 Order name: CT; Complete Time: 14:05 EDMS 08/11 10:33 Order name: EKG; Complete Time: 10:34 sb4 08/11 10:33 Order name: Cardiac monitoring; Complete Time: 10:45 sb4 08/11 10:33 Order name: EKG - Nurse/Tech; Complete Time: 10:45 sb4 08/11 10:33 Order name: IV Saline Lock; Complete Time: 10:45 sb4 08/11 10:33 Order name: Labs collected and sent; Complete Time: 10:45 sb4 08/11 10:33 Order name: O2 Per Protocol; Complete Time: 10:52 sb4 08/11 10:33 Order name: O2 Sat Monitoring; Complete Time: 10:52 sb4 EC:35 Rate is 61 beats/min. Rhythm is regular, Normal Sinus Rhythm. RI interval is normal at sb4 184 msec. QRS interval is normal at 86 msec. QT interval is normal at 428 msec. No Q waves. T waves are Normal. No ST changes noted. Clinical impression: No evidence of ischemia. Interpreted by me. Reviewed by me. Administered Medications: 11:11 Drug: Aspirin PO Chewable Tablet 162 mg PO once Route: PO; cm10 11:42 Follow up: Response: No adverse reaction cm10 Disposition Summary: 08/11/24 11:23 Hospitalization Ordered Notes: Hospitalization Status: Observation sb4 Provider: Yung Murrell sb4 Location: Telemetry/MedSurg (observation) sb4 Condition: Fair sb4 Problem: new sb4 Symptoms: are unchanged sb4 Bed/Room Type: Standard sb4 Room Assignment: 419(08/11/24 12:20) eb Diagnosis - Chest pain, unspecified sb4 - Hypo-osmolality and hyponatremia sb4 Forms: - Medication Reconciliation Form sb4 - SBAR form sb4 - Leadership Thank You Letter sb4 Addendum: 08/15/2024 05:14 I was immediately available for consultation during this patient's visit. I did not e c2 personally see the patient or discuss the patient with the VIDA. . Signatures: Dispatcher [employer] Marian Ross RN RN hb Botello, Elizabeth eb Brown, Sophia, PAOsitoC LUIS M sb4 Kaylie Buckner RN RN cm10 Bradley Javed MD MD ec2 Corrections: (The following items were deleted from the chart) 08/11 12:20 11:23 sb4 eb
--- NOTE | 2024-08-11 11:24 | ER ---
Nurse's Notes [facility] Name: Yareli Beckham Age: 83 yrs Sex: Female : 1940 Arrival Date: 08/11/2024 Time: 10:21 Bed 5 Private MD: Diagnosis: Chest pain, unspecified;Hypo-osmolality and hyponatremia Presentation: 08/11 10:31 Chief complaint: Intermittent chest pressure that radiates to back x 1 week. hb Coronavirus screen: At this time, the client does not indicate any symptoms associated with coronavirus-19. Ebola Screen: No symptoms or risks identified at this time. Initial Sepsis Screen: Does the patient meet any 2 criteria? No. Patient's initial sepsis screen is negative. Does the patient have a suspected source of infection? No. Patient's initial sepsis screen is negative. Risk Assessment: Do you want to hurt yourself or someone else? Patient reports no desire to harm self or others. Onset of symptoms was August 04, 2024. 10:31 Method Of Arrival: Ambulatory hb 10:31 Acuity: ANA 2 hb Historical: - Allergies: 10:33 Augmentin; hb 10:33 PENICILLINS; hb 10:33 Pollen; hb - PMHx: 10:33 Hyperlipidemia; Hypothyroidism; Heart Murmur; BREAST CA; Hypertensive disorder; hb Lymphocytic/Collangenous Colitis; - PSHx: 10:33 triple heart bypass; hb - Immunization history:: Adult Immunizations up to date. - Infectious Disease History:: Denies. - Social history:: Smoking status: Patient denies any tobacco usage or history of. Screenin:13 [facility] ED Fall Risk Assessment (Adult) History of falling in the last 3 months, cm10 including since admission No falls in past 3 months (0 pts) Confusion or Disorientation No (0 pts) Intoxicated or Sedated No (0 pts) Impaired Gait No (0 pts) Mobility Assist Device Used No (0 pt) Altered Elimination No (0 pt) Score/Fall Risk Level 0 - 2 = Low Risk Oriented to surroundings, Maintained a safe environment, Hourly rounding (assess needs \T\ fall precautionary measures) done. Abuse screen: Denies threats or abuse. Denies injuries from another. Nutritional screening: No deficits noted. Tuberculosis screening: No symptoms or risk factors identified. Assessment: 11:11 General: Appears in no apparent distress. comfortable, Behavior is calm, cooperative. cm10 Pain: Complains of pain in chest Pain radiates to back Pain currently is 3 out of 10 on a pain scale. Quality of pain is described as pressure, Pain began 1 week eduardo Is intermittent. Neuro: No deficits noted. Level of Consciousness is awake, alert, obeys commands, Oriented to person, place, time, situation, Appropriate for age. Cardiovascular: No deficits noted. Patient's skin is warm and dry. Rhythm is sinus bradycardia. Respiratory: No deficits noted. Airway is patent Respiratory effort is even, unlabored, Respiratory pattern is regular, symmetrical. Musculoskeletal: Range of motion: intact in all extremities. 13:00 Reassessment: Patient appears in no apparent distress at this time. Patient and/or cm10 family updated on plan of care and expected duration. Pain level reassessed. Patient is alert, oriented x 3, equal unlabored respirations, skin warm/dry/pink. Vital Signs: 10:31 BP 172 / 56; Pulse 61; Resp 16; Temp 98.1; Pulse Ox 100% ; Pain 4/10; hb 11:00 BP 133 / 52; Pulse 56; Resp 15; Pulse Ox 100% on R/A; cm10 12:30 BP 133 / 50; Pulse 61; Resp 15; Pulse Ox 98% ; cm10 13:15 BP 135 / 87; Pulse 62; Resp 16; Pulse Ox 98% on R/A; cm10 10:31 Pain Scale: Adult hb ED Course: 10:24 Patient arrived in ED. mr 10:24 [facility] sb[facility] 10:24 Bradley Javed MD is Attending Physician. sb4 10:32 Carla Stephenson, SHIRLEY is Primary Nurse. kc6 10:32 Triage completed. hb 10:33 Arm band placed on. hb 10:33 Client placed on continuous cardiac and pulse oximetry monitoring. NIBP monitoring hb applied. property assessment monitor on. Pulse ox on. NIBP on. 10:33 EKG done, by ED staff. hb 10:45 Initial lab(s) drawn, by me, sent to lab. EKG done, by ED staff, reviewed by Herlinda Block PA-C. Inserted saline lock: 20 gauge in right antecubital area, using aseptic technique. Blood collected. Flushed with 10 mL NS. 10:57 XRAY Chest (1 view) In Process Unspecified. EDMS 11:11 Kaylie Buckner, RN is Primary Nurse. cm10 11:14 Patient has correct armband on for positive identification. Bed in low position. Call cm10 light in reach. Side rails up X2. Provided Education on: ER process and procedures.. 11:23 Yung Murrell is Hospitalizing Provider. sb4 13:36 Assisted to bathroom. kc6 13:43 No provider procedures requiring assistance completed. Patient admitted, IV remains in cm10 place. Patient maintains SpO2 saturation greater than 95% on room air. Administered Medications: 11:11 Drug: Aspirin PO Chewable Tablet 162 mg PO once Route: PO; cm10 11:42 Follow up: Response: No adverse reaction cm10 Medication: 11:13 VIS not applicable for this client. cm10 Outcome: 11:23 Decision to Hospitalize by Provider. sb4 13:42 Admitted to Tele accompanied by tech, via wheelchair, room 419, cm10 13:42 Condition: good 13:42 Instructed on the need for admit, 14:07 Patient left the ED. cm10 Signatures: Dispatcher [employer] EDMS Brennan Krystle, Reg Reg mr Marian Wyatt, RN RN Carla Beckford RN RN [email or web address] Herlinda Block PAMalini PA-C sb4 Kaylie Buckner, RN RN cm10 Amna Avila kb4 Corrections: (The following items were deleted from the chart) 11:13 11:11 Cardiovascular: No deficits noted. Patient's skin is warm and dry. Rhythm is cm10 regular cm10
--- NOTE | 2024-08-11 11:45 | P.HP ---
Certification for Inpatient Patient admitted to: Observation With expected LOS: <2 Midnights Patient will require the following post-hospital care: None Practitioner: I am a practitioner with admitting privileges, knowledge of patient current condition, hospital course, and medical plan of care. Services: Services provided to patient in accordance with Admission requirements found in Title 42 Section 412.3 of the Code of Federal Regulations Patient History Date of Service: 08/11/24 Reason for admission: Chest pain r/o SC History of Present Illness: Yareli Beckham is an 83 year old female with Pmhx Hyperlipidemia, Hypothyroidism, Heart Murmur, BREAST CA, Hypertensive disorder, Lymphocytic/Collangenous Colitis, CAD (CABG) who presents to the ED with Back pain that radiates to the chest with heaviness that has occurred multiple times this week. She reports her chest pain is different from 2 years ago presented as GERD and requiring a CABG. Initial vitals BP 172 / 56; Pulse 61. Laboratory evaluation sodium 129, serum osmolality 269, serum glucose 115, BNP 640. Chest x-ray report "No evidence of acute cardiopulmonary disease". Yareli will be admitted to hospitalist service for further evaluation of chest pain and hyponatremia, Dr. Enrique has been consulted. Allergies Penicillins Allergy (Verified 04/11/19 09:17) Rash Home Medications: Amlodipine [Norvasc] 5 mg PO DAILY 08/11/24 Aspirin Chewable [Aspirin Chewable*] 1 tab PO DAILY 08/11/24 Atorvastatin Calcium 40 mg PO BEDTIME 08/11/24 Carvedilol [Coreg] 1 tab PO DAILY 08/11/24 Cholecalciferol (Vitamin D3) [Vitamin D3] 125 mcg PO DAILY 08/11/24 Clopidogrel Bisulfate [Plavix*] 1 tab PO DAILY 08/11/24 Cyanocobalamin (Vitamin B-12) [Vitamin B-12] 1,000 mcg PO DAILY 08/11/24 Lactobacillus Acidophilus [Acidophilus] 1 each PO DAILY 08/11/24 Levothyroxine Sodium 50 mcg PO SEECOM 08/11/24 Levothyroxine Sodium 75 mcg PO SEECOM 08/11/24 Losartan Potassium [Cozaar] 50 mg PO DAILY 08/11/24 Magnesium Glycinate 200 mg PO BEDTIME 08/11/24 Mesalamine 2 tab PO BID 08/11/24 Multivit-Min/Iron/Folic/Lutein [Centrum Silver Women Tablet] 1 tab PO DAILY 08/11/24 Pantoprazole [Protonix Tab*] 1 tab PO DAILY 08/11/24 Potassium Citrate [Potassium] 99 mg PO DAILY 08/11/24 Simethicone [Gas-X] 125 mg PO DAILY 08/11/24 Simethicone [Gas-X] 125 mg PO DAILY 6PM 08/11/24 Vit A,C & E/Lutein/Minerals [Ocuvite Tablet] 1 tab PO DAILY 08/11/24 Zinc Amino Acid Chelate [Zinc] 50 mg PO DAILY 08/11/24 hydroCHLOROthiazide [Hydrochlorothiazide] 25 mg PO DAILY 08/11/24 - Past Medical/Surgical History Diabetic: No -: Hypertension -: skin cancer -: Hyperlipidemia -: CAD -: Breast cancer -: Hypothyroidism -: Lymphocytic/Collangenous Colitis -: Heart murmur -: tonsilectomy -: right heel sx.,bone spur -: Three-vessel bypass - Family History Mother -: Heart disease, Lung disease Father -: Heart disease, Lung disease - Social History Smoking Status: Never smoker Alcohol use: Yes CD- Drugs: No Caffeine use: No Review of Systems Other: per HPI Physical Examination - Physical Exam General: Alert, In no apparent distress, Oriented x3 HEENT: Atraumatic, Normocephalic, PERRLA Neck: Supple, 2+ carotid pulse no bruit Respiratory: Clear to auscultation bilaterally, Normal air movement Cardiovascular: Normal pulses, Regular rate/rhythm, Normal S1 S2 Capillary refill: <2 Seconds Gastrointestinal: Normal bowel sounds, Soft and benign - Studies Laboratory Data (last 24 hrs) 08/11/24 08/11/24 08/11/24 10:42 10:42 10:42 WBC 6.70 Hgb 12.9 Hct 37.0 Plt Count 225 PT 12.6 H INR 1.20 Sodium 129 L Potassium 3.8 BUN 23 H Creatinine 0.99 Glucose 115 H Magnesium 1.6 Total Bilirubin 0.7 AST 19 ALT 28 Alkaline Phosphatase 54 Assessment and Plan - Plan Assessment and plan Chest pain rule out CAD status post CABG Remote left sided rib fracture - EKG: No obvious ST segment changes - troponin 9.1, Serial pending - Ordered transthoracic echocardiogram - chest x-ray "No evidence of acute cardiopulmonary disease." - CT chest reports "No evidence of pulmonary emboli to the subsegmental level. Lungs are clear. remote left-sided rib fractures." - Consult Cardiology - recommendations appreciated - S/P aspirin 324 mg PO x 1 in ED - Start daily baby aspirin and statin - Symptom control with PRN acetaminophen, nitroglycerin, morphine -continuous telemetry -TSH/FreeT4, A1C, lipid panel pending -Heart score 5, significant heart history, weight based lovenox Q12h Hyponatremia -Sodium 129, serum osmolality 269, urine osmolality 471, UR random sodium 103 -Gentle IV fluid Hyperglycemia -Serum glucose 115 -Monitor in a.m. labs -A1C in the AM HLD/HTN Hypothyroidism Breast cancer Lymphocytic/Collangenous colitits -Continue home medication -Follow-up outpatient DVT ppx lovenox Full code LOS 24 hour OBS Discharge Plan: Home Plan to discharge in: 24 Hours - Advance Directives Does patient have a Living Will: Yes Does patient have a Durable POA for Healthcare: No
[2024-08-11] MEDS ORDERED: MORPHINE 2 MG/ML SYR IV PRN (12:10)
[2024-08-11] MEDS ORDERED: NITROGLYCERIN 0.4 MG/TAB SL PRN (12:10)
[2024-08-11] MEDS ORDERED: ACETAMINOPHEN 325 MG TABLET PO PRN (12:10)
[2024-08-11] MEDS ORDERED: MORPHINE 4 MG/ML SYR IV PRN (12:50)
--- NOTE | 2024-08-11 14:04 | RAD REPORT ---
EXAMINATION: CTA CHEST PE CLINICAL INDICATION: Female, 83 years old. Back and chest pain TECHNIQUE: This examination was performed according to an angiographic protocol with 3D post-processi ng. This involves 3D reconstructions, MIPs, volume rendered images and/or shaded surface rendering. One or more of the following dose reduction techniques were used: Automated exposure control, adjustm ent of the mA and/or kV according to patient size, and/or iterative reconstruction. Unless otherwise specified, incidental findings do not require dedicated imaging follow-up. [id number]. COMPARISON: Same day chest radiograph. FINDINGS: LOWER NECK: Visualized thyroid gland and soft tissues are normal. LUNGS AND AIRWAYS: Airways are clear. No evidence of airspace or interstitial process.No suspicious a nd/or stable pulmonary nodules. PLEURA: No pleural effusion. No pneumothorax. Hemidiaphragms are normally positioned. MEDIASTINUM AND LYMPH NODES: No mediastinal mass or fluid collection. Normal size mediastinal, hilar, and axillary lymph nodes. THORACIC AORTA: No thoracic aortic aneurysm. PULMONARY ARTERIES: Caliber is within normal limits. HEART: Normal heart size. Coronary arterial calcifications are present.No significant pericardial eff usion. OSSEOUS STRUCTURES AND CHEST WALL: No fracture or suspicious osseous lesions. Sternotomy. Remote left -sided rib fractures. UPPER ABDOMEN: No acute abnormalities.Benign appearing low density liver lesions. IMPRESSION: No evidence of pulmonary emboli to the subsegmental level. Lungs are clear.
[2024-08-11] MEDS: NA CHLORIDE 0.9% 1,000 ML IV SCH (14:44)
[2024-08-11 15:07] VITALS: BMI 25.4
[2024-08-11] MEDS: ATORVASTATIN 40 MG TAB PO SCH (20:22)
[2024-08-11] MEDS: ENOXAPARIN 60 MG/0.6 ML SQ SCH (21:32)
[2024-08-11] MEDS: carvediloL 25 MG TAB PO ONE (21:52)
[2024-08-12 06:53] LABS: Absolute Monocytes 0.6 K/uL (0.1-1.3); Absolute Neutrophil 2.2 K/uL (1.8-8.0); Basophils % 0.7 % (0-1.3); Hemoglobin 11.1 g/dL (12.0-15.0); Lymphocytes % 41.4 % (15.3-44.8); MCH 34.3 pg (27.0-35.0); MCHC 34.6 g/dL (32.0-36.0); MPV 7.8 fL (7.6-11.3); Monocytes % 11.7 % (3.3-12.3); Neutrophils % 46.2 % (41.7-73.7); Nucleated Red Blood Cells % 0.1 % (0-0); Platelets 191 thou/uL (152-406); RBC Red Blood Cell Count 3.23 M/uL (3.86-4.86); Red Cell Distribution Width 12.7 % (12.1-15.2)
[2024-08-12 07:15] LABS: Anion Gap 8.6 mEq/L (5.0-15.0); Magnesium 1.5 mg/dL (1.6-2.4); Phosphorus 3.2 mg/dL (2.5-4.9); Potassium 3.6 mEq/L (3.5-5.1); Thyroid Stimulating Hormone 3.07 uIU/mL (0.358-3.740); Troponin High Sensitivity 10.8 pg/mL (<58.9)
[2024-08-12] MEDS: Magnesium Sulfate 2gm IVPB 2 G/50 ML BAG IV ONE (08:50)
[2024-08-12] MEDS: ASPIRIN EC 81 MG TAB PO SCH (08:51)
[2024-08-12] MEDS: POTASSIUM CL SA 10 MEQ TAB PO ONE (08:51)
[2024-08-12] MEDS: carvediloL 25 MG TAB PO SCH (08:51)
[2024-08-12] MEDS: CLOPIDOGREL 75 MG TABLET PO SCH (08:53)
[2024-08-12] MEDS ORDERED: ASPIRIN 81 MG CHEWABLE TABLET PO SCH (09:00)
--- NOTE | 2024-08-12 20:19 | P.PN ---
Date of Service: 08/12/24 Subjective Awake, continues with chest pressure and upper back pain Stress test in the AM ROS 10 point ROS as noted above, otherwise negative Physical Exam General: Alert and Oriented x3, NAD HEENT: Atraumatic, Normocephalic, PERRLA Neck: Supple, 2+ carotid pulse no bruit Respiratory: Clear to auscultation bilaterally, Nonlabored breathing, on RA Cardiovascular: Normal pulses, Regular rate/rhythm, Normal S1 S2 Capillary refill: <2 Seconds Gastrointestinal: Normal bowel sounds, Soft and benign on palpation Vitals Reviewed Problem list Chest pain rule out CAD status post CABG Remote left sided rib fracture Hyponatremia Hyperglycemia HLD/HTN Hypothyroidism Breast cancer Lymphocytic/Collangenous colitits Assessment and Plan Chest pain rule out CAD status post CABG Remote left sided rib fracture - EKG: No obvious ST segment changes - troponin trended flat - Ordered transthoracic echocardiogram - chest x-ray "No evidence of acute cardiopulmonary disease." - CT chest reports "No evidence of pulmonary emboli to the subsegmental level. Lungs are clear. remote left-sided rib fractures." - Consult Cardiology - Plan for a heart cath in the AM - S/P aspirin 324 mg PO x 1 in ED - Start daily baby aspirin and statin - Symptom control with PRN acetaminophen, nitroglycerin, morphine -continuous telemetry -TSH/FreeT4, lipid panel WNL, A1C pending -Heart score 5, significant heart history, weight based lovenox Q12h Hyponatremia -Sodium 134, serum osmolality 269, urine osmolality 471, UR random sodium 103 -Gentle IV fluid Hyperglycemia -Serum glucose 98 -Monitor in a.m. labs -A1C pending HLD/HTN Hypothyroidism Breast cancer Lymphocytic/Collangenous colitits -Continue home medication -Follow-up outpatient DVT ppx lovenox Full code LOS inpatient for stress test Tuesday
[2024-08-12] MEDS ORDERED: ATORVASTATIN 40 MG TAB PO SCH (21:00)
[2024-08-13 05:35] VITALS: O2SAT 98
[2024-08-13 06:18] LABS: Absolute Lymphocytes (CBC) 1.8 K/uL (0.7-4.9); Absolute Monocytes 0.5 K/uL (0.1-1.3); Absolute Neutrophil 2.2 K/uL (1.8-8.0); Basophils % 0.8 % (0-1.3); Hematocrit 31.6 % (36.0-45.0); Hemoglobin 11.1 g/dL (12.0-15.0); Lymphocytes % 40.7 % (15.3-44.8); MCH 34.6 pg (27.0-35.0); MCV 98.8 fL (80-100); MPV 7.8 fL (7.6-11.3); Monocytes % 10.1 % (3.3-12.3); Neutrophils % 48.4 % (41.7-73.7); Nucleated Red Blood Cells % 0.1 % (0-0); Platelets 199 thou/uL (152-406); Red Cell Distribution Width 13.1 % (12.1-15.2)
[2024-08-13 06:36] LABS: Anion Gap 7.9 mEq/L (5.0-15.0); Phosphorus 1.9 mg/dL (2.5-4.9); Potassium 3.9 mEq/L (3.5-5.1)
[2024-08-13] MEDS ORDERED: REGADENOSON 0.4 MG/5 ML SYR IV ONE (10:13)
--- NOTE | 2024-08-13 10:29 | P.CNS ---
Date of Consult: 08/13/24 Chief Complaint: Chest pain r/o NM History of Present Illness: Patient with PMH of CAD s/p CABG x3, MOSES-LAD, SVG-OM and SVG-RPDA, presented with back pain associated with chest pain, right sided, no other cardiac symptoms. Allergies Penicillins Allergy (Verified 04/11/19 09:17) Rash Home medications list reviewed: Yes Home Medications: Amlodipine [Norvasc] 5 mg PO DAILY 08/11/24 Aspirin Chewable [Aspirin Chewable*] 1 tab PO DAILY 08/11/24 Atorvastatin Calcium 40 mg PO BEDTIME 08/11/24 Carvedilol [Coreg] 1 tab PO DAILY 08/11/24 Cholecalciferol (Vitamin D3) [Vitamin D3] 125 mcg PO DAILY 08/11/24 Clopidogrel Bisulfate [Plavix*] 1 tab PO DAILY 08/11/24 Cyanocobalamin (Vitamin B-12) [Vitamin B-12] 1,000 mcg PO DAILY 08/11/24 Lactobacillus Acidophilus [Acidophilus] 1 each PO DAILY 08/11/24 Levothyroxine Sodium 50 mcg PO SEECOM 08/11/24 Levothyroxine Sodium 75 mcg PO SEECOM 08/11/24 Losartan Potassium [Cozaar] 50 mg PO DAILY 08/11/24 Magnesium Glycinate 200 mg PO BEDTIME 08/11/24 Mesalamine 2 tab PO BID 08/11/24 Multivit-Min/Iron/Folic/Lutein [Centrum Silver Women Tablet] 1 tab PO DAILY 08/11/24 Pantoprazole [Protonix Tab*] 1 tab PO DAILY 08/11/24 Potassium Citrate [Potassium] 99 mg PO DAILY 08/11/24 Simethicone [Gas-X] 125 mg PO DAILY 08/11/24 Simethicone [Gas-X] 125 mg PO DAILY 6PM 08/11/24 Vit A,C & E/Lutein/Minerals [Ocuvite Tablet] 1 tab PO DAILY 08/11/24 Zinc Amino Acid Chelate [Zinc] 50 mg PO DAILY 08/11/24 hydroCHLOROthiazide [Hydrochlorothiazide] 25 mg PO DAILY 08/11/24 - Past Medical/Surgical History Diabetic: No -: Hypertension -: skin cancer -: Hyperlipidemia -: CAD -: Breast cancer -: Hypothyroidism -: Lymphocytic/Collangenous Colitis -: Heart murmur -: tonsilectomy -: right heel sx.,bone spur -: Three-vessel bypass - Family History Mother Medical History: Heart disease, Lung disease Father Medical History: Heart disease, Lung disease - Social History Smoking Status: Never smoker Alcohol use: Yes CD- Drugs: No Caffeine use: No Place of Residence: Home Review of Systems 10-point ROS is otherwise unremarkable Physical Examination Temp Pulse Resp BP Pulse Ox 98.4 F 58 16 140/54 L 96 08/13/24 08:00 08/13/24 08:00 08/13/24 08:00 08/13/24 08:00 08/13/24 08:00 General: Alert, In no apparent distress HEENT: Atraumatic, PERRLA, Mucous membr. moist/pink, EOMI, Sclerae nonicteric Neck: Supple, 2+ carotid pulse no bruit, No LAD, Without JVD or thyroid abnormality Respiratory: Clear to auscultation bilaterally, Normal air movement Cardiovascular: Regular rate/rhythm, Normal S1 S2 Gastrointestinal: Normal bowel sounds, No tenderness Musculoskeletal: No tenderness Integumentary: No rashes Neurological: Normal gait, Normal speech, Normal tone, Normal affect Lymphatics: No axilla or inguinal lymphadenopathy - Problems (1) CAD (coronary artery disease) of artery bypass graft Current Visit: Yes Status: Acute Plan: Patient with non specific chest pain, cardiac enzymes are negative x 3 continue ASA 81 mg daily continue Plavix 75 mg daily continue coreg and losartan primary team ordered stress test, will follow up on result. (2) Aortic regurgitation Current Visit: Yes Status: Acute Plan: moderate in nature per last echo continue to monitor as outpatient. (3) HTN (hypertension) Current Visit: Yes Status: Acute Plan: resume patient home medications.
--- NOTE | 2024-08-13 11:13 | RAD REPORT ---
EXAM: Nuclear medicine cardiac perfusion examination with ejection fraction HISTORY: Chest pain Chest pain TECHNIQUE: Rest images: 10.8 mCi technetium 99m sestamibi Stress images: 29.0 mCi of technetium 99m sestamibi COMPARISON: None. FINDINGS: Tomographic images: No fixed or reversible perfusion defects. No finding to suspect hibernating myocardium. Ejection fraction of 68%. EDV: 89 mL ESV: 29 mL LHR: 0.32 TID: 1.02 IMPRESSION: No evidence of stress induced ischemia.
[2024-08-13 11:59] VITALS: BP 159/55
[2024-08-13 12:04] VITALS: TEMP 97.6
--- NOTE | 2024-08-13 14:01 | P.DS ---
Admission Date: 08/12/24 Discharge Date: 08/13/24 Disposition: ROUTINE DISCHARGE Discharge Condition: GOOD Reason for Admission: Chest pain r/o [place] Brief History of Present Illness: Diagnosis Chest pain rule out CAD status post CABG Hypophosphatemia Remote left sided rib fracture Hyponatremia Hyperglycemia HLD/HTN Hypothyroidism Breast cancer Lymphocytic/Collangenous colitits HPI 08/11/24 Yareli Beckham is an 83 year old female with Pmhx Hyperlipidemia, Hypothyroidism, Heart Murmur, BREAST CA, Hypertensive disorder, Lymphocytic/Collangenous Colitis, CAD (CABG) who presents to the ED with Back pain that radiates to the chest with heaviness that has occurred multiple times this week. She reports her chest pain is different from 2 years ago presented as GERD and requiring a CABG. Initial vitals BP 172 / 56; Pulse 61. Laboratory evaluation sodium 129, serum osmolality 269, serum glucose 115, BNP 640. Chest x-ray report "No evidence of acute cardiopulmonary disease". Yareli will be admitted to hospitalist service for further evaluation of chest pain and hyponatremia, Dr. Enrique has been consulted. Hospital Course: Patient was admitted and treated for the following Chest pain rule out CAD status post CABG Remote left sided rib fracture - EKG: No obvious ST segment changes - troponin trended flat - transthoracic echocardiogram - chest x-ray "No evidence of acute cardiopulmonary disease." - CT chest reports "No evidence of pulmonary emboli to the subsegmental level. Lungs are clear. remote left-sided rib fractures." - Consult Cardiology - Stress test with no ischemia noted - aspirin 162 mg PO x 1 in ED - administered daily baby aspirin and statin - continuous telemetry with no significant findings - TSH/FreeT4 WNL, lipid panel WNL, A1C WNL - Heart score 5, significant heart history, weight based lovenox Q12h Hyponatremia -initial labs Sodium 129, serum osmolality 269, urine osmolality 471, UR random sodium 103 -tolaerated and responded well to IV fluid, Sodium WNL Hyperglycemia -Serum glucose normalized -A1C 5.2 HLD/HTN Hypothyroidism Breast cancer Lymphocytic/Collangenous colitits -Continue home medication -Follow-up outpatient On 08/13/24, Yareli was seen on morning rounds and deemed hemodynamically stable. Dr. Landaverde reviewed the stress test and evaluated Yareli, clearing her for discharge. Plan to follow up at Dr. Landaverde's clinic in one week and continue home medications as prescribed. Physical Exam General: Alert and Oriented x3, NAD, conversing well Neck: Supple, 2+ carotid pulse no bruit Respiratory: Clear BBS, symmetrical chest wall movement, on RA Cardiovascular: Normal pulses, NSR, Normal S1 S2 Capillary refill: <2 Seconds Gastrointestinal: Normal bowel sounds, Soft and benign on palpation Vital Signs/Physical Exam: Temp Pulse Resp BP Pulse Ox 97.6 F 60 18 159/55 H 100 08/13/24 12:00 08/13/24 12:00 08/13/24 12:00 08/13/24 12:00 08/13/24 12:00 Laboratory Data at Discharge: WBC 4.50 thou/uL (4.3-10.9) 08/13/24 06:03 Hgb 11.1 g/dL (12.0-15.0) L 08/13/24 06:03 Hct 31.6 % (36.0-45.0) L 08/13/24 06:03 Plt Count 199 thou/uL (152-406) 08/13/24 06:03 PT 12.6 SECONDS (9.4-12.5) H 08/11/24 10:42 INR 1.20 08/11/24 10:42 Sodium 138 mEq/L (136-145) 08/13/24 06:03 Potassium 3.9 mEq/L (3.5-5.1) 08/13/24 06:03 BUN 17 mg/dL (7-18) 08/13/24 06:03 Creatinine 0.72 mg/dL (0.55-1.02) 08/13/24 06:03 Glucose 94 mg/dL (74-106) 08/13/24 06:03 Phosphorus 1.9 mg/dL (2.5-4.9) L 08/13/24 06:03 Magnesium 2.0 mg/dL (1.6-2.4) 08/13/24 06:03 Total Bilirubin 0.7 mg/dL (0.2-1.0) 08/11/24 10:42 AST 19 U/L (15-37) 08/11/24 10:42 ALT 28 U/L (13-56) 08/11/24 10:42 Alkaline Phosphatase 54 U/L (45-117) 08/11/24 10:42 Triglycerides 111 mg/dL (<150) 08/12/24 06:32 Cholesterol 112 mg/dL (<200) 08/12/24 06:32 HDL Cholesterol 30 mg/dL (40-60) L 08/12/24 06:32 Cholesterol/HDL Ratio 3.73 08/12/24 06:32 Home Medications: Amlodipine [Norvasc*] 5 mg PO DAILY 08/11/24 Aspirin Chewable [Aspirin Chewable*] 1 tab PO DAILY 08/11/24 Atorvastatin Calcium 40 mg PO BEDTIME 08/11/24 Carvedilol [Coreg] 1 tab PO DAILY 08/11/24 Cholecalciferol (Vitamin D3) [Vitamin D3] 125 mcg PO DAILY 08/11/24 Clopidogrel Bisulfate [Plavix*] 1 tab PO DAILY 08/11/24 Cyanocobalamin (Vitamin B-12) [Vitamin B-12] 1,000 mcg PO DAILY 08/11/24 Lactobacillus Acidophilus [Acidophilus] 1 each PO DAILY 08/11/24 Levothyroxine Sodium 50 mcg PO SEECOM 08/11/24 Levothyroxine Sodium 75 mcg PO SEECOM 08/11/24 Losartan Potassium [Cozaar*] 50 mg PO DAILY 08/11/24 Magnesium Glycinate 200 mg PO BEDTIME 08/11/24 Mesalamine 2 tab PO BID 08/11/24 Multivit-Min/Iron/Folic/Lutein [Centrum Silver Women Tablet] 1 tab PO DAILY 08/11/24 Pantoprazole [Protonix Tab*] 1 tab PO DAILY 08/11/24 Potassium Citrate [Potassium] 99 mg PO DAILY 08/11/24 Simethicone [Gas-X] 125 mg PO DAILY 08/11/24 Simethicone [Gas-X] 125 mg PO DAILY 6PM 08/11/24 Vit A,C & E/Lutein/Minerals [Ocuvite Tablet] 1 tab PO DAILY 08/11/24 Zinc Amino Acid Chelate [Zinc] 50 mg PO DAILY 08/11/24 hydroCHLOROthiazide [Hydrochlorothiazide] 25 mg PO DAILY 08/11/24 Physician Discharge Instructions: 1. Please call and schedule a follow-up appointment with your PCP in 3-5 days - Please follow-up with your PCP for medication refills/adjustments 2. Please call and schedule a follow-up appointment with Dr. Enrique in one week -Stress test negative for ischemia -Resume all medications and refills will be provided by Dr. Enrique's office 3. Continue heart heathy diet 4. No activity restrictions 5. Return to the ED if symptoms worsen Diet: AHA Activity: Ad maria eugenia Followup: NONE,NONE [Primary Care Provider] -
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
[2024-08-13] MEDS: POTASS/SODIUM PHOSPHATE 1 PKT POWD.PACK PO ONE (14:15)
--- NOTE | 2024-08-14 12:51 | EKG ---
Test Date: 2024-08-11 Test Time: 10:32:17 Parking Lot Manager: TOR MEASUREMENT RESULTS: Intervals: Rate: 61 IA: 184 QRSD: 86 QT: 428 QTc: 430 George: P: 48 IA: 184 QRS: 56 T: 12 INTERPRETIVE STATEMENTS: Normal sinus rhythm Septal infarct, age undetermined Abnormal ECG Compared to ECG 11/04/2023 15:54:50 No significant changes Electronically Signed On 08-14-24 12:45:03 PHARMACEUTICAL PROCESS ENGINEER by Ulises Landaverde
== END 2024-08-13 14:57 | disposition home or self-care (01) | DRG 641 ==
LOC: ER 10:21 → ERHOLD 12:10 → 4TH 13:42 → OBSVTOIN 08-12 17:00
PROVIDERS: ADMIT Internal Medicine; ATTEND Internal Medicine
DX: E87.1 Hypo-osmolality and hyponatremia (principal); E78.5 Hyperlipidemia, unspecified; E03.9 Hypothyroidism, unspecified; I10 Essential (primary) hypertension; K52.831 Collagenous colitis; K52.832 Lymphocytic colitis; K21.9 Gastro-esophageal reflux disease without esophagitis; I35.1 Nonrheumatic aortic (valve) insufficiency; E83.39 Other disorders of phosphorus metabolism; I25.10 Atherosclerotic heart disease of native coronary artery without angina pectoris; S22.32XG Fracture of one rib, left side, subsequent encounter for fracture with delayed healing; R73.9 Hyperglycemia, unspecified; R07.9 Chest pain, unspecified; Z88.0 Allergy status to penicillin; Z88.1 Allergy status to other antibiotic agents; Z85.3 Personal history of malignant neoplasm of breast; Z95.1 Presence of aortocoronary bypass graft; Z79.82 Long term (current) use of aspirin; Z79.02 Long term (current) use of antithrombotics/antiplatelets; Z79.890 Hormone replacement therapy; Z79.899 Other long term (current) drug therapy; Z85.828 Personal history of other malignant neoplasm of skin
CPT/HCPCS: 36415; 71045; 71275; 78452; 80048; 80061; 80076; 83036; 83735; 83880; 83930; 83935; 84100; 84300; 84439; 84443; 84484; 85025; 85610; 93005; 93017; 99285; A9500; G0378; J1650; J2785; J3475; J7030; Q9967